=== PATIENT | female | born 1940 | race Caucasian/White ===

== ENCOUNTER → 2016-12-11 | Outpatient (CLI) | payer MEDICARE ==
[2016-12-11 12:05] LABS: Blood Urea Nitrogen 7 mg/dL (7-17); Non-African American GFR(MDRD) >60 (>60 ml/min/1.73 sqM)
--- NOTE | 2016-12-11 17:09 | CT ---
EXAMINATION TYPE: CT abdomen pelvis w con DATE OF EXAM: 12/11/2016 COMPARISON: NONE INDICATION: Abdominal pain, unspecified DLP: 352.10 mGycm, Automated exposure control for dose reduction was used. CONTRAST: 100 ml mL of Omnipaque 300. Study performed with Oral Contrast TECHNIQUE: Axial images were obtained from above the diaphragm to the pubic rami in the axial plane a t 5 mm thick sections. Reconstructed images are reviewed on the computer in the coronal plane. FINDINGS: Limited CT sections are obtained the lung bases. The lung bases are clear. CT ABDOMEN: Liver: Normal Spleen: Normal Pancreas: Slightly atrophic. Common bile duct is dilated above the head of the pancreas measuring 1.5 cm. Adrenal glands: The adrenal glands are normal. Gallbladder: Normal Kidneys: No masses are evident. No hydronephrosis is present. No cysts are present. Delayed images were obtained through the kidneys, which remain unremarkable. Aorta: Vascular calcification is within the aorta. Inferior vena cava: Normal. CT PELVIS: Loops of bowel within the abdomen and pelvis are normal. There are loops of bowel which are incom pletely distended or lack oral contrast limiting their evaluation. Diverticuli are within the sigmoid colon region. Fecal debris is at the level the rectum. Appendix: Not identified Urinary bladder: Normal. Genitourinary structures: Uterus and adnexal regions are unremarkable Osseous structures: No suspicious lytic or sclerotic lesions. IMPRESSIONS: 1. Prominent common bile duct measuring 1.5 cm above the head of the pancreas. Consider ERCP for add itional evaluation.
== END | disposition home or self-care (01) ==
LOC: RADCTMAIN 11:24
PROVIDERS: ATTEND Surgery
DX: R10.9 Unspecified abdominal pain (principal)
CPT/HCPCS: 82565; 84520; 74177; 36415; Q9967

== ENCOUNTER → 2017-01-07 | Outpatient (CLI) | payer MEDICARE ==
--- NOTE | 2017-01-07 10:35 | US ---
EXAMINATION TYPE: US abdomen limited DATE OF EXAM: 01/07/2017 COMPARISON: NONE CLINICAL HISTORY: 76-year-old female R93.[address] Dilated bile duct on CT. No symptoms per lea ent, did have previous bowel changes. TECHNIQUE: Multiple sonographic images of the right upper quadrant are obtained. FINDINGS: Liver Length: 15.0 cm Gallbladder Wall: 0.1 cm CBD: 1.2 cm Right Kidney: 9.9 x 4.2 x 4.1 cm Pancreas: wnl Liver: Intrahepatic biliary ductal dilatation seen on CT is not as well demonstrated by ultrasound. Gallbladder: Prominent fold at the gallbladder neck area. No abnormal distention, wall thickening, s hadowing calculi, or pericholecystic fluid. Evidence for sonographic Boswell's sign: no CBD: dilated with no obvious stone or mass seen near pancreatic head. The distal most duct is subopt imally visualized. Right Kidney: No hydronephrosis IMPRESSION: Bile duct dilated up to 1.2 cm. Intrahepatic biliary ductal dilatation was better seen on the patient 's recent CT. Correlate with alkaline phosphatase and bilirubin levels. ERCP or contrast enhanced MRI /MRCP to further evaluate as clinically indicated.
== END | disposition home or self-care (01) ==
LOC: RADUSWWP 06:57
PROVIDERS: ATTEND Surgery
DX: K83.8 Other specified diseases of biliary tract (principal); R68.89 Other general symptoms and signs
CPT/HCPCS: 76705

== ENCOUNTER → 2017-01-29 | Outpatient (CLI) | payer MEDICARE ==
--- NOTE | 2017-01-29 12:03 | MR ---
EXAMINATION TYPE: MR MRCP DATE OF EXAM: 01/29/2017 COMPARISON: CT abdomen and pelvis December 11, 2016. Limited abdominal ultrasound January 07, 2017 HISTORY: dilated common bile duct Standard multiplanar, multisequence MRI departmental protocol Multiplanar, multisequence images of the abdomen focusing on the biliary system were acquired. Diffus ion weighted imaging was performed. Thin and thick slice MRCP imaging is acquired. FINDINGS: LIVER/GB/PANCREAS/BILIARY SYSTEM: Liver is overall normal in size without worrisome solid or cystic m ass. Slightly prominent right hepatic lobe which is normal variant is redemonstrated. Gallbladder is felt within normal limits without intraluminal gallstones or suspicious wall thickening. Pancreas is normal in size without suspicious mass or pancreatic duct is visualized to the tail but measures unde r 3 mm in its entire course. Correlating with CT and ultrasound there is mild central intrahepatic and extrahepatic biliary dilata tion. Common hepatic and common bile ducts near teddy hepatis measure up to 13 mm in diameter. There is good visualization to the ampulla without CBD stone or other obstructing mass identified. OTHER: Lung bases are clear without pleural or pericardial effusion. The spleen and both adrenal glan ds are normal in size. There is no worrisome renal mass or hydronephrosis seen bilaterally. There is no suspicious small or large bowel dilatation. There is no concerning abdominal fluid collection. The re is no greater than 1 cm abdominal adenopathy. IMPRESSION: Mild central intrahepatic and extra hepatic biliary dilatation without obvious obstructin g stone or mass identified. Perhaps this reflects normal variant, ampullary mass is not entirely excl uded without direct visualization or ERCP correlation.
== END | disposition home or self-care (01) ==
LOC: RADMRIMAIN 10:39
PROVIDERS: ATTEND Surgery
DX: K83.8 Other specified diseases of biliary tract (principal)
CPT/HCPCS: 74181

== ENCOUNTER → 2017-04-24 | Outpatient (CLI) | payer MEDICARE ==
[2017-04-24 12:29] LABS: Bilirubin, Delta 0.2 mg/dL (0.0-0.2); Total Bilirubin 0.8 mg/dL (0.2-1.3)
== END | disposition home or self-care (01) ==
LOC: LABWHC1 11:15
DX: R93.8 Abnormal findings on diagnostic imaging of other specified body structures (principal)
CPT/HCPCS: 36415; 80076; 82150; 83690; 86301

== ENCOUNTER → 2017-08-06 | Outpatient (CLI) | payer MEDICARE ==
--- NOTE | 2017-08-06 07:58 | MR ---
EXAMINATION TYPE: MR brain wo con DATE OF EXAM: 08/06/2017 COMPARISON: CT brain July 26, 2015. HISTORY: New daily persistent headache (NDPH) per order. Severe new left-sided headaches with right-s ided hearing loss per patient. TECHNIQUE: Multiplanar, multisequence imaging of the brain and brainstem is performed without IV cont rast. FINDINGS: Diffusion weighted images demonstrate no evidence of a recent infarct or other diffusion abnormality. There is no worrisome extra-axial fluid collection. There is ventricular and sulcal prominence consis tent with mild diffuse cerebral atrophy. There is more prominent focal and confluent areas of T2 hype rintensity seen throughout the white matter bilaterally most prominent in deep and periventricular re gions. Lesions are nonspecific, but most likely on basis of product of severe chronic small vessel is chemic change. No obvious change from prior CT. Midline structures demonstrate normal morphology. The craniocervical junction appears within normal limits. Normal vascular flow voids are present. The visualized sinuses are clear and the globes are i ntact. IMPRESSION: 1. Redemonstration of mild diffuse age-related cerebral atrophy and severe nonspecific white matter changes most likely on basis of product of chronic small vessel ischemic change.
== END | disposition home or self-care (01) ==
LOC: RADMRIMAIN 07:17
PROVIDERS: ATTEND Internal Medicine
DX: G31.1 Senile degeneration of brain, not elsewhere classified (principal); R51 Headache
CPT/HCPCS: 70551

== ENCOUNTER → 2017-08-18 | Outpatient (CLI) | payer MEDICARE ==
--- NOTE | 2017-08-20 07:36 | MM ---
Reason for exam: screening (asymptomatic). Last mammogram was performed 1 year and 2 months ago. History: Patient is postmenopausal. Physical Findings: A clinical breast exam by your physician is recommended on an annual basis and results should be correlated with mammographic findings. MG 3D Screening Mammo W/Cad Bilateral CC and MLO view(s) were taken. Prior study comparison: June 25, 2016, bilateral MG 3d screening mammo w/cad. October 05, 2014, bilateral MG screening mammo w CAD. The breast tissue is heterogeneously dense. This may lower the sensitivity of mammography. No significant changes when compared with prior studies. ASSESSMENT: Negative, BI-RAD 1 RECOMMENDATION: Routine screening mammogram of both breasts in 1 year.
== END | disposition home or self-care (01) ==
LOC: RADMAMWWP 10:48
PROVIDERS: ATTEND Internal Medicine
DX: Z12.31 Encounter for screening mammogram for malignant neoplasm of breast (principal)
CPT/HCPCS: 77063; 77067

== ENCOUNTER → 2017-10-02 | Outpatient (CLI) | payer MEDICARE ==
--- NOTE | 2017-10-02 09:09 | MR ---
EXAMINATION TYPE: MR angio head wo con DATE OF EXAM: 10/02/2017 COMPARISON: 08/06/2017 HISTORY: Cerebral aneurysm, nonruptured TECHNIQUE: Utilizing 3-D [id number] intracranial MRA of the [place] of [place] was performed. FINDINGS: The vertebrobasilar and carotid systems are patent. There is 2 mm nodular prominence of the cavernou s segment of the right ICA compatible with a tiny aneurysm. IMPRESSION: 1. There is a 1 to 2 mm aneurysm cavernous segment right ICA.
== END | disposition home or self-care (01) ==
LOC: RADMRIMAIN 08:19
PROVIDERS: ATTEND Psychiatry & Neurology Neurology
DX: I67.1 Cerebral aneurysm, nonruptured (principal)
CPT/HCPCS: 70544

== ENCOUNTER → 2018-06-30 | Outpatient (CLI) | payer MEDICARE ==
[2018-06-30 14:26] LABS: Blood Urea Nitrogen 10 mg/dL (7-17)
--- NOTE | 2018-06-30 22:53 | CT ---
EXAMINATION TYPE: CT soft tissue neck w con DATE OF EXAM: 06/30/2018 COMPARISON: None HISTORY: 78-year-old female swelling, mass, lump along the neck. Left-sided facial and ear pain. TECHNIQUE: Contiguous axial scanning of the soft tissues of the neck performed with IV Contrast, lea ent injected with 100 mL of Isovue 300. Coronal/sagittal sagittal reconstructions performed. CT DLP: 305 mGycm Automated exposure control for dose reduction was used. FINDINGS: Visualized intracranial structures show no gross abnormality. Air-fluid level in the right greater th an left sphenoid sinuses as well as the bilateral maxillary sinuses with severe mucosal thickening in the ethmoid air cells. Visualized orbits and globes are intact . Small amount of trapped fluid in th e inferior left mastoid air cells. Mild retained secretions/debris along the posterior nasopharynx. Oropharynx appear clear. Epiglottis and prevertebral soft tissues are normal. Some asymmetry with smaller right piriform sinus suspected to be on a positional basis. No enhancing mucosal space lesion is seen. The glottic and subglottic structures as well as the tracheal column are clear. There is enhancing nodularity along the anterior midline strap musculature measuring 9 mm above the l evel of the thyroid gland suggestive of ectopic thyroid tissue. Heterogeneity of the thyroid gland. The thyroid gland measuring at the upper limits of normal in size . 9 mm nodule posterior lower pole of the right lobe. Submandibular and parotid glands appear satisfactory. 3 mm calcification along the anterior margin of the left parotid gland could represent a nonobstructing sialolith. Scattered prominent but nonenlarged lymph nodes along the upper neck measuring up to 1 cm on the righ t, axial image 20 and sagittal image 17 and 1 cm also on the left, axial and 26 and coronal image 26. Atherosclerotic calcifications at the left carotid bifurcation with possible moderate to severe steno sis at the carotid bulb. Biapical pleural parenchymal scarring though with more focal irregular opacity measuring 1.6 cm the m edial left upper lobe on axial image 57. 2 to three-week follow-up CT chest recommended to reassess t his area. Neoplasm is not excluded at this time. Mild emphysematous change. Bones: Cervical spondylosis. IMPRESSION: 1. SMALL AMOUNT OF TRAPPED FLUID IN THE INFERIOR LEFT MASTOID AIR CELLS. CORRELATE FOR ANY MASTOID PA IN TO EXCLUDE MASTOIDITIS. 2. A 3 MM CALCIFICATION ALONG THE ANTERIOR MARGIN OF THE LEFT PAROTID GLAND COULD REPRESENT A NONOBST RUCTING SIALOLITH. 3. A 9 MM ENHANCING NODULE ALONG THE ANTERIOR MIDLINE STRAP MUSCULATURE ABOVE THE LEVEL OF THE THYROI D GLAND SUGGESTIVE OF ECTOPIC THYROID TISSUE. UNDERLYING THYROID NODULES ARE SUGGESTED AND A THYROID ULTRASOUND CAN FURTHER EVALUATE. 4. SOME PROMINENT BUT NOT ENLARGED UPPER CERVICAL LYMPH NODES MEASURING UP TO 1 CM. 5. BIAPICAL PLEURAL PARENCHYMAL SCARRING WITH UNDERLYING COPD AND A 1.6 CM IRREGULAR OPACITY AT THE M EDIAL LEFT UPPER LOBE. 2-3 WEEK FOLLOW-UP CONTRAST ENHANCED CT CHEST RECOMMENDED TO REASSESS. EARLY N EOPLASM NOT EXCLUDED AT THIS TIME. 6. ATHEROSCLEROTIC CALCIFICATIONS AT THE LEFT CAROTID BIFURCATION WITH POSSIBLE MODERATE TO SEVERE ST ENOSIS AT THE LEFT CAROTID BULB. 7. ACUTE ON CHRONIC PANSINUSITIS.
== END | disposition home or self-care (01) ==
LOC: RADCTMAIN 13:49
PROVIDERS: ATTEND Otolaryngology
DX: E04.1 Nontoxic single thyroid nodule (principal); K11.8 Other diseases of salivary glands
CPT/HCPCS: 82565; 84520; 70491; 36415; Q9967

== ENCOUNTER → 2018-07-20 | Outpatient (CLI) | payer MEDICARE ==
--- NOTE | 2018-07-20 09:28 | US ---
EXAMINATION TYPE: US abdomen complete DATE OF EXAM: 07/20/2018 COMPARISON: CT abdomen and pelvis December 11, 2016 CLINICAL HISTORY: R19.7 Diarrhea. Diarrhea, follow up dilated CBD EXAM MEASUREMENTS: Liver Length: 16.7 cm Gallbladder Wall: 0.1 cm CBD: 0.9 cm Spleen: cm Right Kidney: 9.8 x 4.3 x 4.1 cm Left Kidney: 9.2 x 4.8 x 4.4 cm Pancreas: visualized portions wnl, limited by overlying midline bowel gas Liver: wnl Gallbladder: wnl Evidence for sonographic Boswell's sign: no CBD: dilated Spleen: obscured by overlying bowel gas Right Kidney: wnl Left Kidney: wnl Upper IVC: wnl Abd Aorta: atherosclerotic changes The visualized liver is homogenous. Prominent right hepatic lobe redemonstrated. The intrahepatic por tion of the IVC is within normal limits. There is atherosclerotic change in visualized aorta without aneurysmal change. There is no evidence of cholelithiasis. Common bile duct remains mild to moderat leslie dilated but not significantly changed from CT. The visualized portions of the pancreas are homog enous. The spleen is obscured by overlying bowel gas per technologist. Kidneys are symmetric and fr ee of hydronephrosis. No renal lesions are seen on images saved. IMPRESSION: Suboptimal study, there is mild to moderate extrahepatic biliary dilatation redemonstrate d without significant interval change. Negative MRCP noted January 29, 2017.
== END | disposition home or self-care (01) ==
LOC: RADUSWWP 08:18
DX: K83.8 Other specified diseases of biliary tract (principal)
CPT/HCPCS: 76700

== ENCOUNTER → 2018-07-28 | Outpatient (CLI) | payer MEDICARE ==
[2018-07-28 09:17] LABS: Basophils % (A) 1 %; Eosinophils # (A) 0.2 k/uL (0-0.7); Eosinophils % (A) 3 %; HCT 40.1 % (34.0-46.0); HGB 13.3 gm/dL (11.4-16.0); Lymphocytes # (A) 1.8 k/uL (1.0-4.8); Lymphocytes % (A) 29 %; MCH 32.5 pg (25.0-35.0); MCHC 33.1 g/dL (31.0-37.0); MCV 98.1 fL (80.0-100.0); Mean Platelet Volume 8.4; Monocytes # (A) 0.4 k/uL (0-1.0); Monocytes % (A) 6 %; Neutrophils # (A) 3.7 k/uL (1.3-7.7); Neutrophils % (A) 60 %; Platelet Count 219 k/uL (150-450); RBC 4.08 m/uL (3.80-5.40); WBC 6.2 k/uL (3.8-10.6)
[2018-07-28 16:33] LABS: Alpha Fetoprotein, Tumor Mkr 12.6 ng/mL (0.0-7.9)
[2018-07-28 16:34] LABS: Vitamin D 25 Hydroxy 41.8 ng/mL (30.0-100.0)
[2018-07-28 16:40] LABS: Anion Gap 6.2 mmol/L (4.00-12.00); Calcium 9.5 mg/dL (8.7-10.3); Carbon Dioxide 27.8 mmol/L (21.6-31.8); LDL Cholesterol,Calculated 85.2 mg/dL (0.0-131.0); Potassium 4.4 mmol/L (3.5-5.5); Total Bilirubin 0.6 mg/dL (0.3-1.2); VLDL Calculation 17.8 mg/dL (5.00-40.00)
[2018-07-28 17:03] LABS: Cancer Antigen 19-9 7.9 U/mL (0.0-34.9)
== END | disposition home or self-care (01) ==
LOC: LABWHC1 08:39
DX: K83.9 Disease of biliary tract, unspecified (principal); K52.9 Noninfective gastroenteritis and colitis, unspecified; E55.9 Vitamin D deficiency, unspecified; I10 Essential (primary) hypertension; R53.83 Other fatigue
CPT/HCPCS: 36415; 80053; 80061; 82105; 82150; 82306; 83690; 84443; 85025; 86301

== ENCOUNTER → 2018-08-03 | Outpatient (CLI) | payer MEDICARE ==
[2018-08-03 09:10] LABS: Blood Urea Nitrogen 8 mg/dL (7-17)
--- NOTE | 2018-08-03 11:31 | CT ---
EXAMINATION TYPE: CT chest w con DATE OF EXAM: 08/03/2018 COMPARISON: CT chest August 23, 2011. Recent two-view chest x-ray July 22, 2018. CT neck June 30, 2018. HISTORY: Follow up scan per patient. Abnormal chest x-ray and/or CT. CT DLP: 112 mGycm. Automated Exposure Control for Dose Reduction was Utilized. TECHNIQUE: CT scan of the thorax is performed following with IV Contrast, patient injected with 100 mL of Isovue 300. FINDINGS: LUNGS: Mild to moderate underlying emphysematous change most prominent lung apices is identified. The re is stable 6 x 4 mm subpleural nodule or nodular density lateral right lower lobe axial image 42. T here is new spiculated 1.3 x 1.0 cm nodule in the medial left upper lobe axial image 8 less well seen on recent chest x-ray. There is mild to moderate biapical pleural/parenchymal scarring redemonstrate d superior to this. No pleural effusion or pneumothorax is evident bilaterally. No suspicious consoli dation is present. MEDIASTINUM: There are no greater than 1 cm hilar or mediastinal lymph nodes. No cardiomegaly or pe ricardial effusion is seen. Coronary artery calcification is redemonstrated which is noted marker for coronary artery disease. There is new but subcentimeter low dense posterior lower pole right thyroid nodule coronal image 33. There is moderate to severe mixed plaque in the aorta extending into branch vessels. OTHER: There is mild left intrahepatic and central extra hepatic biliary dilatation not significantly changed from prior. Osseous structures are demineralized. IMPRESSION: Mild to moderate underlying emphysematous change with persistence of suspicious spiculate d 1.3 x 1.0 cm medial left upper lobe nodule worrisome for neoplasm. Advise PET CT follow-up.
== END | disposition home or self-care (01) ==
LOC: RADCTMAIN 08:28
PROVIDERS: ATTEND Internal Medicine
DX: J43.9 Emphysema, unspecified (principal); R91.8 Other nonspecific abnormal finding of lung field
CPT/HCPCS: 82565; 84520; 71260; 36415; Q9967

== ENCOUNTER → 2018-09-29 | Outpatient (CLI) | payer MEDICARE ==
--- NOTE | 2018-09-30 11:53 | MM ---
Reason for exam: screening (asymptomatic). Last mammogram was performed 1 year and 1 month ago. History: Patient is postmenopausal. Physical Findings: A clinical breast exam by your physician is recommended on an annual basis and results should be correlated with mammographic findings. MG 3D Screening Mammo W/Cad Bilateral CC, MLO, and XCCL view(s) were taken. Prior study comparison: August 18, 2017, bilateral MG 3d screening mammo w/cad. June 25, 2016, bilateral MG 3d screening mammo w/cad. The breast tissue is heterogeneously dense. This may lower the sensitivity of mammography. There are benign appearing round regional calcifications bilaterally. There is no discrete abnormality. ASSESSMENT: Benign, BI-RAD 2 RECOMMENDATION: Routine screening mammogram of both breasts in 1 year.
== END | disposition home or self-care (01) ==
LOC: RADMAMWWP 07:59
PROVIDERS: ATTEND Internal Medicine
DX: Z12.31 Encounter for screening mammogram for malignant neoplasm of breast (principal)
CPT/HCPCS: 77063; 77067

== ENCOUNTER → 2018-11-03 | Outpatient (CLI) | payer MEDICARE ==
[2018-11-03 09:23] LABS: Blood Urea Nitrogen 11 mg/dL (7-17)
--- NOTE | 2018-11-03 11:02 | CT ---
EXAMINATION TYPE: CT chest w con DATE OF EXAM: 11/03/2018 COMPARISON: 08/03/2018 and 08/23/2011 HISTORY: 78-year-old female abnormal findings lung zhou. TECHNIQUE: Contiguous axial scanning of the chest after the administration of 100 ml mL of Isovue 300 . Coronal/sagittal reconstructions performed. CT DLP: 100.50mGycm. Automatic exposure control utilized for a dose reduction. FINDINGS: Heart normal size without pericardial effusion. Dense coronary vessel calcifications are present. Conventional arch was a branching anatomy with mild atherosclerotic arch calcifications. Some scattered prominent but nonenlarged mediastinal lymph nodes measure up to 8 mm. Biapical pleural parenchymal scarring redemonstrated with mild centrilobular emphysema. Irregular left apical nodule is redemonstrated, currently measuring 1.7 x 1.1 x 2.1 cm versus 1.6 x 1 .1 x 2.1 cm, previously. It is noted to be new from the 08/23/2011 exam. Stable dilatation of the bile duct likely chronic in this patient. Bones: Moderate degenerative disc disease redemonstrated especially in the mid to lower thoracic spin e. IMPRESSION: 1. COPD with mild emphysema. 2. The 2.1 x 1.7 x 1.1 cm irregular left apical nodule measured 2.1 x 1.6 x 1.1 cm 3 months ago. Desp ite the relative stability in size, it remains suspicious especially given that it is new from 2011. Continued close surveillance recommended as early lung cancer remains to be excluded.
== END | disposition home or self-care (01) ==
LOC: RADCTMAIN 08:39
PROVIDERS: ATTEND Internal Medicine
DX: J43.9 Emphysema, unspecified (principal); R91.1 Solitary pulmonary nodule
CPT/HCPCS: 82565; 84520; 71260; 36415; Q9967

== ENCOUNTER → 2018-11-24 | Outpatient (CLI) | payer MEDICARE ==
--- NOTE | 2018-11-24 12:29 | MR ---
EXAMINATION TYPE: MR angio head wo con DATE OF EXAM: 11/24/2018 COMPARISON: Prior MRA 10/02/2017 HISTORY: F/U known cerebral aneurysm TECHNIQUE: Time of flight images focusing on the [place] of [place] were performed without contrast. FINDINGS: Anterior posterior circulation are patent. There is no evident dissection or embolus. The p rominence along the medial aspect of the internal carotid artery on the right described at its cavern ous portion on previous exam shows a stable appearance. IMPRESSION: Stable exam.
== END ==
LOC: RADMRIMAIN 10:17
PROVIDERS: ATTEND Psychiatry & Neurology Neurology
DX: I67.1 Cerebral aneurysm, nonruptured (principal)
CPT/HCPCS: 70544

== ENCOUNTER → 2018-12-30 | Outpatient (CLI) | payer MEDICARE ==
--- NOTE | 2018-12-30 08:26 | US ---
EXAMINATION TYPE: US thyroid st tissue head/neck DATE OF EXAM: 12/30/2018 COMPARISON: NONE CLINICAL HISTORY: E04.1 thyroid nodule. GLAND SIZE: Right Lobe: 4.5 x 1.8 x 1.6 cm Overall Parenchyma: heterogenous Left Lobe: 4.9 x 1.9 x 1.7 cm Overall Parenchyma: heterogeneous Isthmus Thickness: 0.2 cm NODULES RIGHT: # of nodules measured on right: 3 1. 0.8 X 0.6 x 0.7 cm hypoechoic solid nodule at the mid pole with well-defined margins; . This no dule is wider than tall and shows intranodular vascularity. Prior size: No previous 2. 0.5 X 0.4 x 0.4 cm hypoechoic mixed nodule at the mid pole with well-defined margins; . This nod ule is wider than tall and shows intranodular vascularity. Prior size: No previous 3. 0.6 X 0.4 x 0.5 cm hypoechoic mixed nodule at the upper pole with well-defined margins; . This n odule is wider than tall and shows intranodular vascularity. Prior size: No previous LEFT: # of nodules measured on left: 3 1. 0.9 X 0.6 x 0.7 cm hypoechoic solid nodule at the mid pole with well-defined margins; . This no dule is wider than tall and shows intranodular vascularity. Prior size: No previous 2. 0.5 x 0.5 x 0.6 cm hypoechoic solid nodule at the lower pole with well-defined margins; . This no dule is wider than tall and shows intranodular vascularity. Prior size: x x cm 3. 0.7 X 0.6 x 0.7 cm hypoechoic solid nodule at the mid pole with well-defined margins; . This nod ule is wider than tall and shows intranodular vascularity. Prior size: No previous ISTHMUS: # of nodules measured in the isthmus: 0 Bilateral neck scanned, no evidence of lymphadenopathy. Bilateral heterogeneous thyroid gland with innumerable subcentimeter thyroid nodules visualized bilat erally. IMPRESSION: Bilateral heterogeneous tissue with multiple subcentimeter thyroid nodules bilaterally. Correlate for thyroiditis. There are no 1 cm or greater thyroid nodules.
== END | disposition home or self-care (01) ==
LOC: RADUSWWP 06:53
PROVIDERS: ATTEND Otolaryngology
DX: E04.2 Nontoxic multinodular goiter (principal)
CPT/HCPCS: 76536

== ENCOUNTER → 2019-02-09 | Outpatient (CLI) | payer MEDICARE ==
[2019-02-09 15:38] LABS: African American GFR (CKD) >90 (>60 ml/min/1.73 sqM); Blood Urea Nitrogen 13 mg/dL (7-17)
--- NOTE | 2019-02-09 17:13 | CT ---
EXAMINATION TYPE: CT chest w con DATE OF EXAM: 02/09/2019 COMPARISON: Prior chest CT dated 11/03/2018 HISTORY: pulmonary nodule follow up CT DLP: 269 mGycm Automated exposure control for dose reduction was used. CONTRAST: CT scan of the chest is performed with IV Contrast, patient injected with 100 mL of Isovue 300. FINDINGS: LUNGS: The lungs show a similar appearance. The nodular density shows a lobulated appearance in the l eft upper lobe and measures approximately 16 mm x 11 mm x 23 mm, there is pleural extension, abnormal soft tissue at the left apex. There are spiculated margins. There is no pleural effusion or pneumoth orax seen. The tracheobronchial tree is patent. MEDIASTINUM: There are no greater than 1 cm hilar or mediastinal lymph nodes. No pericardial effusi on is seen. There are dense coronary artery calcifications present. AORTA: No additional significant abnormality is seen. OTHER: No additional significant abnormality is seen. IMPRESSION: Stable exam. Nuclear medicine PET/CT May BE of benefit. Coronary artery disease.
== END | disposition home or self-care (01) ==
LOC: RADCTMAIN 14:49
PROVIDERS: ATTEND Internal Medicine
DX: I25.10 Atherosclerotic heart disease of native coronary artery without angina pectoris (principal)
CPT/HCPCS: 36415; 71260; 82565; 84520

== ENCOUNTER → 2019-02-26 | Outpatient (CLI) | payer MEDICARE ==
--- NOTE | 2019-03-01 14:38 | PE ---
Nuclear medicine PET/CT HISTORY: Solitary pulmonary nodule, initial Patient received 12.1 mCi F-18 FDG intravenously in delayed scanning was performed from the skull bas e to the mid thighs. Localization and attenuation correction CT scan was performed. Correlation CT chest 02/09/2019, 11/03/2018 and 08/03/2018 Neck and chest: The apical nodule and left shows associated hypermetabolic uptake. SUV is 5.7. There is no supraclavicular, mediastinal, axillary, or hilar adenopathy. No pleural pericardial effusion. T here are coronary artery calcifications present. ABDOMEN: No evident liver mass or adrenal lesion. No suspicious hypermetabolic uptake. No retroperito sayda adenopathy. Osseous structures show degenerative disc change and facet arthropathy in the lumbar spine. No suspic ious hypermetabolic uptake. IMPRESSION: There is hypermetabolic uptake associated patient's left upper lobe lung nodule. Addition al findings above.
== END | disposition home or self-care (01) ==
LOC: RADPETMAIN 15:55
PROVIDERS: ATTEND Internal Medicine
DX: R91.1 Solitary pulmonary nodule (principal)
CPT/HCPCS: 78815; A9552

== ENCOUNTER 2019-05-05 22:21 | Inpatient (IN) | payer MEDICARE ==
[2019-05-05] MEDS ORDERED: SODIUM CHLORIDE 0.9% 1,000 ML IV STA ×2 (22:35→23:30)
[2019-05-05] MEDS ORDERED: ACETAMINOPHEN TAB 500 MG TAB PO STA (22:35)
[2019-05-05] MEDS ORDERED: IBUPROFEN 600 MG TAB PO STA (22:35)
[2019-05-05] MEDS ORDERED: LABETALOL 5 MG/ML VIAL MDV IVP STA (22:41)
--- NOTE | 2019-05-05 22:55 | ED ---
Altered Mental Status HPI - General Chief Complaint: Altered Mental Status Stated Complaint: confusion/memory problems Time Seen by Provider: 05/05/19 22:28 Source: patient, family, RN notes reviewed, old records reviewed Mode of arrival: wheelchair Limitations: altered mental status - History of Present Illness Initial Comments: This is a 79-year-old female she presents today for evaluation regards to fever and altered mental status with history of dementia. Family states she has not been acting herself and 1 over house for a few days she was not doing her normal activities. Recent history of UTI complicated by C. diff infection along hospitalization. Patient's been home by her self for 2 days was doing okay yesterday and worse today. Family did notice fever as the day wore on with increasing weakness and decreased level responsiveness. Patient has been without complaint MD Complaint: confusion, decreased responsiveness, weakness, other (fever) -: days(s) Severity: moderate Consistency of Symptoms: getting worse Context: history of similar presentation, recent fever Associated Symptoms: weakness - Related Data Home Medications Medication Instructions Recorded Confirmed amLODIPine BESYLATE [Norvasc] 5 mg PO HS 11/28/13 05/05/19 Multivitamins, Thera [Multivitamin 1 tab PO DAILY 11/30/13 05/05/19 (formulary)] Aspirin EC [Ecotrin Low Dose] 162 mg PO DAILY 10/17/16 05/05/19 Calcium Carbonate/Vitamin D3 1 tab PO DAILY 10/17/16 05/05/19 [Caltrate 600 Plus D3 Tablet] Cyanocobalamin (Vitamin B-12) 1,000 mcg PO DAILY 10/17/16 05/05/19 [Vitamin B-12] Losartan Potassium 100 mg PO DAILY 10/17/16 05/05/19 Ascorbic Acid [Vitamin C] 1,000 mg PO DAILY 05/05/19 05/05/19 Cholecalciferol [Vitamin D3 (25 2,000 unit PO DAILY 05/05/19 05/05/19 Mcg = 1000 Iu)] HYDROcodone/APAP 7.5-325MG [[place] 1 tab PO BID PRN 05/05/19 05/05/19 7.5-325] Rivastigmine 9.5MG/24Hr Patch 1 patch TRANSDERM Q24HR 05/05/19 05/05/19 [Exelon 9.5MG/24Hr Patch] Vitamin E (Dl,Tocopheryl Acet) 400 unit PO DAILY 05/05/19 05/05/19 [Vitamin E] Allergies Allergy/AdvReac Type Severity Reaction Status Date / Time steriod AdvReac Unknown FLUSHED Uncoded 05/05/19 22:58 FACE Review of Systems ROS Statement: Those systems with pertinent positive or pertinent negative responses have been documented in the HPI. ROS Other: All systems not noted in ROS Statement are negative. Past Medical History Past Medical History: Hypertension Additional Past Medical History / Comment(s): Chronic back pain History of Any Multi-Drug Resistant Organisms: None Reported Past Surgical History: Appendectomy, Back Surgery, Bowel Resection Additional Past Surgical History / Comment(s): Hemmorrhoidectomy Past Anesthesia/Blood Transfusion Reactions: No Reported Reaction Past Psychological History: No Psychological Hx Reported Smoking Status: Current every day smoker Past Alcohol Use History: Daily Past Drug Use History: None Reported General Exam Limitations: altered mental status General appearance: alert, in no apparent distress Head exam: Present: atraumatic, normocephalic, normal inspection Eye exam: Present: normal appearance, PERRL, EOMI. Absent: scleral icterus, conjunctival injection, periorbital swelling ENT exam: Present: normal exam, mucous membranes dry Neck exam: Present: normal inspection. Absent: tenderness, meningismus, lymphadenopathy Respiratory exam: Present: normal lung sounds bilaterally. Absent: respiratory distress, wheezes, rales, rhonchi, stridor Cardiovascular Exam: Present: normal rhythm, tachycardia, normal heart sounds. Absent: systolic murmur, diastolic murmur, rubs, gallop, clicks GI/Abdominal exam: Present: soft, normal bowel sounds. Absent: distended, tenderness, guarding, rebound, rigid Extremities exam: Present: normal inspection, full ROM, normal capillary refill. Absent: tenderness, pedal edema, joint swelling, calf tenderness Back exam: Present: normal inspection Neurological exam: Present: alert, oriented X3, CN II-XII intact Psychiatric exam: Present: normal affect, normal mood Skin exam: Present: warm, dry, intact, normal color. Absent: rash Course Vital Signs 05/05/19 05/05/19 22:22 23:05 Temperature 102.0 F H Pulse Rate 111 H 101 H Respiratory 22 16 Rate Blood Pressure 122/61 128/71 O2 Sat by Pulse 96 96 Oximetry - Reevaluation(s) Reevaluation #1: 05/05/19 23:31 Record review of - Consultations Consultation #1: Spoke with Dr. Jayy lowry for admission Medical Decision Making - Medical Decision Making 79 female the ER for evaluation of persistent fever not feeling well, patient will be admitted for fever control increase hydration and antibiotics. - Lab Data Result diagrams: 05/05/19 22:48 05/05/19 22:48 Lab Results 05/05/19 05/05/19 05/05/19 Range/Units 22:48 22:48 22:48 WBC 17.1 H (3.8-10.6) k/uL RBC 3.71 L (3.80-5.40) m/uL Hgb 12.0 (11.4-16.0) gm/dL Hct 35.4 (34.0-46.0) % MCV 95.5 (80.0-100.0) fL MCH 32.3 (25.0-35.0) pg MCHC 33.9 (31.0-37.0) g/dL RDW 12.8 (11.5-15.5) % Plt Count 306 (150-450) k/uL Neutrophils % 86 % Lymphocytes % 7 % Monocytes % 5 % Eosinophils % 0 % Basophils % 0 % Neutrophils # 14.7 H (1.3-7.7) k/uL Lymphocytes # 1.3 (1.0-4.8) k/uL Monocytes # 0.8 (0-1.0) k/uL Eosinophils # 0.0 (0-0.7) k/uL Basophils # 0.1 (0-0.2) k/uL Sodium 133 L (137-145) mmol/L Potassium 4.2 (3.5-5.1) mmol/L Chloride 101 (98-107) mmol/L Carbon Dioxide 22 (22-30) mmol/L Anion Gap 10 mmol/L BUN 19 H (7-17) mg/dL Creatinine 0.58 (0.52-1.04) mg/dL Est GFR (CKD-EPI)AfAm >90 (>60 ml/min/1.73 sqM) Est GFR (CKD-EPI)NonAf 88 (>60 ml/min/1.73 sqM) Glucose 110 H (74-99) mg/dL Plasma Lactic Acid Hai 0.9 (0.7-2.0) mmol/L Calcium 10.1 (8.4-10.2) mg/dL Phosphorus 3.8 (2.5-4.5) mg/dL Magnesium 1.8 (1.6-2.3) mg/dL Total Bilirubin 0.6 (0.2-1.3) mg/dL AST 23 (14-36) U/L ALT 18 (9-52) U/L Alkaline Phosphatase 125 (38-126) U/L Total Protein 6.9 (6.3-8.2) g/dL Albumin 3.7 (3.5-5.0) g/dL Influenza Type A RNA (Not Detectd) Influenza Type B (PCR) (Not Detectd) 05/05/19 Range/Units 23:02 WBC (3.8-10.6) k/uL RBC (3.80-5.40) m/uL Hgb (11.4-16.0) gm/dL Hct (34.0-46.0) % MCV (80.0-100.0) fL MCH (25.0-35.0) pg MCHC (31.0-37.0) g/dL RDW (11.5-15.5) % Plt Count (150-450) k/uL Neutrophils % % Lymphocytes % % Monocytes % % Eosinophils % % Basophils % % Neutrophils # (1.3-7.7) k/uL Lymphocytes # (1.0-4.8) k/uL Monocytes # (0-1.0) k/uL Eosinophils # (0-0.7) k/uL Basophils # (0-0.2) k/uL Sodium (137-145) mmol/L Potassium (3.5-5.1) mmol/L Chloride (98-107) mmol/L Carbon Dioxide (22-30) mmol/L Anion Gap mmol/L BUN (7-17) mg/dL Creatinine (0.52-1.04) mg/dL Est GFR (CKD-EPI)AfAm (>60 ml/min/1.73 sqM) Est GFR (CKD-EPI)NonAf (>60 ml/min/1.73 sqM) Glucose (74-99) mg/dL Plasma Lactic Acid Hai (0.7-2.0) mmol/L Calcium (8.4-10.2) mg/dL Phosphorus (2.5-4.5) mg/dL Magnesium (1.6-2.3) mg/dL Total Bilirubin (0.2-1.3) mg/dL AST (14-36) U/L ALT (9-52) U/L Alkaline Phosphatase (38-126) U/L Total Protein (6.3-8.2) g/dL Albumin (3.5-5.0) g/dL Influenza Type A RNA Not Detected (Not Detectd) Influenza Type B (PCR) Not Detected (Not Detectd) - EKG Data -: EKG Interpreted by Me (EKG shows sinus tachycardia 104, UT 154, QRS 74, QTc 412) - Radiology Data Radiology results: report reviewed (Chest x-rays negative for acute disease), image reviewed Disposition Clinical Impression: Altered mental status, Fever, Weakness Disposition: ADMITTED IP TO THIS HOSP Condition: Fair Is patient prescribed a controlled substance at d/c from ED?: No
[2019-05-05 23:09] LABS: Basophils # (A) 0.1 k/uL (0-0.2); Basophils % (A) 0 %; Eosinophils % (A) 0 %; HCT 35.4 % (34.0-46.0); Lymphocytes # (A) 1.3 k/uL (1.0-4.8); Lymphocytes % (A) 7 %; MCH 32.3 pg (25.0-35.0); MCHC 33.9 g/dL (31.0-37.0); MCV 95.5 fL (80.0-100.0); Mean Platelet Volume 6.7; Monocytes # (A) 0.8 k/uL (0-1.0); Monocytes % (A) 5 %; Neutrophils # (A) 14.7 k/uL (1.3-7.7); Neutrophils % (A) 86 %; Platelet Count 306 k/uL (150-450); RBC 3.71 m/uL (3.80-5.40); RDW 12.8 % (11.5-15.5); WBC 17.1 k/uL (3.8-10.6)
--- NOTE | 2019-05-05 23:18 | XR ---
EXAMINATION TYPE: XR chest 2V DATE OF EXAM: 05/05/2019 COMPARISON: 07/22/2018 HISTORY: Weakness TECHNIQUE: Frontal and lateral views of the chest are obtained. FINDINGS: There is suboptimal inspiration. Lungs are clear of consolidation. There is no heart failu re. Thoracic aorta is atheromatous. There is no pleural effusion. Bony thorax is intact. IMPRESSION: Inspiration decreased compared to old exam. No heart failure.
[2019-05-05 23:19] LABS: ALT 18 U/L (9-52); AST 23 U/L (14-36); African American GFR (CKD) >90 (>60 ml/min/1.73 sqM); Albumin 3.7 g/dL (3.5-5.0); Alkaline Phosphatase 125 U/L (38-126); Anion Gap 10 mmol/L; Blood Urea Nitrogen 19 mg/dL (7-17); Calcium 10.1 mg/dL (8.4-10.2); Carbon Dioxide 22 mmol/L (22-30); Chloride 101 mmol/L (98-107); Glucose 110 mg/dL (74-99); Magnesium 1.8 mg/dL (1.6-2.3); Phosphorus 3.8 mg/dL (2.5-4.5); Potassium 4.2 mmol/L (3.5-5.1); Sodium 133 mmol/L (137-145); Total Bilirubin 0.6 mg/dL (0.2-1.3); Total Protein 6.9 g/dL (6.3-8.2)
[2019-05-06 00:15] LABS: Appearance,Urine Clear (Clear); Bilirubin,Urine Negative (Negative); Blood,Urine Negative (Negative); Color,Urine Yellow; Glucose,Urine (UA) Negative (Negative); Ketones,Urine Negative (Negative); Leukocyte Esterase,Urine Negative (Negative); Nitrite,Urine Negative (Negative); Protein,Urine Trace (Negative); Specific Gravity,Urine 1.017 (1.001-1.035); Urobilinogen,Urine <2.0 mg/dL (<2.0)
[2019-05-06] MEDS: ENOXAPARIN 40 MG/0.4 ML SYRINGE SQ SCH (08:01)
[2019-05-06] MEDS ORDERED: ONDANSETRON 4 MG/2 ML VIAL IVP PRN (11:13)
--- NOTE | 2019-05-06 11:17 | P.HPIM ---
History of Present Illness H&P Date: 05/06/19 This is a 79-year-old female patient who presented with complaints of fever and confusion. Patient is a poor historian with history of known dementia. Family is currently not at bedside information obtained through ER report and nursing staff. Per nursing staff patient recently underwent a lobectomy for lung cancer at [facility]. Patient was discharged home and then started having diarrhea in which she went to [place] and was diagnosed with C. diff. Patient was discharged home the past couple weeks but recently started to develop increased confusion over the past 2 days per ER report. Patient was also treated recently for UTI. she does live independently per ER report patient and was noticed to have a fever with increasing weakness. Patient has past medical history of lung cancer with left lower lobectomy recently at [facility], essential hypertension, chronic back pain, C. diff 1 month ago, appendectomy, nicotine dependence and dementia. Chest x-ray completed showing inspiration decreased compared to old exam. No heart failure. EKG completed showing sinus tachycardia possible inferior infarct age undetermined. Urinary analysis negative. Influenza negative. WBC elevated at 17.1. Lactic acid within normal limits at 0.9. Patient started on Rocephin, urine and blood cultures ordered. at this time patient denies chest pain or shortness of breath. Patient denies any nausea vomiting or diarrhea but per nursing staff patient did have episode of emesis. Due to patient's history of C. diff, stool for C. diff ordered. Patient denies any burning with urination or frequency. Review of Systems please refer to HPI otherwise unremarkable Past Medical History Past Medical History: Cancer, Hypertension Additional Past Medical History / Comment(s): Chronic back pain, CDIFF (March 2019), lung cancer, History of Any Multi-Drug Resistant Organisms: None Reported Past Surgical History: Appendectomy, Back Surgery, Bowel Resection, Joint Replacement Additional Past Surgical History / Comment(s): Hemmorrhoidectomy, left knee surgery (40% of knee cap taken out), left lower lobectomy, carotid artery cleaned out Past Anesthesia/Blood Transfusion Reactions: No Reported Reaction Past Psychological History: No Psychological Hx Reported Smoking Status: Current every day smoker Past Alcohol Use History: Daily Additional Past Alcohol Use History / Comment(s): Patient drinks 2 liquor beverages a night most nights of the week Past Drug Use History: None Reported - Past Family History Mother Additional Family Medical History / Comment(s): brain aneurysm at 54 Father Family Medical History: Cancer Additional Family Medical History / Comment(s): bone cancer Sister(s) Family Medical History: Cancer Additional Family Medical History / Comment(s): ovarian cancer Medications and Allergies Home Medications Medication Instructions Recorded Confirmed Type amLODIPine BESYLATE [Norvasc] 5 mg PO HS 11/28/13 05/05/19 History Multivitamins, Thera [Multivitamin 1 tab PO DAILY 11/30/13 05/05/19 History (formulary)] Aspirin EC [Ecotrin Low Dose] 162 mg PO DAILY 10/17/16 05/05/19 History Calcium Carbonate/Vitamin D3 1 tab PO DAILY 10/17/16 05/05/19 History [Caltrate 600 Plus D3 Tablet] Cyanocobalamin (Vitamin B-12) 1,000 mcg PO DAILY 10/17/16 05/05/19 History [Vitamin B-12] Losartan Potassium 100 mg PO DAILY 10/17/16 05/05/19 History Ascorbic Acid [Vitamin C] 1,000 mg PO DAILY 05/05/19 05/05/19 History Cholecalciferol [Vitamin D3 (25 2,000 unit PO DAILY 05/05/19 05/05/19 History Mcg = 1000 Iu)] HYDROcodone/APAP 7.5-325MG [[place] 1 tab PO BID PRN 05/05/19 05/05/19 History 7.5-325] Rivastigmine 9.5MG/24Hr Patch 1 patch TRANSDERM Q24HR 05/05/19 05/05/19 History [Exelon 9.5MG/24Hr Patch] Vitamin E (Dl,Tocopheryl Acet) 400 unit PO DAILY 05/05/19 05/05/19 History [Vitamin E] Allergies Allergy/AdvReac Type Severity Reaction Status Date / Time steriod AdvReac Unknown FLUSHED Uncoded 05/05/19 22:58 FACE Physical Exam Vitals: Vital Signs Temp Pulse Pulse Resp BP BP Pulse Ox 05/06/19 08:40 98.1 F 94 17 107/62 95 05/06/19 05:53 99.4 F 05/06/19 00:57 98.9 F 101 H 108/61 95 05/06/19 00:20 99.6 F 05/05/19 23:05 101 H 16 128/71 96 05/05/19 22:22 102.0 F H 111 H 22 122/61 96 Intake and Output 05/05/19 05/06/19 05/06/19 22:59 06:59 14:59 Intake Total 20 Balance 20 Intake: Oral 20 Other: Voiding Method Toilet Weight 45.359 kg Head normocephalic Neck supple Lungs clear to auscultation bilaterally no wheezing or crackles Heart regular rate and rhythm S1-S2, no rub or gallop Abdomen is soft nontender nondistended positive bowel sounds no hepato splenomegaly Extremities no edema Neuro alert and orientated to 2. Equal strength throughout all extremities. No signs of facial droop. Speech is clear Results CBC & Chem 7: 05/05/19 22:48 05/05/19 22:48 Labs: Abnormal Lab Results - Last 24 Hours (Table) 05/05/19 05/05/19 05/06/19 Range/Units 22:48 22:48 00:00 WBC 17.1 H (3.8-10.6) k/uL RBC 3.71 L (3.80-5.40) m/uL Neutrophils # 14.7 H (1.3-7.7) k/uL Sodium 133 L (137-145) mmol/L BUN 19 H (7-17) mg/dL Glucose 110 H (74-99) mg/dL Urine Protein Trace H (Negative) Thrombosis Risk Factor Assmnt - Choose All That Apply Each Factor Represents 1 point: Serious lung disease incl. pneumonia (< 1month) Each Risk Factor Represents 3 Points: Age 75 years or older Thrombosis Risk Factor Assessment Total Risk Factor Score: 4 Thrombosis Risk Factor Assessment Level: Moderate Risk Assessment and Plan Assessment: 1. Febrile with increased confusion. Chest x-ray completed showing aspiration decreased compared to old exam. Normal heart failure. White blood cell elevated at 17.1 lactic acid 0.9. UA negative. Blood and urine cultures ordered. Patient started on Rocephin 2. Recent C. diff infection. Stool for C. diff has been ordered. 3. Nausea and vomiting. Amylase and lipase ordered 4. Recent UTI. UA negative urine culture ordered 5. Recent left upper lobectomy for lung cancer at [facility] in March 2019 6. History of dementia 7. History of nicotine dependence 8. Essential hypertension 9. Chronic back pain DVT prophylaxis Lovenox. GI prophylaxis Pepcid Time with Patient: Greater than 30 (Greater than 60% of the total time spent in counseling and coordination of care. I performed an examination of the patient and discussed their management with the Nurse Practitioner. I have reviewed the Nurse Practitioner's notes and agree with the documented findings and plan of care)
[2019-05-06 11:54] LABS: Amylase 46 U/L (30-110)
[2019-05-06] MEDS: HYDROcodone/APAP 7.5-325MG 1 EACH TAB PO PRN (13:04)
[2019-05-06] MEDS ORDERED: VANCOMYCIN IV PER PHARMACY 1 EACH MISC MISCELLANE PRN (13:43)
[2019-05-06] MEDS ORDERED: VANCOMYCIN 750 MG in SODIUM CHLORIDE 0.9% 250 ML IVPB SCH (16:00)
[2019-05-06] MEDS: SODIUM CHLORIDE 0.9% 1,000 ML IV SCH (16:06)
[2019-05-06] MEDS: VANCOMYCIN ORAL SOLUTION 250 MG/5 ML BOTTLE PO SCH ×2 (17:31→23:17)
[2019-05-06] MEDS: CHERRY FLAVOR 60 ML BOTTLE PO PRN (17:31)
[2019-05-06] MEDS: amLODIPine 5 MG TAB PO SCH (19:31)
[2019-05-06] MEDS: ACETAMINOPHEN TAB 325 MG TAB PO PRN (19:33)
--- NOTE | 2019-05-07 00:05 | P.CONS ---
History of Present Illness - Reason for Consult Consult date: 05/06/19 Fever Requesting physician: Mark Hope - Chief Complaint Fever confusion and diarrhea x 1 day - History of Present Illness Patient is a 79-year-old female who recently did have lobectomy for underlying her lung cancer patient clinical course subsequently complicated by development of C. diff colitis for which the patient was treated with oral vancomycin which apparently the patient has completed her 04/22/2019 the daughter was not very clear what the dose of vancomycin with it was 125 4-50 mg patient did well until yesterday and she did have one episode of loose stool patient also having fever with chills and she was noticed to be slightly weak and confused patient denies having any headache or URI symptoms or chest pain shortness of breath or cough no significant wound pain from multiple no vomiting and did have diarrhea about 2-3 loose stools over the last 24 hours with the symptom when the patient presented to the ER now after the above the patient was febrile to the pressure up on one before night she was also tachycardic had did have a repeat crit was 17,000 patient 60 was negative for any consolidation UA was negative influenza serology was negative she was initially started on Rocephin stool for C. diff has been significantly positive the Rocephin was discontinued infection is was consulted for further recommendation regarding antibiotic therapy Review of Systems Positive point has been mentioned in the HPI rest of the systems are negative Past Medical History Past Medical History: Cancer, Hypertension Additional Past Medical History / Comment(s): Chronic back pain, CDIFF (March 2019), lung cancer, History of Any Multi-Drug Resistant Organisms: None Reported Past Surgical History: Appendectomy, Back Surgery, Bowel Resection, Joint Replacement Additional Past Surgical History / Comment(s): Hemmorrhoidectomy, left knee surgery (40% of knee cap taken out), left lower lobectomy, carotid artery cleaned out Past Anesthesia/Blood Transfusion Reactions: No Reported Reaction Past Psychological History: No Psychological Hx Reported Smoking Status: Current every day smoker Past Alcohol Use History: Daily Additional Past Alcohol Use History / Comment(s): Patient drinks 2 liquor beverages a night most nights of the week Past Drug Use History: None Reported - Past Family History Mother Additional Family Medical History / Comment(s): brain aneurysm at 54 Father Family Medical History: Cancer Additional Family Medical History / Comment(s): bone cancer Sister(s) Family Medical History: Cancer Additional Family Medical History / Comment(s): ovarian cancer Medications and Allergies Home Medications Medication Instructions Recorded Confirmed Type amLODIPine BESYLATE [Norvasc] 5 mg PO HS 11/28/13 05/05/19 History Multivitamins, Thera [Multivitamin 1 tab PO DAILY 11/30/13 05/05/19 History (formulary)] Aspirin EC [Ecotrin Low Dose] 162 mg PO DAILY 10/17/16 05/05/19 History Calcium Carbonate/Vitamin D3 1 tab PO DAILY 10/17/16 05/05/19 History [Caltrate 600 Plus D3 Tablet] Cyanocobalamin (Vitamin B-12) 1,000 mcg PO DAILY 10/17/16 05/05/19 History [Vitamin B-12] Losartan Potassium 100 mg PO DAILY 10/17/16 05/05/19 History Ascorbic Acid [Vitamin C] 1,000 mg PO DAILY 05/05/19 05/05/19 History Cholecalciferol [Vitamin D3 (25 2,000 unit PO DAILY 05/05/19 05/05/19 History Mcg = 1000 Iu)] HYDROcodone/APAP 7.5-325MG [[place] 1 tab PO BID PRN 05/05/19 05/05/19 History 7.5-325] Rivastigmine 9.5MG/24Hr Patch 1 patch TRANSDERM Q24HR 05/05/19 05/05/19 History [Exelon 9.5MG/24Hr Patch] Vitamin E (Dl,Tocopheryl Acet) 400 unit PO DAILY 05/05/19 05/05/19 History [Vitamin E] Allergies Allergy/AdvReac Type Severity Reaction Status Date / Time steriod AdvReac Unknown FLUSHED Uncoded 05/05/19 22:58 FACE Physical Exam Vitals: Vital Signs Temp Pulse Pulse Resp BP BP Pulse Ox 05/06/19 08:40 98.1 F 94 17 107/62 95 05/06/19 05:53 99.4 F 05/06/19 00:57 98.9 F 101 H 108/61 95 05/06/19 00:20 99.6 F 05/05/19 23:05 101 H 16 128/71 96 05/05/19 22:22 102.0 F H 111 H 22 122/61 96 Intake and Output 05/05/19 05/06/19 05/06/19 22:59 06:59 14:59 Intake Total 20 Balance 20 Intake: Oral 20 Other: Voiding Method Toilet Weight 45.359 kg GENERAL DESCRIPTION: An elderly female lying in bed, no distress. No tachypnea or accessory muscle of respiration use. HEENT: Shows Pallor , no scleral icterus. Oral mucous membrane is dry. No pharyngeal erythema or thrush NECK: Trachea central, no thyromegaly. LUNGS: Unlabored breathing. Clear to auscultation anteriorly. No wheeze or crackle. HEART: S1, S2, regular rate and rhythm. No loud murmur ABDOMEN: Soft, no tenderness , guarding or rigidity, no organomegaly EXTREMITIES: No edema of feet. SKIN: No rash, no masses palpable. NEUROLOGICAL: The patient is awake, alert, oriented x2, mood and affect normal. Results CBC & Chem 7: 05/05/19 22:48 05/05/19 22:48 Labs: Abnormal Lab Results - Last 24 Hours (Table) 05/05/19 05/05/19 05/06/19 Range/Units 22:48 22:48 00:00 WBC 17.1 H (3.8-10.6) k/uL RBC 3.71 L (3.80-5.40) m/uL Neutrophils # 14.7 H (1.3-7.7) k/uL Sodium 133 L (137-145) mmol/L BUN 19 H (7-17) mg/dL Glucose 110 H (74-99) mg/dL Urine Protein Trace H (Negative) Assessment and Plan Assessment: 1-patient presented to hospital with sepsis in this patient who did have fever tachycardia and elevated white count and also with diarrhea in this patient did have a history of C. 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 difficile colitis Current Visit: Yes Status: Acute Code(s): A04.72 - ENTEROCOLITIS D/T CLOSTRIDIUM DIFFICILE, NOT SPCF RECUR SNOMED Code(s): 319148337 Plan: 1-Rocephin has been discontinued 2-vancomycin 250 mg by mouth every 6 hours 3-gentle IV fluid Daughter has multiple question dose has been answered on the phone in Layman terms We will follow on clinical condition and cultures to further adjust medication if needed Thank you for this consultation will follow this patient with you Time with Patient: Greater than 30
[2019-05-07] MEDS: VANCOMYCIN ORAL SOLUTION 250 MG/5 ML BOTTLE PO SCH ×3 (05:45→18:18)
[2019-05-07] MEDS: SODIUM CHLORIDE 0.9% 1,000 ML IV SCH (05:45)
[2019-05-07] MEDS: HYDROcodone/APAP 7.5-325MG 1 EACH TAB PO PRN ×2 (05:46→19:41)
[2019-05-07 08:06] LABS: Basophils % (A) 0 %; Eosinophils % (A) 0 %; HCT 34.2 % (34.0-46.0); HGB 11.4 gm/dL (11.4-16.0); Lymphocytes # (A) 1.8 k/uL (1.0-4.8); Lymphocytes % (A) 11 %; MCH 32.4 pg (25.0-35.0); MCHC 33.3 g/dL (31.0-37.0); MCV 97.4 fL (80.0-100.0); Mean Platelet Volume 6.7; Monocytes # (A) 0.4 k/uL (0-1.0); Monocytes % (A) 2 %; Neutrophils # (A) 14.2 k/uL (1.3-7.7); Neutrophils % (A) 86 %; Platelet Count 308 k/uL (150-450); RBC 3.51 m/uL (3.80-5.40); RDW 12.6 % (11.5-15.5); WBC 16.6 k/uL (3.8-10.6)
[2019-05-07 08:27] LABS: ALT 19 U/L (9-52); AST 19 U/L (14-36); African American GFR (CKD) >90 (>60 ml/min/1.73 sqM); Albumin 2.9 g/dL (3.5-5.0); Alkaline Phosphatase 149 U/L (38-126); Anion Gap 8 mmol/L; Blood Urea Nitrogen 18 mg/dL (7-17); Carbon Dioxide 22 mmol/L (22-30); Chloride 104 mmol/L (98-107); Glucose 114 mg/dL (74-99); Potassium 3.7 mmol/L (3.5-5.1); Sodium 134 mmol/L (137-145); Total Bilirubin 0.7 mg/dL (0.2-1.3); Total Protein 5.8 g/dL (6.3-8.2)
[2019-05-07] MEDS: CHOLECALCIFEROL 1,000 UNIT TAB PO SCH (10:00)
[2019-05-07] MEDS: CYANOCOBALAMIN 500 MCG TAB PO SCH (10:00)
[2019-05-07] MEDS: ASPIRIN 81 MG PO SCH (10:01)
[2019-05-07] MEDS: VITAMIN E (DL,TOCOPHERYL ACET) 400 UNIT CAP PO SCH (10:03)
[2019-05-07] MEDS: MULTIVITAMINS, THERA 1 EACH TAB PO SCH (10:03)
[2019-05-07] MEDS: FAMOTIDINE 20 MG TAB PO SCH (10:03)
[2019-05-07] MEDS: ENOXAPARIN 40 MG/0.4 ML SYRINGE SQ SCH (10:04)
[2019-05-07] MEDS: CALCIUM CARB-VIT D 500MG-200UN 1 EACH TAB PO SCH (10:04)
[2019-05-07] MEDS: ASCORBIC ACID 500 MG TAB PO SCH (10:04)
[2019-05-07] MEDS: LOSARTAN 50 MG TAB PO SCH (10:04)
--- NOTE | 2019-05-07 10:12 | P.PN ---
Subjective Progress Note Date: 05/07/19 This is a 79-year-old female patient who presented with complaints of fever and confusion. Patient is a poor historian with history of known dementia. Family is currently not at bedside information obtained through ER report and nursing staff. Per nursing staff patient recently underwent a lobectomy for lung cancer at [facility]. Patient was discharged home and then started having diarrhea in which she went to [place] and was diagnosed with C. diff. Patient was discharged home the past couple weeks but recently started to develop increased confusion over the past 2 days per ER report. Patient was also treated recently for UTI. she does live independently per ER report patient and was noticed to have a fever with increasing weakness. Patient has past medical history of lung cancer with left lower lobectomy recently at [facility], essential hypertension, chronic back pain, C. diff 1 month ago, appendectomy, nicotine dependence and dementia. Chest x-ray completed showing inspiration decreased compared to old exam. No heart failure. EKG completed showing sinus tachycardia possible inferior infarct age undetermined. Urinary analysis negative. Influenza negative. WBC elevated at 17.1. Lactic acid within normal limits at 0.9. Patient started on Rocephin, urine and blood cultures ordered. at this time patient denies chest pain or shortness of breath. Patient denies any nausea vomiting or diarrhea but per nursing staff patient did have episode of emesis. Due to patient's history of C. diff, stool for C. diff ordered. Patient denies any burning with urination or frequency. On 05/07/2019 patient is resting comfortably in bed. Patient was positive for C. diff started on oral Vanco. Infectious disease is following. Patient is still having diarrhea with abdominal cramping. White blood cell slightly improving to 16.6. Patient denies chest pain or shortness of breath patient denies any urinary burning or frequency. Objective - Vital Signs Vital signs: Vital Signs Temp 97.6 F 05/07/19 07:49 Pulse 106 H 05/07/19 07:49 Resp 18 05/07/19 07:49 BP 105/64 05/07/19 07:49 Pulse Ox 93 L 05/07/19 07:49 Intake & Output 05/06/19 05/07/19 05/07/19 18:59 06:59 18:59 Intake Total 450 Balance 450 Intake: Oral 450 Other: Voiding Method Toilet # Voids 1 1 # Bowel Movements 1 1 - Exam Head normocephalic Neck supple Lungs clear to auscultation bilaterally no wheezing or crackles Heart regular rate and rhythm S1-S2, no rub or gallop Abdomen is soft nontender nondistended positive bowel sounds no h epatosplenomegaly Extremities no edema Neuro alert and orientated to 2. - Labs CBC & Chem 7: 05/07/19 07:48 05/07/19 07:48 Labs: Abnormal Lab Results - Last 24 Hours (Table) 05/06/19 05/07/19 05/07/19 Range/Units 13:00 07:48 07:48 WBC 16.6 H (3.8-10.6) k/uL RBC 3.51 L (3.80-5.40) m/uL Neutrophils # 14.2 H (1.3-7.7) k/uL Sodium 134 L (137-145) mmol/L BUN 18 H (7-17) mg/dL Glucose 114 H (74-99) mg/dL Alkaline Phosphatase 149 H (38-126) U/L Total Protein 5.8 L (6.3-8.2) g/dL Albumin 2.9 L (3.5-5.0) g/dL C. difficile (EIA) Intrp Positive A (Negative) Microbiology - Last 24 Hours (Table) 05/05/19 22:48 Blood Culture - Preliminary Blood No Growth after 24 hours 05/06/19 13:00 Stool Culture - Preliminary Stool Assessment and Plan Assessment: 1. Febrile with increased confusion secondary to C. diff infection. Chest x- ray completed showing aspiration decreased compared to old exam. Normal heart failure. White blood cell elevated at 17.1 lactic acid 0.9. UA negative. Blood and urine cultures ordered. Patient started on oral vancomycin. infectious disease consulted. 2. Recent C. diff infection. 3. Nausea and vomiting. Amylase and lipase within normal limits 4. Recent UTI. UA negative urine culture ordered 5. Recent left upper lobectomy for lung cancer at [facility] in March 2019. Patient does follow with oncology services outpatient 6. History of dementia 7. History of nicotine dependence 8. Essential hypertension 9. Chronic back pain DVT prophylaxis Lovenox. GI prophylaxis Pepcid I performed an examination of the patient and discussed their management with the Nurse Practitioner. I have reviewed the Nurse Practitioner's notes and agree with the documented findings and plan of care
[2019-05-07] MEDS: RIVASTIGMINE 9.5MG/24HR PATCH TRANSDERM SCH (11:17)
[2019-05-07] MEDS ORDERED: CHOLESTYRAMINE (WITH SUGAR) 4 GM PACKET PO SCH (12:30)
--- NOTE | 2019-05-07 15:48 | CDI ---
Documentation Clarification Form Date: 05/07/2019 3:29:24 PM From: Teresa Billings RN, CCDS Admit Date: 05/05/2019 11:33:00 PM Patient Name: Brittanie Pierre Visit Number: [id number] Discharge Date: ATTENTION: The Clinical Documentation Specialists (CDI) and [facility] Coding Staff appreciate your assistance in clarifying documentation. Please respond to the clarification below the line at the bottom and electronically sign. The CDI & [facility] Coding staff will review the response and follow-up if needed. Please note: Queries are made part of the Legal Health Record. If you have any questions, please contact the author of this message via ITS. Dr. Mark Hope The patient presented with the following: Altered mental status, confusion, decreased responsiveness, weakness and fever. History/Risk Factors: Hypertension, UTI, C. diff infection, Dementia, Current every day smoker Clinical Indicators: 79-year-old female who present with fever increasing weakness and decreased level of responsiveness. WBC 17.1, NA+ 133 Lactic acid 0.9 EKG: Sinus tachycardia 104 Vitals signs on admission: 122/61 111 22 192.0 Chest x-ray negative for acute disease Treatment: ID Consult: Dr. Fay: Presented to hospital with Sepsis in this patient who did have fever tachycardia and elevated white count with diarrhea in this patient did have history of C.diff colitis likely representing relapse of her C. diff colitis. Antibiotics: Vancomycin PO IV Fluid @ 50 mls/hr Monitor CBC, In your professional opinion, please clarify if these findings signify one of the following conditions, whether the condition is POA, and cause, if known: Condition Sepsis ruled in due to C. diff colitis, present on admission Other, please specify Unable to determine sepsis ruled in due to cdiff colitis present [facility]
--- NOTE | 2019-05-07 16:03 | CDI ---
Documentation Clarification Form Date: 05/07/2019 3:49:37 PM From: Teresa Billings RN, CCDS Admit Date: 05/05/2019 11:33:00 PM Patient Name: Brittanie Pierre Visit Number: [id number] Discharge Date: ATTENTION: The Clinical Documentation Specialists (CDI) and [facility] Coding Staff appreciate your assistance in clarifying documentation. Please respond to the clarification below the line at the bottom and electronically sign. The CDI & [facility] Coding staff will review the response and follow-up if needed. Please note: Queries are made part of the Legal Health Record. If you have any questions, please contact the author of this message via ITS. Dr. Mark Hope Altered Mental Status was documented in the H/P and subsequent progress notes. Febrile with increased confusion secondary to C.diff infection History/Risk Factors: Hypertension, UTI, C. diff colitis, Dementia, Current every day smoker Clinical Indicators: 79-year-old female present with complaints of fever and confusion was positive for C. diff and started on oral Vanco. She is still having diarrhea. Labs: 17.1, 16.6 C. difficile Positive Vital signs: 122/61 111 22 102.0 96 % RA Treatment: Neurological assessment per protocol Vancomycin PO IV@ 50 mls/hr Monitor CBC In your professional opinion, please clarify the etiology of the Altered Mental Status, if known. Metabolic Encephalopathy secondary to C. diff infection Dementia (if know, specify Type and if with/without Behavioral Disturbance) Other condition (please specify) Unable to determine (Last Revision: October 2017) metabolic encephalopathy secondary to cdiff infection MTDD
--- NOTE | 2019-05-07 17:40 | PN ---
PROGRESS NOTE DATE OF SERVICE: 05/07/2019. REASON FOR FOLLOWUP: C difficile colitis. INTERVAL HISTORY: The patient is currently afebrile. The patient is breathing comfortably. The patient denies having any chest pain or shortness of breath or cough. Still complaining of diarrhea. Did have about 3 loose stools today, which has been running. Denies having any nausea or vomiting. PHYSICAL EXAMINATION: Blood pressure 105/59 with a pulse of 80, temperature 98.7, she is 98% on room air. General description is an elderly female, lying in bed in no distress. Respiratory system: Unlabored breathing. Clear to auscultation anteriorly. Heart S1, S2. Regular rate and rhythm. Abdomen soft, no tenderness. Extremities: No edema of the feet. LABS: Hemoglobin 11.4, white count 16.7, BUN of 18, creatinine 0.53. 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 Currently on vancomycin 250 p.o. q.6 hours. Questran has been added. However we need to space it so that it does not the same time as her other medication. Continue with supportive care. Family was present at bedside. Questions and concerns were answered. MMODL / IJN: [id number] /
[2019-05-07] MEDS: amLODIPine 5 MG TAB PO SCH (21:02)
[2019-05-07] MEDS: CHOLESTYRAMINE (WITH SUGAR) 4 GM PACKET PO SCH (21:39)
[2019-05-08] MEDS: VANCOMYCIN ORAL SOLUTION 250 MG/5 ML BOTTLE PO SCH ×5 (01:24→23:14)
[2019-05-08] MEDS: CHERRY FLAVOR 60 ML BOTTLE PO PRN ×3 (01:24→23:14)
[2019-05-08] MEDS: SODIUM CHLORIDE 0.9% 1,000 ML IV SCH ×2 (03:32→23:17)
[2019-05-08] MEDS: FAMOTIDINE 20 MG TAB PO SCH (08:09)
[2019-05-08] MEDS: CHOLECALCIFEROL 1,000 UNIT TAB PO SCH (08:09)
[2019-05-08] MEDS: HYDROcodone/APAP 7.5-325MG 1 EACH TAB PO PRN ×2 (08:09→18:01)
[2019-05-08] MEDS: CYANOCOBALAMIN 500 MCG TAB PO SCH (08:09)
[2019-05-08] MEDS: ASPIRIN 81 MG PO SCH (08:09)
[2019-05-08] MEDS: ENOXAPARIN 40 MG/0.4 ML SYRINGE SQ SCH (08:09)
[2019-05-08] MEDS: LOSARTAN 50 MG TAB PO SCH (08:10)
[2019-05-08] MEDS: CHOLESTYRAMINE (WITH SUGAR) 4 GM PACKET PO SCH ×2 (08:10→20:16)
[2019-05-08] MEDS: CALCIUM CARB-VIT D 500MG-200UN 1 EACH TAB PO SCH (08:10)
[2019-05-08] MEDS: ASCORBIC ACID 500 MG TAB PO SCH (08:10)
[2019-05-08] MEDS: MULTIVITAMINS, THERA 1 EACH TAB PO SCH (08:10)
[2019-05-08] MEDS: VITAMIN E (DL,TOCOPHERYL ACET) 400 UNIT CAP PO SCH (08:11)
[2019-05-08] MEDS: RIVASTIGMINE 9.5MG/24HR PATCH TRANSDERM SCH (08:11)
[2019-05-08 09:36] LABS: Basophils % (A) 0 %; Eosinophils % (A) 0 %; HGB 10.8 gm/dL (11.4-16.0); Lymphocytes # (A) 1.8 k/uL (1.0-4.8); Lymphocytes % (A) 11 %; MCH 32.5 pg (25.0-35.0); MCHC 33.7 g/dL (31.0-37.0); MCV 96.4 fL (80.0-100.0); Mean Platelet Volume 6.9; Monocytes # (A) 0.7 k/uL (0-1.0); Monocytes % (A) 5 %; Neutrophils # (A) 13.2 k/uL (1.3-7.7); Neutrophils % (A) 83 %; Platelet Count 279 k/uL (150-450); RBC 3.32 m/uL (3.80-5.40); RDW 12.3 % (11.5-15.5)
[2019-05-08 09:51] LABS: ALT 19 U/L (9-52); AST 15 U/L (14-36); African American GFR (CKD) >90 (>60 ml/min/1.73 sqM); Albumin 2.4 g/dL (3.5-5.0); Alkaline Phosphatase 139 U/L (38-126); Anion Gap 6 mmol/L; Blood Urea Nitrogen 14 mg/dL (7-17); Calcium 8.5 mg/dL (8.4-10.2); Carbon Dioxide 22 mmol/L (22-30); Chloride 104 mmol/L (98-107); Glucose 101 mg/dL (74-99); Potassium 3.9 mmol/L (3.5-5.1); Sodium 132 mmol/L (137-145); Total Bilirubin 0.5 mg/dL (0.2-1.3); Total Protein 5.1 g/dL (6.3-8.2)
--- NOTE | 2019-05-08 11:46 | P.PN ---
Subjective Progress Note Date: 05/08/19 This is a 79-year-old female patient who presented with complaints of fever and confusion. Patient is a poor historian with history of known dementia. Family is currently not at bedside information obtained through ER report and nursing staff. Per nursing staff patient recently underwent a lobectomy for lung cancer at [facility]. Patient was discharged home and then started having diarrhea in which she went to [place] and was diagnosed with C. diff. Patient was discharged home the past couple weeks but recently started to develop increased confusion over the past 2 days per ER report. Patient was also treated recently for UTI. she does live independently per ER report patient and was noticed to have a fever with increasing weakness. Patient has past medical history of lung cancer with left lower lobectomy recently at [facility], essential hypertension, chronic back pain, C. diff 1 month ago, appendectomy, nicotine dependence and dementia. Chest x-ray completed showing inspiration decreased compared to old exam. No heart failure. EKG completed showing sinus tachycardia possible inferior infarct age undetermined. Urinary analysis negative. Influenza negative. WBC elevated at 17.1. Lactic acid within normal limits at 0.9. Patient started on Rocephin, urine and blood cultures ordered. at this time patient denies chest pain or shortness of breath. Patient denies any nausea vomiting or diarrhea but per nursing staff patient did have episode of emesis. Due to patient's history of C. diff, stool for C. diff ordered. Patient denies any burning with urination or frequency. On 05/07/2019 patient is resting comfortably in bed. Patient was positive for C. diff started on oral Vanco. Infectious disease is following. Patient is still having diarrhea with abdominal cramping. White blood cell slightly improving to 16.6. Patient denies chest pain or shortness of breath patient denies any urinary burning or frequency. On 05/08/2019 patient was seen and examined on the medical floor she is alert and oriented 3 in no apparent distress, she is still complaining of diarrhea and abdominal pain otherwise no complaints, there is no fever or chills no headache or dizziness no chest pain no shortness of breath no cough no nausea or vomiting, no burning was urination no frequency or urgency and no hematuria Objective - Vital Signs Vital signs: Vital Signs Temp 98 F 05/08/19 07:00 Pulse 87 05/08/19 08:00 Resp 16 05/08/19 08:00 BP 127/62 05/08/19 07:00 Pulse Ox 98 05/08/19 07:00 Intake & Output 05/07/19 05/08/19 05/08/19 18:59 06:59 18:59 Intake Total 880 Balance 880 Intake: Intake, IV Titration 400 Amount Sodium Chloride 0.9% 1, 400 000 ml @ 50 mls/hr IV . Q20H [facility] Rx#:[id number] Oral 480 Other: Voiding Method Toilet Toilet Toilet # Voids 1 2 # Bowel Movements 1 - Exam In general patient is alert and oriented 3 in no apparent distress Head normocephalic and atraumatic Neck supple no JVD no goiter Lungs clear to auscultation bilaterally no wheezing or crackles Heart regular rate and rhythm S1-S2, no rub or gallop Abdomen is soft nontender nondistended positive bowel sounds no hepatosplenomegaly Extremities no edema no cyanosis or clubbing Neuro no gross focal neurological deficit - Labs CBC & Chem 7: 05/08/19 09:15 05/08/19 09:15 Labs: Abnormal Lab Results - Last 24 Hours (Table) 05/08/19 05/08/19 Range/Units 09:15 09:15 WBC 16.0 H (3.8-10.6) k/uL RBC 3.32 L (3.80-5.40) m/uL Hgb 10.8 L (11.4-16.0) gm/dL Hct 32.0 L (34.0-46.0) % Neutrophils # 13.2 H (1.3-7.7) k/uL Sodium 132 L (137-145) mmol/L Creatinine 0.46 L (0.52-1.04) mg/dL Glucose 101 H (74-99) mg/dL Alkaline Phosphatase 139 H (38-126) U/L Total Protein 5.1 L (6.3-8.2) g/dL Albumin 2.4 L (3.5-5.0) g/dL Microbiology - Last 24 Hours (Table) 05/05/19 22:48 Blood Culture - Preliminary Blood No Growth after 48 hours Assessment and Plan Plan: 1. Febrile with increased confusion secondary to C. diff infection. Chest x- ray completed showing aspiration decreased compared to old exam. Normal heart failure. White blood cell elevated at 17.1 lactic acid 0.9. UA negative. Blood and urine cultures ordered. Patient started on oral vancomycin. infectious disease consulted. 2. Recent C. diff infection. 3. Nausea and vomiting. Amylase and lipase within normal limits 4. Recent UTI. UA negative urine culture ordered 5. Recent left upper lobectomy for lung cancer at [facility] in March 2019. Patient does follow with oncology services outpatient 6. History of dementia 7. History of nicotine dependence 8. Essential hypertension 9. Chronic back pain DVT prophylaxis Lovenox. GI prophylaxis Pepcid
[2019-05-08] MEDS: ACETAMINOPHEN TAB 325 MG TAB PO PRN (14:42)
[2019-05-08] MEDS: [UNRECOGNIZED DRUG - OTHER] PO SCH (18:01)
--- NOTE | 2019-05-08 18:13 | PN ---
PROGRESS NOTE DATE OF SERVICE: 05/08/2019 REASON FOR FOLLOWUP: C difficile colitis. INTERVAL HISTORY: The patient is currently afebrile. The patient is breathing comfortably. The patient denies any worsening abdominal pain. The patient's diarrhea frequency is about 7 bowel movements this morning. However, did have some consistency to it with some chunks of stool, not as runny as it was. Denies having nausea, vomiting. Oral intake remains to be poor. PHYSICAL EXAMINATION: Blood pressure 107/62 with a pulse of 75, temperature 97.8. She is 98% on room air. General description is an elderly female up in the bed in no distress. Respiratory system: Unlabored breathing, clear to auscultation anteriorly. Heart S1, S2. Regular rate and rhythm. Abdomen soft, no tenderness. LABS: Hemoglobin 10.1, WBC 16,000. BUN of 14, creatinine 0.46. Stool culture is currently pending. Blood culture negative. 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 Patient seemed to have slight improvement with diarrhea compared to yesterday. Hence, we will keep the patient on oral vancomycin and Questran. Re- evaluate the patient tomorrow. Questions and concerns were answered. MMODL / IJN: [id number] /
[2019-05-08] MEDS: amLODIPine 5 MG TAB PO SCH (20:16)
[2019-05-09] MEDS: ACETAMINOPHEN TAB 325 MG TAB PO PRN ×2 (02:54→17:28)
[2019-05-09] MEDS: CHERRY FLAVOR 60 ML BOTTLE PO PRN ×2 (05:18→23:27)
[2019-05-09] MEDS: VANCOMYCIN ORAL SOLUTION 250 MG/5 ML BOTTLE PO SCH ×4 (05:18→23:27)
[2019-05-09 07:07] LABS: Basophils % (A) 0 %; Eosinophils # (A) 0.1 k/uL (0-0.7); Eosinophils % (A) 1 %; HCT 31.8 % (34.0-46.0); HGB 10.5 gm/dL (11.4-16.0); Lymphocytes # (A) 1.8 k/uL (1.0-4.8); Lymphocytes % (A) 26 %; MCH 31.6 pg (25.0-35.0); MCV 95.8 fL (80.0-100.0); Mean Platelet Volume 7.2; Monocytes # (A) 0.4 k/uL (0-1.0); Monocytes % (A) 6 %; Neutrophils # (A) 4.5 k/uL (1.3-7.7); Neutrophils % (A) 64 %; Platelet Count 285 k/uL (150-450); RBC 3.32 m/uL (3.80-5.40); RDW 12.4 % (11.5-15.5)
[2019-05-09 07:13] LABS: ALT 18 U/L (9-52); AST 13 U/L (14-36); African American GFR (CKD) >90 (>60 ml/min/1.73 sqM); Albumin 2.2 g/dL (3.5-5.0); Alkaline Phosphatase 103 U/L (38-126); Anion Gap 5 mmol/L; Blood Urea Nitrogen 9 mg/dL (7-17); Calcium 8.3 mg/dL (8.4-10.2); Carbon Dioxide 22 mmol/L (22-30); Chloride 109 mmol/L (98-107); Glucose 89 mg/dL (74-99); Potassium 3.5 mmol/L (3.5-5.1); Sodium 136 mmol/L (137-145); Total Bilirubin 0.4 mg/dL (0.2-1.3); Total Protein 4.6 g/dL (6.3-8.2)
[2019-05-09] MEDS: [UNRECOGNIZED DRUG - OTHER] PO SCH (08:43)
[2019-05-09] MEDS: ENOXAPARIN 40 MG/0.4 ML SYRINGE SQ SCH (08:43)
[2019-05-09] MEDS: FAMOTIDINE 20 MG TAB PO SCH (08:44)
[2019-05-09] MEDS: VITAMIN E (DL,TOCOPHERYL ACET) 400 UNIT CAP PO SCH (08:44)
[2019-05-09] MEDS: ASCORBIC ACID 500 MG TAB PO SCH (08:44)
[2019-05-09] MEDS: CHOLECALCIFEROL 1,000 UNIT TAB PO SCH (08:44)
[2019-05-09] MEDS: CHOLESTYRAMINE (WITH SUGAR) 4 GM PACKET PO SCH ×2 (08:44→20:38)
[2019-05-09] MEDS: ASPIRIN 81 MG PO SCH (08:44)
[2019-05-09] MEDS: RIVASTIGMINE 9.5MG/24HR PATCH TRANSDERM SCH (08:44)
[2019-05-09] MEDS: HYDROcodone/APAP 7.5-325MG 1 EACH TAB PO PRN ×2 (08:46→20:40)
[2019-05-09] MEDS: CYANOCOBALAMIN 500 MCG TAB PO SCH (08:47)
[2019-05-09] MEDS: CALCIUM CARB-VIT D 500MG-200UN 1 EACH TAB PO SCH (08:47)
[2019-05-09] MEDS: MULTIVITAMINS, THERA 1 EACH TAB PO SCH (08:47)
[2019-05-09] MEDS: LOSARTAN 50 MG TAB PO SCH (08:47)
--- NOTE | 2019-05-09 11:41 | P.PN ---
Subjective Progress Note Date: 05/09/19 This is a 79-year-old female patient who presented with complaints of fever and confusion. Patient is a poor historian with history of known dementia. Family is currently not at bedside information obtained through ER report and nursing staff. Per nursing staff patient recently underwent a lobectomy for lung cancer at [facility]. Patient was discharged home and then started having diarrhea in which she went to [place] and was diagnosed with C. diff. Patient was discharged home the past couple weeks but recently started to develop increased confusion over the past 2 days per ER report. Patient was also treated recently for UTI. she does live independently per ER report patient and was noticed to have a fever with increasing weakness. Patient has past medical history of lung cancer with left lower lobectomy recently at [facility], essential hypertension, chronic back pain, C. diff 1 month ago, appendectomy, nicotine dependence and dementia. Chest x-ray completed showing inspiration decreased compared to old exam. No heart failure. EKG completed showing sinus tachycardia possible inferior infarct age undetermined. Urinary analysis negative. Influenza negative. WBC elevated at 17.1. Lactic acid within normal limits at 0.9. Patient started on Rocephin, urine and blood cultures ordered. at this time patient denies chest pain or shortness of breath. Patient denies any nausea vomiting or diarrhea but per nursing staff patient did have episode of emesis. Due to patient's history of C. diff, stool for C. diff ordered. Patient denies any burning with urination or frequency. On 05/07/2019 patient is resting comfortably in bed. Patient was positive for C. diff started on oral Vanco. Infectious disease is following. Patient is still having diarrhea with abdominal cramping. White blood cell slightly improving to 16.6. Patient denies chest pain or shortness of breath patient denies any urinary burning or frequency. On 05/08/2019 patient was seen and examined on the medical floor she is alert and oriented 3 in no apparent distress, she is still complaining of diarrhea and abdominal pain otherwise no complaints, there is no fever or chills no headache or dizziness no chest pain no shortness of breath no cough no nausea or vomiting, no burning was urination no frequency or urgency and no hematuria On 05/09/2019 patient was seen on the medical floor she is alert and oriented in no apparent distress she had 2 episodes of diarrhea this morning she is complaining of some abdominal cramping otherwise no complaints there is no fever or chills no headache or dizziness no chest pain no shortness of breath no cough no nausea or vomiting and no urinary symptoms Objective - Vital Signs Vital signs: Vital Signs Temp 97.9 F 05/09/19 07:00 Pulse 83 05/09/19 08:00 Resp 16 05/09/19 08:00 BP 130/70 05/09/19 07:00 Pulse Ox 96 05/09/19 07:00 Intake & Output 05/08/19 05/09/19 05/09/19 18:59 06:59 18:59 Intake Total 300 Balance 300 Intake: Intake, IV Titration 300 Amount Sodium Chloride 0.9% 1, 300 000 ml @ 50 mls/hr IV . Q20H [facility] Rx#:[id number] Other: Voiding Method Toilet Toilet # Voids 1 - Exam In general patient is alert and oriented 3 in no apparent distress Head normocephalic and atraumatic Neck supple no JVD no goiter Lungs clear to auscultation bilaterally no wheezing or crackles Heart regular rate and rhythm S1-S2, no rub or gallop Abdomen is soft nontender nondistended positive bowel sounds no hepatosplenomegaly Extremities no edema no cyanosis or clubbing Neuro no gross focal neurological deficit - Labs CBC & Chem 7: 05/09/19 06:33 05/09/19 06:33 Labs: Abnormal Lab Results - Last 24 Hours (Table) 05/09/19 05/09/19 Range/Units 06:33 06:33 RBC 3.32 L (3.80-5.40) m/uL Hgb 10.5 L (11.4-16.0) gm/dL Hct 31.8 L (34.0-46.0) % Sodium 136 L (137-145) mmol/L Chloride 109 H (98-107) mmol/L Creatinine 0.39 L (0.52-1.04) mg/dL Calcium 8.3 L (8.4-10.2) mg/dL AST 13 L (14-36) U/L Total Protein 4.6 L (6.3-8.2) g/dL Albumin 2.2 L (3.5-5.0) g/dL Microbiology - Last 24 Hours (Table) 05/05/19 22:48 Blood Culture - Preliminary Blood No Growth after 72 hours Assessment and Plan Plan: 1. Febrile with increased confusion secondary to C. diff infection. Chest x- ray completed showing aspiration decreased compared to old exam. Normal heart failure. White blood cell elevated at 17.1 lactic acid 0.9. UA negative. Blood and urine cultures ordered. Patient started on oral vancomycin. infectious disease consulted. 2. Recent C. diff infection. 3. Nausea and vomiting. Amylase and lipase within normal limits 4. Recent UTI. UA negative urine culture ordered 5. Recent left upper lobectomy for lung cancer at [facility] in March 2019. Patient does follow with oncology services outpatient 6. History of dementia 7. History of nicotine dependence 8. Essential hypertension 9. Chronic back pain DVT prophylaxis Lovenox. GI prophylaxis Pepcid
--- NOTE | 2019-05-09 18:37 | PN ---
PROGRESS NOTE DATE OF SERVICE: 05/09/2019. REASON FOR FOLLOW UP: Recurrent C. difficile colitis. INTERVAL HISTORY: The patient is currently afebrile. Patient is breathing comfortably. The patient's diarrhea frequency has decreased to about 4 episodes today. Slightly forming up. Denies any worsening abdominal pain. No nausea, vomiting. No chest pain, shortness of breath or cough. PHYSICAL EXAMINATION: Blood pressure 125/72 with a pulse of 76, temperature 97.5. She is 100% on room air. General description is an elderly female, lying in bed in no distress. Respiratory system: Unlabored breathing. Clear to auscultation anteriorly. Heart S1, S2. Regular rate and rhythm. Abdomen soft. No tenderness. Extremities: No edema of the feet. LABS: Hemoglobin is 10.5, white count 7.0, BUN of 9, creatinine 0.39. DIAGNOSTIC IMPRESSION AND PLAN: Patient admitted to the hospital with sepsis, source relapse of the C difficile colitis. This being her 2nd episode. Recommend finish therapy with a tapering dose of oral vancomycin 250 mg p.o. every 6 hours for 10 days followed by twice a day for 1 week, then daily for 1 week, then every other day for 7 doses. She has been advised to increase her probiotic intake and close outpatient followup. Family at the bedside. Questions answered. MMODL / IJN: [id number] /
[2019-05-09] MEDS: amLODIPine 5 MG TAB PO SCH (20:38)
[2019-05-09] MEDS: SODIUM CHLORIDE 0.9% 1,000 ML IV SCH (20:41)
[2019-05-10] MEDS: VANCOMYCIN ORAL SOLUTION 250 MG/5 ML BOTTLE PO SCH ×2 (05:35→12:14)
[2019-05-10] MEDS: CHERRY FLAVOR 60 ML BOTTLE PO PRN ×2 (05:35→12:15)
[2019-05-10 07:17] LABS: Basophils % (A) 0 %; Eosinophils # (A) 0.1 k/uL (0-0.7); Eosinophils % (A) 2 %; HCT 32.1 % (34.0-46.0); HGB 10.7 gm/dL (11.4-16.0); Lymphocytes # (A) 1.8 k/uL (1.0-4.8); Lymphocytes % (A) 30 %; MCH 32.1 pg (25.0-35.0); MCHC 33.4 g/dL (31.0-37.0); Mean Platelet Volume 7.1; Monocytes # (A) 0.5 k/uL (0-1.0); Monocytes % (A) 9 %; Neutrophils # (A) 3.3 k/uL (1.3-7.7); Neutrophils % (A) 57 %; Platelet Count 333 k/uL (150-450); RBC 3.35 m/uL (3.80-5.40); RDW 12.6 % (11.5-15.5); WBC 5.8 k/uL (3.8-10.6)
[2019-05-10 07:27] LABS: ALT 21 U/L (9-52); AST 15 U/L (14-36); African American GFR (CKD) >90 (>60 ml/min/1.73 sqM); Albumin 2.2 g/dL (3.5-5.0); Alkaline Phosphatase 95 U/L (38-126); Anion Gap 5 mmol/L; Blood Urea Nitrogen 8 mg/dL (7-17); Calcium 8.3 mg/dL (8.4-10.2); Carbon Dioxide 22 mmol/L (22-30); Chloride 110 mmol/L (98-107); Glucose 88 mg/dL (74-99); Potassium 3.5 mmol/L (3.5-5.1); Sodium 137 mmol/L (137-145); Total Bilirubin 0.4 mg/dL (0.2-1.3); Total Protein 4.6 g/dL (6.3-8.2)
[2019-05-10 08:13] VITALS: BP 128/63; PULSE 80; RESP 16; TEMP 97.8
[2019-05-10] MEDS: [UNRECOGNIZED DRUG - OTHER] PO SCH (08:36)
[2019-05-10] MEDS: LOSARTAN 50 MG TAB PO SCH (08:37)
[2019-05-10] MEDS: ASCORBIC ACID 500 MG TAB PO SCH (08:37)
[2019-05-10] MEDS: CHOLECALCIFEROL 1,000 UNIT TAB PO SCH (08:37)
[2019-05-10] MEDS: RIVASTIGMINE 9.5MG/24HR PATCH TRANSDERM SCH (08:37)
[2019-05-10] MEDS: ENOXAPARIN 40 MG/0.4 ML SYRINGE SQ SCH (08:37)
[2019-05-10] MEDS: MULTIVITAMINS, THERA 1 EACH TAB PO SCH (08:37)
[2019-05-10] MEDS: ASPIRIN 81 MG PO SCH (08:37)
[2019-05-10] MEDS: CHOLESTYRAMINE (WITH SUGAR) 4 GM PACKET PO SCH (08:37)
[2019-05-10] MEDS: CYANOCOBALAMIN 500 MCG TAB PO SCH (08:37)
[2019-05-10] MEDS: CALCIUM CARB-VIT D 500MG-200UN 1 EACH TAB PO SCH (08:37)
[2019-05-10] MEDS: FAMOTIDINE 20 MG TAB PO SCH (08:37)
[2019-05-10] MEDS: VITAMIN E (DL,TOCOPHERYL ACET) 400 UNIT CAP PO SCH (08:37)
--- NOTE | 2019-05-10 12:40 | P.DS ---
Providers Date of admission: 05/05/19 23:33 Expected date of discharge: 05/10/19 Attending physician: Mark Hope Consults: 05/06/19 13:32 Consult Physician Routine Consulting Provider: Cristiano Fay Consult Reason/Comments: history of cdiff. reoccurring diarrhea, febrile Do you want consulting provider notified?: Yes Primary care physician: Mark Hope [facility] Course: Discharge diagnosis 1. Febrile with increased confusion secondary to C. diff infection. Chest x- ray completed showing aspiration decreased compared to old exam. White blood cell elevated at 17.1 lactic acid 0.9. UA negative. Blood Cultures negative Patient started on oral vancomycin. infectious disease consulted. Discussed case with Dr. Fay per infectious disease patient will be discharged on vancomycin 250 mg every 6 hours for 10 days, then twice a day for 7 days, then daily 7 days and every other day for 7 doses. Patient discharged on Questran when necessary. patient has been cleared for discharge from infectious disease. 2. Recent C. diff infection. 3. Nausea and vomiting. Amylase and lipase within normal limits 4. Recent UTI. UA negative 5. Recent left upper lobectomy for lung cancer at [facility] in March 2019. Patient does follow with oncology services outpatient 6. History of dementia 7. History of nicotine dependence 8. Essential hypertension 9. Chronic back pain Hospital course This is a 79-year-old female patient who presented with complaints of fever and confusion. Patient is a poor historian with history of known dementia. Family is currently not at bedside information obtained through ER report and nursing staff. Per nursing staff patient recently underwent a lobectomy for lung cancer at [facility]. Patient was discharged home and then started having diarrhea in which she went to [place] and was diagnosed with C. diff. Patient was discharged home the past couple weeks but recently started to develop increased confusion over the past 2 days per ER report. Patient was also treated recently for UTI. she does live independently per ER report patient and was noticed to h ave a fever with increasing weakness. Patient has past medical history of lung cancer with left lower lobectomy recently at [facility], essential hypertension, chronic back pain, C. diff 1 month ago, appendectomy, nicotine dependence and dementia. Chest x-ray completed showing inspiration decreased compared to old exam. No heart failure. EKG completed showing sinus tachycardia possible inferior infarct age undetermined. Urinary analysis negative. Influenza negative. WBC elevated at 17.1. Lactic acid within normal limits at 0.9. Patient started on Rocephin, urine and blood cultures ordered. at this time patient denies chest pain or shortness of breath. Patient denies any nausea vomiting or diarrhea but per nursing staff patient did have episode of emesis. Due to patient's history of C. diff, stool for C. diff ordered. Patient denies any burning with urination or frequency. On 05/07/2019 patient is resting comfortably in bed. Patient was positive for C. diff started on oral Vanco. Infectious disease is following. Patient is still having diarrhea with abdominal cramping. White blood cell slightly improving to 16.6. Patient denies chest pain or shortness of breath patient denies any urinary burning or frequency. On 05/08/2019 patient was seen and examined on the medical floor she is alert and oriented 3 in no apparent distress, she is still complaining of diarrhea and abdominal pain otherwise no complaints, there is no fever or chills no headache or dizziness no chest pain no shortness of breath no cough no nausea or vomiting, no burning was urination no frequency or urgency and no hematuria On 05/09/2019 patient was seen on the medical floor she is alert and oriented in no apparent distress she had 2 episodes of diarrhea this morning she is compla ining of some abdominal cramping otherwise no complaints there is no fever or chills no headache or dizziness no chest pain no shortness of breath no cough no nausea or vomiting and no urinary symptoms On 05/10/2019 patient is alert and oriented 3 patient has been cleared for discharge from infectious disease. Discussed case with infectious disease Dr. Fay patient will be discharged on vancomycin orders preferences obtained from ID. Patient reports occasional abdominal cramping. Reports 3 bowel movements in the past 24 patient denies chest pain or shortness of breath. Patient denies nausea vomiting or diarrhea. Patient denies any urinary burning or frequency. [facility] I performed an examination of the patient and discussed their management with the Nurse Practitioner. I have reviewed the Nurse Practitioner's notes and agree with the documented findings and plan of care Patient Condition at Discharge: Stable Plan - Discharge Summary Discharge Rx Participant: Yes New Discharge Prescriptions: New Cholestyramine (with Sugar) [Questran Packet] 4 gm PO BID@1000,2100 PRN 7 Days #14 packet PRN Reason: diarrhea Vancomycin HCl [Vancomycin HCl Oral Soln] 250 mg PO Q6HR 38 Days #340 dose Continue amLODIPine BESYLATE [Norvasc] 5 mg PO HS Multivitamins, Thera [Multivitamin (formulary)] 1 tab PO DAILY Losartan Potassium 100 mg PO DAILY Calcium Carbonate/Vitamin D3 [Caltrate 600 Plus D3 Tablet] 1 tab PO DAILY Aspirin EC [Ecotrin Low Dose] 162 mg PO DAILY Cyanocobalamin (Vitamin B-12) [Vitamin B-12] 1,000 mcg PO DAILY HYDROcodone/APAP 7.5-325MG [[place] 7.5-325] 1 tab PO BID PRN PRN Reason: Pain Vitamin E (Dl,Tocopheryl Acet) [Vitamin E] 400 unit PO DAILY Cholecalciferol [Vitamin D3 (25 Mcg = 1000 Iu)] 2,000 unit PO DAILY Rivastigmine 9.5MG/24Hr Patch [Exelon 9.5MG/24Hr Patch] 1 patch TRANSDERM Q24HR Ascorbic Acid [Vitamin C] 1,000 mg PO DAILY Discharge Medication List amLODIPine BESYLATE [Norvasc] 5 mg PO HS 11/28/13 [History] Multivitamins, Thera [Multivitamin (formulary)] 1 tab PO DAILY 11/30/13 [History] Aspirin EC [Ecotrin Low Dose] 162 mg PO DAILY 10/17/16 [History] Calcium Carbonate/Vitamin D3 [Caltrate 600 Plus D3 Tablet] 1 tab PO DAILY 10/17/16 [History] Cyanocobalamin (Vitamin B-12) [Vitamin B-12] 1,000 mcg PO DAILY 10/17/16 [History] Losartan Potassium 100 mg PO DAILY 10/17/16 [History] Ascorbic Acid [Vitamin C] 1,000 mg PO DAILY 05/05/19 [History] Cholecalciferol [Vitamin D3 (25 Mcg = 1000 Iu)] 2,000 unit PO DAILY 05/05/19 [History] HYDROcodone/APAP 7.5-325MG [[place] 7.5-325] 1 tab PO BID PRN 05/05/19 [History] Rivastigmine 9.5MG/24Hr Patch [Exelon 9.5MG/24Hr Patch] 1 patch TRANSDERM Q24HR 05/05/19 [History] Vitamin E (Dl,Tocopheryl Acet) [Vitamin E] 400 unit PO DAILY 05/05/19 [History] Cholestyramine (with Sugar) [Questran Packet] 4 gm PO BID@1000,2100 PRN 7 Days #14 packet 05/10/19 [Rx] Vancomycin HCl [Vancomycin HCl Oral Soln] 250 mg PO Q6HR 38 Days #340 dose 05/10/19 [Rx] Follow up Appointment(s)/Referral(s): Mark Hope MD [Primary Care Provider] - 1-2 days Cristiano Fay MD [STAFF PHYSICIAN] - 2 Weeks Activity/Diet/Wound Care/Special Instructions: Activity as tolerated Diet lactose and caffeine free regular diet Discharge Disposition: HOME SELF-CARE
--- NOTE | 2019-05-10 16:16 | PN ---
PROGRESS NOTE DATE OF SERVICE: 05/10/2019 REASON FOR FOLLOWUP: Recurrent C difficile colitis. INTERVAL HISTORY: The patient is currently afebrile. The patient is breathing comfortably. The patient's diarrhea has improved, is slightly forming up; only one episode since morning. No chest pain, shortness of breath or cough. PHYSICAL EXAMINATION: Blood pressure 128/63 with a pulse of 80, temperature of 97.8. She is 96% on room air. General description is an elderly female lying in bed in no distress. RESPIRATORY SYSTEM: Unlabored breathing. Clear to auscultation anteriorly. HEART: S1, S2. Regular rate and rhythm. ABDOMEN: Soft. No tenderness. EXTREMITIES: No edema of the feet. LABS: Hemoglobin is 10.7, white count 5.8. BUN of 8, creatinine 0.41. DIAGNOSTIC IMPRESSION AND PLAN: Patient with recurrent Clostridium difficile colitis; this has been her second episode, failing initial course with oral vancomycin. Plan at this time is to give her a tapering course of oral vancomycin for the next few weeks. This has been explained in detail to the patient and to the nurse practitioner. Also advised to increase probiotic intake and follow up in the office in 1-2 weeks. MMODL / IJN: [id number] /
== END 2019-05-10 15:50 | disposition home or self-care (01) | DRG 871 ==
LOC: EC 22:21 → 4SSUR 23:33
PROVIDERS: ADMIT Internal Medicine; ATTEND Internal Medicine
DX: A41.89 Other specified sepsis (principal); G93.41 Metabolic encephalopathy; A04.71 Enterocolitis due to Clostridium difficile, recurrent; C34.12 Malignant neoplasm of upper lobe, left bronchus or lung; N39.0 Urinary tract infection, site not specified; F17.210 Nicotine dependence, cigarettes, uncomplicated; F03.90 Unspecified dementia, unspecified severity, without behavioral disturbance, psychotic disturbance, mood disturbance, and anxiety; G89.29 Other chronic pain; M54.9 Dorsalgia, unspecified; I50.9 Heart failure, unspecified; I11.0 Hypertensive heart disease with heart failure; Z79.82 Long term (current) use of aspirin; Z80.41 Family history of malignant neoplasm of ovary; Z86.19 Personal history of other infectious and parasitic diseases; Z87.440 Personal history of urinary (tract) infections; Z90.49 Acquired absence of other specified parts of digestive tract; Z60.2 Problems related to living alone; Z90.2 Acquired absence of lung [part of]
CPT/HCPCS: 36415; 71046; 80053; 81003; 82150; 83605; 83690; 83735; 84100; 85025; 87040; 87045; 87046; 87324; 87502; 93005; 96360; 96361; 99285

== ENCOUNTER 2019-08-20 18:59 | Observation (INO) | payer MEDICARE ==
[2019-08-20] MEDS ORDERED: ASPIRIN 81 MG PO STA (19:25)
[2019-08-20] MEDS ORDERED: NITROGLYCERIN OINT 1 INCH/GM PACKET TOPICAL STA (19:25)
--- NOTE | 2019-08-20 19:31 | ED ---
General Adult HPI - General Chief complaint: Chest Pain Stated complaint: chest pain Time Seen by Provider: 08/20/19 19:05 Source: patient, RN notes reviewed, old records reviewed Mode of arrival: wheelchair Limitations: no limitations - History of Present Illness Initial comments: This is a 79-year-old female with past medical history significant for 62 years of smoking, hypertension. Patient comes in today because she's been having intermittent chest pain all day today. Patient states the chest pain starts in the middle and does radiate out towards both for breast. Patient states it's. Pretty significant when it occurs. Patient states it lasts for about 10 minutes at a time and she short of breath when it occurs. Patient states couple nights ago she had 2 episodes as well but she didn't tell anyone. Patient denies any diaphoresis per patient denies any nausea. Patient denies any abdominal pain patient denies any lightheadedness or dizziness. Patient denies any difficulty breathing shortness of breath. Patient denies any fever chills or cough. Patient denies any swelling to the legs or calf tenderness. Patient states she currently is chest pain-free - Related Data Home Medications Medication Instructions Recorded Confirmed amLODIPine BESYLATE [Norvasc] 5 mg PO HS 11/28/13 05/05/19 Multivitamins, Thera [Multivitamin 1 tab PO DAILY 11/30/13 05/05/19 (formulary)] Aspirin EC [Ecotrin Low Dose] 162 mg PO DAILY 10/17/16 05/05/19 Calcium Carbonate/Vitamin D3 1 tab PO DAILY 10/17/16 05/05/19 [Caltrate 600 Plus D3 Tablet] Cyanocobalamin (Vitamin B-12) 1,000 mcg PO DAILY 10/17/16 05/05/19 [Vitamin B-12] Losartan Potassium 100 mg PO DAILY 10/17/16 05/05/19 Ascorbic Acid [Vitamin C] 1,000 mg PO DAILY 05/05/19 05/05/19 Cholecalciferol [Vitamin D3 (25 2,000 unit PO DAILY 05/05/19 05/05/19 Mcg = 1000 Iu)] HYDROcodone/APAP 7.5-325MG [[place] 1 tab PO BID PRN 05/05/19 05/05/19 7.5-325] Rivastigmine 9.5MG/24Hr Patch 1 patch TRANSDERM Q24HR 05/05/19 05/05/19 [Exelon 9.5MG/24Hr Patch] Vitamin E (Dl,Tocopheryl Acet) 400 unit PO DAILY 05/05/19 05/05/19 [Vitamin E] Previous Rx's Medication Instructions Recorded Cholestyramine (with Sugar) 4 gm PO BID@1000,2100 PRN 7 Days 05/10/19 [Questran Packet] #14 packet Vancomycin HCl [Vancomycin HCl 250 mg PO Q6HR 38 Days #340 dose 05/10/19 Oral Soln] Allergies Allergy/AdvReac Type Severity Reaction Status Date / Time steriod AdvReac Unknown FLUSHED Uncoded 08/20/19 19:10 FACE Review of Systems ROS Statement: Those systems with pertinent positive or pertinent negative responses have been documented in the HPI. ROS Other: All systems not noted in ROS Statement are negative. Past Medical History Past Medical History: Cancer, Hypertension Additional Past Medical History / Comment(s): Chronic back pain, CDIFF (March 2019), lung cancer, History of Any Multi-Drug Resistant Organisms: None Reported Past Surgical History: Appendectomy, Back Surgery, Bowel Resection, Joint Replacement Additional Past Surgical History / Comment(s): Hemmorrhoidectomy, left knee surgery (40% of knee cap taken out), left lower lobectomy, carotid artery cleaned out Past Anesthesia/Blood Transfusion Reactions: No Reported Reaction Past Psychological History: No Psychological Hx Reported Smoking Status: Current every day smoker Past Alcohol Use History: Daily Past Drug Use History: None Reported - Past Family History Mother Additional Family Medical History / Comment(s): brain aneurysm at 54 Father Family Medical History: Cancer Additional Family Medical History / Comment(s): bone cancer Sister(s) Family Medical History: Cancer Additional Family Medical History / Comment(s): ovarian cancer General Exam - General Exam Comments Initial Comments: GENERAL: Patient is well-developed and well-nourished. Patient is nontoxic and well- hydrated and is in mild distress. ENT: Neck is soft and supple. No significant lymphadenopathy is noted. Oropharynx is clear. Moist mucous membranes. Neck has full range of motion without eliciting any pain. EYES: The sclera were anicteric and conjunctiva were pink and moist. Extraocular movements were intact and pupils were equal round and reactive to light. Eyelids were unremarkable. PULMONARY: Unlabored respirations. Good breath sounds bilaterally. No audible rales rhonchi or wheezing was noted. CARDIOVASCULAR: There is a regular rate and rhythm without any murmurs gallops or rubs. ABDOMEN: Soft and nontender with normal bowel sounds. SKIN: Skin is clear with no lesions or rashes and otherwise unremarkable. NEUROLOGIC: Patient is alert and oriented x3. Cranial nerves II through XII are grossly intact. Motor and sensory are also intact. Normal speech, volume and content. Symmetrical smile. MUSCULOSKELETAL: Normal extremities with adequate strength and full range of motion. LYMPHATICS: No significant lymphadenopathy is noted PSYCHIATRIC: Normal psychiatric evaluation. Limitations: no limitations Course Vital Signs 08/20/19 19:08 Temperature 97.9 F Pulse Rate 66 Respiratory 20 Rate Blood Pressure 130/85 O2 Sat by Pulse 99 Oximetry Medical Decision Making - Medical Decision Making EKG shows normal sinus rhythm at 77 bpm VA interval is 152 QRS is 86 QT interval 384 QTC is 434. Patient's EKG shows no ST segment elevation or depression. Chest x-ray shows no acute abnormality. I started the patient on heparin for the unstable angina. Patient also received aspirin and Nitropaste. I spoke with Dr. Hope he agreed to admit the patient admitted the patient I consult cardiology continued heparin Nitropaste on the floor. - Lab Data Result diagrams: 08/20/19 19:32 08/20/19 19:32 Lab Results 08/20/19 08/20/19 08/20/19 Range/Units 19:32 19:32 19:32 WBC 5.3 (3.8-10.6) k/uL RBC 3.99 (3.80-5.40) m/uL Hgb 12.9 (11.4-16.0) gm/dL Hct 37.5 (34.0-46.0) % MCV 93.9 (80.0-100.0) fL MCH 32.4 (25.0-35.0) pg MCHC 34.5 (31.0-37.0) g/dL RDW 12.3 (11.5-15.5) % Plt Count 250 (150-450) k/uL Neutrophils % 42 % Lymphocytes % 41 % Monocytes % 8 % Eosinophils % 4 % Basophils % 2 % Neutrophils # 2.2 (1.3-7.7) k/uL Lymphocytes # 2.1 (1.0-4.8) k/uL Monocytes # 0.4 (0-1.0) k/uL Eosinophils # 0.2 (0-0.7) k/uL Basophils # 0.1 (0-0.2) k/uL PT 9.5 (9.0-12.0) sec INR 0.9 (<1.2) APTT 22.3 (22.0-30.0) sec Sodium 137 (137-145) mmol/L Potassium 4.0 (3.5-5.1) mmol/L Chloride 103 (98-107) mmol/L Carbon Dioxide 28 (22-30) mmol/L Anion Gap 6 mmol/L BUN 18 H (7-17) mg/dL Creatinine 0.56 (0.52-1.04) mg/dL Est GFR (CKD-EPI)AfAm >90 (>60 ml/min/1.73 sqM) Est GFR (CKD-EPI)NonAf 89 (>60 ml/min/1.73 sqM) Glucose 96 (74-99) mg/dL Calcium 10.2 (8.4-10.2) mg/dL Magnesium 2.0 (1.6-2.3) mg/dL Total Bilirubin 0.4 (0.2-1.3) mg/dL AST 26 (14-36) U/L ALT 15 (4-34) U/L Alkaline Phosphatase 65 (38-126) U/L Troponin I (0.000-0.034) ng/mL Total Protein 7.2 (6.3-8.2) g/dL Albumin 4.2 (3.5-5.0) g/dL 08/20/19 Range/Units 19:32 WBC (3.8-10.6) k/uL RBC (3.80-5.40) m/uL Hgb (11.4-16.0) gm/dL Hct (34.0-46.0) % MCV (80.0-100.0) fL MCH (25.0-35.0) pg MCHC (31.0-37.0) g/dL RDW (11.5-15.5) % Plt Count (150-450) k/uL Neutrophils % % Lymphocytes % % Monocytes % % Eosinophils % % Basophils % % Neutrophils # (1.3-7.7) k/uL Lymphocytes # (1.0-4.8) k/uL Monocytes # (0-1.0) k/uL Eosinophils # (0-0.7) k/uL Basophils # (0-0.2) k/uL PT (9.0-12.0) sec INR (<1.2) APTT (22.0-30.0) sec Sodium (137-145) mmol/L Potassium (3.5-5.1) mmol/L Chloride (98-107) mmol/L Carbon Dioxide (22-30) mmol/L Anion Gap mmol/L BUN (7-17) mg/dL Creatinine (0.52-1.04) mg/dL Est GFR (CKD-EPI)AfAm (>60 ml/min/1.73 sqM) Est GFR (CKD-EPI)NonAf (>60 ml/min/1.73 sqM) Glucose (74-99) mg/dL Calcium (8.4-10.2) mg/dL Magnesium (1.6-2.3) mg/dL Total Bilirubin (0.2-1.3) mg/dL AST (14-36) U/L ALT (4-34) U/L Alkaline Phosphatase (38-126) U/L Troponin I <0.012 (0.000-0.034) ng/mL Total Protein (6.3-8.2) g/dL Albumin (3.5-5.0) g/dL Critical Care Time Critical Care Time: Yes Total Critical Care Time: 35 Disposition Clinical Impression: Unstable angina Disposition: ADMITTED IP TO THIS HOSP Referrals: Mark Hope MD [Primary Care Provider] - 1-2 days Time of Disposition: 20:35
[2019-08-20 19:57] LABS: INR 0.9 (<1.2); Partial Thromboplastin Time 22.3 sec (22.0-30.0); Prothrombin Time 9.5 sec (9.0-12.0)
[2019-08-20 20:03] LABS: ALT 15 U/L (4-34); AST 26 U/L (14-36); African American GFR (CKD) >90 (>60 ml/min/1.73 sqM); Albumin 4.2 g/dL (3.5-5.0); Alkaline Phosphatase 65 U/L (38-126); Anion Gap 6 mmol/L; Blood Urea Nitrogen 18 mg/dL (7-17); Calcium 10.2 mg/dL (8.4-10.2); Carbon Dioxide 28 mmol/L (22-30); Chloride 103 mmol/L (98-107); Glucose 96 mg/dL (74-99); Non-African American GFR(CKD) 89 (>60 ml/min/1.73 sqM); Sodium 137 mmol/L (137-145); Total Bilirubin 0.4 mg/dL (0.2-1.3); Total Protein 7.2 g/dL (6.3-8.2)
--- NOTE | 2019-08-20 20:05 | XR ---
EXAMINATION TYPE: XR chest 2V DATE OF EXAM: 08/20/2019 COMPARISON: 05/05/2019 HISTORY: Weakness TECHNIQUE: 2 views FINDINGS: There is no heart failure nor confluent pneumonic infiltrate. Costophrenic angles are clear . Thoracic aorta is atheromatous. There is some osteopenia. There is slight anterior wedging of mid t horacic vertebra. IMPRESSION: No active cardiopulmonary disease. Atheromatous aorta. No adverse change.
[2019-08-20 20:28] LABS: Basophils # (A) 0.1 k/uL (0-0.2); Basophils % (A) 2 %; Eosinophils # (A) 0.2 k/uL (0-0.7); Eosinophils % (A) 4 %; HCT 37.5 % (34.0-46.0); HGB 12.9 gm/dL (11.4-16.0); Lymphocytes # (A) 2.1 k/uL (1.0-4.8); Lymphocytes % (A) 41 %; MCH 32.4 pg (25.0-35.0); MCHC 34.5 g/dL (31.0-37.0); MCV 93.9 fL (80.0-100.0); Monocytes # (A) 0.4 k/uL (0-1.0); Monocytes % (A) 8 %; Neutrophils # (A) 2.2 k/uL (1.3-7.7); Neutrophils % (A) 42 %; Platelet Count 250 k/uL (150-450); RBC 3.99 m/uL (3.80-5.40); RDW 12.3 % (11.5-15.5); WBC 5.3 k/uL (3.8-10.6)
[2019-08-20] MEDS ORDERED: HEPARIN SODIUM,PORCINE 5,000 UNIT/ML 1 ML VIAL IV ONE (20:34)
[2019-08-20] MEDS ORDERED: NITROGLYCERIN SL TABS 0.4 MG TAB SUBLINGUAL PRN (20:36)
[2019-08-20] MEDS: HEPARIN SOD,PORK IN 0.45% NACL 25,000 UNIT in 0.45% NACL 1 250ML.BAG IV SCH (21:04)
[2019-08-21] MEDS: amLODIPine 5 MG TAB PO SCH ×3 (00:36→20:21)
[2019-08-21] MEDS: NITROGLYCERIN OINT 1 INCH/GM PACKET TOPICAL SCH ×4 (00:36→18:02)
[2019-08-21 06:48] LABS: Cholesterol 151 mg/dL (<200); HDL Cholesterol 50 mg/dL (40-60); LDL Cholesterol,Calculated 86 mg/dL (0-99); Triglycerides 76 mg/dL (<150)
[2019-08-21] MEDS: ACETAMINOPHEN TAB 325 MG TAB PO PRN (06:55)
[2019-08-21] MEDS ORDERED: ASPIRIN 325 MG TAB PO SCH (09:00)
--- NOTE | 2019-08-21 11:14 | CONS ---
PÉREZ Gu is a 79-year-old lady with history of hypertension who presented to the hospital complaining of chest pain. She describes it as intermittent episodes of precordial chest pressure that lasted at most about 15 minutes. It is in the precordial area and radiates across the chest. There is no history of shortness of breath or diaphoresis. She did not have any further chest pain since being admitted. She had an EKG that revealed sinus rhythm with poor R-wave progression. She has had 3 sets of cardiac enzymes that are all within normal limits. The patient has history of right carotid endarterectomy and her LDL cholesterol is well controlled at 86. Given her symptoms and risk factors, I advised the patient to undergo cardiac catheterization for further evaluation. She is going to think over this and make up her mind if she decides [QAMARKE] she will have a cardiac cath on Friday. PAST MEDICAL HISTORY: Significant for hypertension, dyslipidemia, mild dementia, carotid stenosis, status post right carotid endarterectomy. Patient lives independently. MEDICATIONS: Medications at home include baclofen, vitamin D, C, D, Exelon, losartan, amlodipine, and [place]. ALLERGIES: Allergic to STEROIDS, LACTOSE, and CAFFEINE. FAMILY HISTORY: Negative for premature coronary artery disease. SOCIAL HISTORY: Negative for smoking, EtOH abuse, or drug abuse. REVIEW OF SYSTEMS: HEENT is unremarkable. CARDIAC: As described above. RESPIRATORY: Negative. GI: Negative. GENITOURINARY: Negative. ALLERGY/IMMUNOLOGY: Negative. SKIN: Negative. MUSCULOSKELETAL: Negative. ENDOCRINE: Negative. DERM: Negative. CONSTITUTIONAL: Negative. ONCOLOGICAL: Negative. NECKTIE TURNER: Negative. Rest of the system review is not relevant. PHYSICAL EXAMINATION: On exam, comfortable at rest. Vital signs are stable. There is no jugular venous distention. Carotid upstroke is normal. There is no bruit. Chest exam reveals good air entry bilaterally. Heart exam reveals first and second heart sounds. No gallop. No murmur. No rub. Abdomen is soft, nontender. Exam of extremities did not reveal edema. Peripheral pulses are felt. NECKTIE TURNER exam did not reveal focal neurological deficits. EKG does not show acute ischemic changes. Cardiac enzymes have been negative. ASSESSMENT: Unstable angina. PLAN: Continue the IV heparin. Continue rest of her medications. Obtain a 2D echo. Cardiac cath versus stress test on Friday. MMODL / IJN: [id number] /
[2019-08-21] MEDS: LOSARTAN 50 MG TAB PO SCH (11:23)
[2019-08-21] MEDS: ASPIRIN 81 MG PO SCH (11:23)
[2019-08-21] MEDS: VITAMIN E (DL,TOCOPHERYL ACET) 400 UNIT CAP PO SCH (11:23)
[2019-08-21] MEDS: CALCIUM CARB-VIT D 500MG-200UN 1 EACH TAB PO SCH (11:23)
[2019-08-21] MEDS: ASCORBIC ACID 500 MG TAB PO SCH (11:23)
[2019-08-21] MEDS: MULTIVITAMINS, THERA 1 EACH TAB PO SCH (11:23)
[2019-08-21] MEDS: CYANOCOBALAMIN 500 MCG TAB PO SCH (11:23)
[2019-08-21] MEDS: CHOLECALCIFEROL 1,000 UNIT TAB PO SCH (11:24)
[2019-08-21] MEDS ORDERED: ALPRAZolam 0.5 MG TAB PO PRN (14:51)
[2019-08-21] MEDS ORDERED: NITROGLYCERIN SL TABS 0.4 MG TAB SUBLINGUAL PRN (14:51)
[2019-08-21] MEDS ORDERED: ATORVASTATIN 80 MG TAB PO STA (14:51)
[2019-08-21] MEDS ORDERED: SODIUM CHLORIDE 0.9% 1,000 ML in EMPTY BAG 1 BAG IV ONE (14:51)
[2019-08-21] MEDS ORDERED: ASPIRIN 325 MG TAB PO STA (14:51)
--- NOTE | 2019-08-21 15:46 | P.HPIM ---
History of Present Illness H&P Date: 08/21/19 Brittanie Pierre is a 79-year-old female who presented to [facility] emergency room with a chief complaint of chest pain, patient describes episodes of pain and pressure in the middle of her chest radiating to the sides, on and off all day prior to admission, episode last 5-10 minutes and are relieved spontaneously with rest patient denies any shortness of breath no nausea or vomiting no diaphoresis, she has multiple cardiac risk factors including lifelong history of smoking, she was evaluated in the emergency room first EKG and first set of cardiac enzymes were negative she was admitted to 24- hour observation she was started on IV heparin, cardiology consultation was requested. Past Medical History Past Medical History: Cancer, Hypertension Additional Past Medical History / Comment(s): Chronic back pain, CDIFF (March 2019), lung cancer, History of Any Multi-Drug Resistant Organisms: None Reported Past Surgical History: Appendectomy, Back Surgery, Bowel Resection, Joint Replacement Additional Past Surgical History / Comment(s): Hemmorrhoidectomy, left knee surgery (40% of knee cap taken out), left lower lobectomy, carotid artery cleaned out Past Anesthesia/Blood Transfusion Reactions: No Reported Reaction Past Psychological History: No Psychological Hx Reported Smoking Status: Former smoker Past Alcohol Use History: Daily Additional Past Alcohol Use History / Comment(s): Patient drinks 2 liquor beverages a night most nights of the week Past Drug Use History: None Reported - Past Family History Mother Additional Family Medical History / Comment(s): brain aneurysm at 54 Father Family Medical History: Cancer Additional Family Medical History / Comment(s): bone cancer Sister(s) Family Medical History: Cancer Additional Family Medical History / Comment(s): ovarian cancer Medications and Allergies Home Medications Medication Instructions Recorded Confirmed Type amLODIPine BESYLATE [Norvasc] 5 mg PO HS 11/28/13 08/20/19 History Multivitamins, Thera [Multivitamin 1 tab PO DAILY 11/30/13 08/20/19 History (formulary)] Aspirin EC [Ecotrin Low Dose] 162 mg PO DAILY 10/17/16 08/20/19 History Calcium Carbonate/Vitamin D3 1 tab PO DAILY 10/17/16 08/20/19 History [Caltrate 600 Plus D3 Tablet] Cyanocobalamin (Vitamin B-12) 1,000 mcg PO DAILY 10/17/16 08/20/19 History [Vitamin B-12] Losartan Potassium 100 mg PO DAILY 10/17/16 08/20/19 History Ascorbic Acid [Vitamin C] 1,000 mg PO DAILY 05/05/19 08/20/19 History Cholecalciferol [Vitamin D3 (25 2,000 unit PO DAILY 05/05/19 08/20/19 History Mcg = 1000 Iu)] HYDROcodone/APAP 7.5-325MG [[place] 1 tab PO BID PRN 05/05/19 08/20/19 History 7.5-325] Rivastigmine 9.5MG/24Hr Patch 1 patch TRANSDERM Q24HR 05/05/19 08/20/19 History [Exelon 9.5MG/24Hr Patch] Vitamin E (Dl,Tocopheryl Acet) 400 unit PO DAILY 05/05/19 08/20/19 History [Vitamin E] Cholestyramine (with Sugar) 4 gm PO BID@1000,2100 PRN 7 Days 05/10/19 08/20/19 Rx [Questran Packet] #14 packet Baclofen 10 mg PO HS 08/20/19 08/20/19 History Allergies Allergy/AdvReac Type Severity Reaction Status Date / Time lactose AdvReac Intermediate Diarrhea Verified 08/20/19 23:42 caffeine AdvReac Diarrhea Verified 08/20/19 23:42 steriod AdvReac Unknown FLUSHED Uncoded 08/20/19 19:10 FACE Physical Exam Vitals: Vital Signs Temp Pulse Pulse Resp BP BP Pulse Ox 08/21/19 12:00 97.9 F 70 16 157/73 98 08/21/19 08:00 17 08/21/19 07:37 97.8 F 63 17 129/69 99 08/21/19 04:00 57 L 18 08/21/19 00:11 97.4 F L 58 L 112/64 95 08/20/19 21:43 97 F L 58 L 18 162/73 97 08/20/19 21:07 65 18 161/75 96 08/20/19 19:08 97.9 F 66 20 130/85 99 Intake and Output 08/21/19 08/21/19 08/21/19 06:59 14:59 22:59 Intake Total 240 480 Balance 240 480 Intake: Oral 240 480 Other: Voiding Method Toilet Toilet # Voids 3 2 In general patient is alert and oriented 3 in no apparent distress HEENT head normocephalic and atraumatic Neck is supple no JVD no goiter no lymphadenopathy Chest exam reveals a few scattered crackles no wheezing Cardiac exam reveals regular heart sounds S1 and S2 no gallops no murmurs Abdomen is soft nontender no organomegaly with normal bowel sounds Extremity exam reveals no edema no cyanosis or clubbing Neurological examination reveals no gross focal deficit Results CBC & Chem 7: 08/20/19 19:32 08/20/19 19:32 Labs: Abnormal Lab Results - Last 24 Hours (Table) 08/20/19 08/21/19 Range/Units 19:32 02:06 APTT 45.4 H (22.0-30.0) sec BUN 18 H (7-17) mg/dL Thrombosis Risk Factor Assmnt - Choose All That Apply Any of the Below Risk Factors Present?: No Other Risk Factors: Yes Each Risk Factor Represents 3 Points: Age 75 years or older Other congenital or acquired thrombophilia - If yes, enter type in comment: No Thrombosis Risk Factor Assessment Total Risk Factor Score: 3 Thrombosis Risk Factor Assessment Level: Moderate Risk Assessment and Plan Plan: #1 episodes of chest in a 79-year-old female with multiple cardiac risk factors, patient is admitted to 24-hour observation, she was started on IV heparin, serial EKGs and cardiac enzymes were ordered, cardiology consultation was requested #2 underlying history of hypertension well-controlled on losartan and amlodipine continue #3 underlying history of mild dementia followed by neurology maintained on Exelon patch #4 underlying history of degenerative disc disease with chronic back pain maintained on [place] when necessary At this time plan per cardiology is to continue IV heparin, continue to monitor closely, proceed was cardiac catheterization in a.m. tomorrow
--- NOTE | 2019-08-21 16:57 | ECHOF ---
Referral Reason:chest pain MEASUREMENTS -------- HEIGHT: 147.3 cm WEIGHT: 52.2 kg BP: 129/69 RVIDd: 3.0 cm (< 3.3) IVSd: 1.4 cm (0.6 - 1.1) LVIDd: 3.5 cm (3.9 - 5.3) LVPWd: 1.3 cm (0.6 - 1.1) IVSs: 1.5 cm LVIDs: 2.4 cm LVPWs: 1.7 cm LA Diam: 3.3 cm (2.7 - 3.8) LAESV Index (A-L): 27.97 ml/m Ao Diam: 2.7 cm (2.0 - 3.7) AV Cusp: 2.1 cm (1.5 - 2.6) MV EXCURSION: 18.829 mm (> 18.000) MV EF SLOPE: 82 mm/s (70 - 150) EPSS: 0.5 cm MV E Paul: 0.84 m/s MV DecT: 174 ms MV A Paul: 0.94 m/s MV E/A Ratio: 0.90 RAP: 5.00 mmHg RVSP: 28.15 mmHg FINDINGS -------- Sinus rhythm. This was a technically good study. The left ventricular size is normal. There is moderate concentric left ventricular hypertrophy. O verall left ventricular systolic function is normal with, an EF between 60 - 65 %. The right ventricle is normal in size. Normal LA size by volume 22+/-6 ml/m2. The right atrium is normal in size. Interatrial and interventricular septum intact. The aortic valve is trileaflet and appears structurally normal. The mitral valve leaflets are mildly thickened. Mild mitral annular calcification present. There is trace mitral regurgitation. Mild tricuspid regurgitation present. Right ventricular systolic pressure is normal at < 35 mmHg. Trace/mild (physiologic) pulmonic regurgitation. The aortic root size is normal. Normal inferior vena cava with normal inspiratory collapse consistent with estimated right atrial pre ssure of 5 mmHg. There is no pericardial effusion. CONCLUSIONS -------- 1. Sinus rhythm. 2. This was a technically good study. 3. The left ventricular size is normal. 4. There is moderate concentric left ventricular hypertrophy. 5. Overall left ventricular systolic function is normal with, an EF between 60 - 65 %. 6. The right ventricle is normal in size. 7. Normal LA size by volume 22+/-6 ml/m2. 8. The right atrium is normal in size. 9. Interatrial and interventricular septum intact. 10. The aortic valve is trileaflet and appears structurally normal. 11. The mitral valve leaflets are mildly thickened. 12. Mild mitral annular calcification present. 13. There is trace mitral regurgitation. 14. Mild tricuspid regurgitation present. 15. Right ventricular systolic pressure is normal at < 35 mmHg. 16. Trace/mild (physiologic) pulmonic regurgitation. 17. The aortic root size is normal. 18. Normal inferior vena cava with normal inspiratory collapse consistent with estimated right atrial pressure of 5 mmHg. 19. There is no pericardial effusion. FOLDER INSPECTOR: Nicki Govea RDCS
[2019-08-21] MEDS: BACLOFEN 10 MG TAB PO SCH (20:21)
[2019-08-21] MEDS: ATORVASTATIN 40 MG TAB PO SCH (20:21)
[2019-08-21] MEDS: HEPARIN SOD,PORK IN 0.45% NACL 25,000 UNIT in 0.45% NACL 1 250ML.BAG IV SCH (20:33)
[2019-08-21] MEDS: RIVASTIGMINE 9.5MG/24HR PATCH TRANSDERM SCH (22:27)
[2019-08-21] MEDS: ALPRAZolam 0.25 MG TAB PO PRN (23:51)
[2019-08-22] MEDS: NITROGLYCERIN OINT 1 INCH/GM PACKET TOPICAL SCH ×5 (01:31→23:40)
[2019-08-22 06:03] LABS: Basophils % (A) 1 %; Eosinophils # (A) 0.3 k/uL (0-0.7); Eosinophils % (A) 5 %; HCT 36.2 % (34.0-46.0); HGB 12.3 gm/dL (11.4-16.0); Lymphocytes % (A) 39 %; MCH 32.1 pg (25.0-35.0); MCHC 33.9 g/dL (31.0-37.0); MCV 94.6 fL (80.0-100.0); Mean Platelet Volume 8.7; Monocytes # (A) 0.4 k/uL (0-1.0); Monocytes % (A) 8 %; Neutrophils # (A) 2.3 k/uL (1.3-7.7); Neutrophils % (A) 45 %; Platelet Count 203 k/uL (150-450); RBC 3.83 m/uL (3.80-5.40); RDW 12.4 % (11.5-15.5); WBC 5.2 k/uL (3.8-10.6)
[2019-08-22] MEDS: ASPIRIN 81 MG PO SCH (06:08)
[2019-08-22] MEDS: LOSARTAN 50 MG TAB PO SCH (06:13)
[2019-08-22 06:19] LABS: ALT 12 U/L (4-34); AST 25 U/L (14-36); African American GFR (CKD) >90 (>60 ml/min/1.73 sqM); Albumin 3.6 g/dL (3.5-5.0); Alkaline Phosphatase 67 U/L (38-126); Anion Gap 5 mmol/L; Blood Urea Nitrogen 15 mg/dL (7-17); Calcium 9.5 mg/dL (8.4-10.2); Carbon Dioxide 25 mmol/L (22-30); Chloride 108 mmol/L (98-107); Glucose 92 mg/dL (74-99); Non-African American GFR(CKD) 89 (>60 ml/min/1.73 sqM); Potassium 3.7 mmol/L (3.5-5.1); Sodium 138 mmol/L (137-145); Total Bilirubin 0.5 mg/dL (0.2-1.3); Total Protein 6.5 g/dL (6.3-8.2)
[2019-08-22] MEDS ORDERED: IV FLUID CONTINUATION 1,000 ML IV ONE (09:30)
[2019-08-22] MEDS ORDERED: MIDAZOLAM 2 MG/2 ML VIAL IV ONE (09:54)
[2019-08-22] MEDS ORDERED: LIDOCAINE 1% INJ 10MG/ML (20 ML MDV) SQ ONE (09:55)
[2019-08-22] MEDS ORDERED: fentaNYL (PF) 50 MCG/ML 2 ML AMP IV ONE (09:59)
[2019-08-22] MEDS ORDERED: BIVALIRUDIN BOLUS 250 MG/50 ML IV ONE (11:01)
[2019-08-22] MEDS ORDERED: BIVALIRUDIN 250 MG in SODIUM CHLORIDE 0.9% 50 ML IV ONE (11:01)
[2019-08-22] MEDS ORDERED: CLOPIDOGREL 75 MG TAB PO ONE (11:07)
[2019-08-22] MEDS: NITROGLYCERIN 1000MCG/10ML SYRINGE INTRACORON ONE ×2 (11:08→11:16)
[2019-08-22] MEDS ORDERED: ONDANSETRON 4 MG/2 ML VIAL IVP ONE (11:16)
[2019-08-22] MEDS ORDERED: ATROPINE SULFATE 0.1 MG/ML 10ML SYRINGE IV ONE (11:17)
[2019-08-22] MEDS: HYDROmorphone 1 MG/ML 1 ML SYRINGE IVP ONE ×2 (11:18→11:51)
[2019-08-22] MEDS ORDERED: niCARdipine Syringe (1,000 mcg/10 mL) INTRACORON ONE (11:20)
[2019-08-22] MEDS ORDERED: IOPAMIDOL-370 125ML BTL INJ ONE (11:26)
[2019-08-22] MEDS ORDERED: IOPAMIDOL-370 50ML BTL INJ ONE (11:27)
[2019-08-22] MEDS ORDERED: MAG HYDROX/AL HYDROX/SIMETH 30 ML CUP PO PRN (11:33)
[2019-08-22] MEDS ORDERED: NITROGLYCERIN SL TABS 0.4 MG TAB SUBLINGUAL PRN (11:33)
[2019-08-22] MEDS ORDERED: ATROPINE SULFATE 0.1 MG/ML 10ML SYRINGE IV PRN (11:33)
[2019-08-22] MEDS ORDERED: ZOLPIDEM 5 MG TAB PO PRN (11:33)
[2019-08-22] MEDS ORDERED: RX INFO: IV CONTRAST WAS GIVEN 1 EACH MISC MISCELLANE PRN (11:33)
[2019-08-22] MEDS ORDERED: HYDROmorphone 0.5 MG/0.5 ML SYRINGE IVP PRN (11:43)
[2019-08-22] MEDS ORDERED: NITROGLYCERIN SL TABS 0.4 MG TAB SUBLINGUAL ONE (11:44)
[2019-08-22] MEDS ORDERED: SODIUM CHLORIDE 0.9% 1,000 ML IV SCH (11:45)
--- NOTE | 2019-08-22 12:03 | P.PN ---
Subjective Progress Note Date: 08/22/19 Brittanie Pierre is a 79-year-old female who presented to [facility] emergency room with a chief complaint of chest pain, patient describes episodes of pain and pressure in the middle of her chest radiating to the sides, on and off all day prior to admission, episode last 5-10 minutes and are relieved spontaneously with rest patient denies any shortness of breath no nausea or vomiting no diaphoresis, she has multiple cardiac risk factors including lifelong history of smoking, she was evaluated in the emergency room first EKG and first set of cardiac enzymes were negative she was admitted to 24- hour observation she was started on IV heparin, cardiology consultation was requested. On 08/22/2019 patient is scheduled for cardiac Catheterization today, she is alert and oriented 3 in no apparent distress, at this time there is no fever or chills no headache or dizziness no chest pain no shortness of breath no cough no nausea or vomiting no abdominal pain no diarrhea no burning with urination no frequency or urgency no hematuria Objective - Vital Signs Vital signs: Vital Signs Temp 97.4 F L 08/22/19 06:45 Pulse 65 08/22/19 06:45 Resp 16 08/22/19 08:00 BP 137/76 08/22/19 06:45 Pulse Ox 98 08/22/19 06:45 Intake & Output 08/21/19 08/22/19 08/22/19 18:59 06:59 18:59 Intake Total 480 207.415 300 Balance 480 207.415 300 Intake: IV 300 Intake, IV Titration 207.415 Amount Heparin Sod,Pork in 0.45% 207.415 NaCl 25,000 unit In 0.45 % NaCl 1 250ml.bag @ 12 UNITS/KG/HR 6.26 mls/hr IV .Q24H [facility] Rx#: [id number] Oral 480 Other: Voiding Method Toilet Toilet Toilet # Voids 2 1 - Exam In general patient is alert and oriented 3 in no apparent distress HEENT head normocephalic and atraumatic Neck is supple no JVD no goiter no lymphadenopathy Chest exam reveals a few scattered crackles no wheezing Cardiac exam reveals regular heart sounds S1 and S2 no gallops no murmurs Abdomen is soft nontender no organomegaly with normal bowel sounds Extremity exam reveals no edema no cyanosis or clubbing Neurological examination reveals no gross focal deficit - Labs CBC & Chem 7: 08/22/19 05:52 08/22/19 05:52 Labs: Abnormal Lab Results - Last 24 Hours (Table) 08/22/19 08/22/19 Range/Units 05:52 05:52 APTT 38.1 H (22.0-30.0) sec Chloride 108 H (98-107) mmol/L Assessment and Plan Plan: #1 episodes of chest in a 79-year-old female with multiple cardiac risk factors, patient is admitted to 24-hour observation, she was started on IV heparin, serial EKGs and cardiac enzymes were ordered, cardiology consultation was requested #2 underlying history of hypertension well-controlled on losartan and amlodipine continue #3 underlying history of mild dementia followed by neurology maintained on Exelon patch #4 underlying history of degenerative disc disease with chronic back pain maintained on [place] when necessary At this time plan per cardiology is to continue IV heparin, continue to monitor closely, proceed with cardiac catheterization today Will follow closely, Hospital course will depend on cardiac catheterization re karin.
[2019-08-22 12:24] LABS: Glucose,Whole Blood 96 mg/dL (75-99)
--- NOTE | 2019-08-22 13:30 | CC ---
CARDIAC CATHETERIZATION REPORT REFERRED BY: Dr. Hope. INDICATION: Unstable angina. PROCEDURE NOTE: After obtaining informed consent, left heart catheterization, coronary angiogram are performed via the right femoral artery using standard Star catheters. The patient tolerated the procedure well without any obvious immediate complications. The patient received moderate conscious sedation. Total sedation time was 15 minutes. FINDINGS: HEMODYNAMICS: Left ventricular end-diastolic pressure is 10-12 mm. There is no significant gradient across the aortic valve. LEFT VENTRICULOGRAM: Left ventriculogram is not performed. ANGIOGRAPHIC DATA: LEFT MAIN CORONARY ARTERY: Left main coronary artery is a normal-sized vessel and is free of stenosis. Divides into left anterior descending coronary artery and circumflex coronary artery. CIRCUMFLEX CORONARY ARTERY: Circumflex coronary artery is a dominant vessel and is free of significant stenosis. LEFT ANTERIOR DESCENDING CORONARY ARTERY: LAD shows some moderate atherosclerotic plaque in the proximal part which at its worst seems to be 50-60 percent stenosed. The vessels are calcified. RIGHT CORONARY ARTERY: Right coronary artery is a small nondominant vessel that is diffusely diseased. CONCLUSIONS: Moderate stenosis involving proximal LAD. PLAN: I am going to have Dr. Ng review the angiographic data and advise on advise on angioplasty. MMODL / IJN: [id number] /
--- NOTE | 2019-08-22 13:42 | PTCA ---
PERCUTANEOUSTRANS CORORONARY ANGIOGRAPHY DATE OF SERVICE: August 22, 2019. PERFORMING PHYSICIAN: Molina Ng MD. PROCEDURE PERFORMED: Successful stenting of the mid left anterior descending artery using 3.0 x 28 mm Xience JOHNNY with an excellent angiographic results and reduction of stenosis from 70% to 0%. INDICATION: This is a very pleasant 79-year-old female patient with hypertension and dyslipidemia who presented to the hospital with symptoms of chest discomfort concerning for unstable angina. She was seen by Dr. Lovelace who did perform a heart catheterization on the patient and that revealed calcified left coronary system with severe disease involving the mid left anterior descending artery as well as severe disease involving a medium caliber mid RCA. The decision was made for percutaneous coronary intervention. APPROACH: Right common femoral artery. COMPLICATION: None. LEVEL OF SEDATION: Moderate with sedation length of 38 minutes. PROCEDURE IN DETAIL: Please refer to the diagnostic heart catheterization was performed by Dr. Lovelace earlier today. Anticoagulation was initiated using Angiomax. Subsequently I did engage the left main using JL4 guide. I did wire the LAD using a run-through wire. I did PTCA ballooning and predilatation of the lesion in the mid LAD using 2.5 x 15 mm balloon which was inflated under 12 atmospheres for 20 seconds. After that, I deployed 3.0 x 28 mm Xience drug-eluting stent where the stent was positioned under fluoroscopic guidance with contrast injection and it was deployed after that under 12 atmospheres for 20 seconds. I post dilated the stent using 3.25 mm NC balloon. The balloon was inflated under 18 atmospheres for 20 seconds. The following angiogram showed good angiographic results and the procedure was completed without any complication. Please note that there was a small diagonal branch was originating from the proximal area of the stent and that was closed. The procedure was completed without any complication. POSTPROCEDURE MANAGEMENT: 1. Dual anti-platelet therapy. 2. Risk factors modifications. 3. Follow up with the patient. 4. The patient was given a loading dose of Plavix at 600 mg and she will be on maintenance dose of 75 mg p.o. daily. MMODL / IJN: [id number] /
--- NOTE | 2019-08-22 13:42 | LTR ---
DATE OF SERVICE: August 22, 2019. Dear Dr. Hope: Ms. Brittanie Pierre underwent a heart catheterization by Dr. Lovelace and that revealed severe disease involving the mid left anterior descending artery and subsequently I did perform percutaneous coronary intervention on the LAD with good angiographic results and without any complication. Thank you for allowing us to participate in her care and please do not hesitate to call if you have any question or concern. Sincerely, Sincerely, MD MARIO Funes / LYSSA: [id number] /
[2019-08-22] MEDS: ASCORBIC ACID 500 MG TAB PO SCH (14:19)
[2019-08-22] MEDS: CALCIUM CARB-VIT D 500MG-200UN 1 EACH TAB PO SCH (14:19)
[2019-08-22] MEDS: CHOLECALCIFEROL 1,000 UNIT TAB PO SCH (14:19)
[2019-08-22] MEDS: MULTIVITAMINS, THERA 1 EACH TAB PO SCH (14:20)
[2019-08-22] MEDS: VITAMIN E (DL,TOCOPHERYL ACET) 400 UNIT CAP PO SCH (14:20)
[2019-08-22] MEDS: CYANOCOBALAMIN 500 MCG TAB PO SCH (14:20)
[2019-08-22] MEDS: BACLOFEN 10 MG TAB PO SCH (21:23)
[2019-08-22] MEDS: amLODIPine 5 MG TAB PO SCH (21:23)
[2019-08-22] MEDS: ATORVASTATIN 40 MG TAB PO SCH (21:23)
[2019-08-22] MEDS: ALPRAZolam 0.25 MG TAB PO PRN (22:16)
[2019-08-23] MEDS: NITROGLYCERIN OINT 1 INCH/GM PACKET TOPICAL SCH (04:59)
[2019-08-23] MEDS: ACETAMINOPHEN TAB 325 MG TAB PO PRN (05:00)
[2019-08-23] MEDS: RIVASTIGMINE 9.5MG/24HR PATCH TRANSDERM SCH (05:00)
[2019-08-23 06:24] LABS: Basophils % (A) 0 %; Eosinophils % (A) 1 %; HCT 33.6 % (34.0-46.0); HGB 11.2 gm/dL (11.4-16.0); Lymphocytes # (A) 1.5 k/uL (1.0-4.8); Lymphocytes % (A) 21 %; MCH 31.6 pg (25.0-35.0); MCHC 33.4 g/dL (31.0-37.0); MCV 94.5 fL (80.0-100.0); Mean Platelet Volume 8.7; Monocytes # (A) 0.5 k/uL (0-1.0); Monocytes % (A) 6 %; Neutrophils # (A) 4.9 k/uL (1.3-7.7); Neutrophils % (A) 70 %; Platelet Count 205 k/uL (150-450); RBC 3.56 m/uL (3.80-5.40); RDW 12.4 % (11.5-15.5)
[2019-08-23 06:52] LABS: ALT 17 U/L (4-34); AST 90 U/L (14-36); African American GFR (CKD) >90 (>60 ml/min/1.73 sqM); Albumin 3.3 g/dL (3.5-5.0); Alkaline Phosphatase 68 U/L (38-126); Anion Gap 5 mmol/L; Blood Urea Nitrogen 18 mg/dL (7-17); Calcium 9.1 mg/dL (8.4-10.2); Carbon Dioxide 23 mmol/L (22-30); Chloride 109 mmol/L (98-107); Glucose 96 mg/dL (74-99); Non-African American GFR(CKD) >90 (>60 ml/min/1.73 sqM); Potassium 3.7 mmol/L (3.5-5.1); Sodium 137 mmol/L (137-145); Total Bilirubin 0.6 mg/dL (0.2-1.3)
[2019-08-23] MEDS ORDERED: PANTOPRAZOLE 40 MG TABLET PO SCH (07:30)
[2019-08-23] MEDS ORDERED: CLOPIDOGREL 75 MG TAB PO SCH (09:00)
[2019-08-23] MEDS: VITAMIN E (DL,TOCOPHERYL ACET) 400 UNIT CAP PO SCH (09:57)
[2019-08-23] MEDS: ASCORBIC ACID 500 MG TAB PO SCH (09:57)
[2019-08-23] MEDS: CYANOCOBALAMIN 500 MCG TAB PO SCH (09:57)
[2019-08-23] MEDS: ASPIRIN 81 MG PO SCH (09:58)
[2019-08-23] MEDS: MULTIVITAMINS, THERA 1 EACH TAB PO SCH (09:58)
[2019-08-23] MEDS: CALCIUM CARB-VIT D 500MG-200UN 1 EACH TAB PO SCH (09:58)
[2019-08-23] MEDS: CHOLECALCIFEROL 1,000 UNIT TAB PO SCH (09:58)
[2019-08-23] MEDS: LOSARTAN 50 MG TAB PO SCH (09:58)
[2019-08-23 11:00] VITALS: BMI 24.7
[2019-08-23 11:10] VITALS: RESP 18
[2019-08-23] MEDS ORDERED: METOPROLOL SUCCINATE (ER) 25 MG TAB.ER.24H PO SCH (11:15)
--- NOTE | 2019-08-23 12:59 | P.DS ---
Providers Date of admission: 08/22/19 09:45 Expected date of discharge: 08/23/19 Attending physician: Mark Hope Consults: 08/20/19 20:36 Consult Physician Urgent Consulting Provider: Viktoria Moreno Consult Reason/Comments: Unstable angina Do you want consulting provider notified?: Yes 08/22/19 11:33 Consult Physician Routine Consulting Provider: Viktoria Moreno Consult Reason/Comments: Post Interventional patient Do you want consulting provider notified?: Already Contacted Primary care physician: Mark [facility] Course: Discharge diagnosis #1 episodes of chest in a 79-year-old female with multiple cardiac risk factors, patient is admitted to 24-hour observation, she was started on IV heparin, serial EKGs and cardiac enzymes were ordered, cardiology consultation was requested. Status post stent to the mid LAD. Patient has been started on Plavix, lipitor and Lopressor per cardiology services. Patient cleared for discharge from cardiology standpoint #2 underlying history of hypertension well-controlled on losartan and amlodipine continue #3 underlying history of mild dementia followed by neurology maintained on Exelon patch #4 underlying history of degenerative disc disease with chronic back pain maintained on [place] when necessary Hospital course Brittanie Pierre is a 79-year-old female who presented to [facility] emergency room with a chief complaint of chest pain, patient describes episodes of pain and pressure in the middle of her chest radiating to the sides, on and off all day prior to admission, episode last 5-10 minutes and are relieved spontaneously with rest patient denies any shortness of breath no nausea or vomiting no diaphoresis, she has multiple cardiac risk factors including lifelong history of smoking, she was evaluated in the emergency room first EKG and first set of cardiac enzymes were negative she was admitted to 24- hour observation she was started on IV heparin, cardiology consultation was requested. On 08/22/2019 patient is scheduled for cardiac Catheterization today, she is alert and oriented 3 in no apparent distress, at this time there is no fever or chills no headache or dizziness no chest pain no shortness of breath no cough no nausea or vomiting no abdominal pain no diarrhea no burning with urination no frequency or urgency no hematuria On 08/23/2019 patient underwent cardiac catheterization and received a stent to the mid LAD per Dr. Sutton. Patient started on Plavix Lipitor Lopressor. At this time patient is chest pain-free. Patient has been up and bleeding. Patient denies chest pain or shortness breath. Right groin site is clean dry and intact no signs of hematoma. Patient denies any nausea vomiting or diarrhea. Patient denies any urinary burning or frequency. Patient to follow up with cardiology and PCP for further management CMP has been ordered to monitor liver enzymes for 2 days I performed an examination of the patient and discussed their management with the Nurse Practitioner. I have reviewed the Nurse Practitioner's notes and agree with the documented findings and plan of care Patient Condition at Discharge: Stable Plan - Discharge Summary New Discharge Prescriptions: New Aspirin 81 mg PO DAILY #30 chew Atorvastatin [Lipitor] 40 mg PO HS #30 tab Nitroglycerin Sl Tabs [Nitrostat] 0.4 mg SUBLINGUAL Q5M PRN #25 tab PRN Reason: Chest Pain Clopidogrel [Plavix] 75 mg PO DAILY #30 tab Metoprolol Succinate (ER) [Toprol XL] 25 mg PO DAILY #30 tab.er.24h Continue Multivitamins, Thera [Multivitamin (formulary)] 1 tab PO DAILY Losartan Potassium 100 mg PO DAILY Calcium Carbonate/Vitamin D3 [Caltrate 600 Plus D3 Tablet] 1 tab PO DAILY Cyanocobalamin (Vitamin B-12) [Vitamin B-12] 1,000 mcg PO DAILY HYDROcodone/APAP 7.5-325MG [[place] 7.5-325] 1 tab PO BID PRN PRN Reason: Pain Vitamin E (Dl,Tocopheryl Acet) [Vitamin E] 400 unit PO DAILY Cholecalciferol [Vitamin D3 (25 Mcg = 1000 Iu)] 2,000 unit PO DAILY Rivastigmine 9.5MG/24Hr Patch [Exelon 9.5MG/24Hr Patch] 1 patch TRANSDERM Q24HR Ascorbic Acid [Vitamin C] 1,000 mg PO DAILY Cholestyramine (with Sugar) [Questran Packet] 4 gm PO BID@1000,2100 PRN 7 Days #14 packet PRN Reason: diarrhea Baclofen 10 mg PO HS Discontinued amLODIPine BESYLATE [Norvasc] 5 mg PO HS Aspirin EC [Ecotrin Low Dose] 162 mg PO DAILY Discharge Medication List Multivitamins, Thera [Multivitamin (formulary)] 1 tab PO DAILY 11/30/13 [History] Calcium Carbonate/Vitamin D3 [Caltrate 600 Plus D3 Tablet] 1 tab PO DAILY 10/17/16 [History] Cyanocobalamin (Vitamin B-12) [Vitamin B-12] 1,000 mcg PO DAILY 10/17/16 [History] Losartan Potassium 100 mg PO DAILY 10/17/16 [History] Ascorbic Acid [Vitamin C] 1,000 mg PO DAILY 05/05/19 [History] Cholecalciferol [Vitamin D3 (25 Mcg = 1000 Iu)] 2,000 unit PO DAILY 05/05/19 [History] HYDROcodone/APAP 7.5-325MG [[place] 7.5-325] 1 tab PO BID PRN 05/05/19 [History] Rivastigmine 9.5MG/24Hr Patch [Exelon 9.5MG/24Hr Patch] 1 patch TRANSDERM Q24HR 05/05/19 [History] Vitamin E (Dl,Tocopheryl Acet) [Vitamin E] 400 unit PO DAILY 05/05/19 [History] Cholestyramine (with Sugar) [Questran Packet] 4 gm PO BID@1000,2100 PRN 7 Days #14 packet 05/10/19 [Rx] Baclofen 10 mg PO HS 08/20/19 [History] Aspirin 81 mg PO DAILY #30 chew 08/23/19 [Rx] Atorvastatin [Lipitor] 40 mg PO HS #30 tab 08/23/19 [Rx] Clopidogrel [Plavix] 75 mg PO DAILY #30 tab 08/23/19 [Rx] Metoprolol Succinate (ER) [Toprol XL] 25 mg PO DAILY #30 tab.er.24h 08/23/19 [Rx] Nitroglycerin Sl Tabs [Nitrostat] 0.4 mg SUBLINGUAL Q5M PRN #25 tab 08/23/19 [Rx] Follow up Appointment(s)/Referral(s): Mark Hope MD [Primary Care Provider] - 09/03/19 10:00 am (Friday -earliest available appointment) Juanjose Lovelace MD [STAFF PHYSICIAN] - 09/01/19 2:15 pm (Friday) Ambulatory/Diagnostic Orders: Comprehensive Metabolic Panel [LAB.AMB] Time Frame: 2 Days, Location: None Selected Comprehensive Metabolic Panel [LAB.AMB] Time Frame: 2 Days, Location: None Selected Activity/Diet/Wound Care/Special Instructions: Diet heart healthy Discharge Disposition: HOME SELF-CARE
[2019-08-23 13:40] VITALS: BP 149/63; PULSE 63; TEMP 97.9
--- NOTE | 2019-08-23 15:37 | P.PN ---
Subjective Progress Note Date: 08/23/19 This is a pleasant 79-year-old female with history of hypertension who presented to the hospital with symptoms of chest discomfort. She underwent a cardiac catheterization with subsequent angioplasty and stenting of the LAD. EKG from this morning showed a normal sinus rhythm with no changes from post- PCI. Blood pressure 148/60 with a heart rate in the 60s, 99% on room air. White blood cell count 7.0, hemoglobin 11.2, platelet count 205. Sodium 137, potassium 3.7, BUN 18, creatinine 0.5. Objective - Vital Signs Vital signs: Vital Signs Temp 97.9 F 08/23/19 11:50 Pulse 63 08/23/19 11:50 Resp 18 08/23/19 11:50 BP 149/63 08/23/19 11:50 Pulse Ox 99 08/23/19 11:50 Intake & Output 08/22/19 08/23/19 08/23/19 18:59 06:59 18:59 Intake Total 415 300 120 Output Total 600 Balance 415 -300 120 Weight 53.6 kg 53.6 kg Intake: IV 340 Intake, IV Titration 75 300 Amount Sodium Chloride 0.9% 1, 75 300 000 ml @ 75 mls/hr IV . [id number] [facility] Rx#:[id number] Oral 120 Output: Urine 600 Other: Voiding Method Bedpan Bedpan # Voids 0 2 1 - Exam PHYSICAL EXAMINATION: GENERAL: 79-year-old female in no acute distress at the time of my examination HEENT: Head is atraumatic, normocephalic. Pupils equal, round. Sclera anicteric. Conjunctiva are clear. Mucous membranes of the mouth are moist. Neck is supple. There is no elevated jugular venous pressure. No carotid bru it is heard. HEART EXAMINATION: Heart S1, S2 normal. No murmur or gallop heard. CHEST EXAMINATION: Lungs are clear to auscultation and precussion. No chest wall tenderness is noted on palpation or with deep breathing. ABDOMEN: Soft, nontender. Bowel sounds are heard. No organomegaly noted. EXTREMITIES: 2+ peripheral pulses with no evidence of peripheral edema and no calf tenderness noted. Right groin soft, no evidence of any hematoma NEUROLOGIC patient is awake, alert and oriented 3 . . - Labs CBC & Chem 7: 08/23/19 05:52 08/23/19 05:52 Labs: Abnormal Lab Results - Last 24 Hours (Table) 08/23/19 08/23/19 Range/Units 05:52 05:52 RBC 3.56 L (3.80-5.40) m/uL Hgb 11.2 L (11.4-16.0) gm/dL Hct 33.6 L (34.0-46.0) % Chloride 109 H (98-107) mmol/L BUN 18 H (7-17) mg/dL AST 90 H (14-36) U/L Total Protein 6.0 L (6.3-8.2) g/dL Albumin 3.3 L (3.5-5.0) g/dL Assessment and Plan Plan: Assessment and plan #1 chest discomfort, status post angioplasty and stenting of the LAD #2 hypertension #3 hyperlipidemia #4 mild dementia Plan From cardiology's perspective, patient may be able to be discharged home today. We'll make her a follow-up appointment with Dr. Lovelace in the office next week. DNP note has been reviewed, I agree with a documented findings and plan of care. Patient was seen and examined.
[2019-08-24] MEDS ORDERED: ASPIRIN 81 MG PO SCH (09:00)
== END 2019-08-23 14:55 | disposition home or self-care (01) ==
LOC: EC 18:59 → 1SOBS 20:37 → INTOOBSV 08-22 09:45 → OBSVTOIN 08-22 09:45 → 2SICU 08-22 11:52 → 3SCARD 08-22 23:54 → UNDODISIN 08-23 14:55
PROVIDERS: ADMIT Internal Medicine; ATTEND Internal Medicine
DX: I25.10 Atherosclerotic heart disease of native coronary artery without angina pectoris (principal); I10 Essential (primary) hypertension; F03.90 Unspecified dementia, unspecified severity, without behavioral disturbance, psychotic disturbance, mood disturbance, and anxiety; G89.29 Other chronic pain; M54.9 Dorsalgia, unspecified; E78.5 Hyperlipidemia, unspecified; I65.29 Occlusion and stenosis of unspecified carotid artery; Z79.82 Long term (current) use of aspirin; Z79.899 Other long term (current) drug therapy; Z79.2 Long term (current) use of antibiotics; Z87.891 Personal history of nicotine dependence; Z91.011 Allergy to milk products; Z88.8 Allergy status to other drugs, medicaments and biological substances; Z91.018 Allergy to other foods; Z85.118 Personal history of other malignant neoplasm of bronchus and lung; Z90.49 Acquired absence of other specified parts of digestive tract; Z90.2 Acquired absence of lung [part of]; Z86.19 Personal history of other infectious and parasitic diseases; Z96.60 Presence of unspecified orthopedic joint implant; Z80.8 Family history of malignant neoplasm of other organs or systems; Z80.41 Family history of malignant neoplasm of ovary; Z82.41 Family history of sudden cardiac death; Z86.79 Personal history of other diseases of the circulatory system; Z98.890 Other specified postprocedural states
CPT/HCPCS: 93005 ×3; 96366 ×2; 96376; 96365; 99291; 36415; 93306; 93458; 80061; 80053 ×3; 83735; 84484 ×2; 85025 ×3; 85610; 85730 ×3; 71046; G0378 ×5; C9600; C1769 ×3; C1887; C1725 ×2; C1894; C1874; J2250; J1644 ×3; J2405; J2001; J0461; J3010; J1170; J0583; Q9967 ×2; 96374

== ENCOUNTER 2019-08-24 15:08 | Emergency (ER) | payer MEDICARE ==
[2019-08-24] MEDS ORDERED: hydrOXYzine HCL 25 MG TAB PO STA (15:47)
--- NOTE | 2019-08-24 15:50 | ED ---
General Adult HPI - General Chief complaint: Skin/Abscess/Foreign Body Stated complaint: Swollen arm/SP stent yesterday Time Seen by Provider: 08/24/19 15:40 Source: patient Mode of arrival: ambulatory Limitations: no limitations - History of Present Illness Initial comments: Dictation was produced using [employer] dictation software. please excuse any grammatical, word or spelling errors. Chief Complaint: 79-year-old female with past medical history of cancer hypertension coronary artery disease presents with groin swelling and left arm pain status post cardiac cath. History of Present Illness: Patient is 79-year-old female. She states that today she noted some swelling in her right groin and left upper extremity. Patient states 2 days ago she had cardiac cath performed and had coronary artery stents. They're instructed to keep an eye on the right groin the days after the cardiac cath. Daughter at bedside reports that she felt as though there was some swelling near the right femoral cath site. Patient also secondary complaint of left arm pain. She states that she has pain, itching and swelling over the left proximal arm where the blood pressure cuff was placed. Denies any numbness and paresthesias to the hands or distal extremity. The ROS documented in this emergency department record has been reviewed and con firmed by me. Those systems with pertinent positive or negative responses have been documented in the HPI. All other systems are other negative and/or noncontributory. PHYSICAL EXAM: General Impression: Alert and oriented x3, not in acute distress HEENT: Normocephalic atraumatic, extra-ocular movements intact, pupils equal and reactive to light bilaterally, mucous membranes moist. Cardiovascular: Heart regular rate and rhythm, S1&S2 audible, no murmurs, rubs or gallops Chest: Lungs clear to auscultation bilaterally, no rhonchi, no wheeze, no rales Abdomen: Bowel sounds present, abdomen soft, non-tender, non-distended, no organomegaly Musculoskeletal: Pulses present and equal in all extremities, no peripheral edema Motor: no focal deficits noted Neurological: CN II-XII grossly intact, no focal motor or sensory deficits noted Skin: Well-demarcated area of erythema to the left proximal upper extremity. There is some slight swelling. Distal extremities unremarkable. Right groin: 2 x 2 centimeter swelling under the puncture site over the right groin. Pulse is palpable. Distal extremity is unaffected. Psych: Normal affect and mood ED course: 79 year old female presents with arm pain and groin swelling. Vital signs upon arrival are within acceptable limits. Ultrasound was obtained of the right groin showing no signs of pseudoaneurysm or any other issues. Patient given Atarax for the slight itching in her left upper extremity. Patient medically stable. She is advised follow-up with primary care physician. Mandi is told to continually monitor the wound see fit EKG interpretation: Ventricular rate 65, normal sinus rhythm, MI interval 150, care is 82, QTc 4:30. No MI prolongation, no QTC prolongation, no ST or T-wave changes noted. EKG compared to. 08/20/2019 showing no changes. Overall, this EKG is unremarkable - Related Data Home Medications Medication Instructions Recorded Confirmed Multivitamins, Thera [Multivitamin 1 tab PO DAILY 11/30/13 08/20/19 (formulary)] Calcium Carbonate/Vitamin D3 1 tab PO DAILY 10/17/16 08/20/19 [Caltrate 600 Plus D3 Tablet] Cyanocobalamin (Vitamin B-12) 1,000 mcg PO DAILY 10/17/16 08/20/19 [Vitamin B-12] Losartan Potassium 100 mg PO DAILY 10/17/16 08/20/19 Ascorbic Acid [Vitamin C] 1,000 mg PO DAILY 05/05/19 08/20/19 Cholecalciferol [Vitamin D3 (25 2,000 unit PO DAILY 05/05/19 08/20/19 Mcg = 1000 Iu)] HYDROcodone/APAP 7.5-325MG [Icard 1 tab PO BID PRN 05/05/19 08/20/19 7.5-325] Rivastigmine 9.5MG/24Hr Patch 1 patch TRANSDERM Q24HR 05/05/19 08/20/19 [Exelon 9.5MG/24Hr Patch] Vitamin E (Dl,Tocopheryl Acet) 400 unit PO DAILY 05/05/19 08/20/19 [Vitamin E] Baclofen 10 mg PO HS 08/20/19 08/20/19 Previous Rx's Medication Instructions Recorded Cholestyramine (with Sugar) 4 gm PO BID@1000,2100 PRN 7 Days 05/10/19 [Questran Packet] #14 packet Aspirin 81 mg PO DAILY #30 chew 02/10/20 Atorvastatin [Lipitor] 40 mg PO HS #30 tab 08/23/19 Clopidogrel [Plavix] 75 mg PO DAILY #30 tab 08/23/19 Metoprolol Succinate (ER) [Toprol 25 mg PO DAILY #30 tab.er.24h 08/23/19 XL] Nitroglycerin Sl Tabs [Nitrostat] 0.4 mg SUBLINGUAL Q5M PRN #25 tab 08/23/19 hydrOXYzine HCL [Atarax] 25 mg PO TID PRN #24 tab 08/24/19 Allergies Allergy/AdvReac Type Severity Reaction Status Date / Time lactose AdvReac Intermediate Diarrhea Verified 08/20/19 23:42 caffeine AdvReac Diarrhea Verified 08/20/19 23:42 steriod AdvReac Unknown FLUSHED Uncoded 08/20/19 19:10 FACE Review of Systems ROS Statement: Those systems with pertinent positive or pertinent negative responses have been documented in the HPI. ROS Other: All systems not noted in ROS Statement are negative. Past Medical History Past Medical History: Cancer, Hypertension Additional Past Medical History / Comment(s): Chronic back pain, CDIFF (March 2019), lung cancer, History of Any Multi-Drug Resistant Organisms: None Reported Past Surgical History: Appendectomy, Back Surgery, Bowel Resection, Joint Replacement Additional Past Surgical History / Comment(s): Hemmorrhoidectomy, left knee surgery (40% of knee cap taken out), left lower lobectomy, carotid artery cleaned out Past Anesthesia/Blood Transfusion Reactions: No Reported Reaction Past Psychological History: No Psychological Hx Reported Smoking Status: Former smoker Past Alcohol Use History: Daily Past Drug Use History: None Reported - Past Family History Mother Additional Family Medical History / Comment(s): brain aneurysm at 54 Father Family Medical History: Cancer Additional Family Medical History / Comment(s): bone cancer Sister(s) Family Medical History: Cancer Additional Family Medical History / Comment(s): ovarian cancer General Exam Limitations: no limitations Course Vital Signs 08/24/19 15:12 Temperature 97.8 F Pulse Rate 74 Respiratory 19 Rate Blood Pressure 144/74 O2 Sat by Pulse 97 Oximetry Disposition Clinical Impression: Swelling of surgical site Disposition: HOME SELF-CARE Condition: Good Instructions (If sedation given, give patient instructions): Heart Catheterization (DC) Additional Instructions: Your prescriptions for medication was sent to preferred pharmacy. Prescriptions: hydrOXYzine HCL [Atarax] 25 mg PO TID PRN #24 tab PRN Reason: Itching Is patient prescribed a controlled substance at d/c from ED?: No Referrals: Mark Hope MD [Primary Care Provider] - 1-2 days Molina Ng MD [STAFF PHYSICIAN] - 1-2 days Time of Disposition: 17:44
--- NOTE | 2019-08-24 17:27 | US ---
EXAMINATION TYPE: US lower ext pseudo artery RT DATE OF EXAM: 08/24/2019 COMPARISON: NONE CLINICAL HISTORY: rule out aneurysm, s/p cath. Heart cath done Friday. EXAM PERFORMED: Grayscale and color Doppler duplex imaging performed of the groin, post cardiac alicia ter to assess for pseudoaneurysm. SIDE PERFORMED: Right Color and Waveform Doppler performed to assess for the presence of pseudoaneurysm; Is there ultrasound evidence of a pseudoaneurysm: No Is there evidence of AV shunting: No Is there a fluid collection present: No IMPRESSION: Negative exam. No evidence of a pseudoaneurysm.
[2019-08-24 18:05] VITALS: BP 144/71; PULSE 78; RESP 16; TEMP 97.5
== END 2019-08-24 18:04 | disposition home or self-care (01) ==
LOC: EC 15:08
DX: R19.09 Other intra-abdominal and pelvic swelling, mass and lump (principal); L29.9 Pruritus, unspecified; I25.10 Atherosclerotic heart disease of native coronary artery without angina pectoris; M79.602 Pain in left arm; I10 Essential (primary) hypertension; G89.29 Other chronic pain; M54.9 Dorsalgia, unspecified; Z87.891 Personal history of nicotine dependence; Z79.899 Other long term (current) drug therapy; Z91.011 Allergy to milk products; Z91.018 Allergy to other foods; Z88.8 Allergy status to other drugs, medicaments and biological substances; Z85.118 Personal history of other malignant neoplasm of bronchus and lung; Z95.5 Presence of coronary angioplasty implant and graft
CPT/HCPCS: 93005; 93975; 99284

== ENCOUNTER 2020-09-26 12:47 | Inpatient (IN) | payer MEDICARE ==
[2020-09-26] MEDS ORDERED: ACETAMINOPHEN TAB 500 MG TAB PO STA (13:02)
--- NOTE | 2020-09-26 13:05 | ED ---
General Adult HPI - General Stated complaint: Altered Mental Status Time Seen by Provider: 09/26/20 12:50 Source: patient, RN notes reviewed, old records reviewed - History of Present Illness Initial comments: This is an 80-year-old female presents emergency Department because family brought her in because she was a little altered and she had a high fever. Patient does not complain of any problems or any pain she does have some underlying dementia. Patient has a history of lung cancer high blood pressure and has had a bout with C. diff. There is no report of any vomiting or diarrhea is no report of any significant cough or shortness of breath patient has had a recent fall and complains of left humerus pain.. In at this time since the family is not in the room there is no further history - Related Data Home Medications Medication Instructions Recorded Confirmed Losartan Potassium 100 mg PO DAILY 10/17/16 09/26/20 Rivastigmine 9.5MG/24Hr Patch 1 patch TRANSDERM DAILY 05/05/19 09/26/20 [Exelon 9.5MG/24Hr Patch] Citalopram Hydrobromide [CeleXA] 10 mg PO DAILY 09/26/20 09/26/20 Memantine [Namenda] 10 mg PO BID 09/26/20 09/26/20 Probiotic 85 Billion 1 cap PO DAILY 09/26/20 09/26/20 Previous Rx's Medication Instructions Recorded Aspirin 81 mg PO DAILY #30 chew 08/23/19 Atorvastatin [Lipitor] 40 mg PO HS #30 tab 08/23/19 Clopidogrel [Plavix] 75 mg PO DAILY #30 tab 08/23/19 Metoprolol Succinate (ER) [Toprol 25 mg PO DAILY #30 tab.er.24h 08/23/19 XL] Allergies Allergy/AdvReac Type Severity Reaction Status Date / Time lactose AdvReac Intermediate Diarrhea Verified 09/26/20 13:35 caffeine AdvReac Diarrhea Verified 09/26/20 13:35 steriod AdvReac Unknown FLUSHED Uncoded 09/26/20 13:35 FACE Review of Systems ROS Statement: Those systems with pertinent positive or pertinent negative responses have been documented in the HPI. ROS Other: All systems not noted in ROS Statement are negative. Past Medical History Past Medical History: Cancer, Hypertension Additional Past Medical History / Comment(s): Chronic back pain, CDIFF (March 2019), lung cancer, History of Any Multi-Drug Resistant Organisms: None Reported Past Surgical History: Appendectomy, Back Surgery, Bowel Resection, Joint Replacement Additional Past Surgical History / Comment(s): Hemmorrhoidectomy, left knee surgery (40% of knee cap taken out), left lower lobectomy, carotid artery cleaned out Past Anesthesia/Blood Transfusion Reactions: No Reported Reaction Past Psychological History: No Psychological Hx Reported Past Alcohol Use History: Daily Past Drug Use History: None Reported - Past Family History Mother Additional Family Medical History / Comment(s): brain aneurysm at 54 Father Family Medical History: Cancer Additional Family Medical History / Comment(s): bone cancer Sister(s) Family Medical History: Cancer Additional Family Medical History / Comment(s): ovarian cancer General Exam - General Exam Comments Initial Comments: GENERAL: Patient is well-developed and well-nourished. Patient is nontoxic and well- hydrated and is in mild distress. Patient is very warm. ENT Neck is soft and supple. No significant lymphadenopathy is noted. Oropharynx is clear. Moist mucous membranes. Neck has full range of motion without eliciting any pain. EYES: The sclera were anicteric and conjunctiva were pink and moist. Extraocular movements were intact and pupils were equal round and reactive to light. Eyelids were unremarkable. PULMONARY: Unlabored respirations. Good breath sounds bilaterally. No audible rales rhonchi or wheezing was noted. CARDIOVASCULAR: There is a regular rate and rhythm without any murmurs gallops or rubs. ABDOMEN: Soft and nontender with normal bowel sounds. SKIN: Skin is clear with no lesions or rashes and otherwise unremarkable. NEUROLOGIC: Patient is alert and oriented 2. Cranial nerves II through XII are grossly intact. Motor and sensory are also intact. Normal speech, volume and content. Symmetrical smile. MUSCULOSKELETAL: Patient did have a fall recently and hurt her left humerus. LYMPHATICS: No significant lymphadenopathy is noted PSYCHIATRIC: Difficult to assess secondary to the patient's altered mental status Course Vital Signs 09/26/20 09/26/20 09/26/20 13:03 15:52 16:52 Temperature 102.5 F H 98.8 F Pulse Rate 88 86 Respiratory 18 16 Rate Blood Pressure 173/78 111/52 O2 Sat by Pulse 95 96 Oximetry Medical Decision Making - Medical Decision Making EKG shows junctional rhythm at 89 bpm QRS is 76 QT interval 352 QTC is 428. No ST segment elevation or depression. X-ray shows a probable viral pneumonia. I did start the patient on antibiotics secondary to the high fever. I spoke with Dr. Hope he agreed to admit the patient admitted the patient wrote the orders I consulted ID - Lab Data Result diagrams: 09/26/20 13:03 09/26/20 13:03 Lab Results 09/26/20 09/26/20 09/26/20 Range/Units 12:55 13:03 13:03 WBC 8.1 (3.8-10.6) k/uL RBC 4.04 (3.80-5.40) m/uL Hgb 12.7 (11.4-16.0) gm/dL Hct 38.0 (34.0-46.0) % MCV 94.0 (80.0-100.0) fL MCH 31.5 (25.0-35.0) pg MCHC 33.5 (31.0-37.0) g/dL RDW 13.0 (11.5-15.5) % Plt Count 177 (150-450) k/uL MPV 8.9 Neutrophils % 84 % Lymphocytes % 9 % Monocytes % 5 % Eosinophils % 2 % Basophils % 0 % Neutrophils # 6.7 (1.3-7.7) k/uL Lymphocytes # 0.7 L (1.0-4.8) k/uL Monocytes # 0.4 (0-1.0) k/uL Eosinophils # 0.2 (0-0.7) k/uL Basophils # 0.0 (0-0.2) k/uL PT 10.0 (9.0-12.0) sec INR 0.9 (<1.2) APTT 19.9 L (22.0-30.0) sec Sodium (137-145) mmol/L Potassium (3.5-5.1) mmol/L Chloride (98-107) mmol/L Carbon Dioxide (22-30) mmol/L Anion Gap mmol/L BUN (7-17) mg/dL Creatinine (0.52-1.04) mg/dL Est GFR (CKD-EPI)AfAm (>60 ml/min/1.73 sqM) Est GFR (CKD-EPI)NonAf (>60 ml/min/1.73 sqM) Glucose (74-99) mg/dL Plasma Lactic Acid Hai (0.7-2.0) mmol/L Calcium (8.4-10.2) mg/dL Total Bilirubin (0.2-1.3) mg/dL AST (14-36) U/L ALT (4-34) U/L Alkaline Phosphatase (38-126) U/L Troponin I <0.012 (0.000-0.034) ng/mL Total Protein (6.3-8.2) g/dL Albumin (3.5-5.0) g/dL Urine Color Urine Appearance (Clear) Urine pH (5.0-8.0) Ur Specific [place] (1.001-1.035) Urine Protein (Negative) Urine Glucose (UA) (Negative) Urine Ketones (Negative) Urine Blood (Negative) Urine Nitrite (Negative) Urine Bilirubin (Negative) Urine Urobilinogen (<2.0) mg/dL Ur Leukocyte Esterase (Negative) Urine RBC (0-5) /hpf Urine WBC (0-5) /hpf Ur Squamous Epith Cells (0-4) /hpf Urine Mucus (None) /hpf Coronavirus (PCR) (Not Detectd) Influenza Type A RNA (Not Detectd) Influenza Type B (PCR) (Not Detectd) 09/26/20 09/26/20 09/26/20 Range/Units 13:03 13:03 13:03 WBC (3.8-10.6) k/uL RBC (3.80-5.40) m/uL Hgb (11.4-16.0) gm/dL Hct (34.0-46.0) % MCV (80.0-100.0) fL MCH (25.0-35.0) pg MCHC (31.0-37.0) g/dL RDW (11.5-15.5) % Plt Count (150-450) k/uL MPV Neutrophils % % Lymphocytes % % Monocytes % % Eosinophils % % Basophils % % Neutrophils # (1.3-7.7) k/uL Lymphocytes # (1.0-4.8) k/uL Monocytes # (0-1.0) k/uL Eosinophils # (0-0.7) k/uL Basophils # (0-0.2) k/uL PT (9.0-12.0) sec INR (<1.2) APTT (22.0-30.0) sec Sodium 137 (137-145) mmol/L Potassium 4.1 (3.5-5.1) mmol/L Chloride 104 (98-107) mmol/L Carbon Dioxide 25 (22-30) mmol/L Anion Gap 8 mmol/L BUN 16 (7-17) mg/dL Creatinine 0.46 L (0.52-1.04) mg/dL Est GFR (CKD-EPI)AfAm >90 (>60 ml/min/1.73 sqM) Est GFR (CKD-EPI)NonAf >90 (>60 ml/min/1.73 sqM) Glucose 88 (74-99) mg/dL Plasma Lactic Acid Hai 1.3 (0.7-2.0) mmol/L Calcium 9.6 (8.4-10.2) mg/dL Total Bilirubin 1.0 (0.2-1.3) mg/dL AST 147 H (14-36) U/L ALT 101 H (4-34) U/L Alkaline Phosphatase 208 H (38-126) U/L Troponin I (0.000-0.034) ng/mL Total Protein 6.8 (6.3-8.2) g/dL Albumin 3.9 (3.5-5.0) g/dL Urine Color Urine Appearance (Clear) Urine pH (5.0-8.0) Ur Specific [place] (1.001-1.035) Urine Protein (Negative) Urine Glucose (UA) (Negative) Urine Ketones (Negative) Urine Blood (Negative) Urine Nitrite (Negative) Urine Bilirubin (Negative) Urine Urobilinogen (<2.0) mg/dL Ur Leukocyte Esterase (Negative) Urine RBC (0-5) /hpf Urine WBC (0-5) /hpf Ur Squamous Epith Cells (0-4) /hpf Urine Mucus (None) /hpf Coronavirus (PCR) Not Detected (Not Detectd) Influenza Type A RNA (Not Detectd) Influenza Type B (PCR) (Not Detectd) 09/26/20 09/26/20 Range/Units 15:11 15:52 WBC (3.8-10.6) k/uL RBC (3.80-5.40) m/uL Hgb (11.4-16.0) gm/dL Hct (34.0-46.0) % MCV (80.0-100.0) fL MCH (25.0-35.0) pg MCHC (31.0-37.0) g/dL RDW (11.5-15.5) % Plt Count (150-450) k/uL MPV Neutrophils % % Lymphocytes % % Monocytes % % Eosinophils % % Basophils % % Neutrophils # (1.3-7.7) k/uL Lymphocytes # (1.0-4.8) k/uL Monocytes # (0-1.0) k/uL Eosinophils # (0-0.7) k/uL Basophils # (0-0.2) k/uL PT (9.0-12.0) sec INR (<1.2) APTT (22.0-30.0) sec Sodium (137-145) mmol/L Potassium (3.5-5.1) mmol/L Chloride (98-107) mmol/L Carbon Dioxide (22-30) mmol/L Anion Gap mmol/L BUN (7-17) mg/dL Creatinine (0.52-1.04) mg/dL Est GFR (CKD-EPI)AfAm (>60 ml/min/1.73 sqM) Est GFR (CKD-EPI)NonAf (>60 ml/min/1.73 sqM) Glucose (74-99) mg/dL Plasma Lactic Acid Hai (0.7-2.0) mmol/L Calcium (8.4-10.2) mg/dL Total Bilirubin (0.2-1.3) mg/dL AST (14-36) U/L ALT (4-34) U/L Alkaline Phosphatase (38-126) U/L Troponin I (0.000-0.034) ng/mL Total Protein (6.3-8.2) g/dL Albumin (3.5-5.0) g/dL Urine Color Yellow Urine Appearance Clear (Clear) Urine pH 6.5 (5.0-8.0) Ur Specific [place] 1.033 (1.001-1.035) Urine Protein 1+ H (Negative) Urine Glucose (UA) Negative (Negative) Urine Ketones 2+ H (Negative) Urine Blood Small H (Negative) Urine Nitrite Negative (Negative) Urine Bilirubin Negative (Negative) Urine Urobilinogen <2.0 (<2.0) mg/dL Ur Leukocyte Esterase Trace H (Negative) Urine RBC 9 H (0-5) /hpf Urine WBC 9 H (0-5) /hpf Ur Squamous Epith Cells 2 (0-4) /hpf Urine Mucus Moderate H (None) /hpf Coronavirus (PCR) (Not Detectd) Influenza Type A RNA Not Detected (Not Detectd) Influenza Type B (PCR) Not Detected (Not Detectd) Disposition Clinical Impression: Viral pneumonia, Altered mental status Disposition: ADMITTED IP TO THIS HOSP Referrals: Mark Hope MD [Primary Care Provider] - 1-2 days Time of Disposition: 18:05
[2020-09-26] MEDS: SODIUM CHLORIDE 0.9% 500 ML 500 ML IV SCH ×3 (13:14→15:00)
[2020-09-26 13:15] LABS: Basophils % (A) 0 %; Eosinophils # (A) 0.2 k/uL (0-0.7); Eosinophils % (A) 2 %; HGB 12.7 gm/dL (11.4-16.0); Lymphocytes # (A) 0.7 k/uL (1.0-4.8); Lymphocytes % (A) 9 %; MCH 31.5 pg (25.0-35.0); MCHC 33.5 g/dL (31.0-37.0); Mean Platelet Volume 8.9; Monocytes # (A) 0.4 k/uL (0-1.0); Monocytes % (A) 5 %; Neutrophils # (A) 6.7 k/uL (1.3-7.7); Neutrophils % (A) 84 %; Platelet Count 177 k/uL (150-450); RBC 4.04 m/uL (3.80-5.40); WBC 8.1 k/uL (3.8-10.6)
[2020-09-26] MEDS ORDERED: IBUPROFEN IV 600 MG in SODIUM CHLORIDE 0.9% 250 ML IV ONE (13:20)
[2020-09-26 13:25] LABS: ALT 101 U/L (4-34); AST 147 U/L (14-36); African American GFR (CKD) >90 (>60 ml/min/1.73 sqM); Albumin 3.9 g/dL (3.5-5.0); Alkaline Phosphatase 208 U/L (38-126); Anion Gap 8 mmol/L; Blood Urea Nitrogen 16 mg/dL (7-17); Calcium 9.6 mg/dL (8.4-10.2); Carbon Dioxide 25 mmol/L (22-30); Chloride 104 mmol/L (98-107); Glucose 88 mg/dL (74-99); Non-African American GFR(CKD) >90 (>60 ml/min/1.73 sqM); Potassium 4.1 mmol/L (3.5-5.1); Sodium 137 mmol/L (137-145); Total Protein 6.8 g/dL (6.3-8.2)
[2020-09-26 13:33] LABS: INR 0.9 (<1.2)
[2020-09-26 13:43] LABS: Partial Thromboplastin Time 19.9 sec (22.0-30.0)
--- NOTE | 2020-09-26 13:57 | XR ---
EXAMINATION TYPE: XR chest 2V DATE OF EXAM: 09/26/2020 COMPARISON: 08/20/2019 TECHNIQUE: PA and lateral views submitted. HISTORY: Fever FINDINGS: Coarsened interstitium with tiny bilateral effusions. No pneumothorax. Arthropathy of the shoulders. Heart size stable. IMPRESSION: 1. Diffuse interstitial pattern with small bilateral effusions correlate for CHF otherwise consider i nterstitial pneumonia.
--- NOTE | 2020-09-26 13:59 | XR ---
EXAMINATION TYPE: XR humerus LT DATE OF EXAM: 09/26/2020 COMPARISON: NONE HISTORY: Pain TECHNIQUE: 2 views submitted. FINDINGS: The osseous structures are intact and the joint spaces are preserved. Severe diffuse osteopenia. Arth ropathy of the shoulders. Tiny calcification left upper lobe. IMPRESSION: 1. No acute fracture or dislocation.
[2020-09-26 15:36] LABS: Appearance,Urine Clear (Clear); Bilirubin,Urine Negative (Negative); Blood,Urine Small (Negative); Color,Urine Yellow; Glucose,Urine (UA) Negative (Negative); Ketones,Urine 2+ (Negative); Leukocyte Esterase,Urine Trace (Negative); Mucus,Urine Moderate /hpf; Nitrite,Urine Negative (Negative); PH, Urine 6.5 (5.0-8.0); Protein,Urine 1+ (Negative); RBC,Urine 9 /hpf (0-5); Specific Gravity,Urine 1.033 (1.001-1.035); Squamous Epithelial Cell,Urine 2 /hpf (0-4); Urobilinogen,Urine <2.0 mg/dL (<2.0); WBC,Urine 9 /hpf (0-5)
[2020-09-26] MEDS ORDERED: SODIUM CHLORIDE 0.9% 1,000 ML IV ONE (18:06)
[2020-09-26] MEDS ORDERED: ACETAMINOPHEN TAB 325 MG TAB PO PRN (18:09)
[2020-09-26] MEDS ORDERED: PROBIOTIC PO SCH (22:15)
[2020-09-26] MEDS ORDERED: ATORVASTATIN 40 MG TAB PO SCH (22:15)
[2020-09-26] MEDS: ASPIRIN 81 MG PO SCH (22:41)
[2020-09-26] MEDS: CLOPIDOGREL 75 MG TAB PO SCH (22:43)
[2020-09-26] MEDS: METOPROLOL SUCCINATE (ER) 25 MG TAB.ER.24H PO SCH (22:43)
[2020-09-26] MEDS: LOSARTAN 50 MG TAB PO SCH (22:44)
[2020-09-26] MEDS: MEMANTINE 10 MG TAB PO SCH (22:44)
[2020-09-26] MEDS: HYDROcodone/APAP 5-325MG 1 EACH TAB PO PRN (22:47)
[2020-09-26] MEDS: CITALOPRAM HYDROBROMIDE 10 MG TAB PO SCH (23:05)
[2020-09-27] MEDS: RIVASTIGMINE 9.5MG/24HR PATCH TRANSDERM SCH (09:18)
[2020-09-27] MEDS: LOSARTAN 50 MG TAB PO SCH (09:18)
[2020-09-27] MEDS: CITALOPRAM HYDROBROMIDE 10 MG TAB PO SCH (09:18)
[2020-09-27] MEDS: ASPIRIN 81 MG PO SCH (09:18)
[2020-09-27] MEDS: MEMANTINE 10 MG TAB PO SCH ×2 (09:18→19:13)
[2020-09-27] MEDS: METOPROLOL SUCCINATE (ER) 25 MG TAB.ER.24H PO SCH (09:18)
[2020-09-27] MEDS: CLOPIDOGREL 75 MG TAB PO SCH (09:18)
--- NOTE | 2020-09-27 10:36 | P.HPIM ---
History of Present Illness H&P Date: 09/27/20 Chief Complaint: Fever This is an 80-year-old female patient who presented to the ER with complaints of fever and slight confusion. Patient denies any acute complaints. Patient does have a past medical history of lung cancer high blood pressure coronary artery disease with recent stent to the LAD and C. diff. Chest x-ray was completed showing diffuse interstitial pattern with small bilateral effusions correlate for CHF otherwise consider interstitial pneumonia. COVID-19 negatvie. Patient also reported fall in which she fell on her arm humerus fracture was completed showing negative for fracture or dislocation. EKG completed showing accelerated junctional rhythm. Patient presented with fever 102.5 upon admit. Lactic acid 1.3. At this time cardiology, pulmonary and infectious disease services consulted. Patient maintained on Rocephin. At that time patient denies chest pain or shortness of breath. Patient denies nausea vomiting or diarrhea. Patient denies any urinary burning or frequency Review of Systems Please refer to HPI otherwise unremarkable Past Medical History Past Medical History: Coronary Artery Disease (CAD), Cancer, Dementia, Hypertension, Memory Impairment Additional Past Medical History / Comment(s): Chronic back pain, CDIFF (March 2019), lung cancer, History of Any Multi-Drug Resistant Organisms: None Reported Past Surgical History: Appendectomy, Back Surgery, Bowel Resection, Joint Replacement Additional Past Surgical History / Comment(s): Hemmorrhoidectomy, left knee surgery (40% of knee cap taken out), left lower lobectomy, carotid artery cleaned out Past Anesthesia/Blood Transfusion Reactions: No Reported Reaction Past Psychological History: No Psychological Hx Reported Smoking Status: Former smoker Past Alcohol Use History: Daily Additional Past Alcohol Use History / Comment(s): Patient drinks 2 liquor beverages a night most nights of the week Past Drug Use History: None Reported - Past Family History Mother Additional Family Medical History / Comment(s): brain aneurysm at 54 Father Family Medical History: Cancer Additional Family Medical History / Comment(s): bone cancer Sister(s) Family Medical History: Cancer Additional Family Medical History / Comment(s): ovarian cancer Medications and Allergies Home Medications Medication Instructions Recorded Confirmed Type Losartan Potassium 100 mg PO DAILY 10/17/16 09/26/20 History Rivastigmine 9.5MG/24Hr Patch 1 patch TRANSDERM DAILY 05/05/19 09/26/20 History [Exelon 9.5MG/24Hr Patch] Aspirin 81 mg PO DAILY #30 chew 08/23/19 09/26/20 Rx Atorvastatin [Lipitor] 40 mg PO HS #30 tab 08/23/19 09/26/20 Rx Clopidogrel [Plavix] 75 mg PO DAILY #30 tab 08/23/19 09/26/20 Rx Metoprolol Succinate (ER) [Toprol 25 mg PO DAILY #30 tab.er.24h 08/23/19 09/26/20 Rx XL] Citalopram Hydrobromide [CeleXA] 10 mg PO DAILY 09/26/20 09/26/20 History Memantine [Namenda] 10 mg PO BID 09/26/20 09/26/20 History Probiotic 85 Billion 1 cap PO DAILY 09/26/20 09/26/20 History Allergies Allergy/AdvReac Type Severity Reaction Status Date / Time lactose AdvReac Intermediate Diarrhea Verified 09/26/20 13:35 caffeine AdvReac Diarrhea Verified 09/26/20 13:35 steriod AdvReac Unknown FLUSHED Uncoded 09/26/20 13:35 FACE Physical Exam Vitals: Vital Signs Temp Pulse Pulse Resp BP BP Pulse Ox 09/27/20 09:01 94 L 09/27/20 08:00 98.6 F 63 16 148/70 91 L 09/27/20 07:35 63 16 09/27/20 01:38 98.4 F 62 131/65 94 L 09/26/20 22:20 98.0 F 63 16 149/64 95 09/26/20 18:35 98.0 F 89 16 127/56 97 09/26/20 16:52 86 16 111/52 96 09/26/20 15:52 98.8 F 09/26/20 13:03 102.5 F H 88 18 173/78 95 Intake and Output 09/26/20 09/27/20 09/27/20 22:59 06:59 14:59 Intake Total 100 Balance 100 Intake: Oral 100 Other: Voiding Method Toilet Toilet # Voids 1 1 Weight 54.431 kg Head normocephalic Neck supple Lungs clear to auscultation bilaterally no wheezing or crackles Heart regular rate and rhythm S1-S2, no rub or gallop Abdomen is soft nontender nondistended positive bowel sounds no hepatosplenomegaly Extremities no edema Neuro alert and orientated to 3. Intermittent confusion at times Results CBC & Chem 7: 09/26/20 13:03 09/26/20 13:03 Labs: Abnormal Lab Results - Last 24 Hours (Table) 09/26/20 09/26/20 09/26/20 Range/Units 13:03 13:03 13:03 Lymphocytes # 0.7 L (1.0-4.8) k/uL APTT 19.9 L (22.0-30.0) sec Creatinine 0.46 L (0.52-1.04) mg/dL AST 147 H (14-36) U/L ALT 101 H (4-34) U/L Alkaline Phosphatase 208 H (38-126) U/L Urine Protein (Negative) Urine Ketones (Negative) Urine Blood (Negative) Ur Leukocyte Esterase (Negative) Urine RBC (0-5) /hpf Urine WBC (0-5) /hpf Urine Mucus (None) /hpf 09/26/20 Range/Units 15:11 Lymphocytes # (1.0-4.8) k/uL APTT (22.0-30.0) sec Creatinine (0.52-1.04) mg/dL AST (14-36) U/L ALT (4-34) U/L Alkaline Phosphatase (38-126) U/L Urine Protein 1+ H (Negative) Urine Ketones 2+ H (Negative) Urine Blood Small H (Negative) Ur Leukocyte Esterase Trace H (Negative) Urine RBC 9 H (0-5) /hpf Urine WBC 9 H (0-5) /hpf Urine Mucus Moderate H (None) /hpf Thrombosis Risk Factor Assmnt - Choose All That Apply Each Risk Factor Represents 3 Points: Age 75 years or older Thrombosis Risk Factor Assessment Total Risk Factor Score: 3 Thrombosis Risk Factor Assessment Level: Moderate Risk Assessment and Plan Assessment: 1. Fever likely secondary to viral pneumonia. Infectious disease and pulmonary service is consulted. Patient started on Rocephin 2. Accelerated junctional rhythm. Cardiology services consulted 3. Elevated liver enzymes. Statin currently on hold. Repeat labs ordered 4. History of coronary artery disease with history of stent to the LAD in August 2019 maintained on Plavix 5. History of Essential hypertension 6. Underlying history of mild dementia. Patient maintained on Namenda 7. History of degenerative disc disease chronic back pain. Maintained on [place] 8. History of C. diff. DVT prophylaxis Lovenox. GI prophylaxis Protonix Cardiology, pulmonary and infectious disease consulted Maintained on Rocephin Repeat labs ordered Blood culture ordered Time with Patient: Greater than 30
--- NOTE | 2020-09-27 14:28 | P.CNPUL ---
History of Present Illness Consult date: 09/27/20 Requesting physician: Mark Hope Reason for consult: dyspnea, hypoxemia, pneumonia, abnormal CXR/CT, other Chief complaint: Altered mental status. Fever. History of present illness: 80-year-old female patient, who presents to the emergency department, on September 26, because of mental status changes, and high fever. The patient has a history of underlying dementia, and she apparently did not complain of any problems or symptoms while in the emergency department. She apparently has a previous history of lung cancer, status post left upper lobectomy. The patient also apparently has a history of hypertension, C. difficile colitis. The patient cannot really had any additional history for us today. According to the ER yesy, and Dr. Zhao's impression, she was admitted with a diagnosis of viral pneumonia, and altered mental status. She did not test positive for COVID 19. According to the ER yesy, the patient has a history of chronic back pain as well, and is had appendectomy, back surgery, bowel resection, joint replacement, and carotid endarterectomy. White count is 8.1, hemoglobin 12.7, hematocrit 38, and platelet count 177,000. PT and INR are normal. Sodium 137, potassium 4.1, chlorides 104, anion gap 8, CO2 25, BUN 16, and creatinine 0.46. AST and ALT are modestly elevated. N-terminal pro BNP was 1500. Troponin was less than 0.012. Chest x-ray shows a diffuse interstitial pattern, which could be consistent with interstitial pneumonia and/or interstitial edema/CHF. Review of Systems REVIEW OF SYSTEMS: CONSTITUTIONAL: Fever. NEUROLOGIC: Mental status changes. HEENT: [ Negative.] CARDIAC: [Negative.] PULMONARY: [Negative.] GI: [Negative.] : [Negative.] RHEUMATOLOGIC: [ Negative.] IMMUNOLOGIC: [ Negative.] ENDOCRINE: [Negative. ] DERMATOLOGIC: [Negative.] Past Medical History Past Medical History: Coronary Artery Disease (CAD), Cancer, Dementia, Hypertension, Memory Impairment Additional Past Medical History / Comment(s): Chronic back pain, CDIFF (S 2018), lung cancer, History of Any Multi-Drug Resistant Organisms: None Reported Past Surgical History: Appendectomy, Back Surgery, Bowel Resection, Joint Replacement Additional Past Surgical History / Comment(s): Hemmorrhoidectomy, left knee surgery (40% of knee cap taken out), left lower lobectomy, carotid artery cleaned out Past Anesthesia/Blood Transfusion Reactions: No Reported Reaction Past Psychological History: No Psychological Hx Reported Smoking Status: Former smoker Past Alcohol Use History: Daily Additional Past Alcohol Use History / Comment(s): Patient drinks 2 liquor demian erages a night most nights of the week Past Drug Use History: None Reported - Past Family History Mother Additional Family Medical History / Comment(s): brain aneurysm at 54 Father Family Medical History: Cancer Additional Family Medical History / Comment(s): bone cancer Sister(s) Family Medical History: Cancer Additional Family Medical History / Comment(s): ovarian cancer Medications and Allergies Home Medications Medication Instructions Recorded Confirmed Type Losartan Potassium 100 mg PO DAILY 10/17/16 09/26/20 History Rivastigmine 9.5MG/24Hr Patch 1 patch TRANSDERM DAILY 05/05/19 09/26/20 History [Exelon 9.5MG/24Hr Patch] Aspirin 81 mg PO DAILY #30 chew 08/23/19 09/26/20 Rx Atorvastatin [Lipitor] 40 mg PO HS #30 tab 08/23/19 09/26/20 Rx Clopidogrel [Plavix] 75 mg PO DAILY #30 tab 08/23/19 09/26/20 Rx Metoprolol Succinate (ER) [Toprol 25 mg PO DAILY #30 tab.er.24h 08/23/19 09/26/20 Rx XL] Citalopram Hydrobromide [CeleXA] 10 mg PO DAILY 09/26/20 09/26/20 History Memantine [Namenda] 10 mg PO BID 09/26/20 09/26/20 History Probiotic 85 Billion 1 cap PO DAILY 09/26/20 09/26/20 History Allergies Allergy/AdvReac Type Severity Reaction Status Date / Time lactose AdvReac Intermediate Diarrhea Verified 09/26/20 13:35 caffeine AdvReac Diarrhea Verified 09/26/20 13:35 steriod AdvReac Unknown FLUSHED Uncoded 09/26/20 13:35 FACE Physical Exam Osteopathic Statement: *. No significant issues noted on an osteopathic structural exam other than those noted in the History and Physical/Consult. Vitals: Vital Signs Temp Pulse Pulse Resp BP BP Pulse Ox 09/27/20 09:01 94 L 09/27/20 08:00 98.6 F 63 16 148/70 91 L 09/27/20 07:35 63 16 09/27/20 01:38 98.4 F 62 131/65 94 L 09/26/20 22:20 98.0 F 63 16 149/64 95 09/26/20 18:35 98.0 F 89 16 127/56 97 09/26/20 16:52 86 16 111/52 96 09/26/20 15:52 98.8 F Intake and Output 09/26/20 09/27/20 09/27/20 22:59 06:59 14:59 Intake Total 100 Balance 100 Intake: Oral 100 Other: Voiding Method Toilet Toilet # Voids 1 1 Weight 54.431 kg No acute distress, very confused, and not able to give much history. Room air saturations 94%. HEENT examination is grossly unremarkable. Mucous membranes are moist. No oral lesions. Neck supple. Full range of motion. No adenopathy thyromegaly or neck vein distention. Cardiovascular examination reveals regular rhythm rate. S1-S2 normal. No S3 or S4. No discernible murmur noted. Heart rate 63 bpm. Lungs mostly clear breath sounds. A few scattered crackles. No wheezes or rhonchi. Breath sounds equal bilaterally. Abdomen soft bowel sounds are heard. No masses or tenderness. Extremities are intact. Trace edema. No cyanosis or clubbing. Skin is without rash or lesion. Neurologic examination is brief but nonfocal. Results - Laboratory Findings CBC and BMP: 09/26/20 13:03 09/26/20 13:03 PT/INR, D-dimer PT 10.0 sec (9.0-12.0) 09/26/20 13:03 INR 0.9 (<1.2) 09/26/20 13:03 Abnormal lab findings: Abnormal Labs 09/26/20 09/26/20 09/26/20 13:03 13:03 13:03 Lymphocytes # 0.7 L APTT 19.9 L Creatinine 0.46 L AST 147 H ALT 101 H Alkaline Phosphatase 208 H Urine Protein Urine Ketones Urine Blood Ur Leukocyte Esterase Urine RBC Urine WBC Urine Mucus 09/26/20 15:11 Lymphocytes # APTT Creatinine AST ALT Alkaline Phosphatase Urine Protein 1+ H Urine Ketones 2+ H Urine Blood Small H Ur Leukocyte Esterase Trace H Urine RBC 9 H Urine WBC 9 H Urine Mucus Moderate H - Diagnostic Findings Chest x-ray: image reviewed Assessment and Plan Assessment: Mental status changes, of unclear etiology, rule out primary [employer] event, as patient apparently recently had a fall. Diffuse interstitial pattern on chest x-ray, which could be consistent with interstitial/atypical pneumonia versus interstitial edema/CHF. History of lung cancer, non-small cell type, status post left upper lobectomy. History of hypertension. History of severe dementia. History of chronic back pain. History of C. difficile colitis. Prior history of carotid endarterectomy. Plan: Plan dated 09/27/2020. The patient is going to have a pro calcitonin level. This makes Avelar whether or not there is an actual infection. Also, a head CT probably should be done without contrast. She apparently recently had a fall and did hit her head. Urine is mildly abnormal, and could be consistent with a urinary tract infection. Chest x-ray shows a diffuse interstitial pattern, which may relate interstitial edema, and/or interstitial pneumonia/atypical pneumonia. COVID 19 testing was negative. The patient remains on Rocephin. Additional recommendations and suggestions are forthcoming. We will continue to follow. No additional recommendations at this time. Time with Patient: Greater than 30
[2020-09-27] MEDS: PROBIOTIC PO SCH (14:46)
--- NOTE | 2020-09-27 14:48 | CT ---
EXAMINATION TYPE: CT brain wo con DATE OF EXAM: 09/27/2020 HISTORY: Altered mental status CT DLP: 1143.4 mGycm. Automated Exposure Control for Dose Reduction was Utilized. TECHNIQUE: CT scan of the head is performed without contrast. COMPARISON: CT brain July 26, 2015 and MRI brain August 06, 2017. FINDINGS: There is no acute intracranial hemorrhage or midline shift identified. There is mild diff use ventricular and sulcal prominence consistent with diffuse age-related cerebral atrophy. There is severe low-attenuation in the periventricular white matter presumed consistent with chronic small ve ssel ischemic change. The globes are intact and the visualized sinuses remain clear. IMPRESSION: No acute intracranial hemorrhage or midline shift. There is mild diffuse age-related ce rebral atrophy and severe nonspecific white matter changes presumed on the basis of product of chroni c small vessel ischemic change in patient of this age. No significant change from prior studies.
[2020-09-27] MEDS: LACTAID PO PRN (17:50)
[2020-09-27] MEDS: HYDROcodone/APAP 5-325MG 1 EACH TAB PO PRN (19:14)
--- NOTE | 2020-09-28 06:19 | CONS ---
CONSULTATION DATE OF SERVICE: 09/27/2020 REASON FOR CONSULTATION: Interstitial pneumonia. HISTORY OF PRESENT ILLNESS: The patient is an 80-year-old female who was brought into the hospital yesterday for evaluation of her fever and mental status changes. Apparently the patient . The patient was brought into the hospital. The patient on presentation to the hospital did have a fever of 102 degrees Fahrenheit. The patient denies having any headache or URI symptoms. Denies any chest pain or shortness of breath. Occasional cough. No nausea, no vomiting. No abdominal pain. No diarrhea. The patient did have previous history of difficile colitis, but currently with no evidence of any diarrhea and denies any burning or frequency of urine. On presentation to the hospital, the patient with a fever of 102.5. No fever recorded since then. The patient is currently saturating 94% on room air. The patient did have a normal white count with lymphopenia. Creatinine was 0.46. Liver enzymes are mildly elevated. Urine, trace leukocyte esterases, 9 WBCs. [place] and influenza PCR was negative. The patient did have a chest x-ray that was reported as diffuse interstitial pattern with small bilateral effusion. Correlate for CHF versus interstitial pneumonia. The patient has been treated with Rocephin. Infectious Disease was consulted for further management and concern for possible viral pneumonia. REVIEW OF SYSTEMS: Positive points have been mentioned in HPI. Rest of the systems are negative. PAST MEDICAL HISTORY: History of C difficile colitis, chronic back pain, lung cancer, hypertension. PAST SURGICAL HISTORY: Appendectomy, back surgery, bowel resection, joint replacement. SOCIAL HISTORY: No history of smoking, drinking or drug use. FAMILY HISTORY: Mother with history of brain aneurysm. ALLERGIES: . MEDICATIONS: The patient is currently on [place], aspirin, Rocephin 1 g daily, Celexa, Plavix, Lovenox, Cozaar, Namenda, Toprol-XL, probiotic, Protonix, Exelon. PHYSICAL EXAMINATION: VITAL SIGNS: Blood pressure 123/62 with a pulse of 88, temperature 98.7, she is 94% on room air. GENERAL DESCRIPTION: Patient is an elderly female up in the chair in no distress. No tachypnea or accessory muscles of respiration use. HEENT: Examination shows no pallor or scleral icterus. Oral mucous membrane is dry. NECK: Trachea central, no thyromegaly. LUNGS: Unlabored breathing, decreased breath sounds at the bases. No wheeze or crackle. HEART: S1-S2, regular rate and rhythm. ABDOMEN: Soft, no tenderness. No guarding or rigidity. EXTREMITIES: No edema of the feet. SKIN: No rash or mass palpable. NEUROLOGICAL: Patient is awake, alert, oriented. Mood and affect normal. LABS: Hemoglobin is 12.7, white count 8.1. BUN of 16, creatinine 0.46. Liver enzymes mildly elevated. DIAGNOSTIC IMPRESSION: Patient admitted to the hospital with a fever, elevated white count which is multifactorial in this patient with concern for possible urinary tract infection. Clinically not behaving as pneumonia in this patient with no respiratory symptoms. Did not have any elevated white count which will move toward possible bacterial infection. Did have mildly elevated liver enzymes though. PLAN: 1. We will wait for the ultrasound of the abdomen that has been ordered. 2. Will wait for the urine culture to finalize. 3. We will check a CRP, procalcitonin, LDH. 4. Continue with Rocephin. 5. We will follow on clinical condition and recent investigations to further adjust medication if needed. Thank you for this consultation. Will follow this patient along with you. MMODL / IJN: [id number] /
--- NOTE | 2020-09-28 07:35 | ECHOF ---
Referral Reason:new oxygen requirements MEASUREMENTS -------- HEIGHT: 147.3 cm WEIGHT: 54.4 kg BP: 148/70 RVIDd: 3.1 cm (< 3.3) IVSd: 1.1 cm (0.6 - 1.1) LVIDd: 4.3 cm (3.9 - 5.3) LVPWd: 1.1 cm (0.6 - 1.1) IVSs: 1.5 cm LVIDs: 2.9 cm LVPWs: 1.5 cm LA Diam: 3.3 cm (2.7 - 3.8) LAESV Index (A-L): 23.07 ml/m Ao Diam: 2.7 cm (2.0 - 3.7) AV Cusp: 2.1 cm (1.5 - 2.6) MV EXCURSION: 17.007 mm (> 18.000) MV EF SLOPE: 98 mm/s (70 - 150) EPSS: 0.5 cm MV E Paul: 0.99 m/s MV DecT: 198 ms MV A Paul: 0.82 m/s MV E/A Ratio: 1.21 AR PHT: 503 ms RAP: 5.00 mmHg RVSP: 32.63 mmHg FINDINGS -------- Resting bradycardia (HR<60bpm). This was a technically good study. The left ventricular size is normal. There is borderline concentric left ventricular hypertrophy. Overall left ventricular systolic function is normal with, an EF between 60 - 65 %. The right ventricle is normal in size. Normal LA size by volume 22+/-6 ml/m2. The right atrium is normal in size. Interatrial and interventricular septum intact. The aortic valve is trileaflet and appears structurally normal. There is mild aortic regurgitation. The mitral valve leaflets are mildly thickened. Mild mitral annular calcification present. Mild m itral regurgitation is present. Mild tricuspid regurgitation present. Right ventricular systolic pressure is normal at < 35 mmHg. Trace/mild (physiologic) pulmonic regurgitation. The aortic root size is normal. Normal inferior vena cava with normal inspiratory collapse consistent with estimated right atrial pre ssure of 5 mmHg. There is no pericardial effusion. CONCLUSIONS -------- 1. Resting bradycardia (HR<60bpm). 2. The left ventricular size is normal. 3. There is borderline concentric left ventricular hypertrophy. 4. Overall left ventricular systolic function is normal with, an EF between 60 - 65 %. 5. The aortic valve is trileaflet and appears structurally normal. 6. There is mild aortic regurgitation. 7. The mitral valve leaflets are mildly thickened. 8. Mild mitral annular calcification present. 9. Mild mitral regurgitation is present. 10. Mild tricuspid regurgitation present. 11. Trace/mild (physiologic) pulmonic regurgitation. 12. There is no pericardial effusion. CONSULTANT DIETITIAN: Nicki Govea RDCS
[2020-09-28] MEDS: PANTOPRAZOLE 40 MG TABLET PO SCH (08:21)
[2020-09-28] MEDS: ASPIRIN 81 MG PO SCH (08:21)
[2020-09-28] MEDS: CLOPIDOGREL 75 MG TAB PO SCH (08:21)
[2020-09-28] MEDS: METOPROLOL SUCCINATE (ER) 25 MG TAB.ER.24H PO SCH (08:21)
[2020-09-28] MEDS: MEMANTINE 10 MG TAB PO SCH ×2 (08:21→20:26)
[2020-09-28] MEDS: ENOXAPARIN 40 MG/0.4 ML SYRINGE SQ SCH (08:21)
[2020-09-28] MEDS: LOSARTAN 50 MG TAB PO SCH (08:21)
[2020-09-28] MEDS: LACTAID PO PRN (08:22)
[2020-09-28] MEDS: CITALOPRAM HYDROBROMIDE 10 MG TAB PO SCH (08:22)
[2020-09-28] MEDS: RIVASTIGMINE 9.5MG/24HR PATCH TRANSDERM SCH (08:22)
[2020-09-28] MEDS: PROBIOTIC PO SCH (08:22)
--- NOTE | 2020-09-28 08:44 | US ---
EXAMINATION TYPE: US abdomen complete DATE OF EXAM: 09/28/2020 COMPARISON: NONE CLINICAL HISTORY: elevated liver enzymes. EXAM MEASUREMENTS: Liver Length: 12.8 cm Gallbladder Wall: 0.7 cm CBD: 1.2 cm Spleen: 8.3 cm Right Kidney: 9.1 x 4.6 x 4.0 cm Left Kidney: 8.5 x 4.8 x 4.3 cm Limited acoustic windows making exam technically difficult and limited. Pancreas: Partially obscured by bowel gas Liver: wnl Gallbladder: sludge, thickened wall Evidence for sonographic Boswell's sign: no CBD: grossly dilated, intrahepatic ducts dilated Spleen: limited visualization, wnl as seen Right Kidney: limited visualization, wnl as seen Left Kidney: limited visualization, wnl as seen Upper IVC: wnl Abd Aorta: atherosclerotic changes IMPRESSION: 1. Thickened wall the gallbladder with sludge correlate for cholecystitis. Appears to be dilated intr a and extrahepatic biliary ducts correlate for biliary obstruction.
[2020-09-28 09:32] LABS: Basophils # (A) 0.02 X 10*3/uL (0.00-0.10); Basophils % (A) 0.4 %; Eosinophils # (A) 0.13 X 10*3/uL (0.04-0.35); Eosinophils % (A) 2.7 %; HCT 33.1 % (37.2-46.3); HGB 10.8 g/dL (12.0-15.0); Lymphocytes # (A) 1.45 X 10*3/uL (0.90-5.00); Lymphocytes % (A) 30.1 %; MCHC 32.6 g/dL (32.0-37.0); MCV 95.1 fL (80.0-97.0); Mean Platelet Volume 12.1 fL (9.5-12.2); Monocytes % (A) 12.5 %; Neutrophils # (A) 2.59 X 10*3/uL (1.80-7.70); Neutrophils % (A) 53.9 %; Platelet Count 161 X 10*3/uL (140-440); RBC 3.48 X 10*6/uL (4.10-5.20); RDW 13.1 % (11.5-14.5); WBC 4.81 X 10*3/uL (4.50-10.00)
[2020-09-28 09:52] LABS: African American GFR (CKD) 99.8 (60.0-200.0); Albumin 3.3 g/dL (3.80-4.90); Albumin/Globulin Ratio 1.83 (1.60-3.17); BUN/Creat Ratio 21.67 Ratio (12.00-20.00); C Reactive Protein 6.8 mg/dL (0.0-0.8); Calcium 8.7 mg/dL (8.7-10.3); Globulin 1.8 g/dL (1.6-3.3); Non-African American GFR(CKD) 86.1 (60.0-200.0); Potassium 4.1 mmol/L (3.5-5.5); Total Bilirubin 0.5 mg/dL (0.3-1.2); Total Protein 5.1 g/dL (6.2-8.2)
--- NOTE | 2020-09-28 14:13 | P.CRDCN ---
History of Present Illness History of present illness: HISTORY OF PRESENTING ILLNESS This is a pleasant 80-year-old female past medical history significant for coronary artery disease s/p recent stent placement of the mid LAD, Hypertension, dyslipidemia, carotid stenosis status post right carotid endarterectomy, lung cancer status post left upper lobectomy, dementia . She follows in the office with Dr. Lovelace. We have been asked to see in consultation for abnormal heart rhythm-accelerated junctional rhythm. Patient is admitted to the hospital with complaints of fever and slight confusion, however patient denies his complaints. Patient states that she was picking up sticks in the backyard and fell on her left shoulder. She states she got up by herself, walked inside and told her son that she had fallen. Throughout the day her pain on her left shoulder started getting worse and she says that's why she came into the hospital. On admission patient was febrile temperature 102.5. Chest x-ray revealed diffuse interstitial pattern with small bilateral effusions- CHF versus interstitial pneumonia. Patient was started on Rocephin. Patient is seen and examined at bedside, in no apparent distress. Patient is confused, unable to typical story of why patient came in the hospital from the patient. No history of diabetes, stroke, NC. Laboratory data reviewed, WBC 4.8, hemoglobin 10.8 platelets 161, sodium 139, potassium 4.1, creatinine 0.6, LFTs AST 66, ALT 66, Alk Phos 263, troponin negative 1, BNP 1500. Vital signs blood pressure 144/62, heart rate 58, maintaining oxygen saturations in room air, afebrile DIAGNOSTICS EKG reveals sinus rhythm, no significant STT wave abnormalities Prior EKG normal sinus rhythm Telemetry tracings indicate sinus bradycardia Chest xray diffuse interstitial pattern with small bilateral effusions Most recent stress test- Cardiolyte- 05/2020- inconclusive due to poor exercise intolerance, no evidence of ischemia at 82% of predicted maximal heart rate Echo 08/2019: EF 60-65%, trace MR, mild TR. Echo 09/27/20: EF 6065%, mild AR, mild MR, mild TR Current home cardiac medications include Toprol 25 mg daily, losartan 100 mg daily, Plavix 75 mg daily, atorvastatin 40 mg nightly, aspirin 81 mg daily. REVIEW OF SYSTEMS At the time of my exam: CONSTITUTIONAL: Denies fever or chills. CARDIOVASCULAR: Denies chest pain, shortness of breath, orthopnea, PND or palpitations. RESPIRATORY: Denies cough. GASTROINTESTINAL: Denies abdominal pain, diarrhea, constipation, nausea or vomiting. MUSCULOSKELETAL: Denies myalgias. NEUROLOGIC: Denies numbness, tingling, headacbe or weakness. ENDOCRINE: Denies fatigue, weight change, polydipsia or polyurina. GENITOURINARY: Denies burning, hematuria or urgency with micturation. HEMATOLOGIC: Denies history of anemia or bleeding. PHYSICAL EXAMINATION CONSTITUTIONAL: No apparent distress. HEENT: Head is normocephalic. Pupils are equal, round. Sclerae anicteric. Mucous membranes of the mouth are moist. No JVD. No carotid bruit. CHEST EXAMINATION: Lungs are clear to auscultation. No chest wall tenderness is noted on palpation or with deep breathing. HEART EXAMINATION: Regular rate and rhythm. S1, S2 heard. No murmurs, gallops or rub. ABDOMEN: Soft, nontender. Positive bowel sounds. EXTREMITIES: 2+ peripheral pulses, no lower extremity edema and no calf tenderness. SKIN: NEUROLOGIC EXAMINATION: Patient is awake, alert and oriented x3. ASSESSMENT -History of coronary artery disease status post stent to LAD in August 2019 -History of hypertension -Dyslipidemia -Carotid stenosis s/p right carotid endarterectomy PLAN -Patient appears to be continuously in sinus mechanism on telemetry, Repeat echo with no significant changes. -We will sign off at this time. Please reach out for further questions or concerns Thank you kindly for this consultation Nurse Practitioner note has been reviewed, I agree with a documented findings and plan of care. Patient was seen and examined. Past Medical History Past Medical History: Coronary Artery Disease (CAD), Cancer, Dementia, Hypertension, Memory Impairment Additional Past Medical History / Comment(s): Chronic back pain, CDIFF (March 2019), lung cancer, History of Any Multi-Drug Resistant Organisms: None Reported Past Surgical History: Appendectomy, Back Surgery, Bowel Resection, Joint Replacement Additional Past Surgical History / Comment(s): Hemmorrhoidectomy, left knee surgery (40% of knee cap taken out), left lower lobectomy, carotid artery cleaned out Past Anesthesia/Blood Transfusion Reactions: No Reported Reaction Past Psychological History: No Psychological Hx Reported Smoking Status: Former smoker Past Alcohol Use History: Daily Additional Past Alcohol Use History / Comment(s): Patient drinks 2 liquor beverages a night most nights of the week Past Drug Use History: None Reported - Past Family History Mother Additional Family Medical History / Comment(s): brain aneurysm at 54 Father Family Medical History: Cancer Additional Family Medical History / Comment(s): bone cancer Sister(s) Family Medical History: Cancer Additional Family Medical History / Comment(s): ovarian cancer Medications and Allergies Home Medications Medication Instructions Recorded Confirmed Type Losartan Potassium 100 mg PO DAILY 10/17/16 09/26/20 History Rivastigmine 9.5MG/24Hr Patch 1 patch TRANSDERM DAILY 05/05/19 09/26/20 History [Exelon 9.5MG/24Hr Patch] Aspirin 81 mg PO DAILY #30 chew 08/23/19 09/26/20 Rx Atorvastatin [Lipitor] 40 mg PO HS #30 tab 08/23/19 09/26/20 Rx Clopidogrel [Plavix] 75 mg PO DAILY #30 tab 08/23/19 09/26/20 Rx Metoprolol Succinate (ER) [Toprol 25 mg PO DAILY #30 tab.er.24h 08/23/19 09/26/20 Rx XL] Citalopram Hydrobromide [CeleXA] 10 mg PO DAILY 09/26/20 09/26/20 History Memantine [Namenda] 10 mg PO BID 09/26/20 09/26/20 History Probiotic 85 Billion 1 cap PO DAILY 09/26/20 09/26/20 History Allergies Allergy/AdvReac Type Severity Reaction Status Date / Time lactose AdvReac Intermediate Diarrhea Verified 09/26/20 13:35 caffeine AdvReac Diarrhea Verified 09/26/20 13:35 steriod AdvReac Unknown FLUSHED Uncoded 09/26/20 13:35 FACE Physical Exam Vitals: Vital Signs Temp Pulse Pulse Resp BP BP Pulse Ox 09/27/20 14:00 98.7 F 58 L 16 123/62 94 L 09/27/20 09:01 94 L 09/27/20 08:00 98.6 F 63 16 148/70 91 L 09/27/20 07:35 63 16 09/27/20 01:38 98.4 F 62 131/65 94 L 09/26/20 22:20 98.0 F 63 16 149/64 95 09/26/20 18:35 98.0 F 89 16 127/56 97 09/26/20 16:52 86 16 111/52 96 Intake and Output 09/27/20 09/27/20 09/27/20 06:59 14:59 22:59 Intake Total 100 Balance 100 Intake: Oral 100 Other: Voiding Method Toilet # Voids 1 1 Results 09/28/20 06:30 09/28/20 06:30 Cardiac Enzymes 09/26/20 Range/Units 16:52 Troponin I <0.012 (0.000-0.034) ng/mL Current Medications Generic Name Dose Route Start Last Admin Trade Name Freq PRN Reason Stop Dose Admin Hydrocodone Bitart/Acetaminophen 1 each 09/26/20 22:14 09/26/20 22:47 Hydrocodone/Apap 5-325mg 1 Each Tab PO 1 each Q6HR PRN Administration Pain Aspirin 81 mg 09/26/20 22:15 09/27/20 09:18 Aspirin 81 Mg PO 81 mg DAILY ARMIN Administration Citalopram Hydrobromide 10 mg 09/26/20 22:30 09/27/20 09:18 Citalopram Hydrobromide 10 Mg Tab PO 10 mg DAILY ARMIN Administration Clopidogrel Bisulfate 75 mg 09/26/20 22:30 09/27/20 09:18 Clopidogrel 75 Mg Tab PO 75 mg DAILY ARMIN Administration Enoxaparin Sodium 40 mg 09/28/20 09:00 Enoxaparin 40 Mg/0.4 Ml Syringe SQ DAILY ARMIN Ceftriaxone Sodium 1 gm/ 50 mls @ 100 mls/hr 09/27/20 09:30 09/27/20 09:38 Sodium Chloride IVPB 100 mls/hr Q24HR ARMIN Administration Losartan Potassium 100 mg 09/26/20 22:30 09/27/20 09:18 Losartan 50 Mg Tab PO 100 mg DAILY ARMIN Administration Memantine 10 mg 09/26/20 22:30 09/27/20 09:18 Memantine 10 Mg Tab PO 10 mg BID ARMIN Administration Metoprolol Succinate 25 mg 09/26/20 22:30 09/27/20 09:18 Metoprolol Succinate (Er) 25 Mg Tab.Er.24h PO 25 mg DAILY ARMIN Administration Probiotic 85 Billion 1 cap 09/27/20 15:00 09/27/20 14:46 1 Cap PO 1 cap DAILY ARMIN Administration Lactaid Caplet 1 each 09/27/20 14:03 PO TID PRN WITH YOGURT Pantoprazole Sodium 40 mg 09/28/20 07:30 Pantoprazole 40 Mg Tablet PO AC-[id number] ARMIN Rivastigmine 1 patch 09/27/20 09:00 09/27/20 09:18 Rivastigmine 9.5mg/24hr Patch TRANSDERM 1 patch DAILY ARMIN Administration Intake and Output 09/27/20 09/27/20 09/27/20 06:59 14:59 22:59 Intake Total 100 Balance 100 Intake: Oral 100 Other: Voiding Method Toilet # Voids 1 1 09/26/20 13:03 09/26/20 13:03
--- NOTE | 2020-09-28 14:45 | CDI ---
Documentation Clarification Form Date: 09/28/2020 02:25:34 PM From: Nina Andrews RN CCDS Admit Date: 09/26/2020 06:06:00 PM Patient Name: Brittanie Pierre Visit Number: [id number] Discharge Date: ATTENTION: The Clinical Documentation Specialists (CDI) and [facility] Coding Staff appreciate your assistance in clarifying documentation. Please respond to the clarification below the line at the bottom and electronically sign. The CDI & [facility] Coding staff will review the response and follow-up if needed. Please note: Queries are made part of the Legal Health Record. If you have any questions, please contact the author of this message via ITS. Dr. Mark Hope, Confusion is documented in the H&P 09/27. History/Risk Factors: [id number] presented to the ED with fever and slight confusion. Medical history: Dementia and Memory impairment. H&P 09/27 Clinical Indicators: Fever likely secondary to viral pneumonia. H&P 09/27. VVS 09/26: B/P 173/78; HR 88; RR 18: Temp 102.5 F Oral; Spo2 95% ra Labs 09/26: Lymphocytes 0.7; BUN 16; Cr 0.46; AST 147; ALT 101. CXR 09/26: Diffuse interstitial pattern with small bilateral effusions. CT Brain 09/27: Mild diffuse age-related cerebral atrophy and severe nonspecific white matter changes presumed on the basis of product of chronic small vessel ischemic change in patient of this age. Treatment: Rocephin 1gm IVPB Q24HR 09/26 to present. Namenda 10mg PO BID 09/26 to present. 0.9NS 1.5L IV Bolus 09/26. In your professional opinion, please clarify the etiology of the confusion, if known. Metabolic Encephalopathy (Underlying Medical Illness) Other condition (please specify) Unable to determine (Last Revision: October 2017) About encephalopathy secondary to acute cholecystitis MTDD
--- NOTE | 2020-09-28 15:58 | P.GSCN ---
History of Present Illness Consult date: 09/28/20 Reason for Consult: Cholecystitis History of present illness: 80-year-old female came to the hospital because of worsening confusion. Patient has baseline dementia. She does live by herself however the family checks on her frequently. Her son is present here at the bedside for my evaluation assisting significantly with the history taking. Patient was brought to the hospital because of confusion. She was found have a T-max 102.5. Patient had some cough but no real symptoms otherwise. She has a history of C. difficile colitis in the past and states she has irritable bowel syndrome. Last weekend had some intermittent loose stools that was slightly more than usual. Denies abdominal pain. No nausea or vomiting. Patient would like to go home. Her liver enzymes were noted to be elevated. Bilirubin 1.0. Alkaline phosphatase o isaura 200. Patient's liver enzymes today slightly better. Ultrasound was obtained showing sludge with a thickened gallbladder wall and dilated biliary tree. Patient's chest x-ray showed a diffuse interstitial pattern. So far Covid and other cultures negative. No further fevers since admission. White blood cell count normal. No history of gallbladder disease in the past. Review of Systems ROS unobtainable: due to mental status Past Medical History Past Medical History: Coronary Artery Disease (CAD), Cancer, Dementia, Hypertension, Memory Impairment Additional Past Medical History / Comment(s): Chronic back pain, CDIFF (March 2019), lung cancer, History of Any Multi-Drug Resistant Organisms: None Reported Past Surgical History: Appendectomy, Back Surgery, Bowel Resection, Joint Replacement Additional Past Surgical History / Comment(s): Hemmorrhoidectomy, left knee surgery (40% of knee cap taken out), left lower lobectomy, carotid artery cleaned out Past Anesthesia/Blood Transfusion Reactions: No Reported Reaction Past Psychological History: No Psychological Hx Reported Smoking Status: Former smoker Past Alcohol Use History: Daily Additional Past Alcohol Use History / Comment(s): Patient drinks 2 liquor beverages a night most nights of the week Past Drug Use History: None Reported - Past Family History Mother Additional Family Medical History / Comment(s): brain aneurysm at 54 Father Family Medical History: Cancer Additional Family Medical History / Comment(s): bone cancer Sister(s) Family Medical History: Cancer Additional Family Medical History / Comment(s): ovarian cancer Medications and Allergies Home Medications Medication Instructions Recorded Confirmed Type Losartan Potassium 100 mg PO DAILY 10/17/16 09/26/20 History Rivastigmine 9.5MG/24Hr Patch 1 patch TRANSDERM DAILY 05/05/19 09/26/20 History [Exelon 9.5MG/24Hr Patch] Aspirin 81 mg PO DAILY #30 chew 08/23/19 09/26/20 Rx Atorvastatin [Lipitor] 40 mg PO HS #30 tab 08/23/19 09/26/20 Rx Clopidogrel [Plavix] 75 mg PO DAILY #30 tab 08/23/19 09/26/20 Rx Metoprolol Succinate (ER) [Toprol 25 mg PO DAILY #30 tab.er.24h 08/23/19 09/26/20 Rx XL] Citalopram Hydrobromide [CeleXA] 10 mg PO DAILY 09/26/20 09/26/20 History Memantine [Namenda] 10 mg PO BID 09/26/20 09/26/20 History Probiotic 85 Billion 1 cap PO DAILY 09/26/20 09/26/20 History Allergies Allergy/AdvReac Type Severity Reaction Status Date / Time lactose AdvReac Intermediate Diarrhea Verified 09/26/20 13:35 caffeine AdvReac Diarrhea Verified 09/26/20 13:35 steriod AdvReac Unknown FLUSHED Uncoded 09/26/20 13:35 FACE Surgical - Exam Vital Signs Temp Pulse Resp BP Pulse Ox 102.5 F H 88 18 173/78 95 09/26/20 13:03 09/26/20 13:03 09/26/20 13:03 09/26/20 13:03 09/26/20 13:03 Physical exam: General: Elderly white female in no distress HEENT: Normocephalic, sclerae nonicteric Abdomen: Nontender, nondistended Extremities: No edema Neuro: Confused but alert Results - Labs 09/28/20 06:30 09/28/20 06:30 Abnormal Lab Results - Last 24 Hours (Table) 09/27/20 09/28/20 09/28/20 Range/Units 11:37 06:30 06:30 RBC 3.48 L (4.10-5.20) X 10*6/uL Hgb 10.8 L (12.0-15.0) g/dL Hct 33.1 L (37.2-46.3) % Chloride 110 H (96-109) mmol/L BUN/Creatinine Ratio 21.67 H (12.00-20.00) Ratio AST 66 H (13-35) U/L ALT 66 H (8-44) U/L Alkaline Phosphatase 263 H (41-126) U/L C-Reactive Protein 6.8 H (0.0-0.8) mg/dL Total Protein 5.1 L (6.2-8.2) g/dL Albumin 3.30 L (3.80-4.90) g/dL Procalcitonin 1.04 H (0.02-0.09) ng/mL Microbiology - Last 24 Hours (Table) 09/26/20 13:13 Blood Culture - Preliminary Blood No Growth after 48 hours 09/26/20 13:13 Blood Culture - Preliminary Blood No Growth after 24 hours Diabetes panel 09/28/20 Range/Units 06:30 Sodium 139 (135-145) mmol/L Potassium 4.1 (3.5-5.5) mmol/L Chloride 110 H (96-109) mmol/L Carbon Dioxide 22.0 (21.6-31.8) mmol/L BUN 13.0 (9.0-27.0) mg/dL Creatinine 0.6 (0.6-1.5) mg/dL Glucose 98 (70-110) mg/dL Calcium 8.7 (8.7-10.3) mg/dL AST 66 H (13-35) U/L ALT 66 H (8-44) U/L Alkaline Phosphatase 263 H (41-126) U/L Total Protein 5.1 L (6.2-8.2) g/dL Albumin 3.30 L (3.80-4.90) g/dL Calcium panel 09/28/20 Range/Units 06:30 Calcium 8.7 (8.7-10.3) mg/dL Albumin 3.30 L (3.80-4.90) g/dL Pituitary panel 09/28/20 Range/Units 06:30 Sodium 139 (135-145) mmol/L Potassium 4.1 (3.5-5.5) mmol/L Chloride 110 H (96-109) mmol/L Carbon Dioxide 22.0 (21.6-31.8) mmol/L BUN 13.0 (9.0-27.0) mg/dL Creatinine 0.6 (0.6-1.5) mg/dL Glucose 98 (70-110) mg/dL Calcium 8.7 (8.7-10.3) mg/dL Adrenal panel 09/28/20 Range/Units 06:30 Sodium 139 (135-145) mmol/L Potassium 4.1 (3.5-5.5) mmol/L Chloride 110 H (96-109) mmol/L Carbon Dioxide 22.0 (21.6-31.8) mmol/L BUN 13.0 (9.0-27.0) mg/dL Creatinine 0.6 (0.6-1.5) mg/dL Glucose 98 (70-110) mg/dL Calcium 8.7 (8.7-10.3) mg/dL Total Bilirubin 0.5 (0.3-1.2) mg/dL AST 66 H (13-35) U/L ALT 66 H (8-44) U/L Alkaline Phosphatase 263 H (41-126) U/L Total Protein 5.1 L (6.2-8.2) g/dL Albumin 3.30 L (3.80-4.90) g/dL Assessment and Plan (1) Cholecystitis Narrative/Plan: 80-year-old female with elevated liver enzymes and ultrasound findings demonstrating sludge with a thickened gallbladder wall and dilated biliary tree. Patient has no pain or tenderness on exam. Recommend workup for possible distal obstruction. We'll start with CT abdomen and pelvis. If that study is normal recommend MRCP. Consider GI evaluation of liver enzymes remain elevated. Continue antibiotics for possible cholecystitis and sepsis picture on presentation. We'll follow closely. Current Visit: Yes Status: Acute Code(s): K81.9 - CHOLECYSTITIS, UNSPECIFIED SNOMED Code(s): 89397820
--- NOTE | 2020-09-28 16:06 | P.PN ---
Subjective Progress Note Date: 09/28/20 Principal diagnosis: Dyspnea, hypoxemia, pneumonia, abnormal chest x-ray 80-year-old female patient, who presents to the emergency department, on September 26, because of mental status changes, and high fever. The patient has a history of underlying dementia, and she apparently did not complain of any problems or symptoms while in the emergency department. She apparently has a previous history of lung cancer, status post left upper lobectomy. The patient also apparently has a history of hypertension, C. difficile colitis. The patient cannot really had any additional history for us today. According to the ER yesy, and Dr. Zhao's impression, she was admitted with a diagnosis of viral pneumonia, and altered mental status. She did not test positive for COVID 19. According to the ER yesy, the patient has a history of chronic back pain as well, and is had appendectomy, back surgery, bowel resection, joint replacement, and carotid endarterectomy. White count is 8.1, hemoglobin 12.7, hematocrit 38, and platelet count 177,000. PT and INR are normal. Sodium 137, potassium 4.1, chlorides 104, anion gap 8, CO2 25, BUN 16, and creatinine 0.46. AST and ALT are modestly elevated. N-terminal pro BNP was 1500. Troponin was less than 0.012. Chest x-ray shows a diffuse interstitial pattern, which could be consistent with interstitial pneumonia and/or interstitial edema/CHF. On 09/28/2020 patient seen in follow-up on medical floor, she is on room air pulse ox is 97%, she's been afebrile, vitals have been stable, she's had no worsening dyspnea or hypoxia since admission, her pro calcitonin level was elevated at 1.04, blood cultures have shown no growth. She had an isolated fever on admission, has been afebrile since. Today's labs have been reviewed, hemoglobin is 10.8, rest of her CBC is unremarkable, electrolytes and renal profile are within normal limits. Liver enzymes are improving, AST is down to 66, ALP 66, and alkaline phosphatase trended up, to 263 from 208. No nausea or vomiting, no abdominal pain, ultrasound of the abdomen was completed showing thickened wall gallbladder with sludge. No leukocytosis, no fever. Surgery was consulted for possibility of cholecystitis, and CT of the abdomen and pelvis was recommended Objective - Vital Signs Vital signs: Vital Signs Temp 98.2 F 09/28/20 14:00 Pulse 60 09/28/20 14:00 Resp 16 09/28/20 14:00 BP 198/73 09/28/20 14:00 Pulse Ox 97 09/28/20 14:00 Intake & Output 09/27/20 09/28/20 09/28/20 18:59 06:59 18:59 Intake Total 950 700 Output Total 500 Balance 950 200 Intake: Intake, IV Titration 600 Amount Sodium Chloride 0.9% 1, 550 000 ml @ 75 mls/hr IV . [id number] Rx#:[id number] cefTRIAXone 1 gm In 50 Sodium Chloride 0.9% 50 ml @ 100 mls/hr IVPB Q24HR [facility] Rx#:[id number] Oral 350 700 Output: Urine 500 Other: Voiding Method Toilet Toilet Toilet # Voids 3 1 - Exam GENERAL EXAM: Alert, pleasant, 80-year-old white female, on room air, with a pulse ox of 97% comfortable in no apparent distress. HEAD: Normocephalic/atraumatic. EYES: Normal reaction of pupils, equal size. Conjunctiva pink, sclera white. NOSE: Clear with pink turbinates. THROAT: No erythema or exudates. NECK: No masses, no JVD, no thyroid enlargement, no adenopathy. CHEST: No chest wall deformity. Symmetrical expansion. LUNGS: Equal air entry with no crackles, wheeze, rhonchi or dullness. CVS: Regular rate and rhythm, normal S1 and S2, no gallops, no murmurs, no rubs ABDOMEN: Soft, nontender. No hepatosplenomegaly, normal bowel sounds, no guarding or rigidity. EXTREMITIES: No clubbing, no edema, no cyanosis, 2+ pulses and upper and lower extremities. MUSCULOSKELETAL: Muscle strength and tone normal. SPINE: No scoliosis or deformity SKIN: No rashes CENTRAL NERVOUS SYSTEM: Alert and oriented -3. No focal deficits, tone is normal in all 4 extremities. PSYCHIATRIC: Alert and oriented -3. Appropriate affect. Intact judgment and insight. - Labs CBC & Chem 7: 09/28/20 06:30 09/28/20 06:30 Labs: Abnormal Lab Results - Last 24 Hours (Table) 09/27/20 09/28/20 09/28/20 Range/Units 11:37 06:30 06:30 RBC 3.48 L (4.10-5.20) X 10*6/uL Hgb 10.8 L (12.0-15.0) g/dL Hct 33.1 L (37.2-46.3) % Chloride 110 H (96-109) mmol/L BUN/Creatinine Ratio 21.67 H (12.00-20.00) Ratio AST 66 H (13-35) U/L ALT 66 H (8-44) U/L Alkaline Phosphatase 263 H (41-126) U/L C-Reactive Protein 6.8 H (0.0-0.8) mg/dL Total Protein 5.1 L (6.2-8.2) g/dL Albumin 3.30 L (3.80-4.90) g/dL Procalcitonin 1.04 H (0.02-0.09) ng/mL Microbiology - Last 24 Hours (Table) 09/26/20 13:13 Blood Culture - Preliminary Blood No Growth after 48 hours 09/26/20 13:13 Blood Culture - Preliminary Blood No Growth after 24 hours Assessment and Plan Plan: Assessment: #1. Acute mental status changes, possibly related to toxic metabolic encephalopathy, possibly related to possibility of sepsis, cholecystitis. Brain CT was completed showing no acute intracranial hemorrhage or midline shift #2. Bilateral COVID 19 pneumonia without hypoxemia #3. History of lung cancer, non-small cell type, status post left upper lobectomy #4. History of hypertension #5. History of severe dementia #6. History of chronic back pain #7. History of C. difficile colitis #8. Prior history of chronic endarterectomy Plan: Patient continues on room air, from pulmonary perspective she is not having any symptoms, no dyspnea, no cough, no hypoxia. Pro-calcitonin level suggest possibly due to bacterial infection, and patient will have CT of the abdomen and pelvis, there is a possibility of cholecystitis and Gen. surgery is following with the patient, she has been initiated on antibiotics, she remains on Lovenox, patient has maintained stable O2 saturations on room air, and there is no need for Decadron unless her pulmonary symptoms progress and she starts requiring oxygen. Continue to follow her clinical course and make further recommendations she can be considered for discharge home once she is cleared by surgery however she is undergoing additional imaging and possibly if MRCP is being considered I performed a history & physical examination of the patient and discussed their management with my nurse practitioner, Kaycee Langley. I reviewed the nurse practitioner's note and agree with the documented findings and plan of care. Lung sounds are positive for diminished breath sounds. The findings and the impression was discussed with the patient. I attest to the documentation by the nurse practitioner. Time with Patient: Less than 30
--- NOTE | 2020-09-28 17:36 | P.PN ---
Subjective Progress Note Date: 09/28/20 This is an 80-year-old female patient who presented to the ER with complaints of fever and slight confusion. Patient denies any acute complaints. Patient does have a past medical history of lung cancer high blood pressure coronary artery disease with recent stent to the LAD and C. diff. Chest x-ray was completed showing diffuse interstitial pattern with small bilateral effusions correlate for CHF otherwise consider interstitial pneumonia. COVID-19 negatvie. Patient also reported fall in which she fell on her arm humerus fracture was completed showing negative for fracture or dislocation. EKG completed showing accelerated junctional rhythm. Patient presented with fever 102.5 upon admit. Lactic acid 1.3. At this time cardiology, pulmonary and infectious disease services consulted. Patient maintained on Rocephin. At that time patient denies chest pain or shortness of breath. Patient denies nausea vomiting or diarrhea. Patient denies any urinary burning or frequency On 09/28/2020 patient was seen and examined on the medical floor she is alert and oriented 3 in no apparent distress there is no new episodes of fever, computed tomography scan of the brain did not reveal any evidence of acute intracranial hemorrhage or midline shift, patient has elevated liver enzymes and evidence of gallbladder sludge and inflammation as evidenced by thickened gallbladder aaron surgical consultation was requested patient is denying any abdominal pain there is no fever or chills no headache or dizziness no chest pain no shortness of breath no cough no nausea or vomiting no abdominal pain no diarrhea no blood in the chest with no burning with urination no frequency or urgency and no hematuria Objective - Vital Signs Vital signs: Vital Signs Temp 98.4 F 09/28/20 08:00 Pulse 58 L 09/28/20 08:26 Resp 17 09/28/20 08:26 BP 144/62 09/28/20 08:00 Pulse Ox 96 09/28/20 08:00 Intake & Output 09/27/20 09/28/20 09/28/20 18:59 06:59 18:59 Intake Total 950 700 Output Total 500 Balance 950 200 Intake: Intake, IV Titration 600 Amount Sodium Chloride 0.9% 1, 550 000 ml @ 75 mls/hr IV . [id number] Rx#:[id number] cefTRIAXone 1 gm In 50 Sodium Chloride 0.9% 50 ml @ 100 mls/hr IVPB Q24HR [facility] Rx#:[id number] Oral 350 700 Output: Urine 500 Other: Voiding Method Toilet Toilet Toilet # Voids 3 1 - Exam In general patient is alert and oriented 3 in no apparent distress HEENT head normocephalic and atraumatic patient has clear jaundice Neck is supple no JVD no goiter no lymphadenopathy no carotid bruit Chest exam is clear to auscultation no crackles no wheezing Cardiac exam reveals irregular heart beat S1 and S2 no gallops no murmurs Abdomen is soft nontender no organomegaly with normal bowel sounds Extremity exam reveals no edema no cyanosis or clubbing Neurological examination reveals no gross focal deficit - Labs CBC & Chem 7: 09/28/20 06:30 09/28/20 06:30 Labs: Abnormal Lab Results - Last 24 Hours (Table) 09/27/20 09/28/20 09/28/20 Range/Units 11:37 06:30 06:30 RBC 3.48 L (4.10-5.20) X 10*6/uL Hgb 10.8 L (12.0-15.0) g/dL Hct 33.1 L (37.2-46.3) % Chloride 110 H (96-109) mmol/L BUN/Creatinine Ratio 21.67 H (12.00-20.00) Ratio AST 66 H (13-35) U/L ALT 66 H (8-44) U/L Alkaline Phosphatase 263 H (41-126) U/L C-Reactive Protein 6.8 H (0.0-0.8) mg/dL Total Protein 5.1 L (6.2-8.2) g/dL Albumin 3.30 L (3.80-4.90) g/dL Procalcitonin 1.04 H (0.02-0.09) ng/mL Microbiology - Last 24 Hours (Table) 09/26/20 13:13 Blood Culture - Preliminary Blood No Growth after 24 hours 09/26/20 13:13 Blood Culture - Preliminary Blood No Growth after 24 hours Assessment and Plan Assessment: 1. Fever likely secondary to viral pneumonia. Infectious disease and pulmonary service is consulted. Patient started on Rocephin 2. Accelerated junctional rhythm. Cardiology services consulted 3. Elevated liver enzymes. Statin currently on hold. Repeat labs ordered, ultrasound of the gallbladder revealed evidence of inflammation and sludge consultation with Dr. tellez was initiated 4. History of coronary artery disease with history of stent to the LAD in August 2019 maintained on Plavix 5. History of Essential hypertension 6. Underlying history of mild dementia. Patient maintained on Namenda 7. History of degenerative disc disease chronic back pain. Maintained on [place] 8. History of C. diff. DVT prophylaxis Lovenox. GI prophylaxis Protonix Cardiology, pulmonary and infectious disease consulted Maintained on Rocephin Repeat labs ordered Blood culture ordered
--- NOTE | 2020-09-28 18:00 | CT ---
CT scan of the pancreas. History elevated liver enzymes. Dilated bile ducts. Comparison PET CT scan 02/26/2019. TECHNIQUE: Images obtained from the diaphragm to the iliac crests with IV contrast Isovue 100 mL. There is bipha sic exam. There is small right pleural effusion. Heart is slightly enlarged. There is no pericardial effusion. There is small left pleural effusion. Liver shows no focal defect. The common bile duct measures 12 mm. There is mild ectasia of the intrah epatic bile ducts. There is mild enlargement of the distal pancreatic duct that measures 6 mm. I see no discrete pancreatic mass. The stomach is intact. There is prominent gallbladder measuring 3.3 cm in diameter. Unchanged. The stomach is intact. There is no adrenal mass. Kidneys show satisfactory contrast opacification. Th ere is no hydronephrosis. There are multiple enlarged abdominal para-aortic lymph nodes. These measur e up to almost 3 cm. Lumbar vertebra have normal alignment. There is L4-5 and L5-S1 disc space narrowing and vacuum disc. There is no compression fracture. There is multilevel lumbar hypertrophic facet arthropathy. Abdomina l aorta is atheromatous. There is no aneurysm or dissection. There is no ascites. There is no evidenc e of free air. There are diverticula in the descending colon. IMPRESSION: There are bilateral pleural effusions which appear new compared to old CT scan. There is mild ectasia of the biliary tree and distal pancreatic duct which is increased compared to o ld CT scan. No obstructing mass seen. No pancreatic mass identified. There is abdominal retroperitoneal lymphadenopathy consistent with metastatic disease which is new co mpared to old exam.
[2020-09-28] MEDS: CHOLESTYRAMINE (WITH SUGAR) 4 GM PACKET PO SCH (18:02)
[2020-09-28] MEDS: HYDROcodone/APAP 5-325MG 1 EACH TAB PO PRN (20:26)
--- NOTE | 2020-09-28 23:10 | PN ---
PROGRESS NOTE DATE OF SERVICE: 09/28/2020 REASON FOR FOLLOWUP: Fever and a question of cholecystitis. INTERVAL HISTORY: The patient is currently afebrile. The patient is breathing comfortably. The patient denies having any chest pain, shortness of breath or cough. No nausea, no vomiting, no abdominal pain or diarrhea. PHYSICAL EXAMINATION: Her blood pressure is 195/70, pulse of 55, temperature 97.7. She is 97% on room air. General description is an elderly female up in the chair in no distress. RESPIRATORY SYSTEM: Unlabored breathing. Clear to auscultation. HEART: S1, S2. Regular rate and rhythm. ABDOMEN: Soft. No tenderness. LABS: Hemoglobin is 10.8, white count 4.8. BUN of 13, creatinine 0.6. DIAGNOSTIC IMPRESSION AND PLAN: Patient admitted to hospital with a fever with initial concern for possible pneumonia. Ultrasound suspicious for cholecystitis. Surgery has been consulted. Patient is covered with Rocephin; to continue while monitoring her clinical course closely. Continue with supportive care. MMODL / IJN: [id number] /
[2020-09-29] MEDS: PANTOPRAZOLE 40 MG TABLET PO SCH (07:59)
[2020-09-29] MEDS: LOSARTAN 50 MG TAB PO SCH (09:39)
[2020-09-29] MEDS: MEMANTINE 10 MG TAB PO SCH ×2 (09:41→21:31)
[2020-09-29] MEDS: CLOPIDOGREL 75 MG TAB PO SCH (09:41)
[2020-09-29] MEDS: ASPIRIN 81 MG PO SCH (09:41)
[2020-09-29] MEDS: ENOXAPARIN 40 MG/0.4 ML SYRINGE SQ SCH (09:42)
[2020-09-29] MEDS: CHOLESTYRAMINE (WITH SUGAR) 4 GM PACKET PO SCH ×3 (09:56→21:31)
[2020-09-29] MEDS: METOPROLOL SUCCINATE (ER) 25 MG TAB.ER.24H PO SCH (09:56)
--- NOTE | 2020-09-29 10:29 | P.PN ---
Subjective Progress Note Date: 09/29/20 This is an 80-year-old female patient who presented to the ER with complaints of fever and slight confusion. Patient denies any acute complaints. Patient does have a past medical history of lung cancer high blood pressure coronary artery disease with recent stent to the LAD and C. diff. Chest x-ray was completed showing diffuse interstitial pattern with small bilateral effusions correlate for CHF otherwise consider interstitial pneumonia. COVID-19 negatvie. Patient also reported fall in which she fell on her arm humerus fracture was completed showing negative for fracture or dislocation. EKG completed showing accelerated junctional rhythm. Patient presented with fever 102.5 upon admit. Lactic acid 1.3. At this time cardiology, pulmonary and infectious disease services consulted. Patient maintained on Rocephin. At that time patient denies chest pain or shortness of breath. Patient denies nausea vomiting or diarrhea. Patient denies any urinary burning or frequency On 09/28/2020 patient was seen and examined on the medical floor she is alert and oriented 3 in no apparent distress there is no new episodes of fever, computed tomography scan of the brain did not reveal any evidence of acute intracranial hemorrhage or midline shift, patient has elevated liver enzymes and evidence of gallbladder sludge and inflammation as evidenced by thickened gallbladder aaron surgical consultation was requested patient is denying any abdominal pain there is no fever or chills no headache or dizziness no chest pain no shortness of breath no cough no nausea or vomiting no abdominal pain no diarrhea no blood in the chest with no burning with urination no frequency or urgency and no hematuria On 09/29/2020 patient alert and oriented 3 currently resting comfortably bed. Patient denies any chest pain or shortness of breath. Patient denies nausea vomiting or diarrhea. Patient denies any urinary burning or frequency. GI services have been consulted. AST and ALT down to 66 alkaline phosphatase increased slightly to 263. Objective - Vital Signs Vital signs: Vital Signs Temp 98 F 09/29/20 06:44 Pulse 68 09/29/20 08:00 Resp 18 09/29/20 08:00 BP 174/72 09/29/20 06:44 Pulse Ox 98 09/29/20 06:44 Intake & Output 09/28/20 09/29/20 09/29/20 18:59 06:59 18:59 Intake Total 50 700 Output Total 500 Balance 50 200 Intake: Intake, IV Titration 50 Amount cefTRIAXone 1 gm In 50 Sodium Chloride 0.9% 50 ml @ 100 mls/hr IVPB Q24HR [facility] Rx#:[id number] Oral 700 Output: Urine 500 Other: Voiding Method Toilet Toilet Toilet # Voids 1 - Exam In general patient is alert and oriented 3 in no apparent distress HEENT head normocephalic and atraumatic patient has clear jaundice Neck is supple no JVD no goiter no lymphadenopathy no carotid bruit Chest exam is clear to auscultation no crackles no wheezing Cardiac exam reveals irregular heart beat S1 and S2 no gallops no murmurs Abdomen is soft nontender no organomegaly with normal bowel sounds Extremity exam reveals no edema no cyanosis or clubbing Neurological examination reveals no gross focal deficit - Labs CBC & Chem 7: 09/28/20 06:30 09/28/20 06:30 Labs: Microbiology - Last 24 Hours (Table) 09/26/20 13:13 Blood Culture - Preliminary Blood No Growth after 48 hours 09/26/20 13:13 Blood Culture - Preliminary Blood No Growth after 48 hours Assessment and Plan Assessment: 1. Fever likely secondary to viral pneumonia. Infectious disease and pulmonary service is consulted. Patient started on Rocephin 2. Accelerated junctional rhythm. Cardiology services consulted and 2-D echo completed showing 60-65% ejection fraction. No further workup cardiology services 3. Elevated liver enzymes. Statin currently on hold. Repeat labs ordered, ultrasound of the gallbladder revealed evidence of inflammation and sludge consultation with Dr. tellez was initiated 4. History of coronary artery disease with history of stent to the LAD in August 2019 maintained on Plavix 5. History of Essential hypertension 6. Underlying history of mild dementia. Patient maintained on Nam[place] 7. History of degenerative disc disease chronic back pain. Maintained on [place] 8. History of C. diff. 9. Cholecystitis. Surgical services consulted. AST 66 ALT [address] of pancreas ordered. GI service is consulted DVT prophylaxis Lovenox. GI prophylaxis Protonix Cardiology, pulmonary, surgical, GI and infectious disease consulted Maintained on Rocephin Repeat labs ordered Blood culture ordered
[2020-09-29] MEDS: PROBIOTIC PO SCH (10:30)
[2020-09-29] MEDS: CITALOPRAM HYDROBROMIDE 10 MG TAB PO SCH (10:32)
[2020-09-29] MEDS: RIVASTIGMINE 9.5MG/24HR PATCH TRANSDERM SCH (10:38)
[2020-09-29 13:37] VITALS: RESP 16
--- NOTE | 2020-09-29 14:29 | P.HPADDEND ---
H&P Addendum H&P Addendum Date: 09/29/20 On 09/29/2020 I received a text message from Mrs. Cannon Pierre's nurse asking me to contact the patient's daughter at [phone], I called number immediately and I had an answering machine I left a voice message on the answering machine.
[2020-09-29 14:39] LABS: Basophils # (A) 0.02 X 10*3/uL (0.00-0.10); Basophils % (A) 0.4 %; Eosinophils # (A) 0.09 X 10*3/uL (0.04-0.35); HCT 33.4 % (37.2-46.3); HGB 11.1 g/dL (12.0-15.0); Lymphocytes # (A) 1.25 X 10*3/uL (0.90-5.00); Lymphocytes % (A) 27.2 %; MCH 31.4 pg (27.0-32.0); MCHC 33.2 g/dL (32.0-37.0); MCV 94.4 fL (80.0-97.0); Monocytes # (A) 0.43 X 10*3/uL (0.20-1.00); Monocytes % (A) 9.3 %; Neutrophils # (A) 2.79 X 10*3/uL (1.80-7.70); Neutrophils % (A) 60.7 %; Platelet Count 196 X 10*3/uL (140-440); RBC 3.54 X 10*6/uL (4.10-5.20); RDW 12.9 % (11.5-14.5)
--- NOTE | 2020-09-29 15:30 | P.PN ---
Subjective Progress Note Date: 09/29/20 Principal diagnosis: Chronic cholecystitis Patient has no new complaints. CAT scan from last night reviewed. No definitive pancreatic mass or obstructing lesion involving the common bile duct is seen. The common Bile duct, intrahepatic ducts, and pancreatic duct however do appear to be dilated. Denies pain. Labs show a normal white blood cell count. CMP not drawn this morning. GI consult noted. Objective - Vital Signs Vital signs: Vital Signs Temp 98.6 F 09/29/20 13:36 Pulse 54 L 09/29/20 13:36 Resp 16 09/29/20 13:39 BP 171/69 09/29/20 13:36 Pulse Ox 98 09/29/20 06:44 Intake & Output 09/28/20 09/29/20 09/29/20 18:59 06:59 18:59 Intake Total 50 700 Output Total 500 Balance 50 200 Intake: Intake, IV Titration 50 Amount cefTRIAXone 1 gm In 50 Sodium Chloride 0.9% 50 ml @ 100 mls/hr IVPB Q24HR [facility] Rx#:[id number] Oral 700 Output: Urine 500 Other: Voiding Method Toilet Toilet Toilet # Voids 1 - Exam Abdomen: Soft, nontender, nondistended - Labs CBC & Chem 7: 09/29/20 11:05 09/28/20 06:30 Labs: Abnormal Lab Results - Last 24 Hours (Table) 09/29/20 Range/Units 11:05 RBC 3.54 L (4.10-5.20) X 10*6/uL Hgb 11.1 L (12.0-15.0) g/dL Hct 33.4 L (37.2-46.3) % Microbiology - Last 24 Hours (Table) 09/26/20 13:13 Blood Culture - Preliminary Blood No Growth after 72 hours 09/26/20 13:13 Blood Culture - Preliminary Blood No Growth after 48 hours Assessment and Plan (1) Cholecystitis Narrative/Plan: 80-year-old female with ultrasound evidence of chronic cholecystitis. Patient with dilated biliary tree and pancreatic duct as well. Rule out distal ob struction. Await MRI results. If MRI is normal favor conservative management with antibiotics for possible cholecystitis/cholangitis. Patient and family would like to avoid surgery if possible and given the lack of abdominal discomfort am not planning cholecystectomy presently. Current Visit: Yes Status: Acute Code(s): K81.9 - CHOLECYSTITIS, UNSPECIFIED SNOMED Code(s): 32159147
[2020-09-29 16:39] LABS: African American GFR (CKD) 105.9 (60.0-200.0); Albumin 3.6 g/dL (3.80-4.90); Albumin/Globulin Ratio 1.64 (1.60-3.17); Calcium 9.2 mg/dL (8.7-10.3); Globulin 2.2 g/dL (1.6-3.3); Non-African American GFR(CKD) 91.4 (60.0-200.0); Potassium 3.5 mmol/L (3.5-5.5); Total Bilirubin 0.3 mg/dL (0.2-1.2); Total Protein 5.8 g/dL (6.2-8.2)
--- NOTE | 2020-09-29 17:01 | P.PN ---
Subjective Progress Note Date: 09/29/20 Principal diagnosis: Altered mental status, suspect toxic metabolic encephalopathy, sepsis, cholecystitis 80-year-old female patient, who presents to the emergency department, on September 26, because of mental status changes, and high fever. The patient has a history of underlying dementia, and she apparently did not complain of any problems or symptoms while in the emergency department. She apparently has a previous history of lung cancer, status post left upper lobectomy. The patient also apparently has a history of hypertension, C. difficile colitis. The patient cannot really had any additional history for us today. According to the ER yesy, and Dr. Zhao's impression, she was admitted with a diagnosis of viral pneumonia, and altered mental status. She did not test positive for COVID 19. According to the ER yesy, the patient has a history of chronic back pain as well, and is had appendectomy, back surgery, bowel resection, joint replacement, and carotid endarterectomy. White count is 8.1, hemoglobin 12.7, hematocrit 38, and platelet count 177,000. PT and INR are normal. Sodium 137, potassium 4.1, chlorides 104, anion gap 8, CO2 25, BUN 16, and creatinine 0.46. AST and ALT are modestly elevated. N-terminal pro BNP was 1500. Troponin was less than 0.012. Chest x-ray shows a diffuse interstitial pattern, which could be consistent with interstitial pneumonia and/or interstitial edema/CHF. On 09/28/2020 patient seen in follow-up on medical floor, she is on room air pulse ox is 97%, she's been afebrile, vitals have been stable, she's had no wor sening dyspnea or hypoxia since admission, her pro calcitonin level was elevated at 1.04, blood cultures have shown no growth. She had an isolated fever on admission, has been afebrile since. Today's labs have been reviewed, hemoglobin is 10.8, rest of her CBC is unremarkable, electrolytes and renal profile are within normal limits. Liver enzymes are improving, AST is down to 66, ALP 66, and alkaline phosphatase trended up, to 263 from 208. No nausea or vomiting, no abdominal pain, ultrasound of the abdomen was completed showing thickened wall gallbladder with sludge. No leukocytosis, no fever. Surgery was consulted for possibility of cholecystitis, and CT of the abdomen and pelvis was recommended. The patient is seen today 09/29/2020 in follow-up on the regular medical floor. She is awake and alert in no acute distress. Maintaining O2 saturations in the 90s on room air. The cultures reveal no growth. White count 4.6. Hemoglobin 11.1. Sodium 141. Potassium 3.5. Creatinine 0.5. Legionella antigen negative. Remains on ceftriaxone. Objective - Vital Signs Vital signs: Vital Signs Temp 98.6 F 09/29/20 13:36 Pulse 54 L 09/29/20 13:36 Resp 16 09/29/20 13:39 BP 171/69 09/29/20 13:36 Pulse Ox 98 09/29/20 06:44 Intake & Output 09/28/20 09/29/20 09/29/20 18:59 06:59 18:59 Intake Total 50 700 Output Total 500 Balance 50 200 Intake: Intake, IV Titration 50 Amount cefTRIAXone 1 gm In 50 Sodium Chloride 0.9% 50 ml @ 100 mls/hr IVPB Q24HR [facility] Rx#:[id number] Oral 700 Output: Urine 500 Other: Voiding Method Toilet Toilet Toilet # Voids 1 - Exam GENERAL EXAM: Alert, pleasant, 80-year-old female patient, on room air, comfortable in no apparent distress. HEAD: Normocephalic/atraumatic. EYES: Normal reaction of pupils, equal size. Conjunctiva pink, sclera white. NOSE: Clear with pink turbinates. THROAT: No erythema or exudates. NECK: No masses, no JVD, no thyroid enlargement, no adenopathy. CHEST: No chest wall deformity. Symmetrical expansion. LUNGS: Equal air entry with no crackles, wheeze, rhonchi or dullness. CVS: Regular rate and rhythm, normal S1 and S2, no gallops, no murmurs, no rubs ABDOMEN: Soft, nontender. No hepatosplenomegaly, normal bowel sounds, no guarding or rigidity. EXTREMITIES: No clubbing, no edema, no cyanosis, 2+ pulses and upper and lower extremities. MUSCULOSKELETAL: Muscle strength and tone normal. SPINE: No scoliosis or deformity SKIN: No rashes CENTRAL NERVOUS SYSTEM: Alert and oriented -3. No focal deficits, tone is normal in all 4 extremities. PSYCHIATRIC: Alert and oriented -3. Appropriate affect. Intact judgment and insight. - Labs CBC & Chem 7: 09/29/20 11:05 09/29/20 11:05 Labs: Abnormal Lab Results - Last 24 Hours (Table) 09/29/20 09/29/20 Range/Units 11:05 11:05 RBC 3.54 L (4.10-5.20) X 10*6/uL Hgb 11.1 L (12.0-15.0) g/dL Hct 33.4 L (37.2-46.3) % BUN 7.0 L (9.0-27.0) mg/dL Creatinine 0.5 L (0.6-1.5) mg/dL AST 48 H (13-35) U/L ALT 57 H (8-44) U/L Alkaline Phosphatase 264 H (41-126) U/L Total Protein 5.8 L (6.2-8.2) g/dL Albumin 3.60 L (3.80-4.90) g/dL Microbiology - Last 24 Hours (Table) 09/26/20 13:13 Blood Culture - Preliminary Blood No Growth after 72 hours 09/26/20 13:13 Blood Culture - Preliminary Blood No Growth after 48 hours Assessment and Plan Assessment: 1 Acute mental status changes, possibly related to toxic metabolic encephalopathy, possibly related to possibility of sepsis, cholecystitis. Brain CT was completed showing no acute intracranial hemorrhage or midline shift 2 Bilateral COVID 19 pneumonia without hypoxemia 3 History of lung cancer, non-small cell type, status post left upper lobectomy 4 History of hypertension 5 History of severe dementia 6 History of chronic back pain 7 History of C. difficile colitis 8 Prior history of chronic endarterectomy Plan: The patient was seen and evaluated by Dr. Alatorre She is cleared for discharge from the pulmonary standpoint I, the cosigning physician, performed a history & physical examination of the patient. Lungs sounds are clear. Maintaining good O2 saturations in the 90s on room air. I discussed the assessment and plan of care with my nurse practitioner, Oumou Hawley. I attest to the above note as dictated by her.
--- NOTE | 2020-09-29 17:31 | P.CONS ---
History of Present Illness - Reason for Consult Consult date: 09/29/20 Fever, hypoxia, h/o lung ca - History of Present Illness the patient is an 80-year-old white female, previously seen by Dr. Pappas in 05/01. The patient had been found to have a left upper lobe lung nodule by Dr. Gan, she had a PET scan ordered by them in 03/01. This showed uptake in this nodule but not in any other location. She was therefore referred to thoracic surgery, Dr. Sanchez, at [facility] and underwent left upper lobectomy and mediastinal node sampling in 04/01. She was found to have a 1.6 cm adenocarcinoma with negative margins with however additional, smaller tumor nodules in the same lobe. Lymph nodes were negative. The patient was then seen in our office, and based on the finding of additional nodules in the same lobe, adjuvant chemotherapy was discussed per protocol. The patient decided against any adjuvant treatment. She did not follow-up subsequently. The patient was admitted with a fall, where she sustained some trauma to the left upper arm. X-rays were negative for fracture. The patient apparently was mildly confused and subsequently spiked a temperature of 102.5. She had an x- ray done that showed some bilateral interstitial infiltrates consistent with interstitial pneumonitis versus CHF. Consult was placed for further evaluation and recommendations. the patient is a somewhat poor historian with diminished recall. Most of the history was obtained from her daughter was at the bedside, as well as Hospital and office EMR. The daughter stated that the patient had decided not to pursue any adjuvant chemotherapy. She also decided against regular surveillance and CT scans, as she would not want any active treatment for malignancy if she did have recurrence of cancer. Diminished recall is apparently baseline for her. patient's labs showed elevation of liver enzymes, especially alkaline phosphatase. She had an ultrasound done that raised the possibility of cholecystitis and possible distal biliary obstruction. Patient was seen by surgery and was not felt to have cholecystitis, based on physical exam. CT of the pancreas was done, showing no discrete mass in the pancreas, and no definite significant obstruction. Incidentally retroperitoneal adenopathy was noted. However size of adenopathy was not mentioned. CT of the brain was negative for any hemorrhage, CVA or tumor. Review of Systems Constitutional: Reports fatigue, Reports fever, Reports weakness Eyes: denies blurred vision, denies pain Ears: deny: decreased hearing, ear discharge, earache, tinnitus Ears, nose, mouth and throat: Denies headache, Denies sore throat Cardiovascular: Reports decreased exercise tolerance Respiratory: Reports as per HPI Gastrointestinal: Denies abdominal pain, Denies diarrhea, Denies nausea, Denies vomiting Genitourinary: Denies dysuria, Denies hematuria Menstruation: Reports postmenopausal Musculoskeletal: Reports muscle weakness Musculoskeletal: left: shoulder pain Integumentary: Denies pruritus, Denies rash Neurological: Reports memory loss, Reports weakness Psychiatric: Reports memory loss Endocrine: Reports fatigue Hematologic/Lymphatic: Reports as per HPI Past Medical History Past Medical History: Coronary Artery Disease (CAD), Cancer, Dementia, Hypertension, Memory Impairment Additional Past Medical History / Comment(s): Chronic back pain, CDIFF (March 2019), lung cancer, History of Any Multi-Drug Resistant Organisms: None Reported Past Surgical History: Appendectomy, Back Surgery, Bowel Resection, Joint Replacement Additional Past Surgical History / Comment(s): Hemmorrhoidectomy, left knee surgery (40% of knee cap taken out), left lower lobectomy, carotid artery cleaned out Past Anesthesia/Blood Transfusion Reactions: No Reported Reaction Past Psychological History: No Psychological Hx Reported Smoking Status: Former smoker Past Alcohol Use History: Daily Additional Past Alcohol Use History / Comment(s): Patient drinks 2 liquor b everages a night most nights of the week Past Drug Use History: None Reported - Past Family History Mother Additional Family Medical History / Comment(s): brain aneurysm at 54 Father Family Medical History: Cancer Additional Family Medical History / Comment(s): bone cancer Sister(s) Family Medical History: Cancer Additional Family Medical History / Comment(s): ovarian cancer Medications and Allergies Home Medications Medication Instructions Recorded Confirmed Type Losartan Potassium 100 mg PO DAILY 10/17/16 09/26/20 History Rivastigmine 9.5MG/24Hr Patch 1 patch TRANSDERM DAILY 05/05/19 09/26/20 History [Exelon 9.5MG/24Hr Patch] Aspirin 81 mg PO DAILY #30 chew 08/23/19 09/26/20 Rx Atorvastatin [Lipitor] 40 mg PO HS #30 tab 08/23/19 09/26/20 Rx Clopidogrel [Plavix] 75 mg PO DAILY #30 tab 08/23/19 09/26/20 Rx Metoprolol Succinate (ER) [Toprol 25 mg PO DAILY #30 tab.er.24h 08/23/19 09/26/20 Rx XL] Citalopram Hydrobromide [CeleXA] 10 mg PO DAILY 09/26/20 09/26/20 History Memantine [Namenda] 10 mg PO BID 09/26/20 09/26/20 History Probiotic 85 Billion 1 cap PO DAILY 09/26/20 09/26/20 History Allergies Allergy/AdvReac Type Severity Reaction Status Date / Time lactose AdvReac Intermediate Diarrhea Verified 09/26/20 13:35 caffeine AdvReac Diarrhea Verified 09/26/20 13:35 steriod AdvReac Unknown FLUSHED Uncoded 09/26/20 13:35 FACE Physical Exam Vitals: Vital Signs Temp Pulse Resp BP Pulse Ox 09/29/20 13:39 16 09/29/20 13:36 98.6 F 54 L 16 171/69 09/29/20 08:00 68 18 09/29/20 06:44 98 F 68 18 174/72 98 09/29/20 02:11 97.5 F L 55 L 14 174/67 96 09/28/20 19:25 55 L 16 09/28/20 19:24 97.7 F 55 L 194/75 Intake and Output 09/29/20 09/29/20 09/29/20 06:59 14:59 22:59 Other: Voiding Method Toilet # Voids 3 - Constitutional General appearance: no acute distress - EENT Eyes: EOMI, PERRLA ENT: hearing grossly normal, normal oropharynx - Neck Neck: no lymphadenopathy Thyroid: bilateral: normal size - Respiratory Respiratory: bilateral: diminished - Cardiovascular Rhythm: regular Heart sounds: normal: S1, S2 - Gastrointestinal General gastrointestinal: normal bowel sounds, soft - Integumentary Integumentary: normal - Neurologic Neurologic: CNII-XII intact - Musculoskeletal Musculoskeletal: generalized weakness, left sided weakness (decreased range of motion left upper arm, due to recent trauma) - Psychiatric diminished recall Psychiatric: A&O x's 3, appropriate affect Results CBC & Chem 7: 09/29/20 11:05 09/29/20 11:05 Labs: Abnormal Lab Results - Last 24 Hours (Table) 09/29/20 09/29/20 Range/Units 11:05 11:05 RBC 3.54 L (4.10-5.20) X 10*6/uL Hgb 11.1 L (12.0-15.0) g/dL Hct 33.4 L (37.2-46.3) % BUN 7.0 L (9.0-27.0) mg/dL Creatinine 0.5 L (0.6-1.5) mg/dL AST 48 H (13-35) U/L ALT 57 H (8-44) U/L Alkaline Phosphatase 264 H (41-126) U/L Total Protein 5.8 L (6.2-8.2) g/dL Albumin 3.60 L (3.80-4.90) g/dL Microbiology - Last 24 Hours (Table) 09/26/20 13:13 Blood Culture - Preliminary Blood No Growth after 72 hours 09/26/20 13:13 Blood Culture - Preliminary Blood No Growth after 48 hours Comments: humerus x-ray report reviewed Chest x-ray: report reviewed CT scan - abdomen: report reviewed CT Scan - head: report reviewed US - abdomen: report reviewed Assessment and Plan (1) Adenocarcinoma of left lung Narrative/Plan: diagnostic antibiotics circumstances as described. The patient had complete resection with DANTE. Her risk factors were essentially multiple nodules in the same lobe. She refused adjuvant chemotherapy, and opted for no surveillance. As noted, according to the daughter, the patient has decided that if she were to have recurrence, she would not seek any active treatment for malignancy. Patient's chest x-ray shows bilateral interstitial pattern. Given her presentation with fever, and marked improvement, with no major specific respiratory complaints, cancer recurrence with lymphangitic carcinomatosis felt to be highly unlikely. This was discussed with the patient and her daughter. They felt that they would consider additional imaging only if the patient were to deteriorate. Current Visit: Yes Status: Acute Code(s): C34.92 - MALIGNANT NEOPLASM OF UNSP PART OF LEFT BRONCHUS OR LUNG SNOMED Code(s): 32140748620199705 (2) Retroperitoneal lymphadenopathy Narrative/Plan: the patient's etiology of the pancreas incidentally mentions retroperitoneal adenopathy. The patient has no abdominal complaints at this time other than some diarrhea last week. Abdominal exam is quite benign. Size of the lymph nodes is not mentioned. While this is suspicious, the finding in itself is overall on stress and could also represent some reactive adenopathy especially if the patient has a viral syndrome. Will discuss with patient and daughter if the would want any further workup at this time, versus observation Current Visit: Yes Status: Acute Code(s): R59.0 - LOCALIZED ENLARGED LYMPH NODES SNOMED Code(s): 269734501 (3) Viral pneumonia Narrative/Plan: based on the presence of lung infiltrates, elevated liver enzymes, mild transient hypoxia,and fever, a viral syndrome was felt to be a possibility. Clinically the patient is much improved with supports the clinical impression. Defer to the admitting service and other consultants for continued management Current Visit: Yes Status: Acute Code(s): J12.9 - VIRAL PNEUMONIA, UNSPECIFIED SNOMED Code(s): 11706226
[2020-09-29] MEDS ORDERED: hydrALAZINE HCL 20 MG/ML 1 ML VIAL IVP PRN (17:45)
[2020-09-29 17:59] LABS: Hepatitis A Antibody IgM Non-Reactive (Non-Reactive); Hepatitis B Core IgM Non-Reactive (Non-Reactive); Hepatitis B Surface Antigen Non-Reactive (Non-Reactive); Hepatitis C IgG Antibody Non-Reactive (Non-Reactive)
--- NOTE | 2020-09-29 18:54 | PN ---
PROGRESS NOTE DATE OF SERVICE: 09/29/2020. REASON FOR FOLLOWUP: Fever, likely cholecystitis or abdominal source. INTERVAL HISTORY: The patient is currently afebrile. The patient is breathing comfortably. The patient denies having any chest pain or shortness of breath or cough. No nausea, no vomiting, no abdominal pain or diarrhea. PHYSICAL EXAMINATION: Blood pressure is 171/69, pulse of 64, temperature 98.6. She is 98% on room air. General description is an elderly female up in the chair in no distress. RESPIRATORY SYSTEM: Unlabored breathing. Clear to auscultation anteriorly. HEART: S1, S2. Regular rate and rhythm. ABDOMEN: Soft. No tenderness. EXTREMITIES: No edema of the feet. LABS: Hemoglobin is 11.1, white count 4.60. DIAGNOSTIC IMPRESSION AND PLAN: Patient with fever with concern for possible cholecystitis, for which the patient is currently covered with Rocephin; to continue. Awaiting MRI. Monitor clinical course. MMODL / IJN: [id number] /
--- NOTE | 2020-09-29 19:22 | MR ---
EXAMINATION TYPE: MR MRCP DATE OF EXAM: 09/29/2020 COMPARISON: 01/29/2017 HISTORY: Elevated LFTS, dilated CBD Multiplanar multiecho imaging of the abdomen was performed without contrast. There are MRCP images. There is dilated common hepatic duct that measures 1.6 cm. There is fairly good visualization of the distal common bile duct. I see no filling defect. The distal common bile duct measures 9 mm. There is mild ectasia of the intrahepatic bile ducts. There is no discrete liver mass. The pancreatic duct amador s diameter up to 5 mm. I see no filling defect. There is no evidence of a pancreatic mass. Kidneys have normal size and contour. There is no hydronephrosis. Spleen is intact. There is no evide nce of ascites. Gallbladder has fairly normal size and contour. IMPRESSION: Dilated common hepatic duct and mildly dilated common bile duct but no filling defects seen. Gallblad asad has fairly normal size. This appearance could relate to some chronic gallbladder dysfunction. No evidence of common duct stone. Stricture of the ampulla is possible. Pancreatic duct within normal limits of size and measures 5 mm maximum diameter.
--- NOTE | 2020-09-29 20:23 | CONS ---
CONSULTATION DATE OF DICTATION: 09/29/2020 REASON FOR CONSULTATION: Elevated LFTs and abnormal CT scan that showed dilated CBD and PD. HISTORY OF PRESENT ILLNESS: The patient is an 80-year-old pleasant white female admitted to the hospital 3 days ago with altered mental status and some fever. Apparently she is independent and takes care of herself. She was working in her backyard and she fell and hurt her left shoulder. Following that she became somewhat confused, and hence she was brought in by the family and she was noted to have elevated serum transaminases. At the time of admission to the hospital, serum ALT and AST were slightly elevated at 147 and 108, respectively. Alkaline phosphatase was 208. She was not complaining of any abdominal pain. No nausea, no vomiting. She subsequently had ultrasound of the gallbladder done that showed some thickening of the gallbladder suspicious for cholecystitis, and hence Surgery was consulted. Dr. Yarbrough evaluated the patient and ordered a CT of the pancreas. That was done yesterday and revealed dilated common bile duct with mild ectasia of the biliary tree and mild dilation of the distal pancreatic duct, which was increased compared to the prior CT scan. No obvious pancreatic mass is identified. Because of these abnormalities, we are consulted for further evaluation. On further questioning, the patient denies any abdominal pain. No nausea, no vomiting. No prior history of pancreatitis. No history of alcohol use. Her serum transaminases today have slightly improved. PAST MEDICAL HISTORY: Significant for hypertension, hyperlipidemia, anxiety, depression, hypercholesteremia. HOME MEDICATIONS: Lipitor, aspirin, Celexa, Plavix, losartan, Namenda, Toprol and rivastigmine patch. ALLERGIES: LACTOSE, CAFFEINE AND STEROIDS. SOCIAL HISTORY: No smoking. No alcohol use. FAMILY HISTORY: Sister had ovarian cancer. Father had bone cancer, mother brain aneurysm. PAST SURGICAL HISTORY: Hemorrhoidectomy, left knee surgery, left lower lobectomy, carotid artery, back surgery, appendectomy, bowel resection. REVIEW OF SYSTEMS: CARDIOPULMONARY: No chest pain or shortness of breath. GENITOURINARY: No dysuria or hematuria. MUSCULOSKELETAL: Left shoulder pain following the fall. NEUROLOGY: Unremarkable. PSYCHIATRY: Unremarkable. ENT/VISION: Unremarkable. CONSTITUTIONAL: She had fever at the time of admission to the hospital, but no further fever. No chills, night sweats. GI: As mentioned above. HEMATOLOGY: Unremarkable. PHYSICAL EXAMINATION: She appears comfortable. No apparent distress. Vital signs are stable. Blood pressure 171/69, pulse rate 54, temperature 98.6. HEENT examination unremarkable. Conjunctivae pink. Sclerae anicteric. Oral cavity no lesions. NECK: No JVD or lymph node enlargement. CHEST: Clear to auscultation. HEART: Regular rate and rhythm. ABDOMEN: Soft. Bowel sounds are positive. No organomegaly. EXTREMITIES: No pedal edema. Mild shoulder pain on the left shoulder. NEUROLOGIC: Alert and oriented x3. No focal deficits. LABS: WBC 8.1, hemoglobin 12.7, platelets are normal. Basic metabolic panel within normal limits. BUN and creatinine normal. AST was 147, ALT was 101, alkaline phosphatase 208. Today AST is down to 66, ALT is down to 66 and alkaline phosphatase is 263. Bilirubin is normal. Coronavirus PCR is negative. C difficile toxin is negative. IMPRESSION: Asymptomatic elevation of serum transaminases which are gradually improving. Ultrasound of the abdomen showed some thickening of the gallbladder suspicious for acute cholecystitis. Patient was started on broad-spectrum antibiotics with ceftriaxone, and the fever has resolved and LFTs are improving. She did have a CT of the abdomen done that showed dilated common bile duct and pancreatic duct with no evidence of pancreatic mass. The clinical picture does not seem to be consistent with ascending cholangitis. Clinically she has no abdominal pain or any leukocytosis, and overall her condition seems to be improving. RECOMMENDATIONS: 1. Will obtain MRCP to investigate this further. 2. Continue with broad-spectrum antibiotics. 3. Repeat labs in the morning. 4. Monitor LFTs closely. 5. Will follow with you. Thank you for this consultation. MMODL / IJN: [id number] /
[2020-09-29] MEDS: HYDROcodone/APAP 5-325MG 1 EACH TAB PO PRN (21:30)
[2020-09-30 07:34] VITALS: PULSE 74
[2020-09-30 08:31] VITALS: BP 183/74; TEMP 97.8
[2020-09-30] MEDS: ENOXAPARIN 40 MG/0.4 ML SYRINGE SQ SCH (09:15)
[2020-09-30] MEDS: CHOLESTYRAMINE (WITH SUGAR) 4 GM PACKET PO SCH (09:16)
[2020-09-30] MEDS: RIVASTIGMINE 9.5MG/24HR PATCH TRANSDERM SCH (09:16)
[2020-09-30] MEDS: PANTOPRAZOLE 40 MG TABLET PO SCH (09:16)
[2020-09-30] MEDS: CLOPIDOGREL 75 MG TAB PO SCH (09:16)
[2020-09-30] MEDS: ASPIRIN 81 MG PO SCH (09:16)
[2020-09-30] MEDS: LOSARTAN 50 MG TAB PO SCH (09:16)
[2020-09-30] MEDS: CITALOPRAM HYDROBROMIDE 10 MG TAB PO SCH (09:16)
[2020-09-30] MEDS: MEMANTINE 10 MG TAB PO SCH (09:16)
[2020-09-30] MEDS: METOPROLOL SUCCINATE (ER) 25 MG TAB.ER.24H PO SCH (09:16)
--- NOTE | 2020-09-30 10:31 | P.PN ---
Subjective Progress Note Date: 09/30/20 Principal diagnosis: Chronic cholecystitis Patient without complaints. Denies pain. MRI results noted. No evidence of mass or definite filling defect. No labs today. Objective - Vital Signs Vital signs: Vital Signs Temp 97.8 F 09/30/20 07:00 Pulse 74 09/30/20 08:00 Resp 16 09/30/20 08:00 BP 183/74 09/30/20 07:00 Pulse Ox 96 09/30/20 07:00 Intake & Output 09/29/20 09/30/20 09/30/20 18:59 06:59 18:59 Intake Total 540 Output Total 500 Balance 540 -500 Intake: Oral 540 Output: Urine 500 Other: Voiding Method Toilet Toilet Toilet # Voids 3 2 2 - Exam Abdomen: Soft, nontender, nondistended - Labs CBC & Chem 7: 09/29/20 11:05 09/29/20 11:05 Labs: Abnormal Lab Results - Last 24 Hours (Table) 09/29/20 09/29/20 Range/Units 11:05 11:05 RBC 3.54 L (4.10-5.20) X 10*6/uL Hgb 11.1 L (12.0-15.0) g/dL Hct 33.4 L (37.2-46.3) % BUN 7.0 L (9.0-27.0) mg/dL Creatinine 0.5 L (0.6-1.5) mg/dL AST 48 H (13-35) U/L ALT 57 H (8-44) U/L Alkaline Phosphatase 264 H (41-126) U/L Total Protein 5.8 L (6.2-8.2) g/dL Albumin 3.60 L (3.80-4.90) g/dL Microbiology - Last 24 Hours (Table) 09/26/20 13:13 Blood Culture - Preliminary Blood No Growth after 72 hours 09/26/20 13:13 Blood Culture - Preliminary Blood No Growth after 72 hours Assessment and Plan (1) Cholecystitis Narrative/Plan: Patient doing well today. MRI results reviewed. Await GI evaluation. Continue antibiotics. No plans for cholecystectomy after discussing with patient and family. Stable for discharge from my point of view. Follow-up as outpatient. Current Visit: Yes Status: Acute Code(s): K81.9 - CHOLECYSTITIS, UNSPECIFIED SNOMED Code(s): 92062847
--- NOTE | 2020-09-30 10:55 | PN ---
PROGRESS NOTE DATE OF SERVICE: 09/30/2020 Patient is an 80-year-old pleasant white female admitted to the hospital with fever and abdominal pain and presently on broad-spectrum antibiotics for possible acute cholecystitis and doing well. She was noted to have mild elevation of serum transaminases and abnormal CT scan that showed dilated pancreatic duct and common bile duct and hence we have seen her in consultation. Today she is doing better. She denies any symptoms. PHYSICAL EXAMINATION: Appears comfortable. VITAL SIGNS: Stable. Blood pressure is 183/82, pulse rate 74, and temperature night 98.3. Blood HEENT examination unremarkable. Conjunctivae pink. Sclerae anicteric. Oral cavity, no lesions. NECK: No JVD or lymph node enlargement. CHEST: Clear to auscultation. HEART: Regular rate and rhythm. ABDOMEN: Soft. Bowel sounds are positive. No organomegaly. EXTREMITIES: No pedal edema. NEUROLOGIC: Alert and oriented x3. No focal deficits. LAB: From today, AST and ALT are improving which are 48 and 46 respectively, and alkaline phosphatase is 284. T bilirubin is normal. MRCP done yesterday showed dilated common bile duct with mildly dilated common bile duct and common hepatic duct, but no filling defects noted. Gallbladder was normal in size. Some chronic gallbladder dysfunction noted. No evidence of CBD stone or stricture noted. Pancreatic duct was within normal limits. IMPRESSION: 1. Mild elevation of serum transaminases of unclear etiology which are gradually improving. Today AST and ALT are down to 48 and 57 respectively. 2. Acute versus chronic cholecystitis on broad-spectrum antibiotics. The patient is doing well. 3. Abnormal CT showing dilated common bile duct and pancreatic duct, but MRCP did not show any pancreatic mass. No filling defects in the common bile duct. Most likely the slight dilation is related to patient's age. RECOMMENDATIONS: 1. No indication for an ERCP or any further investigations. 2. Continue with broad-spectrum antibiotics. 3. Monitor LFTs closely. 4. We will follow with you. Thank you for this consultation. MMODL / IJN: [id number] /
[2020-09-30 11:33] LABS: Basophils # (A) 0.02 X 10*3/uL (0.00-0.10); Basophils % (A) 0.4 %; Eosinophils # (A) 0.18 X 10*3/uL (0.04-0.35); HGB 11.5 g/dL (12.0-15.0); Lymphocytes # (A) 1.52 X 10*3/uL (0.90-5.00); Lymphocytes % (A) 33.5 %; MCH 31.1 pg (27.0-32.0); MCHC 33.8 g/dL (32.0-37.0); MCV 91.9 fL (80.0-97.0); Mean Platelet Volume 11.5 fL (9.5-12.2); Monocytes # (A) 0.48 X 10*3/uL (0.20-1.00); Monocytes % (A) 10.6 %; Neutrophils # (A) 2.33 X 10*3/uL (1.80-7.70); Neutrophils % (A) 51.3 %; Platelet Count 208 X 10*3/uL (140-440); RDW 12.9 % (11.5-14.5); WBC 4.54 X 10*3/uL (4.50-10.00)
[2020-09-30] MEDS: PROBIOTIC PO SCH (12:27)
[2020-09-30 12:33] LABS: African American GFR (CKD) 105.9 (60.0-200.0); Albumin 3.6 g/dL (3.80-4.90); Albumin/Globulin Ratio 1.71 (1.60-3.17); Anion Gap 7.9 mmol/L (4.00-12.00); Calcium 9.4 mg/dL (8.7-10.3); Carbon Dioxide 24.1 mmol/L (21.6-31.8); Globulin 2.1 g/dL (1.6-3.3); Non-African American GFR(CKD) 91.4 (60.0-200.0); Potassium 3.5 mmol/L (3.5-5.5); Total Bilirubin 0.5 mg/dL (0.2-1.2); Total Protein 5.7 g/dL (6.2-8.2)
--- NOTE | 2020-09-30 13:21 | P.DS ---
Providers Date of admission: 09/26/20 18:06 Expected date of discharge: 09/30/20 Attending physician: Mark Hope Consults: 09/26/20 18:06 Consult Physician Urgent Consulting Provider: Cristiano Fay Consult Reason/Comments: Fever, viral pneumonia Do you want consulting provider notified?: Yes 09/27/20 09:16 Consult Physician Routine Consulting Provider: Derrell Alatorre Consult Reason/Comments: pneumonia Do you want consulting provider notified?: Yes 09/27/20 10:14 Consult Physician Routine Consulting Provider: José Miguel Villatoro Consult Reason/Comments: accelerated junctional rythym Do you want consulting provider notified?: Yes 09/28/20 13:34 Consult Physician Routine Consulting Provider: Tapan Yarbrough Consult Reason/Comments: cholecystitis Do you want consulting provider notified?: Yes 09/29/20 09:30 Consult Physician Routine Consulting Provider: Alona Lovelace Consult Reason/Comments: elevated liver enzymes Do you want consulting provider notified?: Yes 09/29/20 11:01 Consult Physician Routine Consulting Provider: Femi Justice Consult Reason/Comments: Ct scan result Do you want consulting provider notified?: Yes Primary care physician: [facility] Course: Diagnosis on discharge: 1. Fever likely secondary to viral pneumonia. Infectious disease and pulmonary service is consulted. Patient started on Rocephin 2. Accelerated junctional rhythm. Cardiology services consulted and 2-D echo completed showing 60-65% ejection fraction. No further workup cardiology services 3. Elevated liver enzymes. Statin currently on hold. Repeat labs ordered, ultrasound of the gallbladder revealed evidence of inflammation and sludge consultation with Dr. tellez was initiated 4. History of coronary artery disease with history of stent to the LAD in August 2019 maintained on Plavix 5. History of Essential hypertension 6. Underlying history of mild dementia. Patient maintained on Namenda 7. History of degenerative disc disease chronic back pain. Maintained on [place] 8. History of C. diff. 9. Acute Cholecystitis, with evidence of gallbladder sludge, Surgical services consulted. Patient refused surgery, she was treated with IV Rocephin and sent home on a course of oral Augmentin. 10. Elevated liver enzymes AST 66 ALT [address] of pancreas ordered. GI service is consulted, patient has dilated common bile duct and pancreatic duct, however no filling defect on MRCP, no indication for ERCP per gastroenterology no further testing is required at this time. Hospital course: This is an 80-year-old female patient who presented to the ER with complaints of fever and slight confusion. Patient denies any acute complaints. Patient does have a past medical history of lung cancer high blood pressure coronary artery disease with recent stent to the LAD and C. diff. Chest x-ray was completed showing diffuse interstitial pattern with small bilateral effusions correlate for CHF otherwise consider interstitial pneumonia. COVID-19 negatvie. Patient also reported fall in which she fell on her arm humerus fracture was completed showing negative for fracture or dislocation. EKG completed showing accelerated junctional rhythm. Patient presented with fever 102.5 upon admit. Lactic acid 1.3. At this time cardiology, pulmonary and infectious disease services consulted. Patient maintained on Rocephin. At that time patient denies chest pain or shortness of breath. Patient denies nausea vomiting or diarrhea. Patient denies any urinary burning or frequency On 09/28/2020 patient was seen and examined on the medical floor she is alert and oriented 3 in no apparent distress there is no new episodes of fever, computed tomography scan of the brain did not reveal any evidence of acute intracranial hemorrhage or midline shift, patient has elevated liver enzymes and evidence of gallbladder sludge and inflammation as evidenced by thickened gallbladder aaron surgical consultation was requested patient is denying any abdominal pain there is no fever or chills no headache or dizziness no chest pain no shortness of breath no cough no nausea or vomiting no abdominal pain no diarrhea no blood in the chest with no burning with urination no frequency or urgency and no hematuria On 09/29/2020 patient alert and oriented 3 currently resting comfortably bed. Patient denies any chest pain or shortness of breath. Patient denies nausea vomiting or diarrhea. Patient denies any urinary burning or frequency. GI services have been consulted. AST and ALT down to 66 alkaline phosphatase increased slightly to 263. On 09/30/2020 patient was seen and examined on the medical floor she is alert and oriented 3 in no apparent distress there is no fever or chills no headache or dizziness no chest pain no shortness of breath no cough no nausea or vomiting no abdominal pain no diarrhea no blood in the stools no burning with urination no frequency or urgency and no hematuria by Dr. Yarbrough and was cleared for discharge she received IV Rocephin during her hospital stay she was discharged home on a course of Augmentin 875 mg twice daily for 7 days follow up in our office within 1 week patient instructed to return to emergency room if having elevated temperature again or any nausea or vomiting abdominal pain or jaundice Plan - Discharge Summary Discharge Rx Participant: No New Discharge Prescriptions: New Amoxic-Pot Clav 875-125Mg [Augmentin 875-125] 1 tab PO Q12HR 7 Days #14 tab Pantoprazole [Protonix] 40 mg PO AC-BRKFST tablet.dr Simpson Losartan Potassium 100 mg PO DAILY Rivastigmine 9.5MG/24Hr Patch [Exelon 9.5MG/24Hr Patch] 1 patch TRANSDERM DAILY Aspirin 81 mg PO DAILY #30 chew Atorvastatin [Lipitor] 40 mg PO HS #30 tab Clopidogrel [Plavix] 75 mg PO DAILY #30 tab Metoprolol Succinate (ER) [Toprol XL] 25 mg PO DAILY #30 tab.er.24h Memantine [Namenda] 10 mg PO BID Citalopram Hydrobromide [CeleXA] 10 mg PO DAILY Probiotic 85 Billion 1 cap PO DAILY Discharge Medication List Losartan Potassium 100 mg PO DAILY 10/17/16 [History] Rivastigmine 9.5MG/24Hr Patch [Exelon 9.5MG/24Hr Patch] 1 patch TRANSDERM DAILY 05/05/19 [History] Aspirin 81 mg PO DAILY #30 chew 08/23/19 [Rx] Atorvastatin [Lipitor] 40 mg PO HS #30 tab 08/23/19 [Rx] Clopidogrel [Plavix] 75 mg PO DAILY #30 tab 08/23/19 [Rx] Metoprolol Succinate (ER) [Toprol XL] 25 mg PO DAILY #30 tab.er.24h 08/23/19 [Rx] Citalopram Hydrobromide [CeleXA] 10 mg PO DAILY 09/26/20 [History] Memantine [Namenda] 10 mg PO BID 09/26/20 [History] Probiotic 85 Billion 1 cap PO DAILY 09/26/20 [History] Amoxic-Pot Clav 875-125Mg [Augmentin 875-125] 1 tab PO Q12HR 7 Days #14 tab 09/30/20 [Rx] Pantoprazole [Protonix] 40 mg PO AC-BRKFST tablet. 03/20/21 [Rx] Follow up Appointment(s)/Referral(s): Tapan Yarbrough MD [Medical Doctor] - 1 Week (please call office on friday ) Mark Hope MD [Primary Care Provider] - 1-2 days (please call office on Friday )
--- NOTE | 2020-09-30 15:21 | P.PN ---
Subjective Progress Note Date: 09/30/20 Principal diagnosis: Altered mental status, suspect toxic metabolic encephalopathy, sepsis, cholecystitis 80-year-old female patient, who presents to the emergency department, on September 26, because of mental status changes, and high fever. The patient has a history of underlying dementia, and she apparently did not complain of any problems or symptoms while in the emergency department. She apparently has a previous history of lung cancer, status post left upper lobectomy. The patient also apparently has a history of hypertension, C. difficile colitis. The patient cannot really had any additional history for us today. According to the ER yesy, and Dr. Zhao's impression, she was admitted with a diagnosis of viral pneumonia, and altered mental status. She did not test positive for COVID 19. According to the ER yesy, the patient has a history of chronic back pain as well, and is had appendectomy, back surgery, bowel resection, joint replacement, and carotid endarterectomy. White count is 8.1, hemoglobin 12.7, hematocrit 38, and platelet count 177,000. PT and INR are normal. Sodium 137, potassium 4.1, chlorides 104, anion gap 8, CO2 25, BUN 16, and creatinine 0.46. AST and ALT are modestly elevated. N-terminal pro BNP was 1500. Troponin was less than 0.012. Chest x-ray shows a diffuse interstitial pattern, which could be consistent with interstitial pneumonia and/or interstitial edema/CHF. On 09/28/2020 patient seen in follow-up on medical floor, she is on room air pulse ox is 97%, she's been afebrile, vitals have been stable, she's had no wor sening dyspnea or hypoxia since admission, her pro calcitonin level was elevated at 1.04, blood cultures have shown no growth. She had an isolated fever on admission, has been afebrile since. Today's labs have been reviewed, hemoglobin is 10.8, rest of her CBC is unremarkable, electrolytes and renal profile are within normal limits. Liver enzymes are improving, AST is down to 66, ALP 66, and alkaline phosphatase trended up, to 263 from 208. No nausea or vomiting, no abdominal pain, ultrasound of the abdomen was completed showing thickened wall gallbladder with sludge. No leukocytosis, no fever. Surgery was consulted for possibility of cholecystitis, and CT of the abdomen and pelvis was recommended. The patient is seen today 09/29/2020 in follow-up on the regular medical floor. She is awake and alert in no acute distress. Maintaining O2 saturations in the 90s on room air. The cultures reveal no growth. White count 4.6. Hemoglobin 11.1. Sodium 141. Potassium 3.5. Creatinine 0.5. Legionella antigen negative. Remains on ceftriaxone. The patient is seen today 09/30/2020 in follow-up on the regular medical floor. She is currently sitting up in a chair at the bedside. Awake and alert in no acute distress. She denies any worsening shortness of breath, cough or conge stion. No fever, chills or night sweats. She is maintaining O2 saturation in the 90s on room air. Remains on ceftriaxone. White count 4.5. Hemoglobin 11.5. Sodium 139. Potassium 3.5. Creatinine 0.5. Objective - Vital Signs Vital signs: Vital Signs Temp 97.8 F 09/30/20 07:00 Pulse 74 09/30/20 08:00 Resp 16 09/30/20 08:00 BP 183/74 09/30/20 07:00 Pulse Ox 96 09/30/20 07:00 Intake & Output 09/29/20 09/30/20 09/30/20 18:59 06:59 18:59 Intake Total 540 Output Total 500 Balance 540 -500 Intake: Oral 540 Output: Urine 500 Other: Voiding Method Toilet Toilet Toilet # Voids 3 2 2 - Exam GENERAL EXAM: Alert, pleasant, 80-year-old female patient, on room air, comfortable in no apparent distress. HEAD: Normocephalic/atraumatic. EYES: Normal reaction of pupils, equal size. Conjunctiva pink, sclera white. NOSE: Clear with pink turbinates. THROAT: No erythema or exudates. NECK: No masses, no JVD, no thyroid enlargement, no adenopathy. CHEST: No chest wall deformity. Symmetrical expansion. LUNGS: Equal air entry with no crackles, wheeze, rhonchi or dullness. CVS: Regular rate and rhythm, normal S1 and S2, no gallops, no murmurs, no rubs ABDOMEN: Soft, nontender. No hepatosplenomegaly, normal bowel sounds, no guarding or rigidity. EXTREMITIES: No clubbing, no edema, no cyanosis, 2+ pulses and upper and lower extremities. MUSCULOSKELETAL: Muscle strength and tone normal. SPINE: No scoliosis or deformity SKIN: No rashes CENTRAL NERVOUS SYSTEM: Alert and oriented -3. No focal deficits, tone is normal in all 4 extremities. PSYCHIATRIC: Alert and oriented -3. Appropriate affect. Intact judgment and insight. - Labs CBC & Chem 7: 09/30/20 07:11 09/30/20 07:11 Labs: Abnormal Lab Results - Last 24 Hours (Table) 09/29/20 09/30/20 09/30/20 Range/Units 11:05 07:11 07:11 RBC 3.70 L (4.10-5.20) X 10*6/uL Hgb 11.5 L (12.0-15.0) g/dL Hct 34.0 L (37.2-46.3) % BUN 7.0 L 7.0 L (9.0-27.0) mg/dL Creatinine 0.5 L 0.5 L (0.6-1.5) mg/dL AST 48 H (13-35) U/L ALT 57 H (8-44) U/L Alkaline Phosphatase 264 H 238 H (41-126) U/L Total Protein 5.8 L 5.7 L (6.2-8.2) g/dL Albumin 3.60 L 3.60 L (3.80-4.90) g/dL Microbiology - Last 24 Hours (Table) 09/26/20 13:13 Blood Culture - Preliminary Blood No Growth after 72 hours 09/26/20 13:13 Blood Culture - Preliminary Blood No Growth after 72 hours Assessment and Plan Assessment: 1 Acute mental status changes, possibly related to toxic metabolic encephalopathy, possibly related to possibility of sepsis, cholecystitis. Brain CT was completed showing no acute intracranial hemorrhage or midline shift 2 Bilateral COVID 19 pneumonia without hypoxemia 3 History of lung cancer, non-small cell type, status post left upper lobectomy 4 History of hypertension 5 History of severe dementia 6 History of chronic back pain 7 History of C. difficile colitis 8 Prior history of chronic endarterectomy Plan: The patient was seen and evaluated by Dr. Landry Fontanez for discharge from the pulmonary standpoint I, the cosigning physician, performed a history & physical examination of the patient. Lungs sounds are clear. Maintaining good O2 saturations in the 90s on room air. I discussed the assessment and plan of care with my nurse practitioner, Oumou Hawley. I attest to the above note as dictated by her.
--- NOTE | 2020-09-30 15:48 | PN ---
PROGRESS NOTE DATE OF SERVICE: 09/30/2020 REASON FOR FOLLOWUP: Fever, likely cholecystitis. INTERVAL HISTORY: The patient is currently afebrile. The patient is feeling better. Breathing comfortably. Denies any chest pain. Occasional cough. No nausea. No vomiting, no abdominal pain, no diarrhea. EXAMINATION: Blood pressure 118/74, pulse of 64, temperature 97.8. She is 96% on room air. General description is an elderly female up in the chair in no distress. Respiratory system: Unlabored breathing clear to auscultation anteriorly. Heart S1, S2. Regular rate and rhythm. ABDOMEN: Soft, no tenderness. LABORATORY DATA: Hemoglobin 11.5, white count 4.5, BUN of 7, creatinine 0.5. DIAGNOSTIC IMPRESSION AND PLAN: Patient with fever, source likely cholecystitis. Overall improvement. Plan to finish therapy with oral doxycycline sent to the pharmacy. intake to decrease risk of any C diff. Questions have been answered. MMODL / IJN: [id number] /
--- NOTE | 2020-10-10 08:41 | CDI ---
Documentation Clarification Form Date: 10/10/20 From: Natalia Pierce Phone: Admit Date: 09/26/2020 06:06:00 PM Patient Name: Brittanie Pierre Visit Number: [id number] Discharge Date: 09/30/2020 03:59:00 PM ATTENTION: The Clinical Documentation Specialists (CDI) and [facility] Coding Staff appreciate your assistance in clarifying documentation. Please respond to the clarification below the line at the bottom and electronically sign. The CDI & [facility] Coding staff will review the response and follow-up if needed. Please note: Queries are made part of the Legal Health Record. If you have any questions, please contact the author of this message via ITS. Dr. Mark Hope, The diagnosis of possible sepsis was documented in Dr Yarbrough's consult, Dr Alatorre's PNs, but is not noted in subsequent documentation. History/Risk Factors: acute and chronic cholecystitis, toxic encephalopathy, viral pneumonia Clinical Indicators: T-102.5, lactic acid 1.3, CRP-6.8, procalcitonin-1.04 Treatment: IV Rocephin, IV fluids, Please clarify if the sepsis was Present/active/treated-present on admission Present/active/treated this admission Ruled out Other, please specify Clinically unable to determine ruled out MTDD
== END 2020-09-30 15:59 | disposition home or self-care (01) | DRG 444 ==
LOC: EC 12:47 → 4SSUR 18:06
PROVIDERS: ADMIT Internal Medicine; ATTEND Internal Medicine
DX: K81.2 Acute cholecystitis with chronic cholecystitis (principal); J12.9 Viral pneumonia, unspecified; G92 Toxic encephalopathy; K83.8 Other specified diseases of biliary tract; F03.90 Unspecified dementia, unspecified severity, without behavioral disturbance, psychotic disturbance, mood disturbance, and anxiety; Z20.822 Contact with and (suspected) exposure to COVID-19; I10 Essential (primary) hypertension; D72.810 Lymphocytopenia; E78.00 Pure hypercholesterolemia, unspecified; E78.5 Hyperlipidemia, unspecified; K58.0 Irritable bowel syndrome with diarrhea; I25.10 Atherosclerotic heart disease of native coronary artery without angina pectoris; K82.8 Other specified diseases of gallbladder; F32.9 Major depressive disorder, single episode, unspecified; F41.9 Anxiety disorder, unspecified; R00.1 Bradycardia, unspecified; R59.0 Localized enlarged lymph nodes; R09.02 Hypoxemia; G89.29 Other chronic pain; M54.9 Dorsalgia, unspecified; Z53.20 Procedure and treatment not carried out because of patient's decision for unspecified reasons; Z79.82 Long term (current) use of aspirin; Z79.02 Long term (current) use of antithrombotics/antiplatelets; Z79.899 Other long term (current) drug therapy; Z90.49 Acquired absence of other specified parts of digestive tract; Z86.19 Personal history of other infectious and parasitic diseases; Z90.2 Acquired absence of lung [part of]; Z96.659 Presence of unspecified artificial knee joint; Z87.19 Personal history of other diseases of the digestive system; Z86.79 Personal history of other diseases of the circulatory system; Z87.891 Personal history of nicotine dependence; Z85.118 Personal history of other malignant neoplasm of bronchus and lung; Z95.5 Presence of coronary angioplasty implant and graft; Z98.890 Other specified postprocedural states; W19.XXXA Unspecified fall, initial encounter; Z88.8 Allergy status to other drugs, medicaments and biological substances; Z91.02 Food additives allergy status; Z91.011 Allergy to milk products; Z80.41 Family history of malignant neoplasm of ovary; Z80.8 Family history of malignant neoplasm of other organs or systems; Z82.49 Family history of ischemic heart disease and other diseases of the circulatory system
CPT/HCPCS: 36415; 70450; 71046; 74160; 74181; 76700; 80053; 80074; 81001; 83605; 83615; 83880; 84145; 84484; 85025; 85610; 85730; 86140; 87040; 87324; 87449; 87502; 87635; 93005; 93306; 94760; 96361; 96365; 96366; 96375; 99285

== ENCOUNTER 2020-10-06 22:29 | Inpatient (IN) | payer MEDICARE ==
[2020-10-06] MEDS ORDERED: SODIUM CHLORIDE 0.9% 500 ML 500 ML IV STA ×2 (22:43→23:58)
--- NOTE | 2020-10-06 22:58 | ED ---
Nausea/Vomiting/Diarrhea HPI - General Chief complaint: Nausea/Vomiting/Diarrhea Stated complaint: Weakness Time Seen by Provider: 10/06/20 22:33 Source: patient, EMS Mode of arrival: EMS Limitations: no limitations - History of Present Illness Initial comments: This patient is an 80-year-old woman who is brought for evaluation of generalized weakness, vomiting diarrhea. The patient does have some underlying dementia. History is from the patient and her daughter. The patient had recently been in the hospital with fever and generalized weakness. She did have fairly extensive workup and it was felt that she had some element of chronic cholecystitis. All of her lab abnormalities had resolved over a couple of days, and the workup did not reveal a surgical case of cholecystitis. Patient was cleared for discharge with follow-up to consider possible cholecystectomy. Today the patient had an episode of diarrhea and then had some generalized w eakness and confusion. Family was able to get her to take some fluids and she appeared more normal. There was another episode of diarrhea later and the patient also appeared disoriented and confused. It was felt that she should be evaluated here. When I interview the patient, she states she is feeling better. She is complaining of back pain which they state is chronic. She denies abdominal pain currently though there was some earlier. Patient not able to characterize that pain well. Patient denies dyspnea or cough. No definite fever or chills. No change in urination. No leg pain or swelling. MD complaint: vomiting, diarrhea Onset/Timin -: days(s) Description of Vomiting: food contents Description of Diarrhea: water Associated Abdominal Pain: Yes Severity: moderate Consistency: now resolved - Related Data Home Medications Medication Instructions Recorded Confirmed Losartan Potassium 100 mg PO DAILY 10/17/16 09/26/20 Rivastigmine 9.5MG/24Hr Patch 1 patch TRANSDERM DAILY 05/05/19 09/26/20 [Exelon 9.5MG/24Hr Patch] Citalopram Hydrobromide [CeleXA] 10 mg PO DAILY 09/26/20 09/26/20 Memantine [Namenda] 10 mg PO BID 09/26/20 09/26/20 Probiotic 85 Billion 1 cap PO DAILY 09/26/20 09/26/20 Previous Rx's Medication Instructions Recorded Aspirin 81 mg PO DAILY #30 chew 08/23/19 Atorvastatin [Lipitor] 40 mg PO HS #30 tab 08/23/19 Clopidogrel [Plavix] 75 mg PO DAILY #30 tab 08/23/19 Metoprolol Succinate (ER) [Toprol 25 mg PO DAILY #30 tab.er.24h 08/23/19 XL] Amoxic-Pot Clav 875-125Mg 1 tab PO Q12HR 7 Days #14 tab 09/30/20 [Augmentin 875-125] Pantoprazole [Protonix] 40 mg PO AC-BRKFST tablet. 09/30/20 Allergies Allergy/AdvReac Type Severity Reaction Status Date / Time lactose AdvReac Intermediate Diarrhea Verified 09/26/20 13:35 caffeine AdvReac Diarrhea Verified 09/26/20 13:35 steriod AdvReac Unknown FLUSHED Uncoded 09/26/20 13:35 FACE Review of Systems ROS Statement: Those systems with pertinent positive or pertinent negative responses have been documented in the HPI. ROS Other: All systems not noted in ROS Statement are negative. Constitutional: Reports: weakness. Denies: fever Respiratory: Denies: cough, dyspnea Cardiovascular: Denies: chest pain, palpitations, orthopnea, edema Gastrointestinal: Reports: as per HPI, abdominal pain, vomiting, diarrhea. Denies: constipation, hematemesis, melena, hematochezia Genitourinary: Denies: dysuria, frequency, hematuria Musculoskeletal: Reports: back pain (Chronic) Skin: Denies: rash Neurological: Reports: as per HPI, confusion. Denies: headache, weakness, numbness, paresthesias Past Medical History Past Medical History: Coronary Artery Disease (CAD), Cancer, Dementia, Hypertension, Memory Impairment Additional Past Medical History / Comment(s): Chronic back pain, CDIFF (March 2019), lung cancer, History of Any Multi-Drug Resistant Organisms: None Reported Past Surgical History: Appendectomy, Back Surgery, Bowel Resection, Joint Replacement Additional Past Surgical History / Comment(s): Hemmorrhoidectomy, left knee surgery (40% of knee cap taken out), left lower lobectomy, carotid artery cleaned out Past Anesthesia/Blood Transfusion Reactions: No Reported Reaction Past Psychological History: No Psychological Hx Reported Smoking Status: Former smoker Past Alcohol Use History: Daily Past Drug Use History: None Reported - Past Family History Mother Additional Family Medical History / Comment(s): brain aneurysm at 54 Father Family Medical History: Cancer Additional Family Medical History / Comment(s): bone cancer Sister(s) Family Medical History: Cancer Additional Family Medical History / Comment(s): ovarian cancer General Exam Limitations: no limitations General appearance: alert, in no apparent distress Head exam: Present: atraumatic, normocephalic Eye exam: Present: normal appearance. Absent: scleral icterus, conjunctival injection ENT exam: Present: mucous membranes dry Neck exam: Present: normal inspection, full ROM Respiratory exam: Present: rales (Crackles at the bases bilaterally). Absent: respiratory distress, wheezes, rhonchi, stridor, accessory muscle use Cardiovascular Exam: Present: regular rate, normal rhythm, normal heart sounds. Absent: systolic murmur, diastolic murmur, rubs, gallop GI/Abdominal exam: Present: soft. Absent: distended, tenderness, guarding, annamarie ound, rigid, mass, pulsatile mass, hernia Extremities exam: Present: normal inspection, normal capillary refill. Absent: pedal edema, calf tenderness Back exam: Present: normal inspection Neurological exam: Present: alert Skin exam: Present: warm, dry, intact, normal color. Absent: rash Course Vital Signs 10/06/20 22:42 Temperature 100.0 F H Pulse Rate 82 Respiratory 19 Rate Blood Pressure 100/57 O2 Sat by Pulse 97 Oximetry Medical Decision Making - Lab Data Result diagrams: 10/06/20 23:00 10/06/20 23:00 Lab Results 10/06/20 10/06/20 10/06/20 Range/Units 23:00 23:00 23:00 WBC 17.9 H (3.8-10.6) k/uL RBC 3.81 (3.80-5.40) m/uL Hgb 12.5 (11.4-16.0) gm/dL Hct 35.2 (34.0-46.0) % MCV 92.4 (80.0-100.0) fL MCH 32.9 (25.0-35.0) pg MCHC 35.6 (31.0-37.0) g/dL RDW 12.5 (11.5-15.5) % Plt Count 213 (150-450) k/uL MPV 9.3 Neutrophils % (Manual) 74 % Band Neuts % (Manual) 14 % Lymphocytes % (Manual) 11 % Monocytes % (Manual) 1 % Neutrophils # (Manual) 15.70 H (1.3-7.7) k/uL Lymphocytes # (Manual) 1.97 (1.0-4.8) k/uL Monocytes # (Manual) 0.18 (0-1.0) k/uL Nucleated RBCs 0 (0-0) /100 WBC Manual Slide Review Performed RBC Morphology Normal Sodium 132 L (137-145) mmol/L Potassium 3.7 (3.5-5.1) mmol/L Chloride 99 (98-107) mmol/L Carbon Dioxide 23 (22-30) mmol/L Anion Gap 10 mmol/L BUN 14 (7-17) mg/dL Creatinine 0.77 (0.52-1.04) mg/dL Est GFR (CKD-EPI)AfAm 84 (>60 ml/min/1.73 sqM) Est GFR (CKD-EPI)NonAf 73 (>60 ml/min/1.73 sqM) Glucose 105 H (74-99) mg/dL Plasma Lactic Acid Hai 2.9 H* (0.7-2.0) mmol/L Calcium 9.7 (8.4-10.2) mg/dL Total Bilirubin 0.7 (0.2-1.3) mg/dL AST 32 (14-36) U/L ALT 18 (4-34) U/L Alkaline Phosphatase 147 H (38-126) U/L Troponin I (0.000-0.034) ng/mL Total Protein 6.1 L (6.3-8.2) g/dL Albumin 3.4 L (3.5-5.0) g/dL Amylase 45 (30-110) U/L Lipase 38 (23-300) U/L Urine Color Urine Appearance (Clear) Urine pH (5.0-8.0) Ur Specific [place] (1.001-1.035) Urine Protein (Negative) Urine Glucose (UA) (Negative) Urine Ketones (Negative) Urine Blood (Negative) Urine Nitrite (Negative) Urine Bilirubin (Negative) Urine Urobilinogen (<2.0) mg/dL Ur Leukocyte Esterase (Negative) Urine RBC (0-5) /hpf Urine WBC (0-5) /hpf Ur Squamous Epith Cells (0-4) /hpf Amorphous Sediment (None) /hpf Urine Bacteria (None) /hpf Hyaline Casts (0-2) /lpf Urine Mucus (None) /hpf Coronavirus (PCR) (Not Detectd) 10/06/20 10/06/20 10/07/20 Range/Units 23:00 23:50 00:11 WBC (3.8-10.6) k/uL RBC (3.80-5.40) m/uL Hgb (11.4-16.0) gm/dL Hct (34.0-46.0) % MCV (80.0-100.0) fL MCH (25.0-35.0) pg MCHC (31.0-37.0) g/dL RDW (11.5-15.5) % Plt Count (150-450) k/uL MPV Neutrophils % (Manual) % Band Neuts % (Manual) % Lymphocytes % (Manual) % Monocytes % (Manual) % Neutrophils # (Manual) (1.3-7.7) k/uL Lymphocytes # (Manual) (1.0-4.8) k/uL Monocytes # (Manual) (0-1.0) k/uL Nucleated RBCs (0-0) /100 WBC Manual Slide Review RBC Morphology Sodium (137-145) mmol/L Potassium (3.5-5.1) mmol/L Chloride (98-107) mmol/L Carbon Dioxide (22-30) mmol/L Anion Gap mmol/L BUN (7-17) mg/dL Creatinine (0.52-1.04) mg/dL Est GFR (CKD-EPI)AfAm (>60 ml/min/1.73 sqM) Est GFR (CKD-EPI)NonAf (>60 ml/min/1.73 sqM) Glucose (74-99) mg/dL Plasma Lactic Acid Hai (0.7-2.0) mmol/L Calcium (8.4-10.2) mg/dL Total Bilirubin (0.2-1.3) mg/dL AST (14-36) U/L ALT (4-34) U/L Alkaline Phosphatase (38-126) U/L Troponin I <0.012 (0.000-0.034) ng/mL Total Protein (6.3-8.2) g/dL Albumin (3.5-5.0) g/dL Amylase (30-110) U/L Lipase (23-300) U/L Urine Color Yellow Urine Appearance Cloudy H (Clear) Urine pH 5.5 (5.0-8.0) Ur Specific [place] 1.026 (1.001-1.035) Urine Protein 1+ H (Negative) Urine Glucose (UA) Negative (Negative) Urine Ketones Negative (Negative) Urine Blood Negative (Negative) Urine Nitrite Negative (Negative) Urine Bilirubin Negative (Negative) Urine Urobilinogen <2.0 (<2.0) mg/dL Ur Leukocyte Esterase Small H (Negative) Urine RBC 3 (0-5) /hpf Urine WBC 8 H (0-5) /hpf Ur Squamous Epith Cells <1 (0-4) /hpf Amorphous Sediment Rare H (None) /hpf Urine Bacteria Rare H (None) /hpf Hyaline Casts 143 H (0-2) /lpf Urine Mucus Many H (None) /hpf Coronavirus (PCR) Not Detected (Not Detectd) Disposition Clinical Impression: CHF (congestive heart failure), Chronic renal disease, Anemia Disposition: ADMITTED IP TO THIS HOSP Condition: Poor Referrals: Mark Hope MD [Primary Care Provider] - 1-2 days
[2020-10-06 23:24] LABS: HCT 35.2 % (34.0-46.0); HGB 12.5 gm/dL (11.4-16.0); MCH 32.9 pg (25.0-35.0); MCHC 35.6 g/dL (31.0-37.0); MCV 92.4 fL (80.0-100.0); Mean Platelet Volume 9.3; Platelet Count 213 k/uL (150-450); RBC 3.81 m/uL (3.80-5.40); RDW 12.5 % (11.5-15.5); WBC 17.9 k/uL (3.8-10.6)
[2020-10-06 23:25] LABS: Albumin 3.4 g/dL (3.5-5.0); Calcium 9.7 mg/dL (8.4-10.2); Potassium 3.7 mmol/L (3.5-5.1); Total Bilirubin 0.7 mg/dL (0.2-1.3); Total Protein 6.1 g/dL (6.3-8.2)
[2020-10-06 23:54] LABS: Band Neutrophils % 14 %; Lymphocytes # (M) 1.97 k/uL (1.0-4.8); Monocytes # (M) 0.18 k/uL (0-1.0); Neutrophils % (M) 74 %; Nucleated Red Blood Cells 0 /100 WBC (0-0); Total Cells Counted 100
[2020-10-06] MEDS ORDERED: SODIUM CHLORIDE 0.9% 1,000 ML IV STA (23:58)
[2020-10-07 00:22] LABS: Amorphous Sediment,Urine Rare /hpf; Appearance,Urine Cloudy (Clear); Bacteria,Urine Rare /hpf; Bilirubin,Urine Negative (Negative); Blood,Urine Negative (Negative); Color,Urine Yellow; Glucose,Urine (UA) Negative (Negative); Hyaline Casts,Urine 143 /lpf (0-2); Ketones,Urine Negative (Negative); Leukocyte Esterase,Urine Small (Negative); Mucus,Urine Many /hpf; Nitrite,Urine Negative (Negative); PH, Urine 5.5 (5.0-8.0); Protein,Urine 1+ (Negative); RBC,Urine 3 /hpf (0-5); Specific Gravity,Urine 1.026 (1.001-1.035); Squamous Epithelial Cell,Urine <1 /hpf (0-4); Urobilinogen,Urine <2.0 mg/dL (<2.0); WBC,Urine 8 /hpf (0-5)
[2020-10-07] MEDS ORDERED: HYDROcodone/APAP 5-325MG 1 EACH TAB PO STA (00:25)
--- NOTE | 2020-10-07 00:59 | XR ---
EXAM: XR Chest, 1 View CLINICAL HISTORY: Reason: weakness TECHNIQUE: Frontal view of the chest. COMPARISON: September 16, 2020 FINDINGS: Lungs: Unremarkable. No acute infiltration, atelectasis or mass. Pleural space: Unremarkable. No pneumothorax or pleural fluid. Heart: Unremarkable. No cardiomegaly. Mediastinum: Unremarkable. Bones/joints: Mild to moderate scoliosis. Tubes, lines and devices: Small patchy density in the lateral right lung base not clearly identified on the prior study. This could represent a small area of infiltration or overlying artifact, as there is a tube crossing the region. IMPRESSION: Small density in the lateral right lung base not clearly identified on the prior study. This could represent a small area of infiltration or overlying artifact, as there is a tube crossing the region.
[2020-10-07] MEDS ORDERED: NALOXONE 0.4 MG/ML 1 ML VIAL IV PRN (01:17)
[2020-10-07] MEDS ORDERED: ACETAMINOPHEN TAB 325 MG TAB PO PRN (01:17)
[2020-10-07] MEDS: HYDROcodone/APAP 5-325MG 1 EACH TAB PO PRN (04:03)
[2020-10-07] MEDS: LACTOBACILLUS ACIDOPH & BULGAR 1 EACH PACKET PO SCH (08:17)
[2020-10-07] MEDS: ASPIRIN 81 MG PO SCH (08:18)
[2020-10-07] MEDS: MEMANTINE 10 MG TAB PO SCH ×2 (08:18→20:29)
[2020-10-07] MEDS: CITALOPRAM HYDROBROMIDE 10 MG TAB PO SCH (08:18)
[2020-10-07] MEDS: RIVASTIGMINE 9.5MG/24HR PATCH TRANSDERM SCH (08:18)
[2020-10-07] MEDS: METOPROLOL SUCCINATE (ER) 25 MG TAB.ER.24H PO SCH (08:18)
[2020-10-07] MEDS: PANTOPRAZOLE 40 MG TABLET PO SCH (08:18)
[2020-10-07] MEDS: CLOPIDOGREL 75 MG TAB PO SCH (08:18)
[2020-10-07] MEDS: LOSARTAN 50 MG TAB PO SCH (08:18)
[2020-10-07] MEDS ORDERED: RX INFO: IV CONTRAST WAS GIVEN 1 EACH MISC MISCELLANE PRN (09:14)
--- NOTE | 2020-10-07 14:15 | P.HPIM ---
History of Present Illness H&P Date: 10/07/20 Brittanie Pierre, is an 80-year-old female who presented to [facility] emergency room with a chief complaint of nausea vomiting diarrhea and generalized weakness she was evaluated in the emergency room vital examination on presentation reveals a temperature of 100 pulse 82 respiration 19 and blood pressure 100/57 pulse ox 97% on room air her white blood count was 17.9 hemoglobin 12.5 platelet count 213 sodium 132 potassium 3.7 chloride 99 CO2 23 BUN 14 creatinine 0.77 lactic acid was elevated at 2.9 urine analysis revealed cloudy urine with 8 white blood cells coronavirus PCR was negative chest x-ray done in the emergency room revealed a small density in the lateral right lung base. Patient was admitted to medical floor she was started on IV Rocephin and IV fluid. Patient was recently admitted to [facility] was febrile illness, elevated liver enzymes, evidence of cholecystitis and gallbladder sludge, she has a previous history of Clostridium difficile colitis. Past Medical History Past Medical History: Coronary Artery Disease (CAD), Cancer, Dementia, Hypertension, Memory Impairment Additional Past Medical History / Comment(s): Chronic back pain, CDIFF (March 2019), lung cancer, History of Any Multi-Drug Resistant Organisms: None Reported, C-DIFF Date of last positivie culture/infection: 03/2019 MDRO Source:: Issac Forde Past Surgical History: Appendectomy, Back Surgery, Bowel Resection, Heart Catheterization With Stent, Joint Replacement Additional Past Surgical History / Comment(s): Hemmorrhoidectomy, left knee surgery (40% of knee cap taken out), left lower lobectomy, carotid artery cleaned out, stents in neck & heart Past Anesthesia/Blood Transfusion Reactions: No Reported Reaction, Previous Problems w/ Anesthesia Additional Past Anesthesia/Blood Transfusion Reaction / Comment(s): "slow to wake up from anesthesia" per Shae Date of Last Stent Placement:: 08/2019 Past Psychological History: No Psychological Hx Reported Smoking Status: Former smoker Past Alcohol Use History: Daily Additional Past Alcohol Use History / Comment(s): Patient drinks 2 liquor demian erages a night most nights of the week 10/07/20 Pt states she does not drink any longer Past Drug Use History: None Reported - Past Family History Mother Additional Family Medical History / Comment(s): brain aneurysm at 54 Father Family Medical History: Cancer Additional Family Medical History / Comment(s): bone cancer Sister(s) Family Medical History: Cancer Additional Family Medical History / Comment(s): ovarian cancer Medications and Allergies Home Medications Medication Instructions Recorded Confirmed Type Losartan Potassium 100 mg PO DAILY 10/17/16 10/07/20 History Rivastigmine 9.5MG/24Hr Patch 1 patch TRANSDERM DAILY 05/05/19 10/07/20 History [Exelon 9.5MG/24Hr Patch] Aspirin 81 mg PO DAILY #30 chew 08/23/19 10/07/20 Rx Atorvastatin [Lipitor] 40 mg PO HS #30 tab 08/23/19 10/07/20 Rx Clopidogrel [Plavix] 75 mg PO DAILY #30 tab 08/23/19 10/07/20 Rx Metoprolol Succinate (ER) [Toprol 25 mg PO DAILY #30 tab.er.24h 08/23/19 10/07/20 Rx XL] Citalopram Hydrobromide [CeleXA] 10 mg PO DAILY 09/26/20 10/07/20 History Memantine [Namenda] 10 mg PO BID 09/26/20 10/07/20 History Probiotic 85 Billion 1 cap PO DAILY 09/26/20 10/07/20 History Amoxic-Pot Clav 875-125Mg 1 tab PO Q12HR 7 Days #14 tab 09/30/20 10/07/20 Rx [Augmentin 875-125] Pantoprazole [Protonix] 40 mg PO AC-BRKFST tablet. 09/30/20 10/07/20 Rx Cholestyramine (with Sugar) 4 gm PO BID 10/07/20 10/07/20 History [Cholestyramine Packet] Allergies Allergy/AdvReac Type Severity Reaction Status Date / Time lactose AdvReac Intermediate Diarrhea Verified 10/07/20 09:08 caffeine AdvReac Diarrhea Verified 10/07/20 09:08 steriod AdvReac Unknown FLUSHED Uncoded 09/26/20 13:35 FACE Physical Exam Vitals: Vital Signs Temp Pulse Pulse Resp BP BP Pulse Ox 10/07/20 08:00 99.4 F 75 16 95/55 10/07/20 01:33 98.5 F 16 95/53 94 L 10/07/20 00:53 99.4 F 73 18 112/55 96 10/06/20 22:42 100.0 F H 82 19 100/57 97 Intake and Output 10/06/20 10/07/20 10/07/20 22:59 06:59 14:59 Other: # Bowel Movements 1 Weight 54.431 kg 54.431 kg In general patient is alert and oriented 3 in no apparent distress HEENT head normocephalic and atraumatic Neck is supple no JVD no goiter no lymphadenopathy Chest exam reveals a few scattered crackles no wheezing Cardiac exam reveals regular heart sounds no murmurs Abdomen is soft with mild diffuse tenderness no organomegaly with normal bowel sounds Extremity exam reveals no edema no cyanosis or clubbing Neurological examination reveals no gross focal deficit Results CBC & Chem 7: 10/06/20 23:00 10/06/20 23:00 Labs: Abnormal Lab Results - Last 24 Hours (Table) 10/06/20 10/06/20 10/06/20 Range/Units 23:00 23:00 23:00 WBC 17.9 H (3.8-10.6) k/uL Neutrophils # (Manual) 15.70 H (1.3-7.7) k/uL Sodium 132 L (137-145) mmol/L Glucose 105 H (74-99) mg/dL Plasma Lactic Acid Hai 2.9 H* (0.7-2.0) mmol/L Alkaline Phosphatase 147 H (38-126) U/L Total Protein 6.1 L (6.3-8.2) g/dL Albumin 3.4 L (3.5-5.0) g/dL Urine Appearance (Clear) Urine Protein (Negative) Ur Leukocyte Esterase (Negative) Urine WBC (0-5) /hpf Amorphous Sediment (None) /hpf Urine Bacteria (None) /hpf Hyaline Casts (0-2) /lpf Urine Mucus (None) /hpf 10/07/20 Range/Units 00:11 WBC (3.8-10.6) k/uL Neutrophils # (Manual) (1.3-7.7) k/uL Sodium (137-145) mmol/L Glucose (74-99) mg/dL Plasma Lactic Acid Hai (0.7-2.0) mmol/L Alkaline Phosphatase (38-126) U/L Total Protein (6.3-8.2) g/dL Albumin (3.5-5.0) g/dL Urine Appearance Cloudy H (Clear) Urine Protein 1+ H (Negative) Ur Leukocyte Esterase Small H (Negative) Urine WBC 8 H (0-5) /hpf Amorphous Sediment Rare H (None) /hpf Urine Bacteria Rare H (None) /hpf Hyaline Casts 143 H (0-2) /lpf Urine Mucus Many H (None) /hpf Thrombosis Risk Factor Assmnt - Choose All That Apply Any of the Below Risk Factors Present?: No Each Risk Factor Represents 3 Points: Age 75 years or older Thrombosis Risk Factor Assessment Total Risk Factor Score: 3 Thrombosis Risk Factor Assessment Level: Moderate Risk Assessment and Plan Plan: 1. Abdominal pain with nausea vomiting and diarrhea, this could be related to acute cholecystitis versus close treat him deficit colitis, will check abdomen ultrasound will check stools for C. diff 2. Underlying history of coronary artery disease with history of angioplasty and stent to the LAD in August 2019 3. Underlying history of hypertension 4. Underlying history of mild dementia 5. Underlying history of degenerative disc disease with chronic back pain 6. Slight elevation in alkaline phosphatase, at this time, during the last admission patient had severe elevation in all liver enzymes, she underwent complete workup including cholangiopancreatography MRI there was no evidence of malignancy At this time patient is admitted to medical floor Abdomen ultrasound was ordered C. diff toxin PCR was ordered Consultation to Dr. tellez requested Will follow closely
[2020-10-07] MEDS ORDERED: SODIUM CHLORIDE 0.9% 1,000 ML IV ONE (14:23)
--- NOTE | 2020-10-07 14:47 | P.GSCN ---
History of Present Illness Consult date: 10/07/20 History of present illness: CHIEF COMPLAINT: Nausea vomiting diarrhea HISTORY OF PRESENT ILLNESS: The patient is a 80-year-old female recently discharged from the hospital 09/30/2020 for generalized weakness, including fever. She was admitted last night for nausea vomiting diarrhea. She has history of cholecystitis per previous diagnostic studies. She has history of dementia where history is obtained per chart and records. She presented back to the emergency room with worsening nausea vomiting and diarrhea for more than several days. She presented with increased confusion. She was admitted for acute exacerbation of congestive heart failure. General surgery is consulted for pre-existing cholecystitis including nausea vomiting diarrhea. Additional history is obtained by her son at bedside. He reports since her discharge, she has been staying with [place] She had good energy and was tolerating diet. As of yesterday at 2pm, she had acute weakness and unstoppable diarrhea. She has had intermittent diarrhea prior. Last colonoscopy was over 5 to 10 years ago. She denies any abdominal pain at the time of my evaluation. PAST MEDICAL HISTORY: See list and reviewed PAST SURGICAL HISTORY: See list and reviewed MEDICATIONS: See list and reviewed ALLERGIES: See list and reviewed SOCIAL HISTORY: See list and reviewed FAMILY HISTORY: See list and reviewed REVIEW OF ORGAN SYSTEMS: (Obtained per records in chart) CONSTITUTIONAL: Recent elevated temperature 100.0. EYES: Denies any trouble with vision. HEENT: No difficulties with hearing. No nosebleeds. RESPIRATORY: Recent pneumonia. History of left lobe lobectomy for lung cancer. CARDIOVASCULAR: Has congestive heart failure. Has hypertensive heart disease. Has coronary artery disease. GASTROINTESTINAL: Recent history of C. diff colitis less than 1 month ago. Has nausea vomiting diarrhea. Has gastroesophageal reflux disease. GENITOURINARY: Denies any blood in urine or increased urinary frequency. NEUROLOGICAL: Has memory impairment. MUSCULOSKELETAL: Has back pain, stiffness or joint arthritis. SKIN: No current skin cancer. No rash. PSYCHIATRIC: Has dementia. Has depressive disorder. ENDOCRINE: Denies current thyroid disorders. Denies any blood sugar glucose intolerance. HEME/LYMPHATIC: Denies any lumps and bumps around the neck. No recent deep venous thrombosis. ALLERGY/IMMUNOLOGY: No immunoglobulin therapy. No immune deficiencies. BREAST: No prior breast biopsies. No recent mammogram. PHYSICAL EXAM: VITALS: Reviewed CONSTITUTIONAL: Well developed and in no acute distress. EYES: Conjuctivae without sclera icterus. Extraocular movements grossly intact. HEAD, EARS, NOSE, THROAT: Moist buccal mucosa. Head is atraumatic, nor mocephalic. Hears conversational speech. No nasal drainage. NECK: Supple. No JV distention. No thyroidomegaly. RESPIRATORY: Non-labored respirations and equal bilateral excursions. No gross wheezes. CARDIOVASCULAR: Regular rate and rhythm. Palpable 2+ radial pulses. ABDOMEN: LYMPH: No neck lymphadenopathy. MUSCULOSKELETAL: Nail and fingers with good capillary refill. SKIN: Warm and well perfused with good skin turgor. NEUROLOGIC: Cranial nerves II through XII grossly intact. Sensation upper and extremities intact. No focal or lateralizing signs. PSYCH: Appropriate affect. Alert and oriented to person, place and time. Displays appropriate insight. CLINCAL LABS: Reviewed. WBC elevated at over 17,000. Sodium low 132. Lactic acid level initial elevation 2.9 now normal. AST and ALT normal. Coronavirus negative. IMAGING: Chest x-ray without pleural effusions. No large consolidations. This is Derrell independent interpretation. RECORDS: previous old records reviewed. MRCP 09/29/2020 with hepatic dilation without filling defects. Pancreatic duct within normal limits. ECHO from 09/27/2020 showing ejection fraction 60-65%. Presence of left ventricular hypertrophy. No aortic stenosis ASSESSMENT: 1. Nausea vomiting diarrhea 2. History of chronic cholecystitis 3. Hyponatremia 4. Leukocytosis 5. History of lung cancer status post lobectomy 6. Past history of c diff colitis PLAN: 1. Recommend additional fluid bolus due to acute dehydration. 2. Agree with repeat ultrasound. She is not complaining of any abdominal pain. 3. C. Diff assay being obtained 4. Ideally, with her chronic intermittent diarrhea, collagenous colitis and other forms of colitis may have similar presentation. Will send for stool cultures and assays. 5. Colonoscopy may give additional benefit for diagnosis. Thank you for this kind consultation. Past Medical History Past Medical History: Coronary Artery Disease (CAD), Cancer, Dementia, Hypertension, Memory Impairment Additional Past Medical History / Comment(s): Chronic back pain, CDIFF (March 2019), lung cancer, History of Any Multi-Drug Resistant Organisms: None Reported, C-DIFF Year Discovered:: 03/2019 MDRO Source:: Issac Forde Past Surgical History: Appendectomy, Back Surgery, Bowel Resection, Heart Catheterization With Stent, Joint Replacement Additional Past Surgical History / Comment(s): Hemmorrhoidectomy, left knee surgery (40% of knee cap taken out), left lower lobectomy, carotid artery cleaned out, stents in neck & heart Past Anesthesia/Blood Transfusion Reactions: No Reported Reaction, Previous Problems w/ Anesthesia Additional Past Anesthesia/Blood Transfusion Reaction / Comm: "slow to wake up from anesthesia" per Shae Date of Last Stent Placement:: 08/2019 Past Psychological History: No Psychological Hx Reported Smoking Status: Former smoker Past Alcohol Use History: Daily Additional Past Alcohol Use History / Comment(s): Patient drinks 2 liquor beverages a night most nights of the week 10/07/20 Pt states she does not drink any longer Past Drug Use History: None Reported - Past Family History Mother Additional Family Medical History / Comment(s): brain aneurysm at 54 Father Family Medical History: Cancer Additional Family Medical History / Comment(s): bone cancer Sister(s) Family Medical History: Cancer Additional Family Medical History / Comment(s): ovarian cancer Medications and Allergies Home Medications Medication Instructions Recorded Confirmed Type Losartan Potassium 100 mg PO DAILY 10/17/16 10/07/20 History Rivastigmine 9.5MG/24Hr Patch 1 patch TRANSDERM DAILY 05/05/19 10/07/20 History [Exelon 9.5MG/24Hr Patch] Aspirin 81 mg PO DAILY #30 chew 08/23/19 10/07/20 Rx Atorvastatin [Lipitor] 40 mg PO HS #30 tab 08/23/19 10/07/20 Rx Clopidogrel [Plavix] 75 mg PO DAILY #30 tab 08/23/19 10/07/20 Rx Metoprolol Succinate (ER) [Toprol 25 mg PO DAILY #30 tab.er.24h 08/23/19 10/07/20 Rx XL] Citalopram Hydrobromide [CeleXA] 10 mg PO DAILY 09/26/20 10/07/20 History Memantine [Namenda] 10 mg PO BID 09/26/20 10/07/20 History Probiotic 85 Billion 1 cap PO DAILY 09/26/20 10/07/20 History Amoxic-Pot Clav 875-125Mg 1 tab PO Q12HR 7 Days #14 tab 09/30/20 10/07/20 Rx [Augmentin 495-125] Pantoprazole [Protonix] 40 mg PO AC-BRKFST tablet. 09/30/20 10/07/20 Rx Cholestyramine (with Sugar) 4 gm PO BID 10/07/20 10/07/20 History [Cholestyramine Packet] Allergies Allergy/AdvReac Type Severity Reaction Status Date / Time lactose AdvReac Intermediate Diarrhea Verified 10/07/20 09:08 caffeine AdvReac Diarrhea Verified 10/07/20 09:08 steriod AdvReac Unknown FLUSHED Uncoded 09/26/20 13:35 FACE Surgical - Exam Vital Signs Temp Pulse Resp BP Pulse Ox 100.0 F H 82 19 100/57 97 10/06/20 22:42 10/06/20 22:42 10/06/20 22:42 10/06/20 22:42 10/06/20 22:42 Results - Labs 10/06/20 23:00 10/06/20 23:00 Abnormal Lab Results - Last 24 Hours (Table) 10/06/20 10/06/20 10/06/20 Range/Units 23:00 23:00 23:00 WBC 17.9 H (3.8-10.6) k/uL Neutrophils # (Manual) 15.70 H (1.3-7.7) k/uL Sodium 132 L (137-145) mmol/L Glucose 105 H (74-99) mg/dL Plasma Lactic Acid Hai 2.9 H* (0.7-2.0) mmol/L Alkaline Phosphatase 147 H (38-126) U/L Total Protein 6.1 L (6.3-8.2) g/dL Albumin 3.4 L (3.5-5.0) g/dL Urine Appearance (Clear) Urine Protein (Negative) Ur Leukocyte Esterase (Negative) Urine WBC (0-5) /hpf Amorphous Sediment (None) /hpf Urine Bacteria (None) /hpf Hyaline Casts (0-2) /lpf Urine Mucus (None) /hpf 10/07/20 Range/Units 00:11 WBC (3.8-10.6) k/uL Neutrophils # (Manual) (1.3-7.7) k/uL Sodium (137-145) mmol/L Glucose (74-99) mg/dL Plasma Lactic Acid Hai (0.7-2.0) mmol/L Alkaline Phosphatase (38-126) U/L Total Protein (6.3-8.2) g/dL Albumin (3.5-5.0) g/dL Urine Appearance Cloudy H (Clear) Urine Protein 1+ H (Negative) Ur Leukocyte Esterase Small H (Negative) Urine WBC 8 H (0-5) /hpf Amorphous Sediment Rare H (None) /hpf Urine Bacteria Rare H (None) /hpf Hyaline Casts 143 H (0-2) /lpf Urine Mucus Many H (None) /hpf Diabetes panel 10/06/20 Range/Units 23:00 Sodium 132 L (137-145) mmol/L Potassium 3.7 (3.5-5.1) mmol/L Chloride 99 (98-107) mmol/L Carbon Dioxide 23 (22-30) mmol/L BUN 14 (7-17) mg/dL Creatinine 0.77 (0.52-1.04) mg/dL Glucose 105 H (74-99) mg/dL Calcium 9.7 (8.4-10.2) mg/dL AST 32 (14-36) U/L ALT 18 (4-34) U/L Alkaline Phosphatase 147 H (38-126) U/L Total Protein 6.1 L (6.3-8.2) g/dL Albumin 3.4 L (3.5-5.0) g/dL Calcium panel 10/06/20 Range/Units 23:00 Calcium 9.7 (8.4-10.2) mg/dL Albumin 3.4 L (3.5-5.0) g/dL Pituitary panel 10/06/20 Range/Units 23:00 Sodium 132 L (137-145) mmol/L Potassium 3.7 (3.5-5.1) mmol/L Chloride 99 (98-107) mmol/L Carbon Dioxide 23 (22-30) mmol/L BUN 14 (7-17) mg/dL Creatinine 0.77 (0.52-1.04) mg/dL Glucose 105 H (74-99) mg/dL Calcium 9.7 (8.4-10.2) mg/dL Adrenal panel 10/06/20 Range/Units 23:00 Sodium 132 L (137-145) mmol/L Potassium 3.7 (3.5-5.1) mmol/L Chloride 99 (98-107) mmol/L Carbon Dioxide 23 (22-30) mmol/L BUN 14 (7-17) mg/dL Creatinine 0.77 (0.52-1.04) mg/dL Glucose 105 H (74-99) mg/dL Calcium 9.7 (8.4-10.2) mg/dL Total Bilirubin 0.7 (0.2-1.3) mg/dL AST 32 (14-36) U/L ALT 18 (4-34) U/L Alkaline Phosphatase 147 H (38-126) U/L Total Protein 6.1 L (6.3-8.2) g/dL Albumin 3.4 L (3.5-5.0) g/dL
[2020-10-07] MEDS: SODIUM CHLORIDE 0.9% 1,000 ML IV SCH (16:32)
[2020-10-07] MEDS: VANCOMYCIN 125 MG CAPSULE PO SCH ×2 (17:46→20:29)
[2020-10-07] MEDS: ATORVASTATIN 40 MG TAB PO SCH (20:29)
--- NOTE | 2020-10-08 00:28 | CONS ---
CONSULTATION DATE OF SERVICE: 10/07/2020 REASON FOR CONSULTATION: Urinary tract infection. HISTORY OF PRESENT ILLNESS: The patient is an 80-year-old female who was recently admitted to this facility with fever, she was diagnosed with possible cholecystitis. She was treated with IV antibiotic therapy as the surgeon recommended against any surgical intervention. At that point, the patient was discharged home on oral Augmentin. The patient now presented back to the hospital for evaluation of not feeling well, generalized weakness in this patient also having diarrhea. The pain started last few days. The patient did have multiple loose stools. No blood or mucus in the stool. The patient also complaining of pain mostly in the left lower abdominal area to be more of a dull aching quality 4-5 out of 10 and no radiation. The patient has felt nauseated and did have one episode of vomiting. With these symptoms, the patient was evaluated by the ER physician. On arrival to the ER, patient was afebrile. The patient did have white count 17.9, liver enzymes have been normal. The patient did have negative UA. Patient was started on Rocephin and has been admitted to the hospital. Infectious Disease was consulted for further management of antibiotic therapy. REVIEW OF SYSTEMS: Positive points have been mentioned in HPI. Rest of systems negative. PAST MEDICAL HISTORY: Coronary artery disease, dementia, hypertension, memory impairment, chronic back pain, did have a history of C difficile and cholecystitis. PAST SURGICAL HISTORY: Appendectomy, back surgery, bowel resection, left knee surgery, left lower lobectomy. SOCIAL HISTORY: Remote history of smoking. Rarely drinks. No drug use. FAMILY HISTORY: Mother history of brain aneurysm, age of 54, father with history of bone cancer. ALLERGIES: TO LACTOSE, CAFFEINE AND STEROIDS. MEDICATIONS: The patient is currently on aspirin, Lipitor, Plavix, Toprol-XL, Protonix, recently completed a course of Augmentin and is currently on Rocephin as well. PHYSICAL EXAMINATION: Her blood pressure is 100/57 with a pulse of 82. Temperature of 100. She is 97% on room air. The patient is an elderly female lying in bed in no distress. No tachypnea or accessory muscles of respiration use. HEENT: Examination no pallor or scleral icterus. Oral mucous membranes dry. NECK: Trachea central. No thyromegaly. LUNGS: Unlabored breathing, decreased intensity of breath sounds. No wheeze or crackles. HEART S1, S2. Regular rate and rhythm. ABDOMEN: Soft, mildly tender. No guarding. No rigidity. EXTREMITIES: No edema of the feet. SKIN examination: No rash or mass palpable. NEUROLOGICAL: Patient is awake, alert and oriented. Mood and affect normal. LABS: Hemoglobin is 12.5, white count 17.9, BUN of 14, creatinine 0.77. Lactic acid 2.9. Liver enzymes are normal. Electrolytes are normal. Urine was negative. The patient subsequently did have stool for C diff, which came back positive. DIAGNOSTIC IMPRESSION: Patient presented to the hospital with diarrhea, abdominal pain in this patient who did have a history of C difficile colitis. The patient was recently exposed to antibiotic for her cholecystitis. Clinically not behaving as pneumonia or cholecystitis on this admission. PLAN: 1. Discontinue Rocephin. 2. We will start the patient on vancomycin 125 mg p.o. q.6 hours. 3. She has been encouraged to increase her probiotic and yogurt intake. 4. We will follow on clinical condition and further adjust medication if needed. Thank you for this consultation. Will follow this patient along with you. MMODL / IJN: [id number] /
[2020-10-08] MEDS: SODIUM CHLORIDE 0.9% 1,000 ML IV SCH ×2 (04:13→17:55)
--- NOTE | 2020-10-08 07:59 | US ---
EXAMINATION TYPE: US abdomen complete DATE OF EXAM: 10/08/2020 COMPARISON: 09/28/2020 CLINICAL HISTORY: abdominal pain. EXAM MEASUREMENTS: Liver Length: 12.8 cm Gallbladder Wall: 0.5 cm CBD: 1.2 cm Spleen: 8.4 cm Right Kidney: 9.5 x 4.4 x 4.1 cm Left Kidney: 9.1 x 4.1 x 4.2 cm Limited acoustic windows making exam technically difficult and limited. Pancreas: limited views, duct appears prominent Liver: wnl Gallbladder: sludge, thickened wall Evidence for sonographic Boswell's sign: no CBD: grossly dilated, intrahepatic ducts dilated Spleen: limited visualization, wnl as seen Right Kidney: limited visualization, wnl as seen Left Kidney: limited visualization, wnl as seen Upper IVC: wnl Abd Aorta: atherosclerotic changes The liver is homogenous. The intrahepatic portion of the IVC and proximal abdominal aorta are within normal limits. The visualized portions of the pancreas are homogenous. The spleen is unremarkable. IMPRESSION: 1. Gallbladder wall thickening with gallbladder sludge noted. Common bile duct is dilated.
[2020-10-08] MEDS: METOPROLOL SUCCINATE (ER) 25 MG TAB.ER.24H PO SCH (08:15)
[2020-10-08] MEDS: MEMANTINE 10 MG TAB PO SCH ×2 (08:15→20:37)
[2020-10-08] MEDS: LACTOBACILLUS ACIDOPH & BULGAR 1 EACH PACKET PO SCH (08:15)
[2020-10-08] MEDS: CLOPIDOGREL 75 MG TAB PO SCH (08:15)
[2020-10-08] MEDS: PANTOPRAZOLE 40 MG TABLET PO SCH (08:15)
[2020-10-08] MEDS: ASPIRIN 81 MG PO SCH (08:15)
[2020-10-08] MEDS: LOSARTAN 50 MG TAB PO SCH (08:15)
[2020-10-08] MEDS: VANCOMYCIN 125 MG CAPSULE PO SCH ×4 (08:16→20:37)
[2020-10-08] MEDS: CITALOPRAM HYDROBROMIDE 10 MG TAB PO SCH (08:16)
[2020-10-08] MEDS: RIVASTIGMINE 9.5MG/24HR PATCH TRANSDERM SCH (08:16)
[2020-10-08 08:54] LABS: Basophils % (A) 0 %; Eosinophils # (A) 0.1 k/uL (0-0.7); Eosinophils % (A) 1 %; HCT 32.7 % (34.0-46.0); HGB 10.8 gm/dL (11.4-16.0); Lymphocytes # (A) 1.4 k/uL (1.0-4.8); Lymphocytes % (A) 11 %; MCH 30.9 pg (25.0-35.0); MCV 93.4 fL (80.0-100.0); Mean Platelet Volume 9.4; Monocytes # (A) 0.5 k/uL (0-1.0); Monocytes % (A) 4 %; Neutrophils # (A) 10.7 k/uL (1.3-7.7); Neutrophils % (A) 84 %; Platelet Count 211 k/uL (150-450); RDW 13.3 % (11.5-15.5); WBC 12.8 k/uL (3.8-10.6)
[2020-10-08 09:10] LABS: ALT 14 U/L (4-34); AST 26 U/L (14-36); African American GFR (CKD) >90 (>60 ml/min/1.73 sqM); Albumin 2.6 g/dL (3.5-5.0); Alkaline Phosphatase 132 U/L (38-126); Anion Gap 5 mmol/L; Blood Urea Nitrogen 8 mg/dL (7-17); Calcium 8.9 mg/dL (8.4-10.2); Carbon Dioxide 23 mmol/L (22-30); Chloride 110 mmol/L (98-107); Globulin 2.5 g/dL; Glucose 86 mg/dL (74-99); Non-African American GFR(CKD) >90 (>60 ml/min/1.73 sqM); Potassium 3.4 mmol/L (3.5-5.1); Sodium 138 mmol/L (137-145); Total Bilirubin 0.4 mg/dL (0.2-1.3); Total Protein 5.1 g/dL (6.3-8.2)
--- NOTE | 2020-10-08 09:31 | P.PN ---
Subjective Progress Note Date: 10/08/20 Brittanie Pierre, is an 80-year-old female who presented to [facility] emergency room with a chief complaint of nausea vomiting diarrhea and generalized weakness she was evaluated in the emergency room vital examination on presentation reveals a temperature of 100 pulse 82 respiration 19 and blood pressure 100/57 pulse ox 97% on room air her white blood count was 17.9 hemoglobin 12.5 platelet count 213 sodium 132 potassium 3.7 chloride 99 CO2 23 BUN 14 creatinine 0.77 lactic acid was elevated at 2.9 urine analysis revealed cloudy urine with 8 white blood cells coronavirus PCR was negative chest x-ray done in the emergency room revealed a small density in the lateral right lung base. Patient was admitted to medical floor she was started on IV Rocephin and IV fluid. Patient was recently admitted to [facility] was febrile illness, elevated liver enzymes, evidence of cholecystitis and gallbladder sludge, she has a previous history of Clostridium difficile colitis. On 10/08/2020 patient was seen and examined on the medical floor she is alert and oriented 3 in no distress he is still complaining of abdominal pain otherwise she denies any complaints nothing by mouth this morning for abdomen ultrasound we are awaiting test and results and we are awaiting further recommendation from surgery otherwise there is no complaints there is no fever or chills no headache or dizziness no chest pain no shortness of breath no cough no nausea or vomiting no diarrhea no blood in the stools no burning with urination no frequency or urgency and no hematuria Objective - Vital Signs Vital signs: Vital Signs Temp 98.2 F 10/08/20 08:00 Pulse 66 10/08/20 08:00 Resp 16 10/08/20 08:00 BP 169/69 10/08/20 08:00 Pulse Ox 95 10/08/20 08:00 Intake & Output 10/07/20 10/08/20 10/08/20 18:59 06:59 18:59 Other: Voiding Method Toilet # Voids 4 2 # Bowel Movements 5 5 - Exam In general patient is alert and oriented 3 in no apparent distress HEENT head normocephalic and atraumatic Neck is supple no JVD no goiter no lymphadenopathy Chest exam reveals a few scattered crackles no wheezing Cardiac exam reveals regular heart sounds no murmurs Abdomen is soft with mild diffuse tenderness no organomegaly with normal bowel sounds Extremity exam reveals no edema no cyanosis or clubbing Neurological examination reveals no gross focal deficit - Labs CBC & Chem 7: 10/08/20 08:21 10/08/20 08:21 Labs: Abnormal Lab Results - Last 24 Hours (Table) 10/07/20 10/08/20 10/08/20 Range/Units 12:43 08:21 08:21 WBC 12.8 H (3.8-10.6) k/uL RBC 3.50 L (3.80-5.40) m/uL Hgb 10.8 L (11.4-16.0) gm/dL Hct 32.7 L (34.0-46.0) % Neutrophils # 10.7 H (1.3-7.7) k/uL Potassium 3.4 L (3.5-5.1) mmol/L Chloride 110 H (98-107) mmol/L Creatinine 0.47 L (0.52-1.04) mg/dL Alkaline Phosphatase 132 H (38-126) U/L Total Protein 5.1 L (6.3-8.2) g/dL Albumin 2.6 L (3.5-5.0) g/dL C. difficile (EIA) Intrp Positive A (Negative) Microbiology - Last 24 Hours (Table) 10/07/20 01:10 Blood Culture - Preliminary Blood No Growth after 24 hours 10/07/20 01:04 Blood Culture - Preliminary Blood No Growth after 24 hours Assessment and Plan Plan: 1. Abdominal pain with nausea vomiting and diarrhea, this could be related to acute cholecystitis versus close treat him deficit colitis, will check abdomen ultrasound will check stools for C. diff 2. Underlying history of coronary artery disease with history of angioplasty and stent to the LAD in August 2019 3. Underlying history of hypertension 4. Underlying history of mild dementia 5. Underlying history of degenerative disc disease with chronic back pain 6. Slight elevation in alkaline phosphatase, at this time, during the last admission patient had severe elevation in all liver enzymes, she underwent complete workup including cholangiopancreatography MRI there was no evidence of malignancy At this time patient is admitted to medical floor Abdomen ultrasound was ordered C. diff toxin PCR was ordered Consultation to Dr. tellez requested Will follow closely
--- NOTE | 2020-10-08 12:19 | P.PN ---
Subjective Progress Note Date: 10/08/20 CHIEF COMPLAINT: Nausea vomiting diarrhea HISTORY OF PRESENT ILLNESS: The patient is a 80-year-old female recently discharged from the hospital 09/30/2020 for generalized weakness, including fever. Her prior workup revealed cholecystitis. She now presents and upon this admission with diarrhea. She is sitting up in chair more alert. No reports of abdominal pain. REVIEW OF ORGAN SYSTEMS: No fevers or chills. No nausea or vomiting. No chest pain. No shortness of breath. PHYSICAL EXAM: VITALS: Reviewed CONSTITUTIONAL: Well developed and in no acute distress. EYES: Conjuctivae without sclera icterus. Extraocular movements grossly intact. HEAD, EARS, NOSE, THROAT: Moist buccal mucosa. Head is atraumatic, normocephalic. Hears conversational speech. No nasal drainage. RESPIRATORY: Non-labored respirations and equal bilateral excursions. No gross wheezes. CARDIOVASCULAR: Regular rate and rhythm. Palpable 2+ radial pulses. ABDOMEN: Soft nontender nondistended. MUSCULOSKELETAL: Nail and fingers with good capillary refill. SKIN: Warm and well perfused with good skin turgor. NEUROLOGIC: Cranial nerves II through XII grossly intact. Sensation upper and extremities intact. No focal or lateralizing signs. PSYCH: Appropriate affect. Alert and oriented to person, place and time. Displays appropriate insight. CLINCAL LABS: Reviewed. WBC down from over 17,000-12,000. LFTs within normal limits. Patient is C. diff positive. IMAGING: Ultrasound of the gallbladder independently reviewed demonstrating thickened gallbladder wall. This is my independent interpretation. No large gallstones identified. RADIOLOGY: Ultrasound of gallbladder additionally identifies dilated common bile duct of 1.2 cm ASSESSMENT: 1. Nausea vomiting diarrhea 2. History of chronic cholecystitis 3. Hyponatremia 4. Leukocytosis 5. History of lung cancer status post lobectomy 6. Recurrent C. diff colitis PLAN: 1. Recommend treatment for C. diff colitis. 2. IV fluid hydration 3. Recommend probiotics 4. As she has recurrent infection with C. Diff colitis. Recommend infectious di sease consultation for management of antibiotics. Objective - Vital Signs Vital signs: Vital Signs Temp 98.2 F 10/08/20 08:00 Pulse 66 10/08/20 08:00 Resp 16 10/08/20 08:00 BP 169/69 10/08/20 08:00 Pulse Ox 95 10/08/20 08:00 Intake & Output 10/07/20 10/08/20 10/08/20 18:59 06:59 18:59 Other: Voiding Method Toilet # Voids 4 2 # Bowel Movements 5 5 - Labs CBC & Chem 7: 10/08/20 08:21 10/08/20 08:21 Labs: Abnormal Lab Results - Last 24 Hours (Table) 10/07/20 10/08/20 10/08/20 Range/Units 12:43 08:21 08:21 WBC 12.8 H (3.8-10.6) k/uL RBC 3.50 L (3.80-5.40) m/uL Hgb 10.8 L (11.4-16.0) gm/dL Hct 32.7 L (34.0-46.0) % Neutrophils # 10.7 H (1.3-7.7) k/uL Potassium 3.4 L (3.5-5.1) mmol/L Chloride 110 H (98-107) mmol/L Creatinine 0.47 L (0.52-1.04) mg/dL Alkaline Phosphatase 132 H (38-126) U/L Total Protein 5.1 L (6.3-8.2) g/dL Albumin 2.6 L (3.5-5.0) g/dL C. difficile (EIA) Intrp Positive A (Negative) Microbiology - Last 24 Hours (Table) 10/07/20 01:10 Blood Culture - Preliminary Blood No Growth after 24 hours 10/07/20 01:04 Blood Culture - Preliminary Blood No Growth after 24 hours Assessment and Plan (1) Diarrhea Current Visit: Yes Status: Acute Code(s): R19.7 - DIARRHEA, UNSPECIFIED SNOMED Code(s): 53124533 (2) Altered mental status Current Visit: No Status: Acute Code(s): R41.82 - ALTERED MENTAL STATUS, UNSPECIFIED SNOMED Code(s): 542934904 (3) C. difficile colitis Current Visit: No Status: Acute Code(s): A04.72 - ENTEROCOLITIS D/T CLOSTRIDIUM DIFFICILE, NOT SPCF RECUR SNOMED Code(s): 831834812 (4) Cholecystitis Current Visit: No Status: Acute Code(s): K81.9 - CHOLECYSTITIS, UNSPECIFIED SNOMED Code(s): 24608728 (5) Weakness Current Visit: No Status: Acute Code(s): R53.1 - WEAKNESS SNOMED Code(s): 71177081
[2020-10-08] MEDS ORDERED: metroNIDAZOLE-NS PMX 500 MG in SALINE 1 100ML.BAG IVPB SCH (12:30)
[2020-10-08] MEDS: HYDROcodone/APAP 5-325MG 1 EACH TAB PO PRN (18:01)
[2020-10-08] MEDS: ATORVASTATIN 40 MG TAB PO SCH (20:37)
[2020-10-08] MEDS: metroNIDAZOLE-NS PMX 500 MG in SALINE 1 100ML.BAG IVPB SCH (20:38)
[2020-10-09] MEDS: VANCOMYCIN 125 MG CAPSULE PO SCH ×5 (01:23→22:35)
[2020-10-09] MEDS: metroNIDAZOLE-NS PMX 500 MG in SALINE 1 100ML.BAG IVPB SCH ×4 (01:24→20:45)
[2020-10-09] MEDS: SODIUM CHLORIDE 0.9% 1,000 ML IV SCH ×2 (01:24→20:46)
--- NOTE | 2020-10-09 04:29 | PN ---
PROGRESS NOTE DATE OF SERVICE: 10/08/2020 REASON FOR FOLLOWUP: C difficile colitis. INTERVAL HISTORY: Patient is currently afebrile. The patient is breathing comfortably. The patient still complaining of significant diarrhea with multiple loose stools. No worsening abdominal pain. No chest pain, shortness of breath or cough. PHYSICAL EXAMINATION: Blood pressure 159/80 with a pulse of 52. Temperature is 97.8. She is 97% on room air. General description: The patient is an elderly female up in the chair in no distress. Respiratory system: Unlabored breathing. Clear to auscultation anteriorly. Heart S1, S2. Regular rate and rhythm. Abdomen: Soft, no tenderness. LABS: White count is down to 12,000. DIAGNOSTIC IMPRESSION AND PLAN: Patient with C difficile colitis in this patient with a history of recurrent infection, still having significant diarrhea. We will adjust the dose of vancomycin to q.6 hours. Also add Questran for symptomatic relief and monitor clinical course closely. MMODL / IJN: [id number] /
[2020-10-09] MEDS: MEMANTINE 10 MG TAB PO SCH ×2 (08:58→20:44)
[2020-10-09] MEDS: LOSARTAN 50 MG TAB PO SCH (08:58)
[2020-10-09] MEDS: CLOPIDOGREL 75 MG TAB PO SCH (08:58)
[2020-10-09] MEDS: METOPROLOL SUCCINATE (ER) 25 MG TAB.ER.24H PO SCH (08:58)
[2020-10-09] MEDS: PANTOPRAZOLE 40 MG TABLET PO SCH (08:59)
[2020-10-09] MEDS: RIVASTIGMINE 9.5MG/24HR PATCH TRANSDERM SCH (08:59)
[2020-10-09] MEDS: ASPIRIN 81 MG PO SCH (08:59)
[2020-10-09] MEDS: CITALOPRAM HYDROBROMIDE 10 MG TAB PO SCH (09:00)
[2020-10-09] MEDS: CHOLESTYRAMINE (WITH SUGAR) 4 GM PACKET PO SCH ×2 (09:00→20:44)
[2020-10-09] MEDS: LACTOBACILLUS ACIDOPH & BULGAR 1 EACH PACKET PO SCH (09:01)
[2020-10-09] MEDS: RAW PROBIOTICS PO SCH (10:35)
[2020-10-09] MEDS ORDERED: POTASSIUM CHLORIDE ER 20 MEQ TAB.ER PO STA (11:01)
--- NOTE | 2020-10-09 11:04 | P.PN ---
<Lori Arredondo - Last Filed: 10/09/20 10:55> Subjective Progress Note Date: 10/09/20 CHIEF COMPLAINT: Abdominal pain and diarrhea HISTORY OF PRESENT ILLNESS: Patient complains of lower abdominal cramping with diarrhea. She is being currently treated for C. diff colitis. She is having multiple stools. She reports they are a little better. They are not as liquidy. She denies any right upper quadrant pain. She denies any increase in pain after eating. She denies any nausea or vomiting Currently on a heart heal thy diet. Afebrile. WBC 12.8 Hgb 10.8 platelets 211 potassium 3.4 creatinine 0.47 AST 26 ALT 14 PHYSICAL EXAM: VITAL SIGNS: Reviewed. GENERAL: Well-developed in no acute distress. HEENT: No sclera icterus. Extraocular movements grossly intact. Moist buccal mucosa. Head is atraumatic, normocephalic. ABDOMEN: Soft. Nondistended. Nontender. NEUROLOGIC: Alert and oriented. Cranial nerves II through XII grossly intact. ASSESSMENT: 1. Abdominal pain with nausea, vomiting and diarrhea likely related to patient's C. diff colitis 2. C. diff colitis 3. Chronic cholecystitis PLAN: -Continue supportive care -Continue treatment for C. diff colitis -No plans for surgical intervention regarding her cholecystitis at this time Physician Manager Underwriting note has been reviewed by physician. Signing provider agrees with the documented findings, assessment, and plan of care. Objective - Vital Signs Vital signs: Vital Signs Temp 97.9 F 10/09/20 08:00 Pulse 54 L 10/09/20 08:00 Resp 20 10/09/20 08:00 BP 181/76 10/09/20 08:00 Pulse Ox 92 L 10/09/20 08:00 Intake & Output 10/08/20 10/09/20 10/09/20 18:59 06:59 18:59 Output Total 3 Balance -3 Output: Urine 3 Other: Voiding Method Toilet # Bowel Movements 6 - Labs CBC & Chem 7: 10/08/20 08:21 10/08/20 08:21 Labs: Microbiology - Last 24 Hours (Table) 10/07/20 01:10 Blood Culture - Preliminary Blood No Growth after 48 hours 10/07/20 01:04 Blood Culture - Preliminary Blood No Growth after 48 hours <Boutt,Tapan - Last Filed: 10/09/20 13:18> Subjective As above. Patient returned to the hospital with complaints of crampy abdominal pain and diarrhea. She also had fevers. C. diff has come back positive. Patient with personal history of C. diff in the past. Continue antibiotics. Check abdominal x-rays. Case discussed with the patient's daughter by phone. No indication for cholecystectomy currently. Objective - Vital Signs Vital signs: Vital Signs Temp 97.9 F 10/09/20 08:00 Pulse 54 L 10/09/20 08:00 Resp 20 10/09/20 08:00 BP 181/76 10/09/20 08:00 Pulse Ox 92 L 10/09/20 08:00 Intake & Output 10/08/20 10/09/20 10/09/20 18:59 06:59 18:59 Output Total 3 Balance -3 Output: Urine 3 Other: Voiding Method Toilet # Bowel Movements 6 - Labs CBC & Chem 7: 10/08/20 08:21 10/08/20 08:21 Labs: Microbiology - Last 24 Hours (Table) 10/07/20 01:10 Blood Culture - Preliminary Blood No Growth after 48 hours 10/07/20 01:04 Blood Culture - Preliminary Blood No Growth after 48 hours
[2020-10-09] MEDS: HYDROcodone/APAP 5-325MG 1 EACH TAB PO PRN ×2 (11:54→22:35)
--- NOTE | 2020-10-09 13:18 | P.PN ---
Subjective Progress Note Date: 10/09/20 Brittanie Pierre, is an 80-year-old female who presented to [facility] emergency room with a chief complaint of nausea vomiting diarrhea and generalized weakness she was evaluated in the emergency room vital examination on presentation reveals a temperature of 100 pulse 82 respiration 19 and blood pressure 100/57 pulse ox 97% on room air her white blood count was 17.9 hemoglobin 12.5 platelet count 213 sodium 132 potassium 3.7 chloride 99 CO2 23 BUN 14 creatinine 0.77 lactic acid was elevated at 2.9 urine analysis revealed cloudy urine with 8 white blood cells coronavirus PCR was negative chest x-ray done in the emergency room revealed a small density in the lateral right lung base. Patient was admitted to medical floor she was started on IV Rocephin and IV fluid. Patient was recently admitted to [facility] was febrile illness, elevated liver enzymes, evidence of cholecystitis and gallbladder sludge, she has a previous history of Clostridium difficile colitis. On 10/08/2020 patient was seen and examined on the medical floor she is alert and oriented 3 in no distress he is still complaining of abdominal pain otherwise she denies any complaints nothing by mouth this morning for abdomen ultrasound we are awaiting test and results and we are awaiting further recommendation from surgery otherwise there is no complaints there is no fever or chills no headache or dizziness no chest pain no shortness of breath no cough no nausea or vomiting no diarrhea no blood in the stools no burning with urination no frequency or urgency and no hematuria On 10/09/2020 patient was seen and examined on the medical floor she is alert and oriented 3 in no apparent distress since yesterday C. diff toxin is positive patient was started on oral vancomycin she is still complaining of abdominal discomfort diarrhea has improved otherwise she denies any complaints there is no fever or chills no headache or dizziness no chest pain no shortness of breath no cough no nausea or vomiting no burning with urination no frequency or urgency and no hematuria Objective - Vital Signs Vital signs: Vital Signs Temp 97.9 F 10/09/20 08:00 Pulse 54 L 10/09/20 08:00 Resp 20 10/09/20 08:00 BP 181/76 10/09/20 08:00 Pulse Ox 92 L 10/09/20 08:00 Intake & Output 10/08/20 10/09/20 10/09/20 18:59 06:59 18:59 Output Total 3 Balance -3 Output: Urine 3 Other: Voiding Method Toilet # Bowel Movements 6 - Exam In general patient is alert and oriented 3 in no apparent distress HEENT head normocephalic and atraumatic Neck is supple no JVD no goiter no lymphadenopathy Chest exam reveals a few scattered crackles no wheezing Cardiac exam reveals regular heart sounds no murmurs Abdomen is soft with mild diffuse tenderness no organomegaly with normal bowel sounds Extremity exam reveals no edema no cyanosis or clubbing Neurological examination reveals no gross focal deficit - Labs CBC & Chem 7: 10/08/20 08:21 10/08/20 08:21 Labs: Microbiology - Last 24 Hours (Table) 10/07/20 01:10 Blood Culture - Preliminary Blood No Growth after 48 hours 10/07/20 01:04 Blood Culture - Preliminary Blood No Growth after 48 hours Assessment and Plan Plan: 1. Abdominal pain with nausea vomiting and diarrhea, this could be related to acute cholecystitis versus close treat him deficit colitis, will check abdomen ultrasound will check stools for C. diff 2. Underlying history of coronary artery disease with history of angioplasty and stent to the LAD in August 2019 3. Underlying history of hypertension 4. Underlying history of mild dementia 5. Underlying history of degenerative disc disease with chronic back pain 6. Slight elevation in alkaline phosphatase, at this time, during the last admission patient had severe elevation in all liver enzymes, she underwent complete workup including cholangiopancreatography MRI there was no evidence of malignancy 7. Clostridium difficile colitis patient started on oral vancomycin infectious disease following At this time patient is admitted to medical floor Abdomen ultrasound was ordered C. diff toxin PCR was ordered Consultation to Dr. geoff escalante Will follow closely
[2020-10-09] MEDS: ATORVASTATIN 40 MG TAB PO SCH (20:44)
--- NOTE | 2020-10-09 23:37 | PN ---
PROGRESS NOTE DATE OF SERVICE: 10/09/2020 REASON FOR FOLLOWUP: C difficile colitis. INTERVAL HISTORY: Patient is currently afebrile. The patient denies having any chest pain, shortness of breath or cough. No abdominal pain and the patient's diarrhea has improved. PHYSICAL EXAMINATION: Blood pressure 134/73, pulse of 73, temperature 98. She is 94% on room air. General description: The patient is an elderly female lying in bed in no distress. Respiratory system: Unlabored breathing, clear to auscultation anteriorly. Heart S1, S2. Regular rate and rhythm. Abdomen soft, no tenderness. LABS: Hemoglobin is 10.1, white count 12.8. BUN of 8, creatinine 0.47. DIAGNOSTIC IMPRESSION AND PLAN: Patient with acute C difficile colitis. This patient has shown some clinical response to the vancomycin. Continue along with the Questran. Continue probiotic and monitor clinical course closely. MMODL / IJN: [id number] /
[2020-10-10] MEDS: metroNIDAZOLE-NS PMX 500 MG in SALINE 1 100ML.BAG IVPB SCH ×3 (02:24→14:15)
[2020-10-10] MEDS: VANCOMYCIN 125 MG CAPSULE PO SCH ×2 (05:34→11:33)
[2020-10-10] MEDS: PANTOPRAZOLE 40 MG TABLET PO SCH (08:33)
[2020-10-10] MEDS: ASPIRIN 81 MG PO SCH ×2 (08:33→08:35)
[2020-10-10] MEDS: CLOPIDOGREL 75 MG TAB PO SCH (08:34)
[2020-10-10] MEDS: MEMANTINE 10 MG TAB PO SCH ×2 (08:34→20:30)
[2020-10-10] MEDS: METOPROLOL SUCCINATE (ER) 25 MG TAB.ER.24H PO SCH (08:34)
[2020-10-10] MEDS: LOSARTAN 50 MG TAB PO SCH (08:35)
[2020-10-10] MEDS: RIVASTIGMINE 9.5MG/24HR PATCH TRANSDERM SCH ×2 (08:37→08:40)
[2020-10-10] MEDS: CITALOPRAM HYDROBROMIDE 10 MG TAB PO SCH (08:38)
[2020-10-10] MEDS: RAW PROBIOTICS PO SCH (08:48)
[2020-10-10 09:01] LABS: Basophils % (A) 1 %; Eosinophils # (A) 0.1 k/uL (0-0.7); Eosinophils % (A) 2 %; HCT 33.2 % (34.0-46.0); HGB 11.4 gm/dL (11.4-16.0); Lymphocytes # (A) 1.4 k/uL (1.0-4.8); Lymphocytes % (A) 22 %; MCH 31.7 pg (25.0-35.0); MCHC 34.4 g/dL (31.0-37.0); MCV 92.2 fL (80.0-100.0); Monocytes # (A) 0.3 k/uL (0-1.0); Monocytes % (A) 5 %; Neutrophils # (A) 4.1 k/uL (1.3-7.7); Neutrophils % (A) 69 %; Platelet Count 232 k/uL (150-450); RDW 12.7 % (11.5-15.5)
[2020-10-10 09:15] LABS: African American GFR (CKD) >90 (>60 ml/min/1.73 sqM); Anion Gap 5 mmol/L; Blood Urea Nitrogen 4 mg/dL (7-17); Calcium 8.9 mg/dL (8.4-10.2); Carbon Dioxide 24 mmol/L (22-30); Chloride 108 mmol/L (98-107); Glucose 107 mg/dL (74-99); Non-African American GFR(CKD) >90 (>60 ml/min/1.73 sqM); Potassium 3.4 mmol/L (3.5-5.1); Sodium 137 mmol/L (137-145)
--- NOTE | 2020-10-10 10:19 | XR ---
2 view abdomen HISTORY: Colitis, C. difficile 2 views the abdomen Lung bases show blunted costophrenic angles, hemidiaphragms partially obscured. Heart size may be acc entuated by rotation, there is a spinal curvature. There are air-fluid levels without bowel distentio n. No evident pneumoperitoneum. Probable vascular calcifications are present within the pelvis. Arthr opathy noted within the hips, difficult to exclude osteonecrosis of the femoral heads, degenerative d isc changes are noted in the visualized spine. IMPRESSION: Nonspecific bowel gas pattern. Probable basilar effusions may be present with associated atelectasis. Additional findings above.
[2020-10-10] MEDS: CHOLESTYRAMINE (WITH SUGAR) 4 GM PACKET PO SCH ×2 (10:25→20:32)
[2020-10-10] MEDS: SODIUM CHLORIDE 0.9% 1,000 ML IV SCH ×2 (10:29→20:32)
[2020-10-10] MEDS ORDERED: POTASSIUM CHLORIDE ER 20 MEQ TAB.ER PO STA (11:24)
--- NOTE | 2020-10-10 11:27 | P.PN ---
<LovelyjohnLori beard - Last Filed: 10/10/20 11:22> Subjective Progress Note Date: 10/10/20 CHIEF COMPLAINT: Abdominal pain and diarrhea HISTORY OF PRESENT ILLNESS: Patient complains of lower abdominal cramping with diarrhea. She is being currently treated for C. diff colitis. She is having multiple stools. She reports that the stools are starting to have a thicker consistency. She denies any right upper quadrant pain. She denies any increase in pain after eating. She did have some nausea earlier this morning. Afebrile. WBC normalized at 6.0H to be 11.4 potassium 3.4 creatinine 0.50 Abdominal x-ray nonspecific bowel gas pattern. Probable basilar effusions may be present with associated atelectasis. PHYSICAL EXAM: VITAL SIGNS: Reviewed. GENERAL: Well-developed in no acute distress. HEENT: No sclera icterus. Extraocular movements grossly intact. Moist buccal mucosa. Head is atraumatic, normocephalic. ABDOMEN: Soft. Nondistended. Nontender. NEUROLOGIC: Alert and oriented. Cranial nerves II through XII grossly intact. ASSESSMENT: 1. Abdominal pain with nausea, vomiting and diarrhea likely related to patient's C. diff colitis 2. C. diff colitis 3. Chronic cholecystitis 4. Hypokalemia PLAN: -Continue supportive care -Replace potassium and check magnesium level -Continue treatment for C. diff colitis -No indication for cholecystectomy currently Physician Circulation Manager note has been reviewed by physician. Signing provider agrees with the documented findings, assessment, and plan of care. Objective - Vital Signs Vital signs: Vital Signs Temp 98.6 F 10/10/20 07:42 Pulse 57 L 10/10/20 07:42 Resp 28 H 10/10/20 07:42 BP 165/57 10/10/20 07:42 Pulse Ox 94 L 10/10/20 02:25 Intake & Output 10/09/20 10/10/20 10/10/20 18:59 06:59 18:59 Output Total 300 Balance -300 Output: Urine 300 Other: Voiding Method Toilet # Voids 2 - Labs CBC & Chem 7: 10/10/20 08:40 10/10/20 08:40 Labs: Abnormal Lab Results - Last 24 Hours (Table) 10/10/20 10/10/20 Range/Units 08:40 08:40 RBC 3.60 L (3.80-5.40) m/uL Hct 33.2 L (34.0-46.0) % Potassium 3.4 L (3.5-5.1) mmol/L Chloride 108 H (98-107) mmol/L BUN 4 L (7-17) mg/dL Creatinine 0.50 L (0.52-1.04) mg/dL Glucose 107 H (74-99) mg/dL Microbiology - Last 24 Hours (Table) 10/07/20 01:10 Blood Culture - Preliminary Blood No Growth after 72 hours 10/07/20 01:04 Blood Culture - Preliminary Blood No Growth after 72 hours <Tapan Yarbrough - Last Filed: 10/10/20 18:16> Subjective As above. Patient doing better today. She has only had 2 bowel lumens. Denies abdominal pain. X-rays benign appearing. Continue diet. Continue antibiotics. Objective - Vital Signs Vital signs: Vital Signs Temp 98.3 F 10/10/20 14:08 Pulse 57 L 10/10/20 07:42 Resp 16 10/10/20 14:08 BP 153/80 10/10/20 14:08 Pulse Ox 97 10/10/20 14:08 Intake & Output 10/09/20 10/10/20 10/10/20 18:59 06:59 18:59 Output Total 300 Balance -300 Output: Urine 300 Other: Voiding Method Toilet # Voids 2 3 # Bowel Movements 2 - Labs CBC & Chem 7: 10/10/20 08:40 10/10/20 08:40 Labs: Abnormal Lab Results - Last 24 Hours (Table) 10/10/20 10/10/20 10/10/20 Range/Units 08:40 08:40 08:40 RBC 3.60 L (3.80-5.40) m/uL Hct 33.2 L (34.0-46.0) % Potassium 3.4 L (3.5-5.1) mmol/L Chloride 108 H (98-107) mmol/L BUN 4 L (7-17) mg/dL Creatinine 0.50 L (0.52-1.04) mg/dL Glucose 107 H (74-99) mg/dL Magnesium 1.5 L (1.6-2.3) mg/dL Microbiology - Last 24 Hours (Table) 10/07/20 01:10 Blood Culture - Preliminary Blood No Growth after 72 hours 10/07/20 01:04 Blood Culture - Preliminary Blood No Growth after 72 hours
[2020-10-10] MEDS ORDERED: Potassium Replacement Protocol 1 EACH MISC MISCELLANE PRN (17:59)
[2020-10-10] MEDS ORDERED: Magnesium Replacement Protocol 1 EACH MISC MISCELLANE PRN (17:59)
--- NOTE | 2020-10-10 18:31 | P.PN ---
Subjective Progress Note Date: 10/10/20 Brittanie Pierre, is an 80-year-old female who presented to [facility] emergency room with a chief complaint of nausea vomiting diarrhea and generalized weakness she was evaluated in the emergency room vital examination on presentation reveals a temperature of 100 pulse 82 respiration 19 and blood pressure 100/57 pulse ox 97% on room air her white blood count was 17.9 hemoglobin 12.5 platelet count 213 sodium 132 potassium 3.7 chloride 99 CO2 23 BUN 14 creatinine 0.77 lactic acid was elevated at 2.9 urine analysis revealed cloudy urine with 8 white blood cells coronavirus PCR was negative chest x-ray done in the emergency room revealed a small density in the lateral right lung base. Patient was admitted to medical floor she was started on IV Rocephin and IV fluid. Patient was recently admitted to [facility] was febrile illness, elevated liver enzymes, evidence of cholecystitis and gallbladder sludge, she has a previous history of Clostridium difficile colitis. On 10/08/2020 patient was seen and examined on the medical floor she is alert and oriented 3 in no distress he is still complaining of abdominal pain otherwise she denies any complaints nothing by mouth this morning for abdomen ultrasound we are awaiting test and results and we are awaiting further recommendation from surgery otherwise there is no complaints there is no fever or chills no headache or dizziness no chest pain no shortness of breath no cough no nausea or vomiting no diarrhea no blood in the stools no burning with urination no frequency or urgency and no hematuria On 10/09/2020 patient was seen and examined on the medical floor she is alert and oriented 3 in no apparent distress since yesterday C. diff toxin is positive patient was started on oral vancomycin she is still complaining of abdominal discomfort diarrhea has improved otherwise she denies any complaints there is no fever or chills no headache or dizziness no chest pain no shortness of breath no cough no nausea or vomiting no burning with urination no frequency or urgency and no hematuria On 10/10/2020 patient was seen and examined on the medical floor she is alert and oriented 3 in no apparent distress there is no fever or chills no headache or dizziness no chest pain no shortness of breath no cough she is still complaining of abdominal discomfort and diarrhea there is no blood in the stools no burning with urination no frequency or urgency and no hematuria, white blood count is down to 6.0 at this time will correct potassium and magnesium per protocol , patient was seen by infectious disease and antibiotics were switched to Dificit 200 mg by mouth twice a day Objective - Vital Signs Vital signs: Vital Signs Temp 98.3 F 10/10/20 14:08 Pulse 57 L 10/10/20 07:42 Resp 16 10/10/20 14:08 BP 153/80 10/10/20 14:08 Pulse Ox 97 10/10/20 14:08 Intake & Output 10/09/20 10/10/20 10/10/20 18:59 06:59 18:59 Output Total 300 Balance -300 Output: Urine 300 Other: Voiding Method Toilet # Voids 2 3 # Bowel Movements 2 - Exam In general patient is alert and oriented 3 in no apparent distress HEENT head normocephalic and atraumatic Neck is supple no JVD no goiter no lymphadenopathy Chest exam reveals a few scattered crackles no wheezing Cardiac exam reveals regular heart sounds no murmurs Abdomen is soft with mild diffuse tenderness no organomegaly with normal bowel sounds Extremity exam reveals no edema no cyanosis or clubbing Neurological examination reveals no gross focal deficit - Labs CBC & Chem 7: 10/10/20 08:40 10/10/20 08:40 Labs: Abnormal Lab Results - Last 24 Hours (Table) 10/10/20 10/10/20 10/10/20 Range/Units 08:40 08:40 08:40 RBC 3.60 L (3.80-5.40) m/uL Hct 33.2 L (34.0-46.0) % Potassium 3.4 L (3.5-5.1) mmol/L Chloride 108 H (98-107) mmol/L BUN 4 L (7-17) mg/dL Creatinine 0.50 L (0.52-1.04) mg/dL Glucose 107 H (74-99) mg/dL Magnesium 1.5 L (1.6-2.3) mg/dL Microbiology - Last 24 Hours (Table) 10/07/20 01:10 Blood Culture - Preliminary Blood No Growth after 72 hours 10/07/20 01:04 Blood Culture - Preliminary Blood No Growth after 72 hours Assessment and Plan Plan: 1. Abdominal pain with nausea vomiting and diarrhea, this could be related to acute cholecystitis versus close treat him deficit colitis, will check abdomen ultrasound will check stools for C. diff 2. Underlying history of coronary artery disease with history of angioplasty and stent to the LAD in August 2019 3. Underlying history of hypertension 4. Underlying history of mild dementia 5. Underlying history of degenerative disc disease with chronic back pain 6. Slight elevation in alkaline phosphatase, at this time, during the last admission patient had severe elevation in all liver enzymes, she underwent complete workup including cholangiopancreatography MRI there was no evidence of malignancy 7. Clostridium difficile colitis patient started on oral vancomycin infectious disease following At this time patient is admitted to medical floor Abdomen ultrasound was ordered C. diff toxin PCR was ordered Consultation to Dr. tellez requested Will follow closely
[2020-10-10] MEDS: ATORVASTATIN 40 MG TAB PO SCH (20:30)
[2020-10-10] MEDS: HYDROcodone/APAP 5-325MG 1 EACH TAB PO PRN (20:30)
[2020-10-10] MEDS: FIDAXOMICIN 200 MG TABLET PO SCH (20:31)
--- NOTE | 2020-10-10 20:41 | PN ---
PROGRESS NOTE DATE OF SERVICE: 10/10/2020 REASON FOR FOLLOWUP: C difficile colitis. INTERVAL HISTORY: The patient is currently afebrile. The patient is breathing comfortably. The patient denies having any chest pain, shortness of breath or cough. Still complaining of diarrhea with multiple loose stools. No blood or mucus in the stool. PHYSICAL EXAMINATION: Blood pressure 153/80 with a pulse of 57, temperature 98.3. He is 97% on room air. General description is an elderly female lying in bed in no distress. RESPIRATORY SYSTEM: Unlabored breathing. Clear to auscultation anteriorly. HEART: S1, S2. Regular rate and rhythm. ABDOMEN: Soft. No tenderness. LAB: Hemoglobin is 11.4, white count 6.0, BUN of 4, creatinine 0.50. DIAGNOSTIC IMPRESSION AND PLAN: Patient with Clostridium difficile colitis admitted to the hospital with diarrhea. Stool for C difficile is positive. Did have persistent diarrhea despite being on vancomycin. Antibiotic was switched over to Dificid and we will see clinical response and monitor clinical course closely. Continue with supportive care. MMODL / IJN: [id number] /
[2020-10-11 09:12] LABS: Basophils # (A) 0.05 X 10*3/uL (0.00-0.10); Basophils % (A) 0.7 %; Eosinophils % (A) 2.9 %; HCT 34.5 % (37.2-46.3); HGB 11.5 g/dL (12.0-15.0); Lymphocytes % (A) 27.5 %; MCH 30.8 pg (27.0-32.0); MCHC 33.3 g/dL (32.0-37.0); MCV 92.5 fL (80.0-97.0); Mean Platelet Volume 11.6 fL (9.5-12.2); Monocytes # (A) 0.66 X 10*3/uL (0.20-1.00); Monocytes % (A) 9.6 %; Neutrophils # (A) 4.07 X 10*3/uL (1.80-7.70); Neutrophils % (A) 58.9 %; Platelet Count 245 X 10*3/uL (140-440); RBC 3.73 X 10*6/uL (4.10-5.20); RDW 13.2 % (11.5-14.5); WBC 6.91 X 10*3/uL (4.50-10.00)
[2020-10-11] MEDS: CLOPIDOGREL 75 MG TAB PO SCH (09:13)
[2020-10-11] MEDS: LOSARTAN 50 MG TAB PO SCH (09:13)
[2020-10-11] MEDS: PANTOPRAZOLE 40 MG TABLET PO SCH (09:13)
[2020-10-11] MEDS: METOPROLOL SUCCINATE (ER) 25 MG TAB.ER.24H PO SCH (09:14)
[2020-10-11] MEDS: MEMANTINE 10 MG TAB PO SCH ×2 (09:14→20:31)
[2020-10-11] MEDS: FIDAXOMICIN 200 MG TABLET PO SCH ×2 (09:14→20:31)
[2020-10-11] MEDS: RAW PROBIOTICS PO SCH (09:15)
[2020-10-11] MEDS: RIVASTIGMINE 9.5MG/24HR PATCH TRANSDERM SCH ×3 (09:16→14:55)
[2020-10-11] MEDS: ASPIRIN 81 MG PO SCH ×2 (09:19→14:54)
[2020-10-11] MEDS: CITALOPRAM HYDROBROMIDE 10 MG TAB PO SCH (09:23)
[2020-10-11 10:00] LABS: ALT 17 U/L (8-44); AST 24 U/L (13-35); African American GFR (CKD) 105.9 (60.0-200.0); Albumin/Globulin Ratio 1.65 (1.60-3.17); Alkaline Phosphatase 130 U/L (41-126); Blood Urea Nitrogen <5.0 mg/dL (9.0-27.0); Calcium 9.3 mg/dL (8.7-10.3); Carbon Dioxide 21.4 mmol/L (21.6-31.8); Chloride 108 mmol/L (96-109); Glucose 84 mg/dL (70-110); Magnesium 1.6 mg/dL (1.5-2.4); Non-African American GFR(CKD) 91.4 (60.0-200.0); Potassium 3.9 mmol/L (3.5-5.5); Sodium 139 mmol/L (135-145); Total Bilirubin 0.5 mg/dL (0.2-1.2); Total Protein 5.3 g/dL (6.2-8.2)
[2020-10-11] MEDS ORDERED: Magnesium Replacement Protocol 1 EACH MISC MISCELLANE PRN (10:27)
[2020-10-11] MEDS ORDERED: Potassium Replacement Protocol 1 EACH MISC MISCELLANE PRN (10:27)
[2020-10-11] MEDS ORDERED: POTASSIUM CHLORIDE ER 20 MEQ TAB.ER PO SCH (11:00)
[2020-10-11] MEDS: CHOLESTYRAMINE (WITH SUGAR) 4 GM PACKET PO SCH ×2 (11:06→20:31)
[2020-10-11] MEDS: MAGNESIUM SULFATE-D5W PMX 1 GM in DEXTROSE/WATER 1 100ML.BAG IVPB SCH ×2 (11:09→12:54)
[2020-10-11] MEDS: SODIUM CHLORIDE 0.9% 1,000 ML IV SCH (11:10)
--- NOTE | 2020-10-11 11:18 | P.PN ---
<Lori Arredondo - Last Filed: 10/11/20 10:53> Subjective Progress Note Date: 10/11/20 CHIEF COMPLAINT: Abdominal pain and diarrhea HISTORY OF PRESENT ILLNESS: Patient's abdominal pain has improved. She is no longer having diarrhea. Her last bowel movement was yesterday evening and was formed stool. She has any nausea or vomiting. Infectious disease did place her on Dificid for her C. diff. Patient denies any right upper quadrant pain. She is afebrile. WBC 6.91 Hgb 11.5 potassium 3.9 PHYSICAL EXAM: VITAL SIGNS: Reviewed. GENERAL: Well-developed in no acute distress. HEENT: No sclera icterus. Extraocular movements grossly intact. Moist buccal mucosa. Head is atraumatic, normocephalic. ABDOMEN: Soft. Nondistended. Nontender. NEUROLOGIC: Alert and oriented. Cranial nerves II through XII grossly intact. ASSESSMENT: 1. Abdominal pain with nausea, vomiting and diarrhea likely related to patient 's C. diff colitis 2. C. diff colitis 3. Chronic cholecystitis 4. Hypokalemia resolved PLAN: -Continue treatment for C. diff colitis -No indication for cholecystectomy currently -Patient is stable for discharge from surgical standpoint Physician Squirrel Man note has been reviewed by physician. Signing provider agrees with the documented findings, assessment, and plan of care. Objective - Vital Signs Vital signs: Vital Signs Temp 98.3 F 10/11/20 07:51 Pulse 57 L 10/11/20 07:51 Resp 20 10/11/20 07:51 BP 193/80 10/11/20 07:51 Pulse Ox 92 L 10/11/20 07:51 Intake & Output 10/10/20 10/11/20 10/11/20 18:59 06:59 18:59 Other: Voiding Method Toilet # Voids 3 1 # Bowel Movements 2 1 - Labs CBC & Chem 7: 10/11/20 05:58 10/11/20 05:58 Labs: Abnormal Lab Results - Last 24 Hours (Table) 10/10/20 10/11/20 10/11/20 Range/Units 08:40 05:58 05:58 RBC 3.73 L (4.10-5.20) X 10*6/uL Hgb 11.5 L (12.0-15.0) g/dL Hct 34.5 L (37.2-46.3) % Carbon Dioxide 21.4 L (21.6-31.8) mmol/L BUN <5.0 L (9.0-27.0) mg/dL Creatinine 0.5 L (0.6-1.5) mg/dL Magnesium 1.5 L (1.6-2.3) mg/dL Alkaline Phosphatase 130 H (41-126) U/L Total Protein 5.3 L (6.2-8.2) g/dL Albumin 3.30 L (3.80-4.90) g/dL Microbiology - Last 24 Hours (Table) 10/07/20 01:10 Blood Culture - Preliminary Blood No Growth after 96 hours 10/07/20 01:04 Blood Culture - Preliminary Blood No Growth after 96 hours <Tapan Yarbrough - Last Filed: 10/11/20 12:00> Subjective As above. Patient doing well today. Stools are solid. No pain. We'll sign off. Call if needed. Objective - Vital Signs Vital signs: Vital Signs Temp 98.3 F 10/11/20 07:51 Pulse 57 L 10/11/20 07:51 Resp 20 10/11/20 07:51 BP 193/80 10/11/20 07:51 Pulse Ox 92 L 10/11/20 07:51 Intake & Output 10/10/20 10/11/20 10/11/20 18:59 06:59 18:59 Other: Voiding Method Toilet # Voids 3 1 # Bowel Movements 2 1 - Labs CBC & Chem 7: 10/11/20 05:58 10/11/20 05:58 Labs: Abnormal Lab Results - Last 24 Hours (Table) 10/11/20 10/11/20 Range/Units 05:58 05:58 RBC 3.73 L (4.10-5.20) X 10*6/uL Hgb 11.5 L (12.0-15.0) g/dL Hct 34.5 L (37.2-46.3) % Carbon Dioxide 21.4 L (21.6-31.8) mmol/L BUN <5.0 L (9.0-27.0) mg/dL Creatinine 0.5 L (0.6-1.5) mg/dL Alkaline Phosphatase 130 H (41-126) U/L Total Protein 5.3 L (6.2-8.2) g/dL Albumin 3.30 L (3.80-4.90) g/dL Microbiology - Last 24 Hours (Table) 10/07/20 01:10 Blood Culture - Preliminary Blood No Growth after 96 hours 10/07/20 01:04 Blood Culture - Preliminary Blood No Growth after 96 hours
[2020-10-11] MEDS: hydrALAZINE HCL 25 MG TAB PO SCH ×2 (11:24→20:31)
--- NOTE | 2020-10-11 14:01 | P.PN ---
Subjective Progress Note Date: 10/11/20 Brittanie Pierre, is an 80-year-old female who presented to [facility] emergency room with a chief complaint of nausea vomiting diarrhea and generalized weakness she was evaluated in the emergency room vital examination on presentation reveals a temperature of 100 pulse 82 respiration 19 and blood pressure 100/57 pulse ox 97% on room air her white blood count was 17.9 hemoglobin 12.5 platelet count 213 sodium 132 potassium 3.7 chloride 99 CO2 23 BUN 14 creatinine 0.77 lactic acid was elevated at 2.9 urine analysis revealed cloudy urine with 8 white blood cells coronavirus PCR was negative chest x-ray done in the emergency room revealed a small density in the lateral right lung base. Patient was admitted to medical floor she was started on IV Rocephin and IV fluid. Patient was recently admitted to [facility] was febrile illness, elevated liver enzymes, evidence of cholecystitis and gallbladder sludge, she has a previous history of Clostridium difficile colitis. On 10/08/2020 patient was seen and examined on the medical floor she is alert and oriented 3 in no distress he is still complaining of abdominal pain otherwise she denies any complaints nothing by mouth this morning for abdomen ultrasound we are awaiting test and results and we are awaiting further recommendation from surgery otherwise there is no complaints there is no fever or chills no headache or dizziness no chest pain no shortness of breath no cough no nausea or vomiting no diarrhea no blood in the stools no burning with urination no frequency or urgency and no hematuria On 10/09/2020 patient was seen and examined on the medical floor she is alert and oriented 3 in no apparent distress since yesterday C. diff toxin is positive patient was started on oral vancomycin she is still complaining of abdominal discomfort diarrhea has improved otherwise she denies any complaints there is no fever or chills no headache or dizziness no chest pain no shortness of breath no cough no nausea or vomiting no burning with urination no frequency or urgency and no hematuria On 10/10/2020 patient was seen and examined on the medical floor she is alert and oriented 3 in no apparent distress there is no fever or chills no headache or dizziness no chest pain no shortness of breath no cough she is still complaining of abdominal discomfort and diarrhea there is no blood in the stools no burning with urination no frequency or urgency and no hematuria, white blood count is down to 6.0 at this time will correct potassium and magnesium per protocol , patient was seen by infectious disease and antibiotics were switched to Dificit 200 mg by mouth twice a day On 10/11/2020 patient is alert and oriented x 3. patient reports improvement with the dificit. denies any abdominal pain or diarrhea for 24 hours. Per case management patient does not have any coverage for the dificit medication and will cost over 1000 dollars. at this time will keep patient to receive medication. Denies any chest pain or shortness of breath. denies any nausea vomiting or diarrhea. Denies any urinary burning or frequency. Objective - Vital Signs Vital signs: Vital Signs Temp 98.3 F 10/11/20 07:51 Pulse 57 L 10/11/20 07:51 Resp 20 10/11/20 07:51 BP 193/80 10/11/20 07:51 Pulse Ox 92 L 10/11/20 07:51 Intake & Output 10/10/20 10/11/20 10/11/20 18:59 06:59 18:59 Other: Voiding Method Toilet # Voids 3 1 # Bowel Movements 2 1 - Exam In general patient is alert and oriented 3 in no apparent distress HEENT head normocephalic and atraumatic Neck is supple no JVD no goiter no lymphadenopathy Chest exam reveals a few scattered crackles no wheezing Cardiac exam reveals regular heart sounds no murmurs Abdomen is soft with mild diffuse tenderness no organomegaly with normal bowel sounds Extremity exam reveals no edema no cyanosis or clubbing Neurological examination reveals no gross focal deficit - Labs CBC & Chem 7: 10/11/20 05:58 10/11/20 05:58 Labs: Abnormal Lab Results - Last 24 Hours (Table) 10/11/20 10/11/20 Range/Units 05:58 05:58 RBC 3.73 L (4.10-5.20) X 10*6/uL Hgb 11.5 L (12.0-15.0) g/dL Hct 34.5 L (37.2-46.3) % Carbon Dioxide 21.4 L (21.6-31.8) mmol/L BUN <5.0 L (9.0-27.0) mg/dL Creatinine 0.5 L (0.6-1.5) mg/dL Alkaline Phosphatase 130 H (41-126) U/L Total Protein 5.3 L (6.2-8.2) g/dL Albumin 3.30 L (3.80-4.90) g/dL Microbiology - Last 24 Hours (Table) 10/07/20 01:10 Blood Culture - Preliminary Blood No Growth after 96 hours 10/07/20 01:04 Blood Culture - Preliminary Blood No Growth after 96 hours Assessment and Plan Plan: 1. Abdominal pain with nausea vomiting and diarrhea, this could be related to acute cholecystitis versus close treat him deficit colitis, will check abdomen ultrasound will check stools for C. diff 2. Underlying history of coronary artery disease with history of angioplasty and stent to the LAD in August 2019 3. Underlying history of hypertension 4. Underlying history of mild dementia 5. Underlying history of degenerative disc disease with chronic back pain 6. Slight elevation in alkaline phosphatase, at this time, during the last admission patient had severe elevation in all liver enzymes, she underwent complete workup including cholangiopancreatography MRI there was no evidence of malignancy 7. Clostridium difficile colitis patient started on oral vancomycin infectious disease following/ patient switched to dificid. awaiting insurance coverage At this time patient is admitted to medical floor
[2020-10-11] MEDS: ATORVASTATIN 40 MG TAB PO SCH (20:31)
[2020-10-11] MEDS: HYDROcodone/APAP 5-325MG 1 EACH TAB PO PRN (20:43)
--- NOTE | 2020-10-11 23:26 | PN ---
PROGRESS NOTE DATE OF SERVICE: 10/11/2020 REASON FOR FOLLOWUP: C difficile colitis. INTERVAL HISTORY: Patient is currently afebrile. Patient is breathing comfortably. The patient denies any chest pain or shortness of breath or cough. The patient mentioned diarrhea has resolved. No bowel movement since yesterday. No nausea, vomiting. Overall feeling better. PHYSICAL EXAMINATION: Blood pressure 109/82 with a pulse of 79, temperature 98. She is 95% on room air. General description is an elderly female lying in bed in no distress. Respiratory system: Unlabored breathing, clear to auscultation anteriorly. Heart: S1, S2. Regular rate and rhythm. Abdomen soft, no tenderness. LABS: Hemoglobin is 11.5, white count 6.91. BUN of 5, creatinine 0.59. DIAGNOSTIC IMPRESSION AND PLAN: Patient with C difficile colitis recurrent episode. She did not respond very well to the vancomycin, seem to oral Dificid, however, cost of Dificid in outpatient setting is high for this patient , possible versus switching her back to Vanco on discharge. We will discuss further with the admitting team. Continue supportive care. MMODL / IJN: [id number] /
[2020-10-12 07:39] VITALS: TEMP 98.4
[2020-10-12 09:02] LABS: ALT 19 U/L (4-34); AST 39 U/L (14-36); African American GFR (CKD) >90 (>60 ml/min/1.73 sqM); Albumin 3.5 g/dL (3.5-5.0); Albumin/Globulin Ratio 1.3; Alkaline Phosphatase 143 U/L (38-126); Anion Gap 5 mmol/L; Blood Urea Nitrogen 2 mg/dL (7-17); Calcium 9.6 mg/dL (8.4-10.2); Carbon Dioxide 25 mmol/L (22-30); Chloride 106 mmol/L (98-107); Globulin 2.8 g/dL; Glucose 100 mg/dL (74-99); Non-African American GFR(CKD) >90 (>60 ml/min/1.73 sqM); Potassium 4.5 mmol/L (3.5-5.1); Sodium 136 mmol/L (137-145); Total Bilirubin 0.6 mg/dL (0.2-1.3); Total Protein 6.3 g/dL (6.3-8.2)
[2020-10-12] MEDS: FIDAXOMICIN 200 MG TABLET PO SCH (10:44)
[2020-10-12] MEDS: CITALOPRAM HYDROBROMIDE 10 MG TAB PO SCH (10:44)
[2020-10-12] MEDS: LOSARTAN 50 MG TAB PO SCH (10:45)
[2020-10-12] MEDS: CHOLESTYRAMINE (WITH SUGAR) 4 GM PACKET PO SCH (10:45)
[2020-10-12] MEDS: MEMANTINE 10 MG TAB PO SCH (10:45)
[2020-10-12] MEDS: METOPROLOL SUCCINATE (ER) 25 MG TAB.ER.24H PO SCH (10:46)
[2020-10-12] MEDS: ASPIRIN 81 MG PO SCH (10:46)
[2020-10-12] MEDS: RIVASTIGMINE 9.5MG/24HR PATCH TRANSDERM SCH (10:46)
[2020-10-12] MEDS: PANTOPRAZOLE 40 MG TABLET PO SCH (10:47)
[2020-10-12] MEDS: CLOPIDOGREL 75 MG TAB PO SCH (10:47)
[2020-10-12] MEDS: hydrALAZINE HCL 25 MG TAB PO SCH (10:47)
[2020-10-12] MEDS: RAW PROBIOTICS PO SCH (10:48)
[2020-10-12 11:07] LABS: Basophils # (A) 0.06 X 10*3/uL (0.00-0.10); Basophils % (A) 0.6 %; Eosinophils # (A) 0.21 X 10*3/uL (0.04-0.35); Eosinophils % (A) 2.1 %; HCT 39.2 % (37.2-46.3); Lymphocytes # (A) 2.26 X 10*3/uL (0.90-5.00); Lymphocytes % (A) 22.2 %; MCHC 33.2 g/dL (32.0-37.0); MCV 93.6 fL (80.0-97.0); Mean Platelet Volume 11.3 fL (9.5-12.2); Monocytes # (A) 0.94 X 10*3/uL (0.20-1.00); Monocytes % (A) 9.3 %; Neutrophils # (A) 6.63 X 10*3/uL (1.80-7.70); Neutrophils % (A) 65.2 %; Platelet Count 278 X 10*3/uL (140-440); RBC 4.19 X 10*6/uL (4.10-5.20); RDW 13.2 % (11.5-14.5); WBC 10.16 X 10*3/uL (4.50-10.00)
[2020-10-12 12:20] VITALS: BP 146/75; PULSE 64; RESP 18
--- NOTE | 2020-10-12 13:49 | P.DS ---
Providers Date of admission: 10/09/20 11:21 Expected date of discharge: 10/12/20 Attending physician: Mark Hope Consults: 10/07/20 01:18 Consult Physician Routine Consulting Provider: Cristiano Fay Consult Reason/Comments: Fever. patient known to you Do you want consulting provider notified?: Yes 10/07/20 09:12 Consult Physician Routine Consulting Provider: Chung Simmons Consult Reason/Comments: pneumonia Do you want consulting provider notified?: Yes 10/07/20 09:55 Consult Physician Routine Consulting Provider: Tapan Yarbrough Consult Reason/Comments: Gallbladder. Recent visit was suppose to see him for follow up this week Do you want consulting provider notified?: Yes Primary care physician: Markzach Hope [facility] Course: Diagnosis on discharge: 1. Abdominal pain with nausea vomiting and diarrhea, this could be related to acute cholecystitis and Clostridium difficile colitis 2. Underlying history of coronary artery disease with history of angioplasty and stent to the LAD in August 2019 3. Underlying history of hypertension 4. Underlying history of mild dementia 5. Underlying history of degenerative disc disease with chronic back pain 6. Slight elevation in alkaline phosphatase, at this time, during the last admission patient had severe elevation in all liver enzymes, she underwent complete workup including cholangiopancreatography MRI there was no evidence of malignancy 7. Clostridium difficile colitis patient started on oral vancomycin infectious disease following/ patient switched to dificid. awaiting insurance coverage Hospital course: Brittanie Pierre, is an 80-year-old female who presented to [facility] emergency room with a chief complaint of nausea vomiting diarrhea and generalized weakness she was evaluated in the emergency room vital examination on presentation reveals a temperature of 100 pulse 82 respiration 19 and blood pressure 100/57 pulse ox 97% on room air her white blood count was 17.9 hemoglobin 12.5 platelet count 213 sodium 132 potassium 3.7 chloride 99 CO2 23 BUN 14 creatinine 0.77 lactic acid was elevated at 2.9 urine analysis revealed cloudy urine with 8 white blood cells coronavirus PCR was negative chest x-ray done in the emergency room revealed a small density in the lateral right lung base. Patient was admitted to medical floor she was started on IV Rocephin and IV fluid. Patient was recently admitted to [facility] was febrile illness, elevated liver enzymes, evidence of cholecystitis and gallbladder sludge, she has a previous history of Clostridium difficile colitis. On 10/08/2020 patient was seen and examined on the medical floor she is alert and oriented 3 in no distress he is still complaining of abdominal pain otherwise she denies any complaints nothing by mouth this morning for abdomen ultrasound we are awaiting test and results and we are awaiting further recommendation from surgery otherwise there is no complaints there is no fever or chills no headache or dizziness no chest pain no shortness of breath no cough no nausea or vomiting no diarrhea no blood in the stools no burning with urination no frequency or urgency and no hematuria On 10/09/2020 patient was seen and examined on the medical floor she is alert and oriented 3 in no apparent distress since yesterday C. diff toxin is positive patient was started on oral vancomycin she is still complaining of abdominal discomfort diarrhea has improved otherwise she denies any complaints there is no fever or chills no headache or dizziness no chest pain no shortness of breath no cough no nausea or vomiting no burning with urination no frequency or urgency and no hematuria On 10/10/2020 patient was seen and examined on the medical floor she is alert and oriented 3 in no apparent distress there is no fever or chills no headache or dizziness no chest pain no shortness of breath no cough she is still complaining of abdominal discomfort and diarrhea there is no blood in the stools no burning with urination no frequency or urgency and no hematuria, white blood count is down to 6.0 at this time will correct potassium and magnesium per protocol , patient was seen by infectious disease and antibiotics were switched to Dificit 200 mg by mouth twice a day On 10/11/2020 patient is alert and oriented x 3. patient reports improvement with the dificit. denies any abdominal pain or diarrhea for 24 hours. Per case management patient does not have any coverage for the dificit medication and will cost over 1000 dollars. at this time will keep patient to receive medication. Denies any chest pain or shortness of breath. denies any nausea vomiting or diarrhea. Denies any urinary burning or frequency. On 10/12/2020 patient was seen and examined on the medical floor she is alert and oriented 3 in no distress there is no fever or chills no headache or dizziness no chest pain no shortness of breath no cough no nausea or vomiting no abdominal pain she still has some loose stools but no blood in the stools no burning with urination no frequency or urgency and no hematuria. We'll to obtain Dificid as outpatient due to financial reasons, she was given a prescription for vancomycin 250 mg by mouth every 6 hours for 10 days she will be followed in our office in 10 days to assess if patient needs any further antibiotic treatment Patient Condition at Discharge: Poor Plan - Discharge Summary Discharge Rx Participant: Yes New Discharge Prescriptions: New hydrALAZINE HCL [Apresoline] 25 mg PO BID tab Vancomycin 250 mg PO QID 10 Days #40 capsule Continue Losartan Potassium 100 mg PO DAILY Rivastigmine 9.5MG/24Hr Patch [Exelon 9.5MG/24Hr Patch] 1 patch TRANSDERM DAILY Aspirin 81 mg PO DAILY #30 chew Atorvastatin [Lipitor] 40 mg PO HS #30 tab Clopidogrel [Plavix] 75 mg PO DAILY #30 tab Metoprolol Succinate (ER) [Toprol XL] 25 mg PO DAILY #30 tab.er.24h Memantine [Namenda] 10 mg PO BID Citalopram Hydrobromide [CeleXA] 10 mg PO DAILY Pantoprazole [Protonix] 40 mg PO AC-BRKFST tablet. Cholestyramine (with Sugar) [Cholestyramine Packet] 4 gm PO BID Discontinued Amoxic-Pot Clav 875-125Mg [Augmentin 875-125] 1 tab PO Q12HR 7 Days #14 tab No Action Probiotic 85 Billion 1 cap PO DAILY Discharge Medication List Losartan Potassium 100 mg PO DAILY 10/17/16 [History] Rivastigmine 9.5MG/24Hr Patch [Exelon 9.5MG/24Hr Patch] 1 patch TRANSDERM DAILY 05/05/19 [History] Aspirin 81 mg PO DAILY #30 chew 08/23/19 [Rx] Atorvastatin [Lipitor] 40 mg PO HS #30 tab 08/23/19 [Rx] Clopidogrel [Plavix] 75 mg PO DAILY #30 tab 08/23/19 [Rx] Metoprolol Succinate (ER) [Toprol XL] 25 mg PO DAILY #30 tab.er.24h 08/23/19 [Rx] Citalopram Hydrobromide [CeleXA] 10 mg PO DAILY 09/26/20 [History] Memantine [Namenda] 10 mg PO BID 09/26/20 [History] Probiotic 85 Billion 1 cap PO DAILY 09/26/20 [History] Pantoprazole [Protonix] 40 mg PO AC-BRKFST tablet. 09/30/20 [Rx] Cholestyramine (with Sugar) [Cholestyramine Packet] 4 gm PO BID 10/07/20 [History] Vancomycin 250 mg PO QID 10 Days #40 capsule 10/12/20 [Rx] hydrALAZINE HCL [Apresoline] 25 mg PO BID tab 10/12/20 [Rx] Follow up Appointment(s)/Referral(s): Mark Hope MD [Primary Care Provider] - 10/23/20 1:00 pm Patient Instructions/Handouts: C Diff (Clostridium Difficile) Infection (DC) Activity/Diet/Wound Care/Special Instructions: Home medication in med fridge on unit
[2020-10-12 14:01] VITALS: BMI 23.4
--- NOTE | 2020-10-12 16:00 | PN ---
PROGRESS NOTE DATE OF SERVICE: 10/12/2020 REASON FOR FOLLOWUP: C difficile colitis. INTERVAL HISTORY: The patient was seen on rounds this morning. The patient has been afebrile. The patient is feeling better. Breathing comfortably. The patient's diarrhea has resolved. No abdominal pain. No chest pain, shortness of breath or cough and wants to go home. PHYSICAL EXAMINATION: Blood pressure 146/75, pulse of 64, temperature 98.4. She is 96% on room air. General description is an elderly female lying in bed in no distress. RESPIRATORY SYSTEM: Unlabored breathing, clear to auscultation anteriorly. HEART: S1, S2. Regular rate and rhythm. ABDOMEN: Soft, no tenderness. LABS: Hemoglobin 13, white count 10.16, BUN of 2, creatinine 0.53. DIAGNOSTIC IMPRESSION AND PLAN: Patient with recurrent Clostridium difficile colitis. Patient did show clinical response to the Dificid. However, the patient is not able to afford it. She will be switched to vancomycin 250 p.o. q.6 hours for 10 days and close outpatient followup. Advised to increase the probiotic and yogurt intake. MMODL / IJN: [id number] /
--- NOTE | 2020-10-19 10:11 | CDI ---
Documentation Clarification Form Date: 10/19/2020 09:46:53 AM From: Sarbjit Heath Phone: Ninfa Aguilar: [phone] Admit Date: 10/09/2020 11:21:00 AM Patient Name: Brittanie Pierre Visit Number: [id number] Discharge Date: 10/12/2020 02:21:00 PM ATTENTION: The Clinical Documentation Specialists (CDI) and [facility] Coding Staff appreciate your assistance in clarifying documentation. Please respond to the clarification below the line at the bottom and electronically sign. The CDI & [facility] Coding staff will review the response and follow-up if needed. Please note: Queries are made part of the Legal Health Record. If you have any questions, please contact the author of this message via ITS. Dr. Mark Hope Pneumonia is documented 10/12/20 in the discharge summary which may lack sufficient clinical evidence/support in the medical record. Additional clarification is requested. There is no mention of PNA in the progress notes or H+P. History/Risk Factors: Clinical Indicators: Clwk-WA-mrket density R lung Treatment: IV rocephin Please clarify if [insert diagnosis] is a valid diagnosis? [ ] Yes, pneumonia is present as evidence by (additional clinical support): [ ] No, pneumonia is ruled out [ ] Other (please specify diagnosis) [ ] Unable to determine no pneumonia ruled out MTDD
== END 2020-10-12 14:21 | disposition home or self-care (01) | DRG 372 ==
LOC: EC 22:29 → 4SSUR 10-07 01:19 → OBSVTOIN 10-09 11:21
PROVIDERS: ADMIT Internal Medicine; ATTEND Internal Medicine
DX: A04.71 Enterocolitis due to Clostridium difficile, recurrent (principal); K81.0 Acute cholecystitis; I13.0 Hypertensive heart and chronic kidney disease with heart failure and stage 1 through stage 4 chronic kidney disease, or unspecified chronic kidney disease; N39.0 Urinary tract infection, site not specified; E87.1 Hypo-osmolality and hyponatremia; J98.11 Atelectasis; F03.90 Unspecified dementia, unspecified severity, without behavioral disturbance, psychotic disturbance, mood disturbance, and anxiety; K81.1 Chronic cholecystitis; Z20.822 Contact with and (suspected) exposure to COVID-19; Z79.82 Long term (current) use of aspirin; Z79.02 Long term (current) use of antithrombotics/antiplatelets; I25.10 Atherosclerotic heart disease of native coronary artery without angina pectoris; Z87.891 Personal history of nicotine dependence; Z80.41 Family history of malignant neoplasm of ovary; I50.9 Heart failure, unspecified; D64.9 Anemia, unspecified; G89.29 Other chronic pain; M54.9 Dorsalgia, unspecified; Z85.118 Personal history of other malignant neoplasm of bronchus and lung; Z95.5 Presence of coronary angioplasty implant and graft; E87.6 Hypokalemia; N18.9 Chronic kidney disease, unspecified; Z86.19 Personal history of other infectious and parasitic diseases
CPT/HCPCS: 36415; 71045; 74019; 76700; 80048; 80053; 81001; 82150; 83605; 83690; 83735; 84484; 85025; 87040; 87324; 87635; 96360; 99285

== ENCOUNTER 2020-11-03 22:13 | Emergency (ER) | payer MEDICARE ==
[2020-11-03 22:20] VITALS: TEMP 100.8
[2020-11-03] MEDS ORDERED: SODIUM CHLORIDE 0.9% 1,000 ML IV STA (22:30)
--- NOTE | 2020-11-03 22:31 | ED ---
Altered Mental Status HPI - General Chief Complaint: Altered Mental Status Stated Complaint: Confused Time Seen by Provider: 11/03/20 22:26 Source: patient, family, RN notes reviewed, old records reviewed, Caregiver Mode of arrival: wheelchair Limitations: altered mental status - History of Present Illness Initial Comments: This is an 80-year-old female to the ER for evaluation patient presents today for evaluation regards to altered mental status not acting appropriately possible fever possible infection. Daughter states patient has had increasing weakness for 2 days at this point patient is a poor historian history obtained from EMS as well as patient's prior charting MD Complaint: altered mental status, confusion, weakness -: days(s) Severity: moderate Consistency of Symptoms: getting worse Context: history of similar presentation, recent fever Associated Symptoms: diaphoresis, weakness - Related Data Home Medications Medication Instructions Recorded Confirmed Losartan Potassium 100 mg PO DAILY 10/17/16 11/03/20 Rivastigmine 9.5MG/24Hr Patch 1 patch TRANSDERM DAILY 05/05/19 11/03/20 [Exelon 9.5MG/24Hr Patch] Citalopram Hydrobromide [CeleXA] 10 mg PO DAILY 09/26/20 11/03/20 Memantine [Namenda] 10 mg PO BID 09/26/20 11/03/20 Probiotic 85 Billion 1 cap PO DAILY 09/26/20 11/03/20 Cholestyramine (with Sugar) 4 gm PO BID 10/07/20 11/03/20 [Cholestyramine Packet] Vancomycin HCl [Vancocin HCl] 250 mg PO Q6H 11/03/20 11/03/20 Previous Rx's Medication Instructions Recorded Aspirin 81 mg PO DAILY #30 chew 08/23/19 Atorvastatin [Lipitor] 40 mg PO HS #30 tab 08/23/19 Metoprolol Succinate (ER) [Toprol 25 mg PO DAILY #30 tab.er.24h 08/23/19 XL] Pantoprazole [Protonix] 40 mg PO AC-BRKFST tablet. 09/30/20 hydrALAZINE HCL [Apresoline] 25 mg PO BID tab 10/12/20 Allergies Allergy/AdvReac Type Severity Reaction Status Date / Time lactose AdvReac Intermediate Diarrhea Verified 11/03/20 22:20 caffeine AdvReac Diarrhea Verified 11/03/20 22:20 steriod AdvReac Unknown FLUSHED Uncoded 11/03/20 22:20 FACE Review of Systems ROS Statement: Those systems with pertinent positive or pertinent negative responses have been documented in the HPI. ROS Other: All systems not noted in ROS Statement are negative. Past Medical History Past Medical History: Coronary Artery Disease (CAD), Cancer, Dementia, Hypertension, Memory Impairment Additional Past Medical History / Comment(s): Chronic back pain, CDIFF (2018), lung cancer, History of Any Multi-Drug Resistant Organisms: C-DIFF Date of last positivie culture/infection: 03/2019 MDRO Source:: Issac Forde Past Surgical History: Appendectomy, Back Surgery, Bowel Resection, Heart Catheterization With Stent, Joint Replacement Additional Past Surgical History / Comment(s): Hemmorrhoidectomy, left knee surgery (40% of knee cap taken out), left lower lobectomy, carotid artery cleaned out, stents in neck & heart Past Anesthesia/Blood Transfusion Reactions: No Reported Reaction, Previous Problems w/ Anesthesia Additional Past Anesthesia/Blood Transfusion Reaction / Comment(s): "slow to wake up from anesthesia" per Shae Date of Last Stent Placement:: 08/2019 Past Psychological History: No Psychological Hx Reported Smoking Status: Former smoker Past Alcohol Use History: Daily Past Drug Use History: None Reported - Past Family History Mother Additional Family Medical History / Comment(s): brain aneurysm at 54 Father Family Medical History: Cancer Additional Family Medical History / Comment(s): bone cancer Sister(s) Family Medical History: Cancer Additional Family Medical History / Comment(s): ovarian cancer General Exam Limitations: altered mental status General appearance: alert, in no apparent distress Head exam: Present: atraumatic, normocephalic, normal inspection Eye exam: Present: normal appearance, PERRL, EOMI. Absent: scleral icterus, conjunctival injection, periorbital swelling ENT exam: Present: normal exam, mucous membranes moist Neck exam: Present: normal inspection. Absent: tenderness, meningismus, lymphadenopathy Respiratory exam: Present: normal lung sounds bilaterally. Absent: respiratory distress, wheezes, rales, rhonchi, stridor Cardiovascular Exam: Present: regular rate, normal rhythm, normal heart sounds. Absent: systolic murmur, diastolic murmur, rubs, gallop, clicks GI/Abdominal exam: Present: soft, normal bowel sounds. Absent: distended, tenderness, guarding, rebound, rigid Extremities exam: Present: normal inspection, full ROM, normal capillary refill. Absent: tenderness, pedal edema, joint swelling, calf tenderness Back exam: Present: normal inspection Neurological exam: Present: alert, oriented X3, CN II-XII intact Psychiatric exam: Present: normal affect, normal mood Skin exam: Present: warm, dry, intact, normal color. Absent: rash Course Vital Signs 11/03/20 11/04/20 22:15 00:31 Temperature 100.8 F H Pulse Rate 80 55 L Respiratory 20 18 Rate Blood Pressure 146/75 139/73 O2 Sat by Pulse 94 L 94 L Oximetry - Reevaluation(s) Reevaluation #1: 11/03/20 23:57 Medical record is reviewed Reevaluation #2: 11/04/20 01:55 Spoke with family at length, informed results and questions answered Reevaluation #3: 11/04/20 01:55 patient remains in NAD Medical Decision Making - Medical Decision Making 80 female DF for evaluation patient with fever and altered mental status will admit for fever of unknown origin. Patient be admitted for continued monitoring of symptoms - Lab Data Result diagrams: 11/03/20 23:10 11/03/20 23:10 Lab Results 11/03/20 11/03/20 11/03/20 Range/Units 23:10 23:10 23:10 WBC 7.9 (3.8-10.6) k/uL RBC 3.62 L (3.80-5.40) m/uL Hgb 11.6 (11.4-16.0) gm/dL Hct 32.6 L (34.0-46.0) % MCV 90.1 (80.0-100.0) fL MCH 31.9 (25.0-35.0) pg MCHC 35.4 (31.0-37.0) g/dL RDW 12.4 (11.5-15.5) % Plt Count 188 (150-450) k/uL MPV 9.5 Neutrophils % 63 % Lymphocytes % 21 % Monocytes % 8 % Eosinophils % 7 % Basophils % 1 % Neutrophils # 5.0 (1.3-7.7) k/uL Lymphocytes # 1.7 (1.0-4.8) k/uL Monocytes # 0.6 (0-1.0) k/uL Eosinophils # 0.6 (0-0.7) k/uL Basophils # 0.0 (0-0.2) k/uL PT 11.0 (9.0-12.0) sec INR 1.0 (<1.2) APTT 22.5 (22.0-30.0) sec D-Dimer 7.31 H (<0.60) mg/L FEU Sodium (137-145) mmol/L Potassium (3.5-5.1) mmol/L Chloride (98-107) mmol/L Carbon Dioxide (22-30) mmol/L Anion Gap mmol/L BUN (7-17) mg/dL Creatinine (0.52-1.04) mg/dL Est GFR (CKD-EPI)AfAm (>60 ml/min/1.73 sqM) Est GFR (CKD-EPI)NonAf (>60 ml/min/1.73 sqM) Glucose (74-99) mg/dL Plasma Lactic Acid Hai (0.7-2.0) mmol/L Calcium (8.4-10.2) mg/dL Phosphorus (2.5-4.5) mg/dL Magnesium (1.6-2.3) mg/dL Total Bilirubin (0.2-1.3) mg/dL AST (14-36) U/L ALT (4-34) U/L Alkaline Phosphatase (38-126) U/L Lactate Dehydrogenase (313-618) U/L Creatine Kinase (30-135) U/L Troponin I (0.000-0.034) ng/mL C-Reactive Protein (<1.0) mg/dL NT-Pro-B Natriuret Pep pg/mL Total Protein (6.3-8.2) g/dL Albumin (3.5-5.0) g/dL Lipase (23-300) U/L TSH (0.465-4.680) mIU/L Urine Color Yellow Urine Appearance Clear (Clear) Urine pH 6.0 (5.0-8.0) Ur Specific Holly 1.016 (1.001-1.035) Urine Protein Negative (Negative) Urine Glucose (UA) Negative (Negative) Urine Ketones Negative (Negative) Urine Blood Negative (Negative) Urine Nitrite Negative (Negative) Urine Bilirubin Negative (Negative) Urine Urobilinogen <2.0 (<2.0) mg/dL Ur Leukocyte Esterase Negative (Negative) 11/03/20 11/03/20 11/03/20 Range/Units 23:10 23:10 23:10 WBC (3.8-10.6) k/uL RBC (3.80-5.40) m/uL Hgb (11.4-16.0) gm/dL Hct (34.0-46.0) % MCV (80.0-100.0) fL MCH (25.0-35.0) pg MCHC (31.0-37.0) g/dL RDW (11.5-15.5) % Plt Count (150-450) k/uL MPV Neutrophils % % Lymphocytes % % Monocytes % % Eosinophils % % Basophils % % Neutrophils # (1.3-7.7) k/uL Lymphocytes # (1.0-4.8) k/uL Monocytes # (0-1.0) k/uL Eosinophils # (0-0.7) k/uL Basophils # (0-0.2) k/uL PT (9.0-12.0) sec INR (<1.2) APTT (22.0-30.0) sec D-Dimer (<0.60) mg/L FEU Sodium 128 L (137-145) mmol/L Potassium 4.6 (3.5-5.1) mmol/L Chloride 97 L (98-107) mmol/L Carbon Dioxide 22 (22-30) mmol/L Anion Gap 9 mmol/L BUN 13 (7-17) mg/dL Creatinine 0.50 L (0.52-1.04) mg/dL Est GFR (CKD-EPI)AfAm >90 (>60 ml/min/1.73 sqM) Est GFR (CKD-EPI)NonAf >90 (>60 ml/min/1.73 sqM) Glucose 93 (74-99) mg/dL Plasma Lactic Acid Hai 0.7 (0.7-2.0) mmol/L Calcium 9.7 (8.4-10.2) mg/dL Phosphorus 2.9 (2.5-4.5) mg/dL Magnesium 1.5 L (1.6-2.3) mg/dL Total Bilirubin 0.5 (0.2-1.3) mg/dL AST 63 H (14-36) U/L ALT 79 H (4-34) U/L Alkaline Phosphatase 543 H (38-126) U/L Lactate Dehydrogenase (313-618) U/L Creatine Kinase <20 L (30-135) U/L Troponin I 0.022 (0.000-0.034) ng/mL C-Reactive Protein (<1.0) mg/dL NT-Pro-B Natriuret Pep pg/mL Total Protein 6.3 (6.3-8.2) g/dL Albumin 3.5 (3.5-5.0) g/dL Lipase (23-300) U/L TSH 0.805 (0.465-4.680) mIU/L Urine Color Urine Appearance (Clear) Urine pH (5.0-8.0) Ur Specific Holly (1.001-1.035) Urine Protein (Negative) Urine Glucose (UA) (Negative) Urine Ketones (Negative) Urine Blood (Negative) Urine Nitrite (Negative) Urine Bilirubin (Negative) Urine Urobilinogen (<2.0) mg/dL Ur Leukocyte Esterase (Negative) 11/03/20 11/03/20 11/03/20 Range/Units 23:10 23:10 23:10 WBC (3.8-10.6) k/uL RBC (3.80-5.40) m/uL Hgb (11.4-16.0) gm/dL Hct (34.0-46.0) % MCV (80.0-100.0) fL MCH (25.0-35.0) pg MCHC (31.0-37.0) g/dL RDW (11.5-15.5) % Plt Count (150-450) k/uL MPV Neutrophils % % Lymphocytes % % Monocytes % % Eosinophils % % Basophils % % Neutrophils # (1.3-7.7) k/uL Lymphocytes # (1.0-4.8) k/uL Monocytes # (0-1.0) k/uL Eosinophils # (0-0.7) k/uL Basophils # (0-0.2) k/uL PT (9.0-12.0) sec INR (<1.2) APTT (22.0-30.0) sec D-Dimer (<0.60) mg/L FEU Sodium (137-145) mmol/L Potassium (3.5-5.1) mmol/L Chloride (98-107) mmol/L Carbon Dioxide (22-30) mmol/L Anion Gap mmol/L BUN (7-17) mg/dL Creatinine (0.52-1.04) mg/dL Est GFR (CKD-EPI)AfAm (>60 ml/min/1.73 sqM) Est GFR (CKD-EPI)NonAf (>60 ml/min/1.73 sqM) Glucose (74-99) mg/dL Plasma Lactic Acid Hai (0.7-2.0) mmol/L Calcium (8.4-10.2) mg/dL Phosphorus (2.5-4.5) mg/dL Magnesium (1.6-2.3) mg/dL Total Bilirubin (0.2-1.3) mg/dL AST (14-36) U/L ALT (4-34) U/L Alkaline Phosphatase (38-126) U/L Lactate Dehydrogenase 534 (313-618) U/L Creatine Kinase (30-135) U/L Troponin I (0.000-0.034) ng/mL C-Reactive Protein 2.4 H (<1.0) mg/dL NT-Pro-B Natriuret Pep 1240 pg/mL Total Protein (6.3-8.2) g/dL Albumin (3.5-5.0) g/dL Lipase 105 (23-300) U/L TSH (0.465-4.680) mIU/L Urine Color Urine Appearance (Clear) Urine pH (5.0-8.0) Ur Specific Holly (1.001-1.035) Urine Protein (Negative) Urine Glucose (UA) (Negative) Urine Ketones (Negative) Urine Blood (Negative) Urine Nitrite (Negative) Urine Bilirubin (Negative) Urine Urobilinogen (<2.0) mg/dL Ur Leukocyte Esterase (Negative) - EKG Data -: EKG Interpreted by Me (EKG is sinus rhythm 66 CO 162 QRS 72 QTC 425) - Radiology Data Radiology results: report reviewed (CT brain ultrasound gallbladder CT chest chest x-ray negative for acute disease), image reviewed Disposition Clinical Impression: Weakness, Fever Disposition: ADMITTED IP TO THIS HOSP Condition: Fair Is patient prescribed a controlled substance at d/c from ED?: No Referrals: Mark Hope MD [Primary Care Provider] - 1-2 days
[2020-11-03 23:33] LABS: ALT 79 U/L (4-34); AST 63 U/L (14-36); African American GFR (CKD) >90 (>60 ml/min/1.73 sqM); Albumin 3.5 g/dL (3.5-5.0); Alkaline Phosphatase 543 U/L (38-126); Anion Gap 9 mmol/L; Blood Urea Nitrogen 13 mg/dL (7-17); Calcium 9.7 mg/dL (8.4-10.2); Carbon Dioxide 22 mmol/L (22-30); Chloride 97 mmol/L (98-107); Creatine Kinase <20 U/L (30-135); Glucose 93 mg/dL (74-99); Magnesium 1.5 mg/dL (1.6-2.3); Non-African American GFR(CKD) >90 (>60 ml/min/1.73 sqM); Phosphorus 2.9 mg/dL (2.5-4.5); Potassium 4.6 mmol/L (3.5-5.1); Sodium 128 mmol/L (137-145); Total Bilirubin 0.5 mg/dL (0.2-1.3); Total Protein 6.3 g/dL (6.3-8.2)
[2020-11-03 23:34] LABS: Basophils % (A) 1 %; Eosinophils # (A) 0.6 k/uL (0-0.7); Eosinophils % (A) 7 %; HCT 32.6 % (34.0-46.0); HGB 11.6 gm/dL (11.4-16.0); Lymphocytes # (A) 1.7 k/uL (1.0-4.8); Lymphocytes % (A) 21 %; MCH 31.9 pg (25.0-35.0); MCHC 35.4 g/dL (31.0-37.0); MCV 90.1 fL (80.0-100.0); Mean Platelet Volume 9.5; Monocytes # (A) 0.6 k/uL (0-1.0); Monocytes % (A) 8 %; Neutrophils % (A) 63 %; Platelet Count 188 k/uL (150-450); RBC 3.62 m/uL (3.80-5.40); RDW 12.4 % (11.5-15.5); WBC 7.9 k/uL (3.8-10.6)
[2020-11-04 00:06] LABS: Partial Thromboplastin Time 22.5 sec (22.0-30.0)
--- NOTE | 2020-11-04 00:10 | XR ---
EXAMINATION TYPE: XR chest 1V DATE OF EXAM: 11/03/2020 COMPARISON: 10/07/2020 HISTORY: Weakness TECHNIQUE: Single view FINDINGS: There are some mild interstitial infiltrates in the lower lung zhou. Heart size is normal . There is no heart failure. Bony thorax is intact. IMPRESSION: Pulmonary fibrosis. No heart failure. Normal heart size. No adverse change compared to ol d exam. There is clearing of small infiltrate lateral right lung base compared to old exam.
--- NOTE | 2020-11-04 00:12 | CT ---
EXAMINATION TYPE: CT brain wo con DATE OF EXAM: 11/03/2020 COMPARISON: 09/27/2020 HISTORY: Altered mental status. Weakness. CT DLP: mGycm Automated exposure control for dose reduction was used. There is some cerebral cortical atrophy. There is no mass effect nor midline shift. There is no sign of intracranial hemorrhage. There is hypodensity in the periventricular white matter. There is normal aeration of the mastoid sinuses. Calvarium is intact. IMPRESSION: Cerebral atrophy and extensive chronic small vessel ischemia. No acute intracranial abnormality. No c hange compared to recent exam.
[2020-11-04 00:19] LABS: Appearance,Urine Clear (Clear); Bilirubin,Urine Negative (Negative); Blood,Urine Negative (Negative); Color,Urine Yellow; Glucose,Urine (UA) Negative (Negative); Ketones,Urine Negative (Negative); Leukocyte Esterase,Urine Negative (Negative); Nitrite,Urine Negative (Negative); Protein,Urine Negative (Negative); Specific Gravity,Urine 1.016 (1.001-1.035); Urobilinogen,Urine <2.0 mg/dL (<2.0)
[2020-11-04 00:25] LABS: C Reactive Protein 2.4 mg/dL (<1.0)
[2020-11-04 00:28] LABS: D-Dimer 7.31 mg/L FEU (<0.60)
--- NOTE | 2020-11-04 01:16 | US ---
EXAM: US Abdomen Limited, Gallbladder CLINICAL HISTORY: ITS.REASON US Reason: ams TECHNIQUE: Real-time ultrasound of the right upper quadrant with image documentation. COMPARISON: No relevant prior studies available. FINDINGS: Gallbladder: Unremarkable. No gallstones. Common bile duct: Unremarkable as visualized. No stones. No dilation. Common bile duct measures 2 mm in diameter. Pancreas: Unremarkable as visualized. Liver: Normal in echogenicity with no surface nodularity. Right hepatic lobe measures 13.2 cm in craniocaudal dimension. Right kidney: Measures 8.8 cm in length. No hydronephrosis or shadowing stones. IMPRESSION: Normal right upper quadrant ultrasound.
--- NOTE | 2020-11-04 01:48 | CT ---
EXAM: CT Angiography Chest With Intravenous Contrast CLINICAL HISTORY: ITS.REASON CT Reason: dvt TECHNIQUE: Axial computed tomographic angiography images of the chest with intravenous contrast. CTDI is 11.77 mGy and DLP is 195.2 mGy-cm. This CT exam was performed using one or more of the following dose reduction techniques: automated exposure control, adjustment of the mA and/or kV according to patient size, and/or use of iterative reconstruction technique. MIP reconstructed images were created and reviewed. COMPARISON: No relevant prior studies available. FINDINGS: Pulmonary arteries: Unremarkable. No pulmonary embolism. Aorta: No acute findings. No thoracic aortic aneurysm. Lungs: Mild paraseptal emphysema. Bibasilar atelectasis. Postsurgical changes from left upper lobe wedge resection. No mass. No consolidation. Pleural space: Unremarkable. No significant effusion. No pneumothorax. Heart: Moderate three-vessel coronary artery calcifications. No cardiomegaly. No significant pericardial effusion. No evidence of RV dysfunction. Bones/joints: No acute fracture. No dislocation. Soft tissues: Unremarkable. Lymph nodes: Unremarkable. No enlarged lymph nodes. IMPRESSION: 1. No acute pulmonary embolism. 2. No acute intrathoracic process. Bibasilar atelectasis.
[2020-11-04] MEDS ORDERED: IBUPROFEN 400 MG TAB PO PRN (01:56)
[2020-11-04] MEDS ORDERED: NALOXONE 0.4 MG/ML 1 ML VIAL IV PRN (01:56)
[2020-11-04] MEDS ORDERED: MORPHINE SULFATE 4 MG/ML SYRINGE IV PRN (01:56)
[2020-11-04] MEDS ORDERED: ACETAMINOPHEN TAB 325 MG TAB PO PRN (01:56)
[2020-11-04] MEDS ORDERED: ONDANSETRON 4 MG/2 ML VIAL IVP PRN (01:56)
[2020-11-04 02:47] VITALS: BP 127/60; PULSE 62; RESP 16
== END 2020-11-04 02:46 | disposition other institution (70) ==
LOC: EC 22:13
DX: R53.1 Weakness (principal); R50.9 Fever, unspecified; R41.82 Altered mental status, unspecified; I25.10 Atherosclerotic heart disease of native coronary artery without angina pectoris; I10 Essential (primary) hypertension; F03.90 Unspecified dementia, unspecified severity, without behavioral disturbance, psychotic disturbance, mood disturbance, and anxiety; Z79.899 Other long term (current) drug therapy; Z88.5 Allergy status to narcotic agent; Z88.8 Allergy status to other drugs, medicaments and biological substances; Z95.5 Presence of coronary angioplasty implant and graft; Z87.891 Personal history of nicotine dependence; Z85.118 Personal history of other malignant neoplasm of bronchus and lung
CPT/HCPCS: 36415; 93005; 85379; 83880; 80053; 82550; 83605; 83615; 83690; 83735; 84100; 84443; 84484; 85025; 85610; 85730; 86140; 81003; 71045; 76705; 70450; 71275; 99285; 96360; Q9967

== ENCOUNTER → 2020-11-09 | Outpatient (CLI) | payer MEDICARE ==
--- NOTE | 2020-11-09 13:48 | CT ---
EXAMINATION TYPE: CT brain wo con DATE OF EXAM: 11/09/2020 COMPARISON: 11/03/2020 HISTORY: right posterior parietal cva, compare to prior dated 11-03-2020 CT DLP: 1097 mGycm Automated exposure control for dose reduction was used. FINDINGS: Generalized degenerative change seen with diffuse low-attenuation in the white matter most typical re mote white matter ischemia. Craniocervical junction maintained. Sella turcica has a normal appearance. Calvarium intact. No acute hemorrhage or mass effect. Orbits are symmetric. Sinuses clear. IMPRESSION: DEGENERATIVE AND NONSPECIFIC WHITE MATTER CHANGE MOST TYPICAL OF REMOTE ISCHEMIA.
== END | disposition home or self-care (01) ==
LOC: RADCTMAIN 12:59
PROVIDERS: ATTEND Psychiatry & Neurology Neurology
DX: R90.82 White matter disease, unspecified (principal)
CPT/HCPCS: 70450

== ENCOUNTER → 2020-11-15 | Outpatient (CLI) | payer MEDICARE ==
[2020-11-15 14:58] LABS: HCT 35.5 % (37.2-46.3); HGB 11.2 g/dL (12.0-15.0); MCH 30.1 pg (27.0-32.0); MCHC 31.5 g/dL (32.0-37.0); MCV 95.4 fL (80.0-97.0); Mean Platelet Volume 11.6 fL (9.5-12.2); Platelet Count 260 X 10*3/uL (140-440); RBC 3.72 X 10*6/uL (4.10-5.20); RDW 13.2 % (11.5-14.5); WBC 7.64 X 10*3/uL (4.50-10.00)
[2020-11-16 00:30] LABS: ALT 20 U/L (8-44); AST 23 U/L (13-35)
== END | disposition home or self-care (01) ==
LOC: LABWHC1 08:56
PROVIDERS: ATTEND Internal Medicine
DX: I10 Essential (primary) hypertension (principal); R94.5 Abnormal results of liver function studies
CPT/HCPCS: 36415; 84450; 84460; 85027

== ENCOUNTER → 2020-11-29 | Outpatient (CLI) | payer MEDICARE ==
--- NOTE | 2020-11-29 11:18 | NM ---
EXAMINATION TYPE: NM hepatobiliary w EF DATE OF EXAM: 11/29/2020 COMPARISON: Ultrasound gallbladder 11/04/2020 HISTORY: Epigastric pain TECHNIQUE: After the intravenous administration of 5.0 mCi Tc 99m Mebrofenin hepatobiliary scintigrap hy is performed. Immediate images post injection. FINDINGS: There is satisfactory initial accumulation of tracer by the liver. The gallbladder is visualized on delayed imaging. The small bowel activity is noted on delayed images. At one hour 8 ounces of oral ensure plus is given to mimic CCK and gallbladder ejection fraction is calculated at 95 %, above the upper limit of the normal range. Therefore there is no scintigraphic evidence of cystic or common bi le duct obstruction to suggest acute cholecystitis or gallbladder dyskinesia. IMPRESSION: Findings may be indicative of chronic cholecystitis, however, there is an elevated gallbl adder ejection fraction, delayed visualization of the small bowel
== END | disposition home or self-care (01) ==
LOC: RADNMMAIN 07:01
PROVIDERS: ATTEND Surgery
DX: R10.13 Epigastric pain (principal)
CPT/HCPCS: 78226; A9537

== ENCOUNTER → 2020-12-06 | Outpatient (CLI) | payer MEDICARE ==
--- NOTE | 2020-12-06 13:19 | FL ---
EXAMINATION TYPE: FL barium swallow w video DATE OF EXAM: 12/06/2020 CLINICAL HISTORY: 80-year-old female R13.10, dysphagia. Patient with history of lung cancer. Trouble swallowing. TECHNIQUE: Deglutition study is performed utilizing thin liquid barium, barium thick pudding, choppe d solid, and barium coated cracker. COMPARISON: None. Total fluoroscopy time: 1 minute 45 seconds. Total images: None. Real-time fluoroscopy support was provided to speech pathology. FINDINGS: The oral and pharyngeal phases show satisfactory initiation and propagation with all modalities teste d. Normal mastication is seen with solid modalities tested. There is no evidence of penetration or aspiration with any modality tested. No significant pharyngeal residue was appreciated. IMPRESSION: No evidence for penetration or aspiration. No significant residuals. Please refer to speech therapis t notes for further details if necessary.
== END | disposition home or self-care (01) ==
LOC: RADFLMAIN 11:30
PROVIDERS: ATTEND Nurse Practitioner Family
DX: R13.10 Dysphagia, unspecified (principal); Z85.118 Personal history of other malignant neoplasm of bronchus and lung
CPT/HCPCS: 74230

== ENCOUNTER → 2021-03-27 | Outpatient (CLI) | payer MEDICARE ==
--- NOTE | 2021-03-27 12:49 | XR ---
EXAMINATION TYPE: XR Hip Complete RT DATE OF EXAM: 03/27/2021 COMPARISON: NONE HISTORY: Right hip pain TECHNIQUE: 2 views submitted FINDINGS: There is no evidence of erosive change or acute fracture. Moderate to severe narrowing of the hip jeison nt space. Hypertrophic spurring of the acetabulum. Vascular calcifications in pelvis. Arthropathy of the SI joints. IMPRESSION: 1. Moderate to severe right hip arthropathy.
--- NOTE | 2021-03-27 12:50 | XR ---
EXAM TYPE: LUMBAR SPINE X RAY SERIES COMPARISON: NONE HISTORY: Pain TECHNIQUE: 4 views are submitted. FINDINGS: Alignment is anatomic. The pedicles are intact. The transverse processes are intact. There is grad e 1 anterolisthesis L3 on L4 with multilevel moderate to severe degenerative disc disease with marked at L4-5 and L5-S1. Multilevel facet arthropathy. Diffuse osteopenia and foraminal encroachment. Arth ropathy of the SI joints. IMPRESSION: 1. Multilevel degenerative disease severe changes L4-5 and L5-S1. Suspect bilateral foraminal encroac hment. 2. Grade 1 anterolisthesis L3 on L4. 3. Diffuse osteopenia.
--- NOTE | 2021-03-27 13:36 | XR ---
EXAMINATION TYPE: XR abdomen 1V DATE OF EXAM: 03/27/2021 COMPARISON: NONE HISTORY: Pain TECHNIQUE: One view abdominal series FINDINGS: The osseous structures are intact. The bowel gas pattern is nonspecific. Degenerative change of the spine. Vascular calcifications noted. Severe arthropathy of the hips. Vascular calcifications noted. Arthropathy of the SI joints. IMPRESSION: 1. Nonspecific abdomen. Retained bowel content correlate for constipation.
== END | disposition home or self-care (01) ==
LOC: RADXRMAIN 12:05
PROVIDERS: ATTEND Internal Medicine
DX: M43.16 Spondylolisthesis, lumbar region (principal); M47.817 Spondylosis without myelopathy or radiculopathy, lumbosacral region; M85.88 Other specified disorders of bone density and structure, other site; M16.11 Unilateral primary osteoarthritis, right hip
CPT/HCPCS: 72110; 73502; 74018